=== PATIENT | female | born 1940 | race Caucasian/White ===

== ENCOUNTER 2020-10-11 11:04 | Outpatient (REF) | payer MEDICARE, SELFPAY ==
--- NOTE | 2020-10-11 | XR_ITS ---
EXAMINATION: XR CHEST CLINICAL INFORMATION: Preop COMPARISON: Previous chest x-ray most recent December 2019 TECHNIQUE: 2 views of the chest were obtained. FINDINGS: The cardiac silhouette is enlarged but stable. There is mitral annular calcification. Hilar and mediastinal contours are unremarkable. The lungs are clear. There is no pleural effusion. There are degenerative changes of the spine. There are degenerative changes at the shoulder joints. There is a surgical anchor projecting over the right humeral head. XR/XR chest 2V IMPRESSION: Enlarged cardiac silhouette similar to previous exams. No evidence for acute disease in the chest.
[2020-10-11 13:59] LABS: MANUAL DIFF FLAG NO
[2020-10-11 14:04] LABS: Basophils Percent Auto 0.2 % (0-2); Eosinophils Absolute Auto 0.3 X10*3/uL (0.0-0.4); Eosinophils Percent Auto 2.5 % (0-4); Hematocrit 35.6 % (37-47); Hemoglobin 10.8 g/dl (12.0-16.0); Imm Gran Abs Auto 0.03 X10*3/uL (0.00-0.03); Imm Gran Pct Auto 0.3 % (0.0-0.4); Lymphocytes Absolute Auto 1.9 X10*3/uL (1.2-4.9); Lymphocytes Percent Auto 18.4 % (20-40); Mean Corpuscular HGB Conc 30.3 g/dl (31.0-35.0); Mean Corpuscular Hemoglobin 31.1 pg (27.0-33.0); Mean Corpuscular Volume 102.6 fL (80-98); Mean Platelet Volume 11.6 fL (9.4-12.3); Monocytes Absolute Auto 0.5 X10*3/uL (0.1-1.2); Monocytes Percent Auto 4.5 % (2-11); Neutrophils Absolute Auto 7.5 X10*3/uL (2.0-8.3); Neutrophils Percent Auto 74.1 % (45-73); Platelet Count 201 X10*3/uL (160-400); Red Blood Count 3.47 X10*6/uL (4.20-5.50); Red Cell Distribution Width 15.6 % (11.0-16.0); White Blood Count 10.1 X10*3/uL (4.8-10.8)
[2020-10-11 14:10] LABS: Prothrombin Time 12.2 SEC (10.8-13.0)
[2020-10-11 14:20] LABS: Anion Gap 13 (12-20); Blood Urea Nitrogen 22 mg/dL (9-16); Calcium 9.4 mg/dL (8.4-10.2); Carbon Dioxide 29 mmol/L (22-29); Chloride 107 mmol/L (96-108); Estimated Glomerular Filt Rate 54; Glucose Random 81 mg/dL (60-115); Potassium 4.7 mmol/l (3.3-5.1); Sodium 144 mmol/L (135-145)
== END 2020-10-11 11:05 | disposition home or self-care (01) ==
LOC: HO.HMGCX 11:04
PROVIDERS: PCP Internal Medicine; Visit Provider Internal Medicine Clinical Cardiac Electrophysiology
DX: I48.19 Other persistent atrial fibrillation (principal); R55 Syncope and collapse
CPT/HCPCS: 36415; 71046; 80048; 85025; 85610

== ENCOUNTER 2020-12-06 12:54 | Outpatient (REF) | payer MEDICARE, SELFPAY ==
--- NOTE | 2020-12-06 13:05 | XR_ITS ---
EXAMINATION: XR THORACIC SPINE CLINICAL INFORMATION: Shooting pain left lateral T5-T6 disc level COMPARISON: None TECHNIQUE: 3 views of the thoracic spine were obtained. FINDINGS: There is normal thoracic kyphosis. The vertebral heights, alignment and disc heights are normal. There is moderate ventral spondylosis dorsal spine. No lytic process seen. A precordial recorder is seen along the left anterior chest wall. XR/XR thoracic spine 3V IMPRESSION: Moderate spondylosis dorsal spine. No acute cardiopulmonary process seen.
== END 2020-12-06 12:55 | disposition home or self-care (01) ==
LOC: HO.XRAY 12:54
PROVIDERS: PCP Internal Medicine; Visit Provider Internal Medicine
DX: M54.6 Pain in thoracic spine (principal)
CPT/HCPCS: 72072

== ENCOUNTER 2020-12-17 13:59 | Outpatient (REF) | payer MEDICARE, SELFPAY ==
[2020-12-17 17:08] LABS: Magnesium 2.1 mg/dL (1.6-2.6)
[2020-12-17 17:43] LABS: Carbamazepine Tegretol 3.2 mcg/mL (5.0-12.0)
== END 2020-12-17 14:00 | disposition home or self-care (01) ==
LOC: HO.HMGCLDS 13:59
PROVIDERS: PCP Internal Medicine; Visit Provider Internal Medicine
DX: M79.2 Neuralgia and neuritis, unspecified (principal); R53.83 Other fatigue
CPT/HCPCS: 36415; 80156; 83735

== ENCOUNTER 2021-02-02 08:22 | Outpatient (REF) | payer MEDICARE, SELFPAY ==
--- NOTE | ~2021-02-02 | CT_ITS ---
EXAMINATION: CT HEAD WITHOUT CONTRAST CLINICAL INFORMATION: Fell and bumped head. Rule out subdural. COMPARISON: None TECHNIQUE: Contiguous axial imaging was performed from the skull base to vertex without intravenous administration of contrast. This CT examination was performed using dose optimization techniques as appropriate, variously including the following: *Automated exposure control *Adjustment of mA and/or kV according to patient size (this includes techniques or standardized protocols for targeted exams where dose is matched to indication/reason for exam; i.e. extremities or head) *Use of iterative reconstruction technique DLP: 673 mGy-cm FINDINGS: There is no evidence of acute intracranial hemorrhage or territorial infarction. No abnormal mass effect or midline shift is seen. Morris to white matter differentiation is well preserved. No extra-axial fluid collections are identified. The lateral ventricles are symmetrical in size and configuration with mild enlargement. There is benign hyperostosis frontalis interna. The osseous structures and soft tissues are normal. The mastoid air cells and visualized portions of the paranasal sinuses are well aerated. CT/CT head/brain wo con IMPRESSION: No acute intracranial process seen.
== END 2021-02-02 08:23 | disposition home or self-care (01) ==
LOC: HO.CT 08:22
PROVIDERS: PCP Internal Medicine; Visit Provider Internal Medicine
DX: R41.0 Disorientation, unspecified (principal)
CPT/HCPCS: 70450

== ENCOUNTER 2021-02-05 14:54 | Emergency (ER) | payer MEDICARE, SELFPAY ==
[2021-02-05] VITALS (8 sets, daily range): BP systolic 143–157; BP diastolic 44–68; PULSE 54–69; RESP 13–16; TEMP 36.8; O2SAT 99; BMI 43.4
--- NOTE | 2021-02-05 | ECG_ITS ---
Test Reason : SYNCOPY Blood Pressure : / mmHG Vent. Rate : 049 BPM Atrial Rate : 258 BPM P-R Int : 000 ms QRS Dur : 154 ms QT Int : 476 ms P-R-T Axes : 000 -20 -12 degrees QTc Int : 429 ms Atrial fibrillation with slow ventricular response Right bundle branch block Abnormal ECG When compared with ECG of 11-APR-2018 08:53, Atrial fibrillation has replaced Sinus rhythm Vent. rate has decreased BY 32 BPM Referred By: Generic ED Physician Electronically Signed By:YULY ALMAGUER MD
--- NOTE | 2021-02-05 16:15 | ED_ITS ---
HPI - Dizziness General Chief Complaint: Dizziness Stated Complaint: dizzy Time Seen by Provider: 02/05/21 16:15 Source: patient Mode of arrival: ambulatory Limitations: no limitations History of Present Illness HPI Narrative: patient Feeling dizzy lightheaded for last 3 weeks which is getting worse especially when she stands up and moves her head to L side denies any spinning movement. Also she was nauseated in the morning today. No headache no balance problems no focal weakness no shortness of breath no chest pain no palpitation never had similar episode in the past patient has history of atrial fibrillation on loop recorder for last 3 months planning to get pacemaker on arrival patient heart rate was 49 beats per minute AFib MD elicited complaint: dizziness and lightheadedness Related Data Home Medications Medication Instructions Recorded Confirmed albuterol sulfate INHALATION 02/05/21 amlodipine 1 tab PO DAILY 02/05/21 02/05/21 atorvastatin 1 tab PO DAILY 02/05/21 02/05/21 carbamazepine 1 tab PO BID 02/05/21 02/05/21 citalopram 1 tab PO DAILY 02/05/21 02/05/21 cyanocobalamin (vitamin B-12) 1 ml IM QMONTH 02/05/21 02/05/21 furosemide 1 tab PO DAILY 02/05/21 02/05/21 isosorbide mononitrate 1 tab PO QAM 02/05/21 02/05/21 lorazepam 1 tab PO TID PRN 02/05/21 02/05/21 losartan 1 tab PO DAILY 02/05/21 02/05/21 meloxicam 1 tab PO DAILY 02/05/21 02/05/21 [id number] OTIC (EARS) 02/05/21 tramadol 1 tab PO TID 02/05/21 02/05/21 warfarin 1 tab PO DAILY 02/05/21 02/05/21 Previous Rx's Medication Instructions Recorded meclizine 12.5 mg PO TID PRN #14 tab 02/05/21 Allergies Allergy/AdvReac Type Severity Reaction Status Date / Time Sulfa (Sulfonamide Allergy Unknown RASH - Unverified 08/05/20 14:50 Antibiotics) ITCHY [SULFA(SULFONAMIDE ANTIBIOTICS)] sulfur Allergy Unknown Verified 12/02/14 00:00 trimethoprim [TRIMETHOPRIM] Allergy Unknown RASH ITCH Unverified 08/05/20 14:50 Review of Systems Review of Systems: Constitutional : No Weight loss, No Fever, No Chills ENT/Mouth : No sore throat, No Rhinorrhea Eyes: No Eye Pain, No Swelling Cardiovascular : No Chest Pain, no palpitations Respiratory : No Cough, No Sputum, no shortness of breath 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 : no Nausea, No Vomiting, No Diarrhea, No abdominal Pain, no black stools Genitourinary : No Dysuria, No Urinary Frequency Musculoskeletal : No joint pain, No Myalgias, No Joint Swelling Skin : No Skin Lesions, No rash Neuro : No Weakness, No Numbness, No Headache Psych : No Anxiety/Panic, No Depression Heme/Lymph: No Bruising, No Lymphadenopathy Endocrine : No Polyuria, No Polydipsia All other systems reviewed and are negative [facility] Past Medical History Medical History Anxiety CHF (congestive heart failure) COPD (chronic obstructive pulmonary disease) Depression GERD (gastroesophageal reflux disease) High cholesterol HTN (hypertension) Social History Social History Smoked in Last 30 Days: No Use of substances other than those prescribed or required for medical reasons: No Advance Directives: No Advance Directives Information Provided: No Physical Exam Vital Signs: Vital Signs: Last Vital Signs Temp 98.3 F 02/05/21 15:17 Pulse 67 02/05/21 18:35 Resp 16 02/05/21 17:38 BP 143/68 H 02/05/21 18:35 Pulse Ox 99 02/05/21 17:38 Body Mass Index 43.4 Appearance: Alert. Oriented X3. No acute distress. Eyes: Pupils equal, round and reactive to light. ENT: Pharynx normal. No nystagmus Neck: Normal inspection. Neck supple. CVS: Normal heart rate and rhythm. Pulses normal. Respiratory: No respiratory distress. Breath sounds normal. Abdomen: Soft and nontender. Bowel sounds are present, no mass palpable, no CVA tenderness Skin: Skin warm and dry. Normal skin color. Normal skin turgor. Extremities: No lower extremity edema. Neuro: Oriented X 3. No motor deficit. No sensory deficit. No cerebellar signs Course Course Course Narrative: Patient feeling much better now able to ambulate with cane without any significant dizziness patient had a CT scan done to days ago which was negative patient denies any headache MDM - Dizziness MDM Narrative Medical decision making narrative: Patient with Clinically benign positional vertigo patient had a CT scan done on 02/02 which was negative no signs of central lesions no cerebellar signs no orthostatic hypertension. Patient had asymptomatic bradycardia without drop in blood pressure. Will give her a trial of meclizine and evaluate again Differential Diagnosis Differential diagnosis: Likely benign paroxysmal positional vertigo Medical Records Attestation: I reviewed the patient's medical records. Lab Data Attestation: I reviewed the patient's lab results. Result diagrams: 02/05/21 17:04 02/05/21 17:04 Labs: Lab Results 02/05/21 02/05/21 02/05/21 Range/Units 17:04 17:04 17:04 WBC 7.1 (4.8-10.8) X10*3/uL RBC 3.54 L (4.20-5.50) X10*6/uL Hgb 11.2 L (12.0-16.0) g/dl Hct 35.6 L (37-47) % MCV 100.6 H (80-98) fL MCH 31.6 (27.0-33.0) pg MCHC 31.5 (31.0-35.0) g/dl RDW 15.7 (11.0-16.0) % Plt Count 165 (160-400) X10*3/uL MPV 10.4 (9.4-12.3) fL Immature Gran % (Auto) 0.3 (0.0-0.4) % Neut % (Auto) 74.6 H (45-73) % Lymph % (Auto) 18.8 L (20-40) % Mcdonald % (Auto) 4.8 (2-11) % Eos % (Auto) 1.4 (0-4) % Baso % (Auto) 0.1 (0-2) % Lymph # (Auto) 1.3 (1.2-4.9) X10*3/uL Mcdonald # (Auto) 0.3 (0.1-1.2) X10*3/uL Eos # (Auto) 0.1 (0.0-0.4) X10*3/uL Baso # (Auto) 0.0 (0.0-0.2) X10*3/uL Abs Immat Gran (auto) 0.02 (0.00-0.03) X10*3/uL Absolute Neuts (auto) 5.3 (2.0-8.3) X10*3/uL Absolute Nucleated RBC 0.000 (0.0-0.012) X10*3/uL Nucleated RBC % (auto) 0.0 (0.0-0.2) /100WBC PT (10.8-13.0) SEC INR (0.9-1.1) APTT (24.1-38.0) SEC Sodium 143 (135-145) mmol/L Potassium 4.4 (3.3-5.1) mmol/L Chloride 107 (96-108) mmol/L Carbon Dioxide 28 (22-29) mmol/L Anion Gap 12 (12-20) BUN 22 H (9-16) mg/dL Creatinine 0.79 (0.5-1.4) mg/dL Estim Creat Clear Calc 54.3 Estimated GFR > 60 Random Glucose 95 (60-115) mg/dL Calcium 9.4 (8.4-10.2) mg/dL Troponin I High Sens 11.6 (<3.5-17.0) ng/L Urine Color Urine Appearance Urine pH (5.0-8.0) Ur Specific [place] (1.005-1.025) Urine Protein (NEG-TRACE) MG/DL Urine Glucose (UA) (NEG) MG/DL Urine Ketones (NEG) MG/DL Urine Blood (NEG) Urine Nitrite (NEG) Ur Leukocyte Esterase (NEG) COVID-19 (EMMA) (Negative) COVID-19 Clin Com 02/05/21 02/05/21 02/05/21 Range/Units 17:04 17:04 17:04 WBC (4.8-10.8) X10*3/uL RBC (4.20-5.50) X10*6/uL Hgb (12.0-16.0) g/dl Hct (37-47) % MCV (80-98) fL MCH (27.0-33.0) pg MCHC (31.0-35.0) g/dl RDW (11.0-16.0) % Plt Count (160-400) X10*3/uL MPV (9.4-12.3) fL Immature Gran % (Auto) (0.0-0.4) % Neut % (Auto) (45-73) % Lymph % (Auto) (20-40) % Mcdonald % (Auto) (2-11) % Eos % (Auto) (0-4) % Baso % (Auto) (0-2) % Lymph # (Auto) (1.2-4.9) X10*3/uL Mcdonald # (Auto) (0.1-1.2) X10*3/uL Eos # (Auto) (0.0-0.4) X10*3/uL Baso # (Auto) (0.0-0.2) X10*3/uL Abs Immat Gran (auto) (0.00-0.03) X10*3/uL Absolute Neuts (auto) (2.0-8.3) X10*3/uL Absolute Nucleated RBC (0.0-0.012) X10*3/uL Nucleated RBC % (auto) (0.0-0.2) /100WBC PT 13.1 H (10.8-13.0) SEC INR 1.1 (0.9-1.1) APTT 34.3 (24.1-38.0) SEC Sodium (135-145) mmol/L Potassium (3.3-5.1) mmol/L Chloride (96-108) mmol/L Carbon Dioxide (22-29) mmol/L Anion Gap (12-20) BUN (9-16) mg/dL Creatinine (0.5-1.4) mg/dL Estim Creat Clear Calc Estimated GFR Random Glucose (60-115) mg/dL Calcium (8.4-10.2) mg/dL Troponin I High Sens (<3.5-17.0) ng/L Urine Color STRAW Urine Appearance CLEAR Urine pH 6.5 (5.0-8.0) Ur Specific [place] 1.015 (1.005-1.025) Urine Protein NEG (NEG-TRACE) MG/DL Urine Glucose (UA) NEG (NEG) MG/DL Urine Ketones NEG (NEG) MG/DL Urine Blood NEG (NEG) Urine Nitrite NEG (NEG) Ur Leukocyte Esterase NEG (NEG) COVID-19 (EMMA) Negative (Negative) COVID-19 Clin Com See Note ECG Data Attestation: I personally reviewed and interpreted this ECG as follows: Interpretation: Atrial fibrillation with ventricular rate of 49 beats per minute right bundle-branch block no acute ST T wave changes no acute ischemia Discharge Plan Discharge Clinical Impression: Benign paroxysmal positional vertigo Patient Disposition: Home, Self-Care Instructions: Benign Paroxysmal Positional Vertigo (ED) Additional Instructions: Care and caution is advised take medication for severe dizziness as advised Prescriptions: New meclizine 12.5 mg tablet 12.5 mg PO TID PRN (Reason: dizziness) Qty: 14 RF: 0 No Action losartan 50 mg tablet 1 tab PO DAILY RF: 0 [id number] 3.5-10,000-1 mg/mL-unit/mL-% solution otic (ears) RF: 0 atorvastatin 20 mg tablet 1 tab PO DAILY RF: 0 citalopram 40 mg tablet 1 tab PO DAILY RF: 0 meloxicam 15 mg tablet 1 tab PO DAILY RF: 0 isosorbide mononitrate 30 mg tablet extended release 24 hr 1 tab PO QAM RF: 0 amlodipine 5 mg tablet 1 tab PO DAILY RF: 0 tramadol 50 mg tablet 1 tab PO TID RF: 0 carbamazepine 200 mg tablet 1 tab PO BID RF: 0 cyanocobalamin (vitamin B-12) 1,000 mcg/mL solution 1 ml IM QMONTH RF: 0 warfarin 2 mg tablet 1 tab PO DAILY RF: 0 furosemide 20 mg tablet 1 tab PO DAILY RF: 0 lorazepam 1 mg tablet 1 tab PO TID PRN (Reason: anxiety) RF: 0 albuterol sulfate 90 mcg/actuation HFA aerosol inhaler inhalation RF: 0
[2021-02-05 17:10] LABS: MANUAL DIFF FLAG NO
[2021-02-05 17:16] LABS: Basophils Percent Auto 0.1 % (0-2); Eosinophils Absolute Auto 0.1 X10*3/uL (0.0-0.4); Eosinophils Percent Auto 1.4 % (0-4); Hematocrit 35.6 % (37-47); Hemoglobin 11.2 g/dl (12.0-16.0); Imm Gran Abs Auto 0.02 X10*3/uL (0.00-0.03); Imm Gran Pct Auto 0.3 % (0.0-0.4); Lymphocytes Absolute Auto 1.3 X10*3/uL (1.2-4.9); Lymphocytes Percent Auto 18.8 % (20-40); Mean Corpuscular HGB Conc 31.5 g/dl (31.0-35.0); Mean Corpuscular Hemoglobin 31.6 pg (27.0-33.0); Mean Corpuscular Volume 100.6 fL (80-98); Mean Platelet Volume 10.4 fL (9.4-12.3); Monocytes Absolute Auto 0.3 X10*3/uL (0.1-1.2); Monocytes Percent Auto 4.8 % (2-11); Neutrophils Absolute Auto 5.3 X10*3/uL (2.0-8.3); Neutrophils Percent Auto 74.6 % (45-73); Platelet Count 165 X10*3/uL (160-400); Red Blood Count 3.54 X10*6/uL (4.20-5.50); Red Cell Distribution Width 15.7 % (11.0-16.0); White Blood Count 7.1 X10*3/uL (4.8-10.8)
[2021-02-05 17:25] LABS: COVID-19 Test Negative (Negative)
[2021-02-05 17:29] LABS: Glucose Urine UA NEG (NEG); Leukocyte Esterase Urine NEG (NEG); Nitrite Urine NEG (NEG); PH 6.5 (5.0-8.0); Specific Gravity - Urine 1.015 (1.005-1.025); Urine Blood NEG (NEG); Urine Ketones NEG (NEG); Urine Protein NEG (NEG-TRACE)
[2021-02-05 17:31] LABS: Appearance Urine CLEAR; Color Urine STRAW
[2021-02-05 17:35] LABS: Anion Gap 12 (12-20); Blood Urea Nitrogen 22 mg/dL (9-16); Calcium 9.4 mg/dL (8.4-10.2); Carbon Dioxide 28 mmol/L (22-29); Chloride 107 mmol/L (96-108); Creatinine Clr Calc Pharmacy 54.3; Estimated Glomerular Filt Rate > 60; Glucose Random 95 mg/dL (60-115); Potassium 4.4 mmol/L (3.3-5.1); Sodium 143 mmol/L (135-145)
[2021-02-05 17:43] LABS: Troponin-I High Sensitivity 11.6 ng/L (<3.5-17.0)
[2021-02-05] MEDS: Meclizine HCl 25 MG TABLET PO (19:35)
[2021-02-05 19:40] LABS: INTERNATIONAL NORM RATIO 1.1 (0.9-1.1); Prothrombin Time 13.1 SEC (10.8-13.0)
[2021-02-05 19:43] LABS: Partial Thromboplastin Time 34.3 SEC (24.1-38.0)
== END 2021-02-05 20:23 | disposition home or self-care (01) ==
PROVIDERS: Emergency Provider Internal Medicine
DX: H81.10 Benign paroxysmal vertigo, unspecified ear (principal); Z20.822 Contact with and (suspected) exposure to COVID-19; I11.0 Hypertensive heart disease with heart failure; I50.9 Heart failure, unspecified; F41.9 Anxiety disorder, unspecified
CPT/HCPCS: 36415; 80048; 81003; 84484; 85025; 85610; 85730; 87635; 93005; 99284

== ENCOUNTER 2021-03-09 14:24 | Outpatient (REF) | payer MEDICARE, OTHER, SELFPAY ==
--- NOTE | ~2021-03-09 | XR_ITS ---
EXAMINATION: XR WRIST, LEFT CLINICAL INFORMATION: Pain lateral carpus near base first metacarpal. COMPARISON: None TECHNIQUE: PA, lateral, and oblique views of the left wrist. FINDINGS: There is no fracture or dislocation. The pronator quadratus fat pad appears normal. The ulnar variance is neutral. There is some fine chondrocalcinosis in the region of the triangular fibrocartilage and lunotriquetral ligament. No erosive change. Osteoarthritic changes are present at the first carpometacarpal joint with joint narrowing and subchondral sclerosis and spurring. There is mild generalized osteopenia. XR/XR wrist LT min 3V IMPRESSION: 1. Osteoarthritis first carpometacarpal joint. 2. Chondrocalcinosis involving triangular fibrocartilage and no triquetral ligament. No erosive change.
== END 2021-03-09 14:25 | disposition home or self-care (01) ==
LOC: HO.HMGCX 14:24
PROVIDERS: PCP Internal Medicine; Visit Provider Internal Medicine
DX: M25.542 Pain in joints of left hand (principal)
CPT/HCPCS: 73110

== ENCOUNTER 2021-03-24 10:48 | Outpatient (REF) | payer MEDICARE, SELFPAY ==
[2021-03-24 14:31] LABS: INTERNATIONAL NORM RATIO 1.3 (0.9-1.1); Prothrombin Time 15.6 SEC (10.8-13.0)
== END 2021-03-24 10:49 | disposition home or self-care (01) ==
LOC: HO.HMGCLDS 10:48
PROVIDERS: PCP Internal Medicine; Visit Provider Internal Medicine
DX: I48.11 Longstanding persistent atrial fibrillation (principal)
CPT/HCPCS: 36415; 85610

== ENCOUNTER 2021-05-30 11:09 | Outpatient (REF) | payer MEDICARE, OTHER, SELFPAY ==
[2021-05-30 13:52] LABS: MANUAL DIFF FLAG NO
[2021-05-30 14:00] LABS: Basophils Percent Auto 0.1 % (0-2); Eosinophils Absolute Auto 0.2 X10*3/uL (0.0-0.4); Hematocrit 35.5 % (37-47); Hemoglobin 11.1 g/dl (12.0-16.0); Imm Gran Abs Auto 0.02 X10*3/uL (0.00-0.03); Imm Gran Pct Auto 0.3 % (0.0-0.4); Lymphocytes Absolute Auto 1.8 X10*3/uL (1.2-4.9); Lymphocytes Percent Auto 26.9 % (20-40); Mean Corpuscular HGB Conc 31.3 g/dl (31.0-35.0); Mean Corpuscular Hemoglobin 30.4 pg (27.0-33.0); Mean Corpuscular Volume 97.3 fL (80-98); Mean Platelet Volume 11.3 fL (9.4-12.3); Monocytes Absolute Auto 0.4 X10*3/uL (0.1-1.2); Monocytes Percent Auto 5.9 % (2-11); Neutrophils Absolute Auto 4.3 X10*3/uL (2.0-8.3); Neutrophils Percent Auto 63.8 % (45-73); Platelet Count 177 X10*3/uL (160-400); Red Blood Count 3.65 X10*6/uL (4.20-5.50); Red Cell Distribution Width 15.9 % (11.0-16.0); White Blood Count 6.8 X10*3/uL (4.8-10.8)
[2021-05-30 14:03] LABS: INTERNATIONAL NORM RATIO 3.3 (0.9-1.1); Prothrombin Time 38.5 SEC (9.9-13.0)
[2021-05-30 14:20] LABS: Anion Gap 15 (12-20); Blood Urea Nitrogen 27 mg/dL (9-16); Calcium 9.5 mg/dL (8.4-10.2); Carbon Dioxide 23 mmol/L (22-29); Chloride 108 mmol/L (96-108); Estimated Glomerular Filt Rate > 60; Glucose Random 92 mg/dL (60-115); Potassium 4.5 mmol/L (3.3-5.1); Sodium 141 mmol/L (135-145)
== END 2021-05-30 11:10 | disposition home or self-care (01) ==
LOC: HO.HMGCLDS 11:09
PROVIDERS: PCP Internal Medicine; Visit Provider Internal Medicine Clinical Cardiac Electrophysiology
DX: I49.5 Sick sinus syndrome (principal)
CPT/HCPCS: 36415; 80048; 85025; 85610

== ENCOUNTER 2021-08-11 10:53 | Outpatient (REF) | payer MEDICARE, OTHER, SELFPAY ==
[2021-08-11 13:57] LABS: INTERNATIONAL NORM RATIO 1.4 (0.9-1.1); Prothrombin Time 15.7 SEC (9.9-13.0)
== END 2021-08-11 10:54 | disposition home or self-care (01) ==
LOC: HO.HMGCLR 10:53
PROVIDERS: PCP Internal Medicine; Visit Provider Internal Medicine
DX: I48.91 Unspecified atrial fibrillation (principal)
CPT/HCPCS: 36415; 85610

== ENCOUNTER 2021-08-24 10:28 | Outpatient (REF) | payer MEDICARE, OTHER, SELFPAY ==
[2021-08-24 11:28] LABS: Prothrombin Time 22.9 SEC (9.9-13.0)
== END 2021-08-24 10:29 | disposition home or self-care (01) ==
LOC: HO.HMGCLDS 10:28
PROVIDERS: PCP Internal Medicine; Visit Provider Internal Medicine
DX: I48.20 Chronic atrial fibrillation, unspecified (principal)
CPT/HCPCS: 36415; 85610

== ENCOUNTER 2021-08-31 10:11 | Outpatient (REF) | payer MEDICARE, OTHER, SELFPAY ==
[2021-08-31 11:50] LABS: INTERNATIONAL NORM RATIO 1.7 (0.9-1.1); Prothrombin Time 19.4 SEC (9.9-13.0)
== END 2021-08-31 10:12 | disposition home or self-care (01) ==
LOC: HO.HMGCLR 10:11
PROVIDERS: PCP Internal Medicine; Visit Provider Internal Medicine
DX: I48.20 Chronic atrial fibrillation, unspecified (principal)
CPT/HCPCS: 36415; 85610

== ENCOUNTER 2021-09-07 10:16 | Outpatient (REF) | payer MEDICARE, OTHER, SELFPAY ==
[2021-09-07 11:49] LABS: INTERNATIONAL NORM RATIO 1.5 (0.9-1.1); Prothrombin Time 17.1 SEC (9.9-13.0)
== END 2021-09-07 10:17 | disposition home or self-care (01) ==
LOC: HO.HMGCLR 10:16
PROVIDERS: PCP Internal Medicine; Visit Provider Internal Medicine
DX: I48.20 Chronic atrial fibrillation, unspecified (principal)
CPT/HCPCS: 36415; 85610

== ENCOUNTER 2021-09-14 09:27 | Outpatient (REF) | payer MEDICARE, OTHER, SELFPAY ==
[2021-09-14 11:44] LABS: INTERNATIONAL NORM RATIO 1.8 (0.9-1.1); Prothrombin Time 20.4 SEC (9.9-13.0)
== END 2021-09-14 09:28 | disposition home or self-care (01) ==
LOC: HO.HMGCLR 09:27
PROVIDERS: PCP Internal Medicine; Visit Provider Internal Medicine
DX: I48.20 Chronic atrial fibrillation, unspecified (principal)
CPT/HCPCS: 36415; 85610

== ENCOUNTER 2021-09-21 09:35 | Outpatient (REF) | payer MEDICARE, OTHER, SELFPAY ==
[2021-09-21 11:49] LABS: INTERNATIONAL NORM RATIO 2.5 (0.9-1.1); Prothrombin Time 28.9 SEC (9.9-13.0)
== END 2021-09-21 09:36 | disposition home or self-care (01) ==
LOC: HO.HMGCLDS 09:35
PROVIDERS: Visit Provider Internal Medicine
DX: I48.20 Chronic atrial fibrillation, unspecified (principal)
CPT/HCPCS: 36415; 85610

== ENCOUNTER 2021-09-28 09:31 | Outpatient (REF) | payer MEDICARE, OTHER, SELFPAY ==
[2021-09-28 11:37] LABS: Prothrombin Time 22.9 SEC (9.9-13.0)
== END 2021-09-28 09:32 | disposition home or self-care (01) ==
LOC: HO.HMGCLR 09:31
PROVIDERS: PCP Internal Medicine; Visit Provider Internal Medicine
DX: I48.91 Unspecified atrial fibrillation (principal)
CPT/HCPCS: 36415; 85610

== ENCOUNTER 2021-10-05 09:48 | Outpatient (REF) | payer MEDICARE, OTHER, SELFPAY ==
[2021-10-05 11:34] LABS: INTERNATIONAL NORM RATIO 2.1 (0.9-1.1); Prothrombin Time 24.8 SEC (9.9-13.0)
== END 2021-10-05 09:49 | disposition home or self-care (01) ==
LOC: HO.HMGCLDS 09:48
PROVIDERS: PCP Internal Medicine; Visit Provider Internal Medicine
DX: I48.20 Chronic atrial fibrillation, unspecified (principal)
CPT/HCPCS: 36415; 85610

== ENCOUNTER 2021-10-14 09:46 | Outpatient (REF) | payer MEDICARE, OTHER, SELFPAY ==
--- NOTE | ~2021-10-14 | XR_ITS ---
EXAMINATION: XR ANKLE, RIGHT CLINICAL INFORMATION: Right ankle pain and swelling. COMPARISON: Radiographs right lower leg 04/14/2007. TECHNIQUE: AP, lateral, and mortise views of the right ankle. FINDINGS: There is no acute or healing fracture, dislocation, destructive process. There is spurring at the distal anterior tibia. The ankle mortise is symmetric. Talar dome shows no visible osteochondral lesion. The retrocalcaneal recess is preserved. There is some fine spurring at the Achilles insertion and a moderate plantar calcaneal spur. There are scattered curvilinear calcifications involving chronic varicose veins lower leg. XR/XR ankle RT min 3V IMPRESSION: 1. No fracture or dislocation. 2. Posterior and plantar calcaneal spurs. 3. Varicose veins.
== END 2021-10-14 09:47 | disposition home or self-care (01) ==
LOC: HO.HMGCX 09:46
PROVIDERS: PCP Internal Medicine; Visit Provider Internal Medicine
DX: M25.571 Pain in right ankle and joints of right foot (principal); M77.31 Calcaneal spur, right foot; I70.201 Unspecified atherosclerosis of native arteries of extremities, right leg
CPT/HCPCS: 73610

== ENCOUNTER 2021-10-26 09:33 | Outpatient (REF) | payer MEDICARE, OTHER, SELFPAY ==
[2021-10-26 11:35] LABS: INTERNATIONAL NORM RATIO 2.3 (0.9-1.1)
== END 2021-10-26 09:34 | disposition home or self-care (01) ==
LOC: HO.HMGCLR 09:33
PROVIDERS: PCP Internal Medicine; Visit Provider Internal Medicine
DX: I48.91 Unspecified atrial fibrillation (principal)
CPT/HCPCS: 36415; 85610

== ENCOUNTER 2021-11-22 10:07 | Outpatient (REF) | payer MEDICARE, OTHER, SELFPAY ==
[2021-11-22 11:44] LABS: INTERNATIONAL NORM RATIO 1.6 (0.9-1.1); Prothrombin Time 18.5 SEC (9.9-13.0)
== END 2021-11-22 10:08 | disposition home or self-care (01) ==
LOC: HO.HMGCLDS 10:07
PROVIDERS: PCP Internal Medicine; Visit Provider Internal Medicine
DX: I48.91 Unspecified atrial fibrillation (principal)
CPT/HCPCS: 36415; 85610

== ENCOUNTER 2021-12-07 09:51 | Outpatient (REF) | payer MEDICARE, OTHER, SELFPAY ==
[2021-12-07 11:37] LABS: INTERNATIONAL NORM RATIO 1.6 (0.9-1.1); Prothrombin Time 18.9 SEC (9.9-13.0)
== END 2021-12-07 09:52 | disposition home or self-care (01) ==
LOC: HO.HMGCLR 09:51
PROVIDERS: PCP Internal Medicine; Visit Provider Internal Medicine
DX: I48.91 Unspecified atrial fibrillation (principal)
CPT/HCPCS: 36415; 85610

== ENCOUNTER 2021-12-14 11:51 | Outpatient (REF) | payer MEDICARE, OTHER, SELFPAY ==
[2021-12-14 13:49] LABS: INTERNATIONAL NORM RATIO 1.9 (0.9-1.1)
== END 2021-12-14 11:52 | disposition home or self-care (01) ==
LOC: HO.HMGCLR 11:51
PROVIDERS: PCP Internal Medicine; Visit Provider Internal Medicine
DX: I48.91 Unspecified atrial fibrillation (principal)
CPT/HCPCS: 36415; 85610

== ENCOUNTER 2021-12-22 09:11 | Outpatient (REF) | payer MEDICARE, OTHER, SELFPAY ==
[2021-12-22 11:18] LABS: MANUAL DIFF FLAG NO
[2021-12-22 11:27] LABS: Basophils Percent Auto 0.4 % (0-2); Eosinophils Absolute Auto 0.2 X10*3/uL (0.0-0.4); Eosinophils Percent Auto 4.4 % (0-4); Hematocrit 34.9 % (37.0-47.0); Hemoglobin 10.7 g/dl (12.0-16.0); Imm Gran Abs Auto 0.03 X10*3/uL (0.00-0.03); Imm Gran Pct Auto 0.6 % (0.0-0.4); Lymphocytes Absolute Auto 1.4 X10*3/uL (1.2-4.9); Lymphocytes Percent Auto 27.7 % (20-40); Mean Corpuscular HGB Conc 30.7 g/dl (31.0-35.0); Mean Corpuscular Hemoglobin 30.2 pg (27.0-33.0); Mean Corpuscular Volume 98.6 fL (80.0-98.0); Monocytes Absolute Auto 0.4 X10*3/uL (0.1-1.2); Neutrophils Absolute Auto 3.1 x10*3/uL (2.0-8.3); Neutrophils Percent Auto 59.9 % (45-73); Platelet Count 152 X10*3/uL (160-400); Red Blood Count 3.54 X10*6/uL (4.20-5.50); Red Cell Distribution Width 16.6 % (11.0-16.0); White Blood Count 5.2 X10*3/uL (4.8-10.8)
[2021-12-22 11:37] LABS: INTERNATIONAL NORM RATIO 2.2 (0.9-1.1); Prothrombin Time 25.2 SEC (9.9-13.0)
[2021-12-22 11:44] LABS: Alanine Aminotransferase 16 U/L (0-31); Albumin Level 4.1 g/dL (3.5-5.0); Alkaline Phosphatase 76 U/L (39-117); Anion Gap 14 (12-20); Aspartate Amino Transferase 18 U/L (5-31); Bilirubin Direct 0.2 mg/dL (0.0-0.5); Bilirubin Total 0.6 mg/dL (0.0-1.0); Blood Urea Nitrogen 31 mg/dL (9-16); Carbon Dioxide 28 mmol/L (22-29); Chloride 107 mmol/L (96-108); Cholesterol 188 mg/dL; Estimated Glomerular Filt Rate 58; Glucose Fasting 103 mg/dL (60-99); HDL Cholesterol 50 mg/dL; LDL Cholesterol Calculated 116 mg/dl; Magnesium 2.2 mg/dL (1.6-2.6); Potassium 4.7 mmol/L (3.3-5.1); Sodium 144 mmol/L (135-145); Total Protein 6.3 g/dL (6.5-8.0); Triglycerides 114 mg/dL
[2021-12-22 15:05] LABS: Carbamazepine Tegretol 2.5 mcg/mL (5.0-12.0)
== END 2021-12-22 09:12 | disposition home or self-care (01) ==
LOC: HO.HMGCLDS 09:11
PROVIDERS: Absent Provider Internal Medicine; Visit Provider Internal Medicine
DX: R53.83 Other fatigue (principal); E78.5 Hyperlipidemia, unspecified; G50.0 Trigeminal neuralgia; I48.91 Unspecified atrial fibrillation
CPT/HCPCS: 36415; 80051; 80061; 80076; 80156; 82565; 82947; 83735; 84520; 85025; 85610

== ENCOUNTER 2021-12-28 11:30 | Outpatient (REF) | payer MEDICARE, OTHER, SELFPAY ==
[2021-12-28 13:59] LABS: INTERNATIONAL NORM RATIO 1.9 (0.9-1.1); Prothrombin Time 22.4 SEC (9.9-13.0)
== END 2021-12-28 11:31 | disposition home or self-care (01) ==
LOC: HO.HMGCLR 11:30
PROVIDERS: PCP Internal Medicine; Visit Provider Internal Medicine
DX: I48.91 Unspecified atrial fibrillation (principal); Z79.01 Long term (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
CPT/HCPCS: 36415; 85610

== ENCOUNTER 2022-01-04 10:43 | Outpatient (REF) | payer MEDICARE, OTHER, SELFPAY | END 2022-01-04 10:44 | disposition home or self-care (01) | LOC: HO.HMGCLR 10:43 | PROVIDERS: PCP Internal Medicine; Visit Provider Internal Medicine | DX: I48.91 Unspecified atrial fibrillation (principal) | CPT/HCPCS: 36415; 85610 ==

== ENCOUNTER 2022-01-11 10:13 | Outpatient (REF) | payer MEDICARE, OTHER, SELFPAY ==
[2022-01-11 11:19] LABS: INTERNATIONAL NORM RATIO 4.1 (0.9-1.1); Prothrombin Time 48.1 SEC (9.9-13.0)
== END 2022-01-11 10:14 | disposition home or self-care (01) ==
LOC: HO.HMGCLR 10:13
PROVIDERS: Visit Provider Internal Medicine
DX: I48.91 Unspecified atrial fibrillation (principal)
CPT/HCPCS: 36415; 85610

== ENCOUNTER 2022-01-16 10:38 | Outpatient (REF) | payer MEDICARE, OTHER, SELFPAY ==
[2022-01-16 11:39] LABS: INTERNATIONAL NORM RATIO 1.2 (0.9-1.1); Prothrombin Time 13.2 SEC (9.9-13.0)
== END 2022-01-16 10:39 | disposition home or self-care (01) ==
LOC: HO.HMGCLDS 10:38
PROVIDERS: PCP Internal Medicine; Visit Provider Internal Medicine
DX: I48.91 Unspecified atrial fibrillation (principal)
CPT/HCPCS: 36415; 85610

== ENCOUNTER 2022-01-25 13:04 | Outpatient (REF) | payer MEDICARE, OTHER, SELFPAY ==
[2022-01-25 14:02] LABS: INTERNATIONAL NORM RATIO 3.3 (0.9-1.1); Prothrombin Time 38.1 SEC (9.9-13.0)
== END 2022-01-25 13:05 | disposition home or self-care (01) ==
LOC: HO.HMGCLR 13:04
PROVIDERS: PCP Internal Medicine; Visit Provider Internal Medicine
DX: I48.91 Unspecified atrial fibrillation (principal)
CPT/HCPCS: 36415; 85610

== ENCOUNTER 2022-02-01 10:50 | Outpatient (REF) | payer MEDICARE, OTHER, SELFPAY ==
[2022-02-01 13:58] LABS: INTERNATIONAL NORM RATIO 3.3 (0.9-1.1); Prothrombin Time 38.2 SEC (9.9-13.0)
== END 2022-02-01 10:51 | disposition home or self-care (01) ==
LOC: HO.HMGCLR 10:50
PROVIDERS: Visit Provider Internal Medicine
DX: I48.91 Unspecified atrial fibrillation (principal)
CPT/HCPCS: 36415; 85610

== ENCOUNTER 2022-02-07 09:20 | Outpatient (REF) | payer MEDICARE, OTHER, SELFPAY ==
[2022-02-07 11:45] LABS: INTERNATIONAL NORM RATIO 2.9 (0.9-1.1); Prothrombin Time 33.2 SEC (9.9-13.0)
== END 2022-02-07 09:21 | disposition home or self-care (01) ==
LOC: HO.HMGCLR 09:20
PROVIDERS: Visit Provider Internal Medicine
DX: I48.91 Unspecified atrial fibrillation (principal)
CPT/HCPCS: 36415; 85610

== ENCOUNTER 2022-02-15 09:50 | Outpatient (REF) | payer MEDICARE, OTHER, SELFPAY ==
[2022-02-15 12:25] LABS: INTERNATIONAL NORM RATIO 2.4 (0.9-1.1); Prothrombin Time 27.5 SEC (9.9-13.0)
== END 2022-02-15 09:51 | disposition home or self-care (01) ==
LOC: HO.HMGCLR 09:50
PROVIDERS: Visit Provider Internal Medicine
DX: I48.91 Unspecified atrial fibrillation (principal)
CPT/HCPCS: 36415; 85610

== ENCOUNTER 2022-03-01 08:46 | Outpatient (REF) | payer MEDICARE, OTHER, SELFPAY ==
[2022-03-01 11:30] LABS: INTERNATIONAL NORM RATIO 4.1 (0.9-1.1)
== END 2022-03-01 08:47 | disposition home or self-care (01) ==
LOC: HO.HMGCLR 08:46
PROVIDERS: Visit Provider Internal Medicine
DX: I48.91 Unspecified atrial fibrillation (principal); Z79.01 Long term (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
CPT/HCPCS: 36415; 85610

== ENCOUNTER 2022-03-03 07:59 | Outpatient (REF) | payer MEDICARE, OTHER, SELFPAY ==
[2022-03-03 11:28] LABS: INTERNATIONAL NORM RATIO 2.7 (0.9-1.1); Prothrombin Time 31.7 SEC (9.9-13.0)
== END 2022-03-03 08:00 | disposition home or self-care (01) ==
LOC: HO.HMGCLR 07:59
PROVIDERS: Visit Provider Internal Medicine
DX: I48.91 Unspecified atrial fibrillation (principal)
CPT/HCPCS: 36415; 85610

== ENCOUNTER 2022-03-13 08:33 | Outpatient (REF) | payer MEDICARE, OTHER, SELFPAY ==
[2022-03-13 11:54] LABS: INTERNATIONAL NORM RATIO 2.5 (0.9-1.1); Prothrombin Time 29.5 SEC (9.9-13.0)
== END 2022-03-13 08:34 | disposition home or self-care (01) ==
LOC: HO.HMGCLR 08:33
PROVIDERS: Visit Provider Internal Medicine
DX: I48.91 Unspecified atrial fibrillation (principal)
CPT/HCPCS: 36415; 85610

== ENCOUNTER 2022-03-21 09:51 | Outpatient (REF) | payer MEDICARE, OTHER, SELFPAY ==
[2022-03-21 11:59] LABS: INTERNATIONAL NORM RATIO 1.6 (0.9-1.1); Prothrombin Time 17.8 SEC (9.9-13.0)
== END 2022-03-21 09:52 | disposition home or self-care (01) ==
LOC: HO.HMGCLR 09:51
PROVIDERS: Visit Provider Internal Medicine
DX: I48.91 Unspecified atrial fibrillation (principal)
CPT/HCPCS: 36415; 85610

== ENCOUNTER 2022-04-03 09:01 | Outpatient (REF) | payer MEDICARE, OTHER, SELFPAY ==
[2022-04-03 11:39] LABS: Prothrombin Time 23.3 SEC (9.9-13.0)
== END 2022-04-03 09:02 | disposition home or self-care (01) ==
LOC: HO.LABR 09:01
PROVIDERS: PCP Internal Medicine; Visit Provider Internal Medicine
DX: I48.91 Unspecified atrial fibrillation (principal)
CPT/HCPCS: 36415; 85610

== ENCOUNTER 2022-04-11 08:36 | Outpatient (REF) | payer MEDICARE, OTHER, SELFPAY ==
[2022-04-11 11:43] LABS: INTERNATIONAL NORM RATIO 2.1 (0.9-1.1); Prothrombin Time 23.9 SEC (9.9-13.0)
== END 2022-04-11 08:37 | disposition home or self-care (01) ==
LOC: HO.HMGCLR 08:36
PROVIDERS: Visit Provider Internal Medicine
DX: I48.91 Unspecified atrial fibrillation (principal)
CPT/HCPCS: 36415; 85610

== ENCOUNTER 2022-04-18 08:46 | Outpatient (REF) | payer MEDICARE, OTHER, SELFPAY ==
[2022-04-18 11:38] LABS: INTERNATIONAL NORM RATIO 1.6 (0.9-1.1); Prothrombin Time 18.6 SEC (9.9-13.0)
== END 2022-04-18 08:47 | disposition home or self-care (01) ==
LOC: HO.HMGCLR 08:46
PROVIDERS: Visit Provider Internal Medicine
DX: I48.91 Unspecified atrial fibrillation (principal)
CPT/HCPCS: 36415; 85610

== ENCOUNTER 2022-04-25 08:47 | Outpatient (REF) | payer MEDICARE, OTHER, SELFPAY ==
[2022-04-25 11:41] LABS: INTERNATIONAL NORM RATIO 1.6 (0.9-1.1); Prothrombin Time 18.6 SEC (9.9-13.0)
== END 2022-04-25 08:48 | disposition home or self-care (01) ==
LOC: HO.HMGCLR 08:47
PROVIDERS: Visit Provider Internal Medicine
DX: I48.91 Unspecified atrial fibrillation (principal)
CPT/HCPCS: 36415; 85610

== ENCOUNTER 2022-05-10 09:06 | Outpatient (REF) | payer MEDICARE, OTHER, SELFPAY ==
[2022-05-10 11:46] LABS: INTERNATIONAL NORM RATIO 1.7 (0.9-1.1); Prothrombin Time 19.2 SEC (9.9-13.0)
== END 2022-05-10 09:07 | disposition home or self-care (01) ==
LOC: HO.HMGCLDS 09:06
PROVIDERS: PCP Internal Medicine; Visit Provider Internal Medicine
DX: Z13.89 Encounter for screening for other disorder (principal)
CPT/HCPCS: 36415; 85610

== ENCOUNTER 2022-05-19 08:44 | Outpatient (REF) | payer MEDICARE, OTHER, SELFPAY ==
[2022-05-19 11:44] LABS: INTERNATIONAL NORM RATIO 2.1 (0.9-1.1); Prothrombin Time 24.6 SEC (10.0-13.1)
== END 2022-05-19 08:45 | disposition home or self-care (01) ==
LOC: HO.HMGCLR 08:44
PROVIDERS: Visit Provider Internal Medicine
DX: I48.91 Unspecified atrial fibrillation (principal)
CPT/HCPCS: 36415; 85610

== ENCOUNTER 2022-05-30 08:41 | Outpatient (REF) | payer MEDICARE, OTHER, SELFPAY ==
[2022-05-30 11:47] LABS: INTERNATIONAL NORM RATIO 2.3 (0.9-1.1); Prothrombin Time 27.7 SEC (10.0-13.1)
== END 2022-05-30 08:42 | disposition home or self-care (01) ==
LOC: HO.HMGCLR 08:41
PROVIDERS: Visit Provider Internal Medicine
DX: I48.91 Unspecified atrial fibrillation (principal)
CPT/HCPCS: 36415; 85610

== ENCOUNTER 2022-06-14 15:07 | Outpatient (REF) | payer MEDICARE, OTHER, SELFPAY ==
[2022-06-14 16:43] LABS: INTERNATIONAL NORM RATIO 1.9 (0.9-1.1); Prothrombin Time 22.5 SEC (10.0-13.1)
== END 2022-06-14 15:08 | disposition home or self-care (01) ==
LOC: HO.LABR 15:07
PROVIDERS: PCP Internal Medicine; Visit Provider Internal Medicine
DX: I48.91 Unspecified atrial fibrillation (principal)
CPT/HCPCS: 36415; 85610

== ENCOUNTER 2022-06-21 14:59 | Outpatient (REF) | payer MEDICARE, OTHER, SELFPAY ==
[2022-06-21 16:51] LABS: INTERNATIONAL NORM RATIO 1.8 (0.9-1.1); Prothrombin Time 20.7 SEC (10.0-13.1)
== END 2022-06-21 15:00 | disposition home or self-care (01) ==
LOC: HO.HMGCLR 14:59
PROVIDERS: Visit Provider Internal Medicine
DX: I48.91 Unspecified atrial fibrillation (principal)
CPT/HCPCS: 36415; 85610

== ENCOUNTER 2022-06-29 08:29 | Outpatient (REF) | payer MEDICARE, OTHER, SELFPAY ==
[2022-06-29 11:51] LABS: INTERNATIONAL NORM RATIO 2.5 (0.9-1.1); Prothrombin Time 29.6 SEC (10.0-13.1)
== END 2022-06-29 08:30 | disposition home or self-care (01) ==
LOC: HO.LABR 08:29
PROVIDERS: PCP Internal Medicine; Visit Provider Internal Medicine
DX: I48.91 Unspecified atrial fibrillation (principal); Z79.01 Long term (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
CPT/HCPCS: 36415; 85610

== ENCOUNTER 2022-07-06 08:29 | Outpatient (REF) | payer MEDICARE, OTHER, SELFPAY ==
[2022-07-06 11:38] LABS: INTERNATIONAL NORM RATIO 2.4 (0.9-1.1); Prothrombin Time 28.4 SEC (10.0-13.1)
== END 2022-07-06 08:30 | disposition home or self-care (01) ==
LOC: HO.HMGCLDS 08:29
PROVIDERS: Visit Provider Internal Medicine
DX: I48.91 Unspecified atrial fibrillation (principal)
CPT/HCPCS: 36415; 85610

== ENCOUNTER 2022-07-20 08:56 | Outpatient (REF) | payer MEDICARE, OTHER, SELFPAY | END 2022-07-20 08:57 | disposition home or self-care (01) | LOC: HO.HMGCLR 08:56 | PROVIDERS: Visit Provider Internal Medicine | DX: I48.91 Unspecified atrial fibrillation (principal); Z79.01 Long term (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 | CPT/HCPCS: 36415; 85610 ==

== ENCOUNTER 2022-07-24 08:58 | Emergency (ER) | payer MEDICARE, OTHER, SELFPAY ==
--- NOTE | ~2022-07-24 | XR_ITS ---
EXAMINATION: XR WRIST, RIGHT CLINICAL INFORMATION: Right wrist pain. COMPARISON: None TECHNIQUE: PA, lateral, and oblique views of the right wrist. FINDINGS: Moderate first carpal metacarpal and mild triscaphe degenerative joint changes are seen. The carpal bones are normally aligned. The distal radius and ulna are intact. Mild radiocarpal and the triangle fibrocartilage calcifications are noted. 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
--- NOTE | 2022-07-24 09:02 | ED.GENADULT ---
HPI - General Adult General Chief complaint: Extremity Problem Stated complaint: R ARM/WRIST PAIN/SWELLING,NO INJ,THINNERS PER EMS Time Seen by Provider: 07/24/22 09:02 Source: patient and EMS Mode of arrival: EMS Limitations: no limitations History of Present Illness HPI narrative: Patient is an 81 year old female presenting to the emergency department today with right wrist pain. Patient states that she woke up this morning with right wrist pain. Patient states that she has a family history of gout. Patient denies any dizziness, lightheadedness, abdominal pain, nausea, vomiting, fever, chills, blurry vision, double vision, loss of vision, chest pain, difficulty breathing, shortness of breath, back pain, night sweats, pain with urination, increased urinary frequency, increased urinary urgency, blood in her urine or stool, syncope or a near syncopal episode, recent trauma or falls, bowel incontinence, bladder incontinence, bowel retention, bladder retention, or any other complaints at this time. Patient states that she is on Warfarin. Onset (ago): hour(s) Location: right and upper extremity Radiation: non-radiation Severity: mild Severity scale (1-10): 4 Quality: sharp Pain Consistency: constant Relieving factors: none Exacerbating factors: movement Associated symptoms: denies other symptoms Treatments prior to arrival: none Related Data Home Medications Medication Instructions Recorded Confirmed albuterol sulfate 90 mcg/actuation inhalation 02/05/21 aerosol inhaler amlodipine 5 mg tablet 1 tab PO DAILY 02/05/21 02/05/21 atorvastatin 20 mg tablet 1 tab PO DAILY 02/05/21 02/05/21 carbamazepine 200 mg tablet 1 tab PO BID 02/05/21 02/05/21 citalopram 40 mg tablet 1 tab PO DAILY 02/05/21 02/05/21 cyanocobalamin (vitamin B-12) 1 ml IM QMONTH 02/05/21 02/05/21 1,000 mcg/mL injection solution furosemide 20 mg tablet 1 tab PO DAILY 02/05/21 02/05/21 isosorbide mononitrate 30 mg 1 tab PO QAM 02/05/21 02/05/21 tablet,extended release 24 hr lorazepam 1 mg tablet 1 tab PO TID PRN anxiety 02/05/21 02/05/21 losartan 50 mg tablet 1 tab PO DAILY 02/05/21 02/05/21 meloxicam 15 mg tablet 1 tab PO DAILY 02/05/21 02/05/21 ieeynvsx-mpdolcvrk-mctentida 3.5 otic (ears) 02/05/21 mg/mL-10,000 unit/mL-1 % ear solution tramadol 50 mg tablet 1 tab PO TID 02/05/21 02/05/21 warfarin 2 mg tablet 1 tab PO DAILY 02/05/21 02/05/21 Previous Rx's Medication Instructions Recorded meclizine 12.5 mg tablet 12.5 mg PO TID PRN dizziness #14 02/05/21 tabs Allergies Allergy/AdvReac Type Severity Reaction Status Date / Time Sulfa (Sulfonamide Allergy Unknown RASH - Unverified 08/05/20 14:50 Antibiotics) ITCHY [SULFA(SULFONAMIDE ANTIBIOTICS)] sulfur Allergy Unknown Verified 12/02/14 00:00 trimethoprim [TRIMETHOPRIM] Allergy Unknown RASH ITCH Unverified 08/05/20 14:50 Review of Systems Constitutional: Constitutional: Reports no additional constitutional complaints, Denies chills, Denies fever(s) and Denies night sweats Eyes: Eyes: Reports no additional eye complaints, Denies blurry vision, Denies change in vision, Denies diplopia, Denies eye discharge, Denies loss of vision and Denies eye pain ENT: Denies dizziness Cardiovascular: Cardiovascular: Reports no additional cardiovascular complaints, Denies chest pain, Denies lightheadedness, Denies Loss of Consciousness and Denies dyspnea Respiratory: Respiratory: Reports no additional respiratory complaints and Denies dyspnea 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: 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: Reports no additional gastrointestinal complaints, Denies abdominal pain, Denies melena, Denies hematochezia, Denies change in bowel habits and Denies change in stool character Genitourinary: Genitourinary: Denies hematuria, Denies urinary frequency, Denies dysuria, Denies urinary incontinence, Denies urinary hesitancy and Denies urinary urgency Musculoskeletal: Musculoskeletal: Reports no additional musculoskeletal complaints, Denies numbness and Denies tingling Comments: right wrist pain Neurologic: Denies dizziness, Denies loss of vision, Denies numbness and Denies tingling Psychiatric: Psychiatric: Reports no additional psychiatric complaints Endocrine: Endocrine: Reports no additional endocrine complaints Hematologic/Lymphatic: Hematologic/Lymphatic: Reports no additional hematologic/lymphatic complaints Allergic/Immunologic: Allergic/Immunologic: Reports no additional allergic/immunologic complaints PMFSH Past Medical History Attestation statement: The following information was validated with the patient. Source: old records reviewed Medical History Anxiety CHF (congestive heart failure) COPD (chronic obstructive pulmonary disease) Depression GERD (gastroesophageal reflux disease) High cholesterol HTN (hypertension) Social History Social History Advance Directives: Yes Advance Directives Information Provided: Yes Advance Directives on File: No Physical Exam ED Vital Signs: Vital Signs - 24 hr 07/24/22 09:07 07/24/22 10:47 Temperature 98.2 F Pulse Rate 62 62 Respiratory Rate 18 18 Blood Pressure 136/50 L 122/44 L Pulse Oximetry 98 98 Oxygen Delivery Method Room Air Room Air BMI result Body Mass Index 44.9 Const General: cooperative, no acute distress, alert and awake Nutritional Appearance: well nourished Orientation/consciousness: patient oriented x3 Limitations: no limitations HENRI Head: Yes normal to inspection and Yes atraumatic Ears: hearing grossly normal bilaterally and external ears normal General nose exam: Normal external nose present, no nasal discharge noted and no epistaxis Face and sinus: Yes normal facial exam, No abrasion and No laceration Mouth: Normal oral and palatal mucosa present, no drooling and no muffled voice Eyes General: appearance normal, both eyes and all related structures Periorbital: periorbital findings normal Eyelids: Yes eyelids normal Conjunctivae: conjunctivae normal Pupils: Equal, round and reactive pupils present EOM: EOMs intact bilaterally Neck Neck: Yes normal visual inspection, Yes full ROM and Yes no lymphadenopathy Chest Chest palpation & inspection: normal inspection of the chest Resp Effort & Inspection: normal respiratory effort and able to speak in complete sentences Auscultation: clear to auscultation bilaterally Cardio Rate: regular rate Rhythm: regular rhythm GI Inspection: Yes normal to inspection Neuro General: patient oriented x3 and moves all extremities Cranial nerves: Yes Equal, round and reactive pupils present Cognition (Neuro): normal cognition Motor exam (neuro): 5/5 motor strength present throughout Sensory Exam: Normal double simultaneous stimulation for sensation Coordination: kfqnem-ye-tqru test normal Extrem Other: mild warmth to dorsal aspect of right wrist General: Yes normal to inspection, Yes full ROM and Yes capillary refill normal Psych Appearance: grossly normal Mental Status: mental status grossly normal Affect: normal affect Attitude: cooperative Thought process: Normal thought process present Thought content: Normal thought content present Insight: Good insight present (Psych) Medical Decision Making MDM Narrative Medical decision making narrative: Patient is an 81 year old female presenting to the emergency department today with right wrist pain. Patient's physical exam showed warmth to palpation of the right dorsal wrist but was otherwise unremarkable. Patient's blood work showed an elevated uric acid, CRP, and ESR but no elevated WBC count. Patient's EKG was unremarkable. Patient's right wrist x-ray showed no acute fracture. I explained my physical exam findings as well as all test results to the patient. I answered all questions asked by the patient. I stressed the importance of the patient taking her medication as prescribed. I stressed the importance of the patient following up with her primary care provider. I stressed the importance of the patient returning to the emergency department immediately if her symptoms were to worsen or if she were to develop any dizziness, shortness of breath, difficulty breathing, chest pain, blurry vision, loss of vision, nausea, vomiting, abdominal pain, fever, chills, back pain, or any other complaints. Patient verbalized agreement and understanding with this treatment plan and discharge. Differential Diagnosis Differential Diagnosis: gout Medical Records Medical records reviewed: Yes I reviewed the patient's medical records. Lab Data Lab results reviewed: Yes I reviewed the patient's lab results. Result diagrams: 07/24/22 09:42 07/24/22 09:42 Labs: Lab Results 07/24/22 07/24/22 07/24/22 Range/Units 09:42 09:42 09:42 WBC 10.8 (4.8-10.8) X10*3/uL RBC 3.69 L (4.20-5.50) X10*6/uL Hgb 10.9 L (12.0-16.0) g/dl Hct 35.1 L (37.0-47.0) % MCV 95.1 (80.0-98.0) fL MCH 29.5 (27.0-33.0) pg MCHC 31.1 (31.0-35.0) g/dl RDW 17.0 H (11.0-16.0) % Plt Count 174 (160-400) X10*3/uL MPV 10.0 (9.4-12.3) fL Immature Gran % (Auto) 0.5 H (0.0-0.4) % Neut % (Auto) 82.1 H (45-73) % Lymph % (Auto) 11.4 L (20-40) % [place] % (Auto) 5.1 (2-11) % Eos % (Auto) 0.7 (0-4) % Baso % (Auto) 0.2 (0-2) % Lymph # (Auto) 1.2 (1.2-4.9) X10*3/uL [place] # (Auto) 0.6 (0.1-1.2) X10*3/uL Eos # (Auto) 0.1 (0.0-0.4) X10*3/uL Baso # (Auto) 0.0 (0.0-0.2) X10*3/uL Abs Immat Gran (auto) 0.05 H (0.00-0.03) X10*3/uL Absolute Neuts (auto) 8.8 H (2.0-8.3) x10*3/uL Absolute Nucleated RBC 0.000 (0.0-0.012) X10*3/uL Nucleated RBC % (auto) 0.0 (0.0-0.2) /100WBC ESR 25 H (0-20) MM/HR Sodium 139 (135-145) mmol/L Potassium 4.4 (3.3-5.1) mmol/L Chloride 100 (96-108) mmol/L Carbon Dioxide 27 (22-29) mmol/L Anion Gap 16 (12-20) BUN 24 H (9-16) mg/dL Creatinine 1.01 (0.5-1.4) mg/dL Estim Creat Clear Calc 48.4 Estimated GFR 53 Random Glucose 124 H (60-115) mg/dL Uric Acid 6.2 H (2.4-5.7) mg/dL Calcium 9.3 (8.4-10.2) mg/dL Magnesium 1.9 (1.6-2.6) mg/dL Total Bilirubin 0.5 (0.0-1.0) mg/dL AST 25 (5-31) U/L ALT 21 (0-31) U/L Alkaline Phosphatase 94 D (39-117) U/L Troponin I High Sens (<3.5-17.0) ng/L C-Reactive Protein 0.73 H (< or = 0.50) mg/dL Total Protein 6.8 (6.5-8.0) g/dL Albumin 4.3 (3.5-5.0) g/dL 07/24/22 Range/Units 09:42 WBC (4.8-10.8) X10*3/uL RBC (4.20-5.50) X10*6/uL Hgb (12.0-16.0) g/dl Hct (37.0-47.0) % MCV (80.0-98.0) fL MCH (27.0-33.0) pg MCHC (31.0-35.0) g/dl RDW (11.0-16.0) % Plt Count (160-400) X10*3/uL MPV (9.4-12.3) fL Immature Gran % (Auto) (0.0-0.4) % Neut % (Auto) (45-73) % Lymph % (Auto) (20-40) % [place] % (Auto) (2-11) % Eos % (Auto) (0-4) % Baso % (Auto) (0-2) % Lymph # (Auto) (1.2-4.9) X10*3/uL [place] # (Auto) (0.1-1.2) X10*3/uL Eos # (Auto) (0.0-0.4) X10*3/uL Baso # (Auto) (0.0-0.2) X10*3/uL Abs Immat Gran (auto) (0.00-0.03) X10*3/uL Absolute Neuts (auto) (2.0-8.3) x10*3/uL Absolute Nucleated RBC (0.0-0.012) X10*3/uL Nucleated RBC % (auto) (0.0-0.2) /100WBC ESR (0-20) MM/HR Sodium (135-145) mmol/L Potassium (3.3-5.1) mmol/L Chloride (96-108) mmol/L Carbon Dioxide (22-29) mmol/L Anion Gap (12-20) BUN (9-16) mg/dL Creatinine (0.5-1.4) mg/dL Estim Creat Clear Calc Estimated GFR Random Glucose (60-115) mg/dL Uric Acid (2.4-5.7) mg/dL Calcium (8.4-10.2) mg/dL Magnesium (1.6-2.6) mg/dL Total Bilirubin (0.0-1.0) mg/dL AST (5-31) U/L ALT (0-31) U/L Alkaline Phosphatase (39-117) U/L Troponin I High Sens 12.1 (<3.5-17.0) ng/L C-Reactive Protein (< or = 0.50) mg/dL Total Protein (6.5-8.0) g/dL Albumin (3.5-5.0) g/dL Imaging Data Right wrist x-ray: Attestation: I personally reviewed and interpreted this imaging study as follows: My impression: No acute fracture. Radiologist's impression: EXAMINATION: XR WRIST, RIGHT CLINICAL INFORMATION: Right wrist pain.? COMPARISON: None? TECHNIQUE: PA, lateral, and oblique views of the right wrist. FINDINGS: Moderate first carpal metacarpal and mild triscaphe degenerative joint changes are seen. The carpal bones are normally aligned. The distal radius and ulna are intact. Mild radiocarpal and the triangle fibrocartilage calcifications are noted. 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 Dictated By: Michi Napoles MD Signed By: Electronically signed by Michi Napoles MD 07/24/22 9406 ECG Data Attestation: I personally reviewed and interpreted this ECG as follows: Prior ECG tracings: available for review Interpretation: Vent. Rate: 062 BPM ? ? Atrial Rate: 340 BPM P-R Int: 000 ms? QRS Dur: 166 ms QT Int: 470 ms ? ? ? P-R-T Axes: 000 -47 068 degrees QTc Int: 477 ms ? Ventricular-paced rhythm Abnormal ECG When compared with ECG of 05-FEB-2021 15:42, Electronic ventricular pacemaker has replaced Atrial fibrillation ? Electronically Signed By:WEI LOCKECP Dictated By: Wei Velazquez DO Signed By: Electronically signed by Wei Velazquez DO 07/24/22 1044 Discharge Plan Discharge Clinical Impression: Gout Patient Disposition: Home, Self-Care Instructions: Gout (ED) Additional Instructions: Follow up with your primary care provider. Return to the emergency department immediately if your symptoms worsen or if you develop any dizziness, shortness of breath, difficulty breathing, chest pain, blurry vision, loss of vision, nausea, vomiting, abdominal pain, fever, chills, back pain, or any other complaints. Prescriptions: No Action losartan 50 mg tablet 1 tab PO DAILY ibvpwgne-swcmcikql-DQ 3.5-10,000-1 mg/mL-unit/mL-% solution otic (ears) atorvastatin 20 mg tablet 1 tab PO DAILY citalopram 40 mg tablet 1 tab PO DAILY meloxicam 15 mg tablet 1 tab PO DAILY isosorbide mononitrate 30 mg tablet extended release 24 hr 1 tab PO QAM amlodipine 5 mg tablet 1 tab PO DAILY tramadol 50 mg tablet 1 tab PO TID carbamazepine 200 mg tablet 1 tab PO BID cyanocobalamin (vitamin B-12) 1,000 mcg/mL solution 1 ml IM QMONTH warfarin 2 mg tablet 1 tab PO DAILY furosemide 20 mg tablet 1 tab PO DAILY lorazepam 1 mg tablet 1 tab PO TID PRN (Reason: anxiety) albuterol sulfate 90 mcg/actuation HFA aerosol inhaler inhalation meclizine 12.5 mg tablet 12.5 mg PO TID PRN (Reason: dizziness) Qty: 14 0RF Referrals: [facility] [Provider Group] Bright Garber MD [Primary Care Provider] - Interventions: ED Discharge Assessment Last Done: 07/24/22 10:58 Discharge Date/Time: 07/24/22 10:59 Print Language: Croatian
[2022-07-24 09:07] VITALS: BP 121/76; BP 136/50; PULSE 62; PULSE 80; RESP 18; TEMP 36.8; O2SAT 97; O2SAT 98; BMI 44.9
--- NOTE | 2022-07-24 09:12 | ECG_ITS ---
Test Reason : ARM PAIN Blood Pressure : / mmHG Vent. Rate : 062 BPM Atrial Rate : 340 BPM P-R Int : 000 ms QRS Dur : 166 ms QT Int : 470 ms P-R-T Axes : 000 -47 068 degrees QTc Int : 477 ms Ventricular-paced rhythm Abnormal ECG When compared with ECG of 05-FEB-2021 15:42, Electronic ventricular pacemaker has replaced Atrial fibrillation Referred By: Angela Plasencia Electronically Signed By:WEI ARITA
[2022-07-24 09:47] LABS: MANUAL DIFF FLAG NO
[2022-07-24 09:49] LABS: Basophils Percent Auto 0.2 % (0-2); Eosinophils Absolute Auto 0.1 X10*3/uL (0.0-0.4); Eosinophils Percent Auto 0.7 % (0-4); Hematocrit 35.1 % (37.0-47.0); Hemoglobin 10.9 g/dl (12.0-16.0); Imm Gran Abs Auto 0.05 X10*3/uL (0.00-0.03); Imm Gran Pct Auto 0.5 % (0.0-0.4); Lymphocytes Absolute Auto 1.2 X10*3/uL (1.2-4.9); Lymphocytes Percent Auto 11.4 % (20-40); Mean Corpuscular HGB Conc 31.1 g/dl (31.0-35.0); Mean Corpuscular Hemoglobin 29.5 pg (27.0-33.0); Mean Corpuscular Volume 95.1 fL (80.0-98.0); Monocytes Absolute Auto 0.6 X10*3/uL (0.1-1.2); Monocytes Percent Auto 5.1 % (2-11); Neutrophils Absolute Auto 8.8 x10*3/uL (2.0-8.3); Neutrophils Percent Auto 82.1 % (45-73); Platelet Count 174 X10*3/uL (160-400); Red Blood Count 3.69 X10*6/uL (4.20-5.50); White Blood Count 10.8 X10*3/uL (4.8-10.8)
[2022-07-24 10:09] LABS: Troponin-I High Sensitivity 12.1 ng/L (<3.5-17.0)
[2022-07-24 10:14] LABS: Alanine Aminotransferase 21 U/L (0-31); Albumin Level 4.3 g/dL (3.5-5.0); Alkaline Phosphatase 94 U/L (39-117); Anion Gap 16 (12-20); Aspartate Amino Transferase 25 U/L (5-31); Bilirubin Total 0.5 mg/dL (0.0-1.0); Blood Urea Nitrogen 24 mg/dL (9-16); C Reactive Protein 0.73 mg/dL (< or = 0.50); Calcium 9.3 mg/dL (8.4-10.2); Carbon Dioxide 27 mmol/L (22-29); Chloride 100 mmol/L (96-108); Creatinine Clr Calc Pharmacy 48.4; Estimated Glomerular Filt Rate 53; Glucose Random 124 mg/dL (60-115); Magnesium 1.9 mg/dL (1.6-2.6); Potassium 4.4 mmol/L (3.3-5.1); Sodium 139 mmol/L (135-145); Total Protein 6.8 g/dL (6.5-8.0); Uric Acid 6.2 mg/dL (2.4-5.7)
[2022-07-24 10:31] LABS: Erythrocyte Sedimentation Rate 25 MM/HR (0-20)
[2022-07-24 10:47] VITALS: BP 122/44; PULSE 62; RESP 18; O2SAT 98
== END 2022-07-24 10:59 | disposition home or self-care (01) ==
PROVIDERS: Physician Assistant Medical; Emergency Provider Emergency Medicine; PCP Internal Medicine
DX: M10.9 Gout, unspecified (principal); M25.531 Pain in right wrist; I11.0 Hypertensive heart disease with heart failure; I50.9 Heart failure, unspecified; E78.5 Hyperlipidemia, unspecified; Z79.899 Other long term (current) drug therapy; Z79.02 Long term (current) use of antithrombotics/antiplatelets; Z79.01 Long term (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
CPT/HCPCS: 36415; 73100; 80053; 83735; 84484; 84550; 85025; 85652; 86140; 93005; 99283; 99284

== ENCOUNTER 2022-07-27 08:50 | Outpatient (REF) | payer MEDICARE, OTHER, SELFPAY ==
[2022-07-27 11:39] LABS: INTERNATIONAL NORM RATIO 1.8 (0.9-1.1); Prothrombin Time 21.7 SEC (10.0-13.1)
== END 2022-07-27 08:51 | disposition home or self-care (01) ==
LOC: HO.HMGCLR 08:50
PROVIDERS: Visit Provider Internal Medicine
DX: I48.91 Unspecified atrial fibrillation (principal)
CPT/HCPCS: 36415; 85610

== ENCOUNTER 2022-08-07 09:58 | Outpatient (REF) | payer MEDICARE, OTHER, SELFPAY ==
[2022-08-07 11:35] LABS: INTERNATIONAL NORM RATIO 2.7 (0.9-1.1)
== END 2022-08-07 09:59 | disposition home or self-care (01) ==
LOC: HO.HMGCLR 09:58
PROVIDERS: PCP Internal Medicine; Visit Provider Internal Medicine
DX: I48.91 Unspecified atrial fibrillation (principal)
CPT/HCPCS: 36415; 85610

== ENCOUNTER 2022-08-14 09:29 | Outpatient (REF) | payer MEDICARE, OTHER, SELFPAY ==
[2022-08-14 11:37] LABS: INTERNATIONAL NORM RATIO 3.2 (0.9-1.1); Prothrombin Time 38.5 SEC (10.0-13.1)
== END 2022-08-14 09:30 | disposition home or self-care (01) ==
LOC: HO.HMGCLDS 09:29
PROVIDERS: PCP Internal Medicine; Visit Provider Internal Medicine
DX: I48.91 Unspecified atrial fibrillation (principal)
CPT/HCPCS: 36415; 85610

== ENCOUNTER 2022-08-21 12:41 | Outpatient (REF) | payer MEDICARE, OTHER, SELFPAY ==
[2022-08-21 14:27] LABS: INTERNATIONAL NORM RATIO 3.1 (0.9-1.1); Prothrombin Time 37.3 SEC (10.0-13.1)
== END 2022-08-21 12:42 | disposition home or self-care (01) ==
LOC: HO.HMGCLR 12:41
PROVIDERS: Visit Provider Internal Medicine
DX: I48.91 Unspecified atrial fibrillation (principal); Z79.01 Long term (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
CPT/HCPCS: 36415; 85610

== ENCOUNTER 2022-08-29 10:09 | Outpatient (REF) | payer MEDICARE, OTHER, SELFPAY ==
[2022-08-29 11:40] LABS: INTERNATIONAL NORM RATIO 2.3 (0.9-1.1); Prothrombin Time 27.1 SEC (10.0-13.1)
== END 2022-08-29 10:10 | disposition home or self-care (01) ==
LOC: HO.LABR 10:09
PROVIDERS: PCP Internal Medicine; Visit Provider Internal Medicine
DX: I48.91 Unspecified atrial fibrillation (principal)
CPT/HCPCS: 36415; 85610

== ENCOUNTER 2022-09-07 11:06 | Outpatient (REF) | payer MEDICARE, OTHER, SELFPAY ==
[2022-09-07 14:01] LABS: INTERNATIONAL NORM RATIO 2.4 (0.9-1.1)
== END 2022-09-07 11:07 | disposition home or self-care (01) ==
LOC: HO.HMGCLR 11:06
PROVIDERS: PCP Internal Medicine; Visit Provider Internal Medicine
DX: I48.91 Unspecified atrial fibrillation (principal)
CPT/HCPCS: 36415; 85610

== ENCOUNTER 2022-09-08 08:13 | Emergency (ER) | payer MEDICARE, OTHER, SELFPAY ==
--- NOTE | ~2022-09-08 | CT_ITS ---
EXAMINATION: CT HEAD WITHOUT CONTRAST CLINICAL INFORMATION: Fall. COMPARISON: Head CTs dated February 02, 2021 and February 20, 2019. MRI of the brain dated April 17, 2019. TECHNIQUE: Contiguous axial imaging was performed from the skull base to vertex without intravenous administration of contrast. This CT examination was performed using dose optimization techniques as appropriate, variously including the following: *Automated exposure control *Adjustment of mA and/or kV according to patient size (this includes techniques or standardized protocols for targeted exams where dose is matched to indication/reason for exam; i.e. extremities or head) *Use of iterative reconstruction technique DLP: 622 mGy-cm FINDINGS: No intracranial hemorrhage, large infarction, or mass lesion is seen. Mild bilateral chronic periventricular white matter ischemic changes. No extra-axial collection is appreciated. The ventricles are normal in size and configuration without evidence of hydrocephalus. Mild prominence of the left ophthalmic vein relative to the right common worse compared with February 02, 2021, but may be similar compared with MRI from 2019. The visualized paranasal sinuses and mastoid air cells are clear. Hyperostosis frontalis interna. Bilateral lens extractions. CT/CT head/brain wo IV con IMPRESSION: No acute intracranial finding. Mild prominence of the left ophthalmic vein relative to the right common worse compared with February 02, 2021, but may be similar compared with MRI from 2019. Differential diagnosis includes, but is not limited to, normal variant, varix, cavernous sinus pathology, etc. The cavernous sinus appears unremarkable on MRI from 2019. Recommend clinical correlation. If an ocular bruit is present, MRI may be of use to evaluate for the presence of cavernous carotid fistula.
[2022-09-08 08:22] VITALS: BP 149/53; BP 156/70; PULSE 63; PULSE 80; RESP 16; TEMP 36.1; O2SAT 97; O2SAT 98; BMI 49.9
--- NOTE | 2022-09-08 08:38 | ED.FALL ---
HPI - Fall General Chief Complaint: Fall Stated Complaint: mechanical fall Source: patient and EMS Mode of arrival: EMS Limitations: no limitations History of Present Illness HPI Narrative: 81 yo female with history of anxiety, CHF, COPD, depression, HTN, HLD, GERD, depression, and possible dementia with recent short term memory issues who presents to the ER from home via EMS for evaluation of a mechanical fall. She lives home alone and usually ambulates with a cane around her home. She was getting ready for the day, wearing her new slippers when she tripped on a throw rug. She fell onto her bottom. She did not hit her head or lose consciousness. She did not sustain any injuries. She came to the ER for evaluation and to get a CT of her head that she had scheduled at 8am by Dr. Garber for part of her dementia workup. MD complaint: fall Onset (ago): minute(s) Fall from: standing Fall witnessed: no Place fall occurred: home Loss of consciousness: none Prolonged down time: no Symptoms prior to fall: none Context: tripped/slipped Associated symptoms (after fall): denies Related Data Home Medications Medication Instructions Recorded Confirmed albuterol sulfate 90 mcg/actuation inhalation 02/05/21 aerosol inhaler amlodipine 5 mg tablet 1 tab PO DAILY 02/05/21 02/05/21 atorvastatin 20 mg tablet 1 tab PO DAILY 02/05/21 02/05/21 carbamazepine 200 mg tablet 1 tab PO BID 02/05/21 02/05/21 citalopram 40 mg tablet 1 tab PO DAILY 02/05/21 02/05/21 cyanocobalamin (vitamin B-12) 1 ml IM QMONTH 02/05/21 02/05/21 1,000 mcg/mL injection solution furosemide 20 mg tablet 1 tab PO DAILY 02/05/21 02/05/21 isosorbide mononitrate 30 mg 1 tab PO QAM 02/05/21 02/05/21 tablet,extended release 24 hr lorazepam 1 mg tablet 1 tab PO TID PRN anxiety 02/05/21 02/05/21 losartan 50 mg tablet 1 tab PO DAILY 02/05/21 02/05/21 meloxicam 15 mg tablet 1 tab PO DAILY 02/05/21 02/05/21 rmyrgepd-mfftvvles-qgmldxayb 3.5 otic (ears) 03/20/21 mg/mL-10,000 unit/mL-1 % ear solution tramadol 50 mg tablet 1 tab PO TID 02/05/21 02/05/21 warfarin 2 mg tablet 1 tab PO DAILY 02/05/21 02/05/21 Previous Rx's Medication Instructions Recorded meclizine 12.5 mg tablet 12.5 mg PO TID PRN dizziness #14 02/05/21 tabs Allergies Allergy/AdvReac Type Severity Reaction Status Date / Time Sulfa (Sulfonamide Allergy Unknown RASH - Unverified 08/05/20 14:50 Antibiotics) ITCHY [SULFA(SULFONAMIDE ANTIBIOTICS)] sulfur Allergy Unknown Verified 12/02/14 00:00 trimethoprim [TRIMETHOPRIM] Allergy Unknown RASH ITCH Unverified 08/05/20 14:50 Review of Systems Review of Systems: Constitutional: No Fever, No Chills ENT/Mouth: No sore throat, No Rhinorrhea Eyes: No Eye Pain, No Swelling, No vision changes Cardiovascular: No Chest Pain, No SOB, No Orthopnea, No Edema Respiratory: No Cough, No Sputum, No Wheezing, No dyspnea 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: No Nausea, No Vomiting, No Diarrhea, No abdominal Pain Genitourinary: No Dysuria, No Urinary Frequency, No Hematuria Musculoskeletal: No joint pain, No Myalgias Skin: No Skin Lesions, No rash Neuro: No Weakness, No Numbness, No Dizziness, No Headache Psych: + Anxiety/Panic, No Depression Heme/Lymph: No Bruising, No Lymphadenopathy PMFSH Past Medical History Medical History Anxiety CHF (congestive heart failure) COPD (chronic obstructive pulmonary disease) Depression GERD (gastroesophageal reflux disease) High cholesterol HTN (hypertension) Social History Social History Advance Directives: Yes Advance Directives Information Provided: Yes Advance Directives on File: No Physical Exam Vital Signs: Vital Signs: Last Vital Signs Temp 97.7 F 09/08/22 10:06 Pulse 64 09/08/22 10:06 Resp 14 09/08/22 10:06 BP 136/52 L 09/08/22 10:06 Pulse Ox 96 09/08/22 10:06 O2 Del Method 09/08/22 10:06 BMI result Body Mass Index 49.9 Appearance: Alert. Oriented X3. No acute distress. Head: normocephalic, atraumatic Eyes: Pupils equal, round and reactive to light. ENT: Pharynx normal. Neck: Normal inspection. Neck supple. No cervical motion tenderness. CVS: Normal heart rate and rhythm. Pulses normal. Respiratory: No respiratory distress. Breath sounds normal. Abdomen: Obese, Soft and nontender. +BS x4 Skin: Skin warm and dry. Normal skin color. Normal skin turgor. No rashes. Extremities: No lower extremity edema. Neuro: Oriented X 3. No motor deficit. No sensory deficit. Ambulates with steady gait Course Course Course Narrative: 81 yo female presents to the ER for evaluation of a mechanical slip and fall on a throw rug at home, no sustained injuries. In the room ambulating around, asking for her head CT and transportation home so she can bring her granddaughter to school. Will get her outpatient CT scan of her head. She is not on anticoagulation and did not hit her head. No physical complaints. Reevaluation(s) Reevaluation #1: Dr. Garber's office called - patient is infact on Coumadin. She has a pacemaker. Will get labs and EKG. Reevaluation #2: Labs showing stable anemia, H/H 1034. INR 2.6. Chemistry without electrolyte abnormalities. CT head: No acute intracranial finding. ? Mild prominence of the left ophthalmic vein relative to the right common worse compared with February 02, 2021, but may be similar compared with MRI from 2019. Differential diagnosis includes, but is not limited to, normal variant, varix, cavernous sinus pathology, etc. The cavernous sinus appears unremarkable on MRI from 2019. Recommend clinical correlation. If an ocular bruit is present, MRI may be of use to evaluate for the presence of cavernous carotid fistula. This can be followed up as an outpatient. d/w Dr. Ordonez. Patient is stable for d/c home with outpatient follow up. ? MDM - Fall Medical Records Attestation: I reviewed the patient's medical records. Lab Data Attestation: I reviewed the patient's lab results. Result diagrams: 09/08/22 10:16 09/08/22 10:16 Labs: Lab Results 09/08/22 09/08/22 09/08/22 Range/Units 10:16 10:16 10:16 WBC 7.4 (4.8-10.8) X10*3/uL RBC 3.60 L (4.20-5.50) X10*6/uL Hgb 10.7 L (12.0-16.0) g/dl Hct 34.6 L (37.0-47.0) % MCV 96.1 (80.0-98.0) fL MCH 29.7 (27.0-33.0) pg MCHC 30.9 L (31.0-35.0) g/dl RDW 17.1 H (11.0-16.0) % Plt Count 151 L (160-400) X10*3/uL MPV 10.1 (9.4-12.3) fL Immature Gran % (Auto) 0.3 (0.0-0.4) % Neut % (Auto) 74.0 H (45-73) % Lymph % (Auto) 18.8 L (20-40) % [place] % (Auto) 4.9 (2-11) % Eos % (Auto) 1.9 (0-4) % Baso % (Auto) 0.1 (0-2) % Lymph # (Auto) 1.4 (1.2-4.9) X10*3/uL [place] # (Auto) 0.4 (0.1-1.2) X10*3/uL Eos # (Auto) 0.1 (0.0-0.4) X10*3/uL Baso # (Auto) 0.0 (0.0-0.2) X10*3/uL Abs Immat Gran (auto) 0.02 (0.00-0.03) X10*3/uL Absolute Neuts (auto) 5.5 (2.0-8.3) x10*3/uL Absolute Nucleated RBC 0.000 (0.0-0.012) X10*3/uL Nucleated RBC % (auto) 0.0 (0.0-0.2) /100WBC PT 30.8 H (10.0-13.1) SEC INR 2.6 H (0.9-1.1) APTT 41.2 H (26.0-36.4) SEC Sodium 143 (135-145) mmol/L Potassium 5.0 (3.3-5.1) mmol/L Chloride 107 (96-108) mmol/L Carbon Dioxide 27 (22-29) mmol/L Anion Gap 14 (12-20) BUN 23 H (9-16) mg/dL Creatinine 0.88 (0.5-1.4) mg/dL Estim Creat Clear Calc 57.0 Estimated GFR > 60 Random Glucose 114 (60-115) mg/dL Calcium 9.6 (8.4-10.2) mg/dL Magnesium 1.9 (1.6-2.6) mg/dL Total Bilirubin 0.5 (0.0-1.0) mg/dL Direct Bilirubin 0.2 (0.0-0.5) mg/dL AST 20 (5-31) U/L ALT 17 (0-31) U/L Alkaline Phosphatase 95 (39-117) U/L Total Protein 6.3 L (6.5-8.0) g/dL Albumin 4.2 (3.5-5.0) g/dL ECG Data Attestation: I personally reviewed and interpreted this ECG as follows: ECG interpretation date: 09/08/22 ECG interpretation time: 10:18 Prior ECG tracings: available for review Interpretation: ventricular paced rhythm, HR 64 bpm, no ST segment elevations or depressions Critical Care Time Critical Care Time Critical Care Time: No Discharge Plan Discharge Clinical Impression: Accident due to mechanical fall without injury Patient Disposition: Home, Self-Care Instructions: Fall Prevention for Older Adults (ED) Additional Instructions: Your CT scan did not show any acute abnormalities. It did show: No acute intracranial finding. Mild prominence of the left ophthalmic vein relative to the right common worse compared with February 02, 2021, but may be similar compared with MRI from 2019. Differential diagnosis includes, but is not limited to, normal variant, varix, cavernous sinus pathology, etc. The cavernous sinus appears unremarkable on MRI from 2019. Recommend clinical correlation. If an ocular bruit is present, MRI may be of use to evaluate for the presence of cavernous carotid fistula. ? Recommend following up with your eye doctor as well as Dr. Garber for further evaluation and outpatient workup for this. If you develop new or worsening symptoms call 911 or come back to the ER for further evaluation. Prescriptions: No Action losartan 50 mg tablet 1 tab PO DAILY hyuefpst-xgrqckqyb-AS 3.5-10,000-1 mg/mL-unit/mL-% solution otic (ears) atorvastatin 20 mg tablet 1 tab PO DAILY citalopram 40 mg tablet 1 tab PO DAILY meloxicam 15 mg tablet 1 tab PO DAILY isosorbide mononitrate 30 mg tablet extended release 24 hr 1 tab PO QAM amlodipine 5 mg tablet 1 tab PO DAILY tramadol 50 mg tablet 1 tab PO TID carbamazepine 200 mg tablet 1 tab PO BID cyanocobalamin (vitamin B-12) 1,000 mcg/mL solution 1 ml IM QMONTH warfarin 2 mg tablet 1 tab PO DAILY furosemide 20 mg tablet 1 tab PO DAILY lorazepam 1 mg tablet 1 tab PO TID PRN (Reason: anxiety) albuterol sulfate 90 mcg/actuation HFA aerosol inhaler inhalation meclizine 12.5 mg tablet 12.5 mg PO TID PRN (Reason: dizziness) Qty: 14 0RF Referrals: Bright Garber MD [Primary Care Provider] -
--- NOTE | 2022-09-08 09:39 | ECG_ITS ---
Test Reason : FALL Blood Pressure : / mmHG Vent. Rate : 064 BPM Atrial Rate : 054 BPM P-R Int : 000 ms QRS Dur : 190 ms QT Int : 482 ms P-R-T Axes : 000 -56 105 degrees QTc Int : 497 ms Ventricular-paced rhythm Abnormal ECG When compared with ECG of 24-JUL-2022 09:08, No significant changes seen Referred By: Thania Musa Electronically Signed By:LUKE DODD MD
--- NOTE | 2022-09-08 10:01 | PC.NURSE ---
pt up and ambulating to the bathroom. Steady gait. awaiting lab results
[2022-09-08 10:06] VITALS: BP 136/52; PULSE 64; RESP 14; TEMP 36.5; O2SAT 96
[2022-09-08 10:22] LABS: MANUAL DIFF FLAG NO
[2022-09-08 10:24] LABS: Basophils Percent Auto 0.1 % (0-2); Eosinophils Absolute Auto 0.1 X10*3/uL (0.0-0.4); Eosinophils Percent Auto 1.9 % (0-4); Hematocrit 34.6 % (37.0-47.0); Hemoglobin 10.7 g/dl (12.0-16.0); Imm Gran Abs Auto 0.02 X10*3/uL (0.00-0.03); Imm Gran Pct Auto 0.3 % (0.0-0.4); Lymphocytes Absolute Auto 1.4 X10*3/uL (1.2-4.9); Lymphocytes Percent Auto 18.8 % (20-40); Mean Corpuscular HGB Conc 30.9 g/dl (31.0-35.0); Mean Corpuscular Hemoglobin 29.7 pg (27.0-33.0); Mean Corpuscular Volume 96.1 fL (80.0-98.0); Mean Platelet Volume 10.1 fL (9.4-12.3); Monocytes Absolute Auto 0.4 X10*3/uL (0.1-1.2); Monocytes Percent Auto 4.9 % (2-11); Neutrophils Absolute Auto 5.5 x10*3/uL (2.0-8.3); Platelet Count 151 X10*3/uL (160-400); Red Cell Distribution Width 17.1 % (11.0-16.0); White Blood Count 7.4 X10*3/uL (4.8-10.8)
[2022-09-08 10:47] LABS: INTERNATIONAL NORM RATIO 2.6 (0.9-1.1); Prothrombin Time 30.8 SEC (10.0-13.1)
[2022-09-08 10:49] LABS: Partial Thromboplastin Time 41.2 SEC (26.0-36.4)
[2022-09-08 11:16] LABS: Alanine Aminotransferase 17 U/L (0-31); Albumin Level 4.2 g/dL (3.5-5.0); Alkaline Phosphatase 95 U/L (39-117); Anion Gap 14 (12-20); Aspartate Amino Transferase 20 U/L (5-31); Bilirubin Direct 0.2 mg/dL (0.0-0.5); Bilirubin Total 0.5 mg/dL (0.0-1.0); Blood Urea Nitrogen 23 mg/dL (9-16); Calcium 9.6 mg/dL (8.4-10.2); Carbon Dioxide 27 mmol/L (22-29); Chloride 107 mmol/L (96-108); Estimated Glomerular Filt Rate > 60; Glucose Random 114 mg/dL (60-115); Magnesium 1.9 mg/dL (1.6-2.6); Sodium 143 mmol/L (135-145); Total Protein 6.3 g/dL (6.5-8.0)
[2022-09-08 11:26] VITALS: BP 162/49; PULSE 66; RESP 16; O2SAT 97
--- NOTE | 2022-09-08 11:35 | PC.NURSE ---
SPOKE TO PTS SON REGARDING TESTING DONE HERE TODAY AND RESULTS/ SHE WAS BROUGHT TO THE WR. SECURITY AWARE GRANDSON IS COMING
== END 2022-09-08 11:38 | disposition home or self-care (01) ==
PROVIDERS: Physician Assistant; Emergency Provider Emergency Medicine; PCP Internal Medicine
DX: Z71.1 Person with feared health complaint in whom no diagnosis is made (principal); Z91.81 History of falling; I10 Essential (primary) hypertension; E78.5 Hyperlipidemia, unspecified; Z95.0 Presence of cardiac pacemaker; Z79.01 Long term (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; Z79.02 Long term (current) use of antithrombotics/antiplatelets; Z79.899 Other long term (current) drug therapy
CPT/HCPCS: 36415; 70450; 80048; 80076; 83735; 85025; 85610; 85730; 93005; 99284

== ENCOUNTER 2022-09-20 08:42 | Outpatient (REF) | payer MEDICARE, OTHER, SELFPAY ==
[2022-09-20 12:09] LABS: INTERNATIONAL NORM RATIO 2.5 (0.9-1.1); Prothrombin Time 30.1 SEC (10.0-13.1)
== END 2022-09-20 08:43 | disposition home or self-care (01) ==
LOC: HO.LABR 08:42
PROVIDERS: PCP Internal Medicine; Visit Provider Internal Medicine
DX: I48.91 Unspecified atrial fibrillation (principal)
CPT/HCPCS: 36415; 85610

== ENCOUNTER 2022-10-10 09:14 | Outpatient (REF) | payer MEDICARE, OTHER, SELFPAY | END 2022-10-10 09:15 | disposition home or self-care (01) | LOC: HO.LABR 09:14 | PROVIDERS: PCP Internal Medicine; Visit Provider Internal Medicine | DX: I48.91 Unspecified atrial fibrillation (principal) | CPT/HCPCS: 36415; 85610 ==

== ENCOUNTER 2022-10-25 12:16 | Outpatient (REF) | payer MEDICARE, OTHER, SELFPAY ==
[2022-10-25 13:59] LABS: INTERNATIONAL NORM RATIO 3.2 (0.9-1.1); Prothrombin Time 39.1 SEC (10.0-13.1)
== END 2022-10-25 12:17 | disposition home or self-care (01) ==
LOC: HO.LABR 12:16
PROVIDERS: PCP Internal Medicine; Visit Provider Internal Medicine
DX: I48.91 Unspecified atrial fibrillation (principal)
CPT/HCPCS: 36415; 85610

== ENCOUNTER 2022-11-06 12:13 | Outpatient (REF) | payer MEDICARE, OTHER, SELFPAY ==
[2022-11-06 17:09] LABS: Prothrombin Time 35.9 SEC (10.0-13.1)
== END 2022-11-06 12:14 | disposition home or self-care (01) ==
LOC: HO.HMGCLR 12:13
PROVIDERS: PCP Internal Medicine; Visit Provider Internal Medicine
DX: I48.91 Unspecified atrial fibrillation (principal)
CPT/HCPCS: 36415; 85610

== ENCOUNTER 2022-11-14 12:53 | Outpatient (REF) | payer MEDICARE, OTHER, SELFPAY ==
[2022-11-14 14:12] LABS: INTERNATIONAL NORM RATIO 2.3 (0.9-1.1)
== END 2022-11-14 12:54 | disposition home or self-care (01) ==
LOC: HO.HMGCLR 12:53
PROVIDERS: PCP Internal Medicine; Visit Provider Internal Medicine
DX: I48.91 Unspecified atrial fibrillation (principal)
CPT/HCPCS: 36415; 85610

== ENCOUNTER 2022-11-22 13:04 | Outpatient (REF) | payer MEDICARE, OTHER, SELFPAY ==
[2022-11-22 14:25] LABS: INTERNATIONAL NORM RATIO 1.9 (0.9-1.1); Prothrombin Time 21.9 SEC (10.0-13.1)
== END 2022-11-22 13:05 | disposition home or self-care (01) ==
LOC: HO.HMGCLDS 13:04
PROVIDERS: PCP Internal Medicine; Visit Provider Internal Medicine
DX: I48.91 Unspecified atrial fibrillation (principal)
CPT/HCPCS: 36415; 85610

== ENCOUNTER 2022-12-15 13:06 | Outpatient (REF) | payer MEDICARE, OTHER, SELFPAY ==
[2022-12-15 14:26] LABS: INTERNATIONAL NORM RATIO 4.4 (0.9-1.1)
== END 2022-12-15 13:07 | disposition home or self-care (01) ==
LOC: HO.HMGCLR 13:06
PROVIDERS: Visit Provider Internal Medicine
DX: I48.91 Unspecified atrial fibrillation (principal)
CPT/HCPCS: 36415; 85610

== ENCOUNTER 2022-12-22 12:34 | Outpatient (REF) | payer MEDICARE, OTHER, SELFPAY ==
[2022-12-22 13:58] LABS: INTERNATIONAL NORM RATIO 2.5 (0.9-1.1); Prothrombin Time 30.1 SEC (10.0-13.1)
== END 2022-12-22 12:35 | disposition home or self-care (01) ==
LOC: HO.HMGCLR 12:34
PROVIDERS: PCP Internal Medicine; Visit Provider Internal Medicine
DX: I48.91 Unspecified atrial fibrillation (principal)
CPT/HCPCS: 36415; 85610

== ENCOUNTER 2023-02-12 09:29 | Outpatient (REF) | payer MEDICARE, OTHER, SELFPAY ==
[2023-02-12 11:39] LABS: INTERNATIONAL NORM RATIO 2.4 (0.9-1.1); Prothrombin Time 28.3 SEC (10.0-13.1)
[2023-02-12 14:08] LABS: Anion Gap 12 (12-20); Blood Urea Nitrogen 27 mg/dL (9-16); Calcium 9.7 mg/dL (8.4-10.2); Carbon Dioxide 32 mmol/L (22-29); Chloride 102 mmol/L (96-108); Estimated Glomerular Filt Rate 48; Glucose Random 104 mg/dL (60-115); Potassium 3.8 mmol/L (3.3-5.1); Sodium 142 mmol/L (135-145)
== END 2023-02-12 09:30 | disposition home or self-care (01) ==
LOC: HO.HMGCLR 09:29
PROVIDERS: Absent Provider Internal Medicine; PCP Internal Medicine; Visit Provider Internal Medicine
DX: R53.83 Other fatigue (principal); I48.91 Unspecified atrial fibrillation
CPT/HCPCS: 36415; 80048; 85610

== ENCOUNTER 2023-03-13 11:20 | Outpatient (REF) | payer MEDICARE, OTHER, SELFPAY ==
[2023-03-13 14:13] LABS: INTERNATIONAL NORM RATIO 2.7 (0.9-1.1); Prothrombin Time 32.7 SEC (10.0-13.1)
== END 2023-03-13 11:21 | disposition home or self-care (01) ==
LOC: HO.HMGCLDS 11:20
PROVIDERS: Visit Provider Internal Medicine
DX: I48.91 Unspecified atrial fibrillation (principal)
CPT/HCPCS: 36415; 85610

== ENCOUNTER 2023-03-21 09:35 | Outpatient (REF) | payer MEDICARE, OTHER, SELFPAY ==
[2023-03-21 11:32] LABS: INTERNATIONAL NORM RATIO 1.4 (0.9-1.1); Prothrombin Time 16.6 SEC (10.0-13.1)
== END 2023-03-21 09:36 | disposition home or self-care (01) ==
LOC: HO.HMGCLDS 09:35
PROVIDERS: PCP Internal Medicine; Visit Provider Internal Medicine
DX: I48.91 Unspecified atrial fibrillation (principal)
CPT/HCPCS: 36415; 85610

== ENCOUNTER 2023-03-28 08:56 | Outpatient (REF) | payer MEDICARE, OTHER, SELFPAY ==
[2023-03-28 11:39] LABS: INTERNATIONAL NORM RATIO 3.1 (0.9-1.1); Prothrombin Time 37.5 SEC (10.0-13.1)
== END 2023-03-28 08:57 | disposition home or self-care (01) ==
LOC: HO.HMGCLR 08:56
PROVIDERS: PCP Internal Medicine; Visit Provider Internal Medicine
DX: I48.91 Unspecified atrial fibrillation (principal)
CPT/HCPCS: 36415; 85610

== ENCOUNTER 2023-04-23 12:02 | Outpatient (REF) | payer MEDICARE, OTHER, SELFPAY ==
--- NOTE | ~2023-04-23 | XR_ITS ---
EXAMINATION: XR LUMBOSACRAL SPINE CLINICAL INFORMATION: Pain, DJD. COMPARISON: None available. TECHNIQUE: Three views of the lumbosacral spine. FINDINGS: The lower vertebral bodies are not visualized in profile of the lateral projection, limiting evaluation. Body heights are grossly maintained. No acute compression fractures identified. Multilevel moderate to severe disc degeneration with disc height loss, endplate osteophytes, sclerosis. Mild levoconvex curvature. Multilevel facet degeneration. Bones are osteopenic. Mild bilateral SI joint arthritis. Symphysis pubis degeneration. XR/XR lumbar spine 2-3V IMPRESSION: No radiographically evident acute vertebral body compression fracture. Osteopenia. Moderate-severe lumbar spondylosis.
[2023-04-23 14:10] LABS: INTERNATIONAL NORM RATIO 1.9 (0.9-1.1); Prothrombin Time 22.5 SEC (10.0-13.1)
== END 2023-04-23 12:03 | disposition home or self-care (01) ==
LOC: HO.HMGCX 12:02
PROVIDERS: PCP Internal Medicine; Visit Provider Internal Medicine
DX: I48.91 Unspecified atrial fibrillation (principal); M54.50 Low back pain, unspecified
CPT/HCPCS: 36415; 72100; 85610

== ENCOUNTER 2023-06-14 10:29 | Emergency (ER) | payer MEDICARE, OTHER, SELFPAY ==
--- NOTE | ~2023-06-14 | CT_ITS ---
EXAMINATION: CT HEAD WITHOUT CONTRAST CLINICAL INFORMATION: Dizziness, status post fall with head injury. COMPARISON: Head CT scan dated 09/08/2022. TECHNIQUE: Contiguous axial imaging was performed from the skull base to vertex without intravenous administration of contrast. Coronal and sagittal reformatted images were obtained. This CT examination was performed using dose optimization techniques as appropriate, variously including the following: *Automated exposure control *Adjustment of mA and/or kV according to patient size (this includes techniques or standardized protocols for targeted exams where dose is matched to indication/reason for exam; i.e. extremities or head) *Use of iterative reconstruction technique DLP: 646.55 mGy-cm FINDINGS: There is mild widening of the cortical sulci and associated ventriculomegaly. The lateral ventricles are symmetrical. The third and fourth ventricles are in their normal midline position. The basilar and prepontine cisterns are unremarkable. Minimal periventricular microvascular changes are seen. There is no acute intra or extracerebral abnormality. There is no mass effect or midline shift. Sections through the bony calvarium are unremarkable. The orbits are intact. The paranasal sinuses are clear. The mastoid air cells are clear. CT/CT head/brain wo IV con IMPRESSION: No acute intracranial pathology.
--- NOTE | ~2023-06-14 | CT_ITS ---
EXAMINATION: CT CERVICAL SPINE WITHOUT CONTRAST CLINICAL INFORMATION: Dizziness status post fall and hitting head. COMPARISON: None available. TECHNIQUE: Multiple axial images of the cervical spine were obtained without the administration of intravenous contrast. Coronal and sagittal reformatted images were obtained. There is some limitation secondary to motion artifact. This CT examination was performed using dose optimization techniques as appropriate, variously including the following: *Automated exposure control *Adjustment of mA and/or kV according to patient size (this includes techniques or standardized protocols for targeted exams where dose is matched to indication/reason for exam; i.e. extremities or head) *Use of iterative reconstruction technique DLP: 608.23 mGy-cm FINDINGS: There is generalized osteopenia. Normal cervical lordosis and spinal alignment is seen. Mild to moderate multilevel degenerative changes are seen. There is no acute fracture. The neural foramina are patent. Mild bilateral facet arthropathy is seen. The spinous and transverse processes are intact. The cervical soft tissues are unremarkable. There is no lymphadenopathy. The thyroid gland is unremarkable. The visualized lung apices are clear. CT/CT cervical spine wo IV con IMPRESSION: Mild to moderate multilevel degenerative changes without acute abnormality.
[2023-06-14 10:37] VITALS: BP 118/56; BP 125/43; PULSE 65; PULSE 70; RESP 18; TEMP 36.4; O2SAT 96; O2SAT 97; BMI 43.1
[2023-06-14 11:01] LABS: Appearance Urine Clear; Color Urine Yellow; Glucose Urine UA Negative (Negative); Leukocyte Esterase Urine Negative (Negative); Nitrite Urine Negative (Negative); PH 6.5 (5.0-9.0); Specific Gravity - Urine <= 1.005 (1.005-1.025); Urine Blood Negative (Negative); Urine Ketones Negative (Negative); Urine Protein Negative (Neg-Trace)
[2023-06-14 12:59] LABS: MANUAL DIFF FLAG NO
--- NOTE | 2023-06-14 13:18 | ECG_ITS ---
Test Reason : DIZZY Blood Pressure : / mmHG Vent. Rate : 061 BPM Atrial Rate : 241 BPM P-R Int : 000 ms QRS Dur : 208 ms QT Int : 524 ms P-R-T Axes : 000 -60 090 degrees QTc Int : 527 ms Ventricular-paced rhythm Abnormal ECG When compared with ECG of 08-SEP-2022 10:02, Vent. rate has decreased BY 3 BPM Referred By: Pennie Boswell Electronically Signed By:YULY ALMAGUER MD
--- NOTE | 2023-06-14 13:20 | ED_ITS ---
HPI - Fall General Chief Complaint: Fall Stated Complaint: DIZZY W/FALL,NO INJURY PER EMS Time Seen by Provider: 06/14/23 13:12 Source: patient and EMS Mode of arrival: EMS Limitations: no limitations History of Present Illness HPI Narrative: 82-year-old female with a history of anxiety, CHF, COPD, depression, hyp ertension, hyperlipidemia, GERD, dementia presents to the ER with complaints of fall. Per patient she was incontinent of urine. She then slipped on her urine falling backwards hitting her head. She denies loss of consciousness. She is on Coumadin. She denies any headache, neck pain, vision changes, vomiting. No chest pain or abdominal pain. Patient reports she currently lives at home alone. Related Data Home Medications Medication Instructions Recorded Confirmed albuterol sulfate 90 mcg/actuation inhalation 02/05/21 aerosol inhaler amlodipine 5 mg tablet 1 tab PO DAILY 02/05/21 02/05/21 atorvastatin 20 mg tablet 1 tab PO DAILY 02/05/21 02/05/21 carbamazepine 200 mg tablet 1 tab PO BID 02/05/21 02/05/21 citalopram 40 mg tablet 1 tab PO DAILY 02/05/21 02/05/21 cyanocobalamin (vitamin B-12) 1 ml IM QMONTH 02/05/21 02/05/21 1,000 mcg/mL injection solution furosemide 20 mg tablet 1 tab PO DAILY 02/05/21 02/05/21 isosorbide mononitrate 30 mg 1 tab PO QAM 02/05/21 02/05/21 tablet,extended release 24 hr lorazepam 1 mg tablet 1 tab PO TID PRN anxiety 02/05/21 02/05/21 losartan 50 mg tablet 1 tab PO DAILY 02/05/21 02/05/21 meloxicam 15 mg tablet 1 tab PO DAILY 02/05/21 02/05/21 ufdlbbka-wzjbajnpr-mwttqottc 3.5 otic (ears) 02/05/21 mg/mL-10,000 unit/mL-1 % ear solution tramadol 50 mg tablet 1 tab PO TID 02/05/21 02/05/21 warfarin 2 mg tablet 1 tab PO DAILY 02/05/21 02/05/21 Previous Rx's Medication Instructions Recorded meclizine 12.5 mg tablet 12.5 mg PO TID PRN dizziness #14 02/05/21 tabs Allergies Allergy/AdvReac Type Severity Reaction Status Date / Time Sulfa (Sulfonamide Allergy Unknown RASH - Unverified 08/05/20 14:50 Antibiotics) ITCHY [SULFA(SULFONAMIDE ANTIBIOTICS)] sulfur Allergy Unknown Verified 12/02/14 00:00 trimethoprim [TRIMETHOPRIM] Allergy Unknown RASH ITCH Unverified 08/05/20 14:50 Review of Systems Review of Systems: Yes all other systems are reviewed and are negative Constitutional: Constitutional: Reports no additional constitutional complaints, Denies body ache(s), Denies chills, Denies fever(s), Denies he adache(s) and Denies weakness Eyes: Eyes: Reports no additional eye complaints and Denies change in vision ENT: Reports system reviewed and no additional complaints, except as documented, Denies dizziness, Denies headache(s), Denies nasal congestion, Denies nasal discharge and Denies neck pain Cardiovascular: Cardiovascular: Reports no additional cardiovascular complaints, Denies chest pain, Denies leg edema and Denies dyspnea Respiratory: Respiratory: Reports no additional respiratory complaints, Denies cough and Denies dyspnea 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: 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: Reports no additional gastrointestinal complaints, Denies abdominal pain, Denies diarrhea, Denies nausea and Denies vomiting Genitourinary: Genitourinary: Reports no additional female genitourinary complaints and Denies urinary incontinence Musculoskeletal: Musculoskeletal: Reports no additional musculoskeletal complaints, Denies back pain, Denies arthralgias, Denies joint swelling, Denies neck pain, Denies numbness and Denies tingling Integumentary/Breasts: Skin/Breast: Reports system reviewed and no additional complaints, except as docu and Denies rash Neurologic: Reports system reviewed and no additional complaints, except as documented, Denies Abnormal speech present, Denies dizziness, Denies headache(s), Denies numbness, Denies tingling and Denies weakness [facility] Past Medical History Attestation statement: The following information was validated with the patient. Source: old records reviewed and nursing notes reviewed Medical History Anxiety CHF (congestive heart failure) COPD (chronic obstructive pulmonary disease) Depression GERD (gastroesophageal reflux disease) High cholesterol HTN (hypertension) Social History Social History Alcohol intake: never Smoked in Last 30 Days: No Use of substances other than those prescribed or required for medical reasons: No Advance Directives: No Advance Directives Information Provided: Yes Physical Exam Vital Signs: Vital Signs: Last Vital Signs Temp 97.6 F 06/14/23 10:37 Pulse 65 06/14/23 14:53 Resp 18 06/14/23 10:37 BP 125/43 L 06/14/23 14:53 Pulse Ox 96 06/14/23 14:53 O2 Del Method Room Air 06/14/23 10:37 BMI result Body Mass Index 43.1 Const: General: cooperative, healthy appearing, comfortable and no acute distress Orientation/consciousness: oriented to person and oriented to place Limitations: altered mental status (Mild confused) HEENT: Head: Yes normal to inspection Ears: hearing grossly normal bilaterally General nose exam: Normal external nose present Face and sinus: Yes normal facial exam Mouth: Normal oral and palatal mucosa present Throat: Yes posterior oropharynx normal Eyes: General: appearance normal, both eyes and all related structures Pupils: Equal, round and reactive pupils present Neck: Neck: Yes normal visual inspection Chest: Chest palpation & inspection: normal inspection of the chest Resp: Effort & Inspection: normal respiratory effort Auscultation: clear to auscultation bilaterally Cardio: Rate: regular rate Rhythm: regular rhythm Peripheral pulses: Peripheral pulses 2+ throughout GI: Inspection: Yes normal to inspection Palpation (GI): Soft to palpation and nontender Auscultation: normal bowel sounds Back/Spine/Pelvis: Thoracic/Lumbar Spine: thoracic and lumbar spine normal to inspection Skin: General skin exam: no rashes or lesions noted Neuro: General: oriented to person, oriented to place, no focal motor deficits, normal sensation to monofilament and Unable to assess gait Cranial nerves: Yes Equal, round and reactive pupils present Speech: No Abnormal speech present Gait exam (Neuro): Unable to assess gait Extrem: General: Yes normal to inspection Course Course Course Narrative: Patient is quite confused. Patient lives at home alone. Family is concerned for patient's safety. Medical workup is unremarkable. Will order physical therapy evaluation and case management involvement to determine if patient needs higher level of care. Placed in physician observation pending disposition Medical Decision Making Medical Decision Making MDM Narrative: 82-year-old female here after a slip and fall with head strike. No LOC On Coumadin Normal neuro exam with no focal deficit Will need CT head, CT cervical spine, INR Nursing initially reported the patient had dizziness prior to fall but she denies any pre fall symptoms of dizziness, shortness of breath, headache, chest pain. She did have labs, EKG and urine ordered by nursing prior to my assessment. Differential Diagnosis Differential Diagnoses: The differential diagnosis associated with the presentation includes Mechanical fall, deconditioning Intracranial hemorrhage Lab Data MDM Lab Attestation statement: I reviewed the patient's lab results. 06/14/23 12:51 06/14/23 12:51 Labs: Lab Results 06/14/23 06/14/23 06/14/23 Range/Units 10:52 12:51 12:51 WBC 6.1 (4.8-10.8) X10*3/uL RBC 3.54 L (4.20-5.50) X10*6/uL Hgb 11.3 L (12.0-16.0) g/dl Hct 35.8 L (37.0-47.0) % MCV 101.1 H (80.0-98.0) fL MCH 31.9 (27.0-33.0) pg MCHC 31.6 (31.0-35.0) g/dl RDW 16.3 H (11.0-16.0) % Plt Count 153 L (160-400) X10*3/uL MPV 10.8 (9.4-12.3) fL Immature Gran % (Auto) 0.3 (0.0-0.4) % Neut % (Auto) 58.6 (45-73) % Lymph % (Auto) 32.0 (20-40) % [place] % (Auto) 5.2 (2-11) % Eos % (Auto) 3.6 (0-4) % Baso % (Auto) 0.3 (0-2) % Lymph # (Auto) 2.0 (1.2-4.9) X10*3/uL [place] # (Auto) 0.3 (0.1-1.2) X10*3/uL Eos # (Auto) 0.2 (0.0-0.4) X10*3/uL Baso # (Auto) 0.0 (0.0-0.2) X10*3/uL Abs Immat Gran (auto) 0.02 (0.00-0.03) X10*3/uL Absolute Neuts (auto) 3.6 (2.0-8.3) x10*3/uL Absolute Nucleated RBC 0.000 (0.0-0.012) X10*3/uL Nucleated RBC % (auto) 0.0 (0.0-0.2) /100WBC PT (11.1-13.3) SEC INR (0.9-1.1) Sodium 144 (135-145) mmol/L Potassium 4.1 (3.3-5.1) mmol/L Chloride 103 (96-108) mmol/L Carbon Dioxide 26 (22-29) mmol/L Anion Gap 19 (12-20) BUN 35 H (9-16) mg/dL Creatinine 0.98 (0.5-1.4) mg/dL Estim Creat Clear Calc 49.7 Estimated GFR 54 Random Glucose 102 (60-115) mg/dL Calcium 10.3 H D (8.4-10.2) mg/dL Total Bilirubin 0.4 (0.0-1.0) mg/dL AST 21 (5-31) U/L ALT 16 (0-31) U/L Alkaline Phosphatase 89 (39-117) U/L Troponin I High Sens (<3.5-17.0) ng/L Total Protein 6.8 (6.5-8.0) g/dL Albumin 4.3 (3.5-5.0) g/dL Urine Color Yellow Urine Appearance Clear Urine pH 6.5 (5.0-9.0) Ur Specific Wasta <= 1.005 (1.005-1.025) Urine Protein Negative (Neg-Trace) mg/dL Urine Glucose (UA) Negative (Negative) mg/dL Urine Ketones Negative (Negative) mg/dL Urine Blood Negative (Negative) Urine Nitrite Negative (Negative) Ur Leukocyte Esterase Negative (Negative) COVID-19 (EMMA) (Negative) COVID-19 Clin Com 06/14/23 06/14/23 06/14/23 Range/Units 12:51 14:11 15:17 WBC (4.8-10.8) X10*3/uL RBC (4.20-5.50) X10*6/uL Hgb (12.0-16.0) g/dl Hct (37.0-47.0) % MCV (80.0-98.0) fL MCH (27.0-33.0) pg MCHC (31.0-35.0) g/dl RDW (11.0-16.0) % Plt Count (160-400) X10*3/uL MPV (9.4-12.3) fL Immature Gran % (Auto) (0.0-0.4) % Neut % (Auto) (45-73) % Lymph % (Auto) (20-40) % [place] % (Auto) (2-11) % Eos % (Auto) (0-4) % Baso % (Auto) (0-2) % Lymph # (Auto) (1.2-4.9) X10*3/uL [place] # (Auto) (0.1-1.2) X10*3/uL Eos # (Auto) (0.0-0.4) X10*3/uL Baso # (Auto) (0.0-0.2) X10*3/uL Abs Immat Gran (auto) (0.00-0.03) X10*3/uL Absolute Neuts (auto) (2.0-8.3) x10*3/uL Absolute Nucleated RBC (0.0-0.012) X10*3/uL Nucleated RBC % (auto) (0.0-0.2) /100WBC PT 20.2 H (11.1-13.3) SEC INR 1.7 H (0.9-1.1) Sodium (135-145) mmol/L Potassium (3.3-5.1) mmol/L Chloride (96-108) mmol/L Carbon Dioxide (22-29) mmol/L Anion Gap (12-20) BUN (9-16) mg/dL Creatinine (0.5-1.4) mg/dL Estim Creat Clear Calc Estimated GFR Random Glucose (60-115) mg/dL Calcium (8.4-10.2) mg/dL Total Bilirubin (0.0-1.0) mg/dL AST (5-31) U/L ALT (0-31) U/L Alkaline Phosphatase (39-117) U/L Troponin I High Sens 14.1 (<3.5-17.0) ng/L Total Protein (6.5-8.0) g/dL Albumin (3.5-5.0) g/dL Urine Color Urine Appearance Urine pH (5.0-9.0) Ur Specific [place]asta (1.005-1.025) Urine Protein (Neg-Trace) mg/dL Urine Glucose (UA) (Negative) mg/dL Urine Ketones (Negative) mg/dL Urine Blood (Negative) Urine Nitrite (Negative) Ur Leukocyte Esterase (Negative) COVID-19 (EMMA) Negative (Negative) COVID-19 Clin Com See Note Independent Interpretation I performed an independent interpretation of an: EKG and CT Scan Interpretation: I initially reviewed the CT scan and agreed with radiology report And anjel reviewed the EKG which shows V paced rhythm with a rate of 61. Radiology Impression Discussion of test interpretation with radiology: I have reviewed the radiologist's reading. Radiologist Impression: Charlotte Castillo??82??F??1940 ? Allergy/Adv: Sulfa (Sulfonamide Antibiotics), sulfur, trimethoprim (More??) Close Head CT (Signed) Michi Napoles - 06/14/[address] (Signed) Michi Napoles - 06/14/23 Lumbar Spine X-Ray (Signed) Manuel Light - 04/23/[address] (Signed) Iggy Duarte - 09/08/22 Wrist X-Ray (Signed) Michi Napoles - 07/24/22 Ankle X-Ray (Signed) Eben Jones - 10/14/21 Wrist X-Ray (Signed) Eben Jones - 03/09/[address] (Signed) Jose Luis Albrecht - 02/02/21 Thoracic Spine X-Ray (Signed) Jose Luis Albrecht - 12/06/20 Chest X-Ray (Signed) Lorie Burns - 10/11/20 Launch?Image [address] [address] [address] Scan Report Signed Patient: Charlotte Castillo MR#: [id number] : 1940 Acct:[id number] Age/Sex: 82 / F ADM Date: 06/14/23 Loc: HO.ED Attending Dr: Ordering Physician: Pennie Casey NP Date of Service: 06/14/23 Procedure(s): CT head/brain wo IV con Accession Number(s): [id number] cc: Pennie Casey NP~ EXAMINATION: CT HEAD WITHOUT CONTRAST CLINICAL INFORMATION: Dizziness, status post fall with head injury.? COMPARISON: Head CT scan dated 09/08/2022. TECHNIQUE: Contiguous axial imaging was performed from the skull base to vertex without intravenous administration of contrast. Coronal and sagittal reformatted images were obtained. This CT examination was performed using dose optimization techniques as appropriate, variously including the following: *Automated exposure control *Adjustment of mA and/or kV according to patient size (this includes techniques or standardized protocols for targeted exams where dose is matched to indication/reason for exam; i.e. extremities or head) *Use of iterative reconstruction technique DLP: 646.55 mGy-cm FINDINGS: There is mild widening of the cortical sulci and associated ventriculomegaly. The lateral ventricles are symmetrical. The third and fourth ventricles are in their normal midline position. The basilar and prepontine cisterns are unremarkable. Minimal periventricular microvascular changes are seen. There is no acute intra or extracerebral abnormality. There is no mass effect or midline shift. Sections through the bony calvarium are unremarkable. The orbits are intact. The paranasal sinuses are clear. The mastoid air cells are clear. CT/CT head/brain wo IV con IMPRESSION: No acute intracranial pathology. ? ?[place] [address] CT Scan Report Signed Patient: Charlotte Castillo MR#: [id number] : 1940 Acct:[id number] Age/Sex: 82 / F ADM Date: 06/14/23 Loc: HO.ED Attending Dr: Ordering Physician: Pennie Casey NP Date of Service: 06/14/23 Procedure(s): CT cervical spine wo IV con Accession Number(s): [id number] cc: Pennie Casey NP~ EXAMINATION: CT CERVICAL SPINE WITHOUT CONTRAST CLINICAL INFORMATION: Dizziness status post fall and hitting head.? COMPARISON: None available. TECHNIQUE: Multiple axial images of the cervical spine were obtained without the administration of intravenous contrast. Coronal and sagittal reformatted images were obtained. There is some limitation secondary to motion artifact. This CT examination was performed using dose optimization techniques as appropriate, variously including the following: *Automated exposure control *Adjustment of mA and/or kV according to patient size (this includes techniques or standardized protocols for targeted exams where dose is matched to indication/reason for exam; i.e. extremities or head) *Use of iterative reconstruction technique DLP: 608.23 mGy-cm FINDINGS: There is generalized osteopenia. Normal cervical lordosis and spinal alignment is seen. Mild to moderate multilevel degenerative changes are seen. There is no acute fracture. The neural foramina are patent. Mild bilateral facet arthropathy is seen. The spinous and transverse processes are intact. The cervical soft tissues are unremarkable. There is no lymphadenopathy. The thyroid gland is unremarkable. The visualized lung apices are clear. CT/CT cervical spine wo IV con IMPRESSION: Mild to moderate multilevel degenerative changes without acute abnormality. Independent Historian Clinical information obtained from an independent historian. History obtained from or confirmed by: EMS Clinical information was obtained from EMS and confirm with the patient Discharge Plan Discharge Clinical Impression: Fall, Acute confusion Patient Disposition: Still a Patient Prescriptions: No Action losartan 50 mg tablet 1 tab PO DAILY gcpwjirg-wesioagmp-TB 3.5-10,000-1 mg/mL-unit/mL-% solution otic (ears) atorvastatin 20 mg tablet 1 tab PO DAILY citalopram 40 mg tablet 1 tab PO DAILY meloxicam 15 mg tablet 1 tab PO DAILY isosorbide mononitrate 30 mg tablet extended release 24 hr 1 tab PO QAM amlodipine 5 mg tablet 1 tab PO DAILY tramadol 50 mg tablet 1 tab PO TID carbamazepine 200 mg tablet 1 tab PO BID cyanocobalamin (vitamin B-12) 1,000 mcg/mL solution 1 ml IM QMONTH warfarin 2 mg tablet 1 tab PO DAILY furosemide 20 mg tablet 1 tab PO DAILY lorazepam 1 mg tablet 1 tab PO TID PRN (Reason: anxiety) albuterol sulfate 90 mcg/actuation HFA aerosol inhaler inhalation meclizine 12.5 mg tablet 12.5 mg PO TID PRN (Reason: dizziness) Qty: 14 0RF
[2023-06-14 13:21] LABS: Alanine Aminotransferase 16 U/L (0-31); Albumin Level 4.3 g/dL (3.5-5.0); Alkaline Phosphatase 89 U/L (39-117); Anion Gap 19 (12-20); Aspartate Amino Transferase 21 U/L (5-31); Bilirubin Total 0.4 mg/dL (0.0-1.0); Blood Urea Nitrogen 35 mg/dL (9-16); Calcium 10.3 mg/dL (8.4-10.2); Carbon Dioxide 26 mmol/L (22-29); Chloride 103 mmol/L (96-108); Creatinine Clr Calc Pharmacy 49.7; Estimated Glomerular Filt Rate 54; Glucose Random 102 mg/dL (60-115); Potassium 4.1 mmol/L (3.3-5.1); Sodium 144 mmol/L (135-145); Total Protein 6.8 g/dL (6.5-8.0)
[2023-06-14 13:28] LABS: Basophils Percent Auto 0.3 % (0-2); Eosinophils Absolute Auto 0.2 X10*3/uL (0.0-0.4); Eosinophils Percent Auto 3.6 % (0-4); Hematocrit 35.8 % (37.0-47.0); Hemoglobin 11.3 g/dl (12.0-16.0); Imm Gran Abs Auto 0.02 X10*3/uL (0.00-0.03); Imm Gran Pct Auto 0.3 % (0.0-0.4); Mean Corpuscular HGB Conc 31.6 g/dl (31.0-35.0); Mean Corpuscular Hemoglobin 31.9 pg (27.0-33.0); Mean Corpuscular Volume 101.1 fL (80.0-98.0); Mean Platelet Volume 10.8 fL (9.4-12.3); Monocytes Absolute Auto 0.3 X10*3/uL (0.1-1.2); Monocytes Percent Auto 5.2 % (2-11); Neutrophils Absolute Auto 3.6 x10*3/uL (2.0-8.3); Neutrophils Percent Auto 58.6 % (45-73); Platelet Count 153 X10*3/uL (160-400); Red Blood Count 3.54 X10*6/uL (4.20-5.50); Red Cell Distribution Width 16.3 % (11.0-16.0); Troponin-I High Sensitivity 14.1 ng/L (<3.5-17.0); White Blood Count 6.1 X10*3/uL (4.8-10.8)
[2023-06-14 14:28] LABS: INTERNATIONAL NORM RATIO 1.7 (0.9-1.1); Prothrombin Time 20.2 SEC (11.1-13.3)
--- NOTE | 2023-06-14 14:35 | PC.NURSE ---
PT at bedside
[2023-06-14 14:53] VITALS: BP 125/43; PULSE 65; O2SAT 96
[2023-06-14 15:42] LABS: COVID-19 Test Negative (Negative); IDNOW Serial# 08D9AD1C
--- NOTE | 2023-06-14 16:50 | PHA.MEDREC ---
Pharmacy Consult ? Medication Reconciliation Pharmacy has completed the medication reconciliation. Patient confirmed medications. Per RN, patient is confused. Patient reported no to carbamezapine however I contacted [facility]. Patient gets blister packs. Per Pharamcy, patient will be getting carbamezapine put into blister packs. Camryn Alford, PharmD
[2023-06-14 18:47] VITALS: BP 112/40; PULSE 65; RESP 14; TEMP 36.4; O2SAT 100
--- NOTE | 2023-06-14 18:47 | MHC.CM.ED ---
CM met with patient with regards to discharge planning. Falls. PT recommending Acute Rehab. Pt lives alone in elderly housing, with boyfriend living on another floor. Boyfriend and family provide assistance, shopping, meals prep and transportation. Has [facility] [employer], [employer] and medication management weekly by nurse. Not sure what agency. Pt uses a cane/walker. [employer] x2. HCP is diogo Waldrop ([phone]). PCP is Bam Echavarria. Acute referrals made. [facility]ing for bed offer from [facility]. CM following for discharge planning.
[2023-06-14 22:00] VITALS: BP 121/42; PULSE 60; RESP 18; TEMP 36.2; O2SAT 98
[2023-06-14] MEDS: Warfarin Sodium 4 MG TABLET PO (22:29)
[2023-06-15] MEDS: Omeprazole 40 MG CAPSULE.DR PO ×2 (00:43→08:13)
[2023-06-15] MEDS: LORazepam 1 MG TABLET PO (00:43)
[2023-06-15] MEDS: amLODIPine Besylate 5 MG TABLET PO (00:43)
[2023-06-15] MEDS: carBAMazepine 200 MG TABLET 400 MG PO ×2 (00:43→08:13)
[2023-06-15] MEDS: Furosemide 40 MG TABLET PO ×2 (00:43→08:13)
[2023-06-15] MEDS: traMADoL HCL 50 MG TABLET PO (01:03)
--- NOTE | 2023-06-15 01:10 | PC.NURSE ---
Patient very restless, complaining of back pain, md notified and home meds reconciled and one time dose of tramadol given with good effect.
[2023-06-15 06:00] VITALS: BP 118/46; PULSE 76; RESP 16; TEMP 36.4; O2SAT 96
[2023-06-15] MEDS: Magnesium Oxide 400 MG TABLET PO (08:13)
[2023-06-15] MEDS: Escitalopram Oxalate 20 MG TABLET PO (08:13)
[2023-06-15] MEDS: Atorvastatin Calcium 20 MG TABLET PO (08:13)
[2023-06-15] MEDS: Losartan Potassium 50 MG TABLET PO (08:13)
[2023-06-15] MEDS: Isosorbide Mononitrate 60 MG TAB.ER.24H PO (08:40)
[2023-06-15] MEDS: oxyBUTYnin chloride ER 5 MG TAB.ER.24 10 MG PO (08:40)
[2023-06-15 13:45] LABS: INTERNATIONAL NORM RATIO 2.4 (0.9-1.1); Prothrombin Time 28.9 SEC (11.1-13.3)
[2023-06-15 14:00] VITALS: BP 139/53; PULSE 80; RESP 18; TEMP 36.1; O2SAT 95
--- NOTE | 2023-06-15 14:24 | MHC.CM.ED ---
[facility] has declined pt for acute rehab in addition to [facility]. Pt does not have a MCR qualifying stay and has no secondary payor for SNF placement. Discussed this w/pt and her two daughters present. Pt would like to return to home w/active [employer] and family support. Dtrs state they are able to assist pt with care needs. Pt has a working [employer] alert and a significant other in the apt building. Abigail SPANGLER arranged for 5pm p/u. ED PA and RN aware of d/c plan.
== END 2023-06-15 17:42 | disposition home or self-care (01) ==
PROVIDERS: Emergency Medicine; Nurse Practitioner Family; Emergency Provider Emergency Medicine Emergency Medical Services
DX: R42 Dizziness and giddiness (principal); R51.9 Headache, unspecified; M54.2 Cervicalgia; R26.2 Difficulty in walking, not elsewhere classified; R94.31 Abnormal electrocardiogram [ECG] [EKG]; R41.0 Disorientation, unspecified; Z79.899 Other long term (current) drug therapy
CPT/HCPCS: 36415; 70450; 72125; 80053; 81003; 84484; 85025; 85610; 87635; 93005; 97161; 99285

== ENCOUNTER → 2023-06-14 13:18 | Outpatient (BNV) | payer MEDICARE, MEDICAID, SELFPAY | PROVIDERS: Emergency Provider Emergency Medicine Emergency Medical Services; Visit Provider Internal Medicine Cardiovascular Disease | DX: R42 Dizziness and giddiness (principal) | CPT/HCPCS: 93010 ==

== ENCOUNTER 2023-06-15 20:07 | Emergency (ER) | payer MEDICARE, OTHER, SELFPAY ==
--- NOTE | ~2023-06-15 | XR_ITS ---
EXAMINATION: XR ANKLE, RIGHT CLINICAL INFORMATION: Pain, fall COMPARISON: None available. TECHNIQUE: AP, lateral, and mortise views of the right ankle. FINDINGS: Dystrophic calcification associated with soft tissue in the partially visualized lower leg. There is no evidence for an acute fracture or dislocation in the ankle. XR/XR ankle RT min 3V IMPRESSION: No acute fracture or dislocation right ankle
--- NOTE | ~2023-06-15 | XR_ITS ---
EXAMINATION: XR SACRUM AND COCCYX CLINICAL INFORMATION: Fall COMPARISON: None available. TECHNIQUE: 3 views frontal lateral oblique. FINDINGS: Exam limited by soft tissue and bone overlap. There is grade 1 anterior spondylolisthesis of L5 on S1. No clear evidence of sacral fracture however evaluation and visualization is limited. XR/XR sacrum coccyx min 2V IMPRESSION: No clear evidence of sacral fracture however evaluation is limited. Grade 1 anterior spondylolisthesis of L5 on S1..
--- NOTE | ~2023-06-15 | XR_ITS ---
EXAMINATION: XR HIP, RIGHT CLINICAL INFORMATION: Pain. Concern for right hip fracture. COMPARISON: None available. TECHNIQUE: Two views of the right hip. Frontal view of the pelvis. FINDINGS: No fracture or dislocation. The hips are well aligned. Mild degenerative change of both hips with narrowing and sclerosis. The pelvic rim is intact. The sacroiliac joints and pubic symphysis are intact. Normal bowel gas pattern. XR/XR hip RT w PEL1V IMPRESSION: No fracture or malalignment. Mild degenerative changes of the hips.
[2023-06-15 20:20] VITALS: BP 140/64; BP 94/56; PULSE 63; PULSE 77; RESP 18; TEMP 36.7; O2SAT 96; O2SAT 97; BMI 42.9
--- NOTE | 2023-06-15 20:49 | ED_ITS ---
HPI - General Adult General Chief complaint: Fall Stated complaint: mechanical fall, -injury Time Seen by Provider: 06/15/23 20:49 Source: patient, family (patient's grandson) and EMS Mode of arrival: EMS Limitations: no limitations History of Present Illness HPI narrative: Patient is a 82 year old assigned female at with a history of HTN, GERD, and COPD presenting to the emergency department today with low back pain after a fall. Patient states that she slid off of her toilet at home and slowly fell on her bottom. Patient states that she is having low back pain but is otherwise OK. Patient denies hitting her head or suffering any loss of consciousness. Patient denies any dizziness, lightheadedness, abdominal pain, nausea, vomiting, fever, chills, blurry vision, double vision, loss of vision, chest pain, difficulty breathing, shortness of breath, back pain, night sweats, pain with urination, increased urinary frequency, increased urinary urgency, blood in her urine or stool, syncope or a near syncopal episode, bowel incontinence, bladder incontinence, bowel retention, bladder retention, or any other complaints at this time. Onset (ago): minute(s) Location: back Radiation: non-radiation Severity: mild Severity scale (1-10): 2 Quality: aching and dull Pain Consistency: constant Relieving factors: none Exacerbating factors: none Associated symptoms: denies other symptoms Treatments prior to arrival: none Related Data Home Medications Medication Instructions Recorded Confirmed albuterol sulfate 90 mcg/actuation 1 puff inhalation Q4H PRN Wheezing 02/05/21 06/15/23 aerosol inhaler atorvastatin 20 mg tablet 1 tab PO DAILY 02/05/21 06/15/23 carbamazepine 200 mg tablet 2 tab PO BID 02/05/21 06/15/23 citalopram 40 mg tablet 1 tab PO DAILY 02/05/21 06/15/23 lorazepam 1 mg tablet 1 tab PO TID PRN anxiety 02/05/21 06/15/23 losartan 50 mg tablet 1 tab PO DAILY 02/05/21 06/15/23 tramadol 50 mg tablet 1 tab PO TID PRN Pain 02/05/21 06/15/23 warfarin 2 mg tablet 2 mg PO TUWETHFR@1800 02/05/21 06/15/23 amlodipine 5 mg tablet 5 mg PO BEDTIME 06/14/23 06/15/23 furosemide 40 mg tablet 40 mg PO BID 06/14/23 06/15/23 isosorbide mononitrate 60 mg 60 mg PO DAILY 06/14/23 06/15/23 tablet,extended release 24 hr magnesium oxide 400 mg (241.3 mg 400 mg PO DAILY 06/14/23 06/15/23 magnesium) tablet omeprazole 20 mg capsule,delayed 40 mg PO BID 06/14/23 06/15/23 release oxybutynin chloride 10 mg 10 mg PO DAILY 06/14/23 06/15/23 tablet,extended release 24 hr warfarin 4 mg tablet 6 mg PO DAILY@1800 06/14/23 06/15/23 Previous Rx's Medication Instructions Recorded meclizine 12.5 mg tablet 12.5 mg PO TID PRN dizziness #14 02/05/21 tabs Allergies Allergy/AdvReac Type Severity Reaction Status Date / Time Sulfa (Sulfonamide Allergy Unknown RASH - Verified 06/15/23 20:20 Antibiotics) ITCHY [SULFA(SULFONAMIDE ANTIBIOTICS)] sulfur Allergy Unknown Rash Verified 06/15/23 20:20 trimethoprim [TRIMETHOPRIM] Allergy Unknown RASH ITCH Verified 06/15/23 20:20 Review of Systems Constitutional: Constitutional: Reports no additional constitutional complaints, Denies chills, Denies fever(s) and Denies night sweats Eyes: Eyes: Reports no additional eye complaints, Denies blurry vision, Denies change in vision, Denies diplopia, Denies eye discharge, Denies loss of vision and Denies eye pain ENT: Denies dizziness Cardiovascular: Cardiovascular: Reports no additional cardiovascular complaints, Denies chest pain, Denies lightheadedness, Denies Loss of Consciousness and Denies dyspnea Respiratory: Respiratory: Reports no additional respiratory complaints and Denies dyspnea 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: 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: Reports no additional gastrointestinal complaints, Denies abdominal pain, Denies melena, Denies hematochezia, Denies change in bowel habits and Denies change in stool character Genitourinary: Genitourinary: Denies hematuria, Denies urinary frequency, Denies dysuria, Denies urinary incontinence, Denies urinary hesitancy and Denies urinary urgency Musculoskeletal: Musculoskeletal: Reports no additional musculoskeletal complaints, Reports back pain, Denies numbness and Denies tingling Neurologic: Denies dizziness, Denies loss of vision, Denies numbness and Denies tingling Psychiatric: Psychiatric: Reports no additional psychiatric complaints Endocrine: Endocrine: Reports no additional endocrine complaints Hematologic/Lymphatic: Hematologic/Lymphatic: Reports no additional hematologic/lymphatic complaints Allergic/Immunologic: Allergic/Immunologic: Reports no additional allergic/immunologic complaints [facility] Past Medical History Attestation statement: The following information was validated with the patient. Source: old records reviewed and nursing notes reviewed Medical History Acute confusion Anxiety CHF (congestive heart failure) COPD (chronic obstructive pulmonary disease) Depression GERD (gastroesophageal reflux disease) High cholesterol HTN (hypertension) Social History Social History Alcohol intake: never Advance Directives: No Advance Directives Information Provided: Yes Physical Exam ED Vital Signs: Vital Signs - 24 hr 06/15/23 20:20 Temperature 98.1 F Pulse Rate 63 Respiratory Rate 18 Blood Pressure 94/56 L Pulse Oximetry 96 Oxygen Delivery Method Room Air BMI result Body Mass Index 42.9 Const General: cooperative, no acute distress, alert and awake Nutritional Appearance: well nourished Orientation/consciousness: patient oriented x3 Limitations: no limitations HENMT Head: Yes normal to inspection and Yes atraumatic Ears: hearing grossly normal bilaterally and external ears normal General nose exam: Normal external nose present, no nasal discharge noted and no epistaxis Face and sinus: Yes normal facial exam, No abrasion and No laceration Mouth: Normal oral and palatal mucosa present, no drooling and no muffled voice Eyes General: appearance normal, both eyes and all related structures Periorbital: periorbital findings normal Eyelids: Yes eyelids normal Conjunctivae: conjunctivae normal Pupils: Equal, round and reactive pupils present EOM: EOMs intact bilaterally Neck Neck: Yes normal visual inspection, Yes full ROM and Yes no lymphadenopathy Chest Chest palpation & inspection: normal inspection of the chest Resp Effort & Inspection: normal respiratory effort and able to speak in complete sentences GI Inspection: Yes normal to inspection General: Yes no CVA tenderness Back/Spine/Pelvis Back: no CVA tenderness Cervical Spine: normal cervical lordosis and cervical ROM normal Thoracic/Lumbar Spine: thoracic and lumbar spine normal to inspection and thoraco-lumbar ROM normal Pelvis: no pain with anterior-posterior compression Neuro General: patient oriented x3 and moves all extremities Cranial nerves: Yes Equal, round and reactive pupils present Cognition (Neuro): normal cognition Motor exam (neuro): 5/5 motor strength present throughout Sensory Exam: Normal double simultaneous stimulation for sensation Coordination: [id number] test normal Extrem General: Yes normal to inspection, Yes full ROM and Yes capillary refill normal Psych Appearance: grossly normal Mental Status: mental status grossly normal Affect: normal affect Attitude: cooperative Thought process: Normal thought process present Thought content: Normal thought content present Insight: Good insight present (Psych) Course Course Course Narrative: 06/15/2023 2345: After patient was cleared for discharge, she stated that her right ankle hurt and the patient's family voiced concern the patient would be unsafe at home tonight. Patient's family at the bed side stated that they have coverage set up to be with her over the weekend but that would be better started tomorrow rather than tonight. Patient will be PT/CM until safe discharge can be arranged. Medical Decision Making Medical Decision Making MDM Narrative: Patient is an 82 year old assigned female at with a history of GERD, HTN, and COPD presenting to the emergency department today with low back pain after a fall. Patient's physical exam was unremarkable. Patient's sacrum / coccyx and right hip pain x-rays showed no acute process. I explained my physical exam findings as well as all test results to the patient and the patient's grandson. I answered all questions asked by the patient and the patient's grandson. I stressed the importance of the patient taking her medication as prescribed. I stressed the importance of the patient following up with her primary care provider. I stressed the importance of the patient returning to the emergency department immediately if her symptoms were to worsen or if she were to develop any dizziness, shortness of breath, difficulty breathing, chest pain, blurry vision, loss of vision, nausea, vomiting, abdominal pain, fever, chills, back pain, or any other complaints. Patient and the patient's grandson verbalized agreement and understanding with this treatment plan and discharge Differential Diagnosis Differential Diagnoses: The differential diagnosis associated with the presentation includes Fall Low back pain Independent Interpretation I performed an independent interpretation of an: Plain X-Ray Interpretation: My interpretation is in agreement with the radiologist's impression of these imaging studies. EXAMINATION: XR HIP, RIGHT CLINICAL INFORMATION: Pain. Concern for right hip fracture. COMPARISON: None available. TECHNIQUE: Two views of the right hip. Frontal view of the pelvis. FINDINGS: No fracture or dislocation. The hips are well aligned. Mild degenerative change of both hips with narrowing and sclerosis. The pelvic rim is intact. The sacroiliac joints and pubic symphysis are intact. Normal bowel gas pattern.? XR/XR hip RT w PEL1V IMPRESSION: No fracture or malalignment. Mild degenerative changes of the hips. Dictated By: Jackson Dinh MD Signed By: Electronically signed by Jackson Dinh MD 06/15/23 3377 Radiology Impression Discussion of test interpretation with radiology: I have reviewed the radiologi st's reading. Independent Historian Clinical information obtained from an independent historian. History obtained from or confirmed by: EMS (EMS provided additional history and confirmed the history provided by the patient.) and Other (Patient's grandson provided additional history and confirmed the history provided by the patient.) Discharge Plan Discharge Clinical Impression: Fall Patient Disposition: Home, Self-Care Instructions: Fall Prevention for Older Adults (ED) Additional Instructions: Follow up with your primary care provider. Return to the emergency department immediately if your symptoms worsen or if you develop any dizziness, shortness of breath, difficulty breathing, chest pain, blurry vision, loss of vision, nausea, vomiting, abdominal pain, fever, chills, back pain, or any other complaints. Prescriptions: No Action losartan 50 mg tablet 1 tab PO DAILY atorvastatin 20 mg tablet 1 tab PO DAILY citalopram 40 mg tablet 1 tab PO DAILY tramadol 50 mg tablet 1 tab PO TID PRN (Reason: Pain) carbamazepine 200 mg tablet 2 tab PO BID warfarin 2 mg tablet 2 mg PO TUWETHFR@1800 lorazepam 1 mg tablet 1 tab PO TID PRN (Reason: anxiety) albuterol sulfate 90 mcg/actuation HFA aerosol inhaler 1 puff inhalation Q4H PRN (Reason: Wheezing) meclizine 12.5 mg tablet 12.5 mg PO TID PRN (Reason: dizziness) Qty: 14 0RF furosemide 40 mg tablet 40 mg PO BID oxybutynin chloride 10 mg tablet extended release 24hr 10 mg PO DAILY warfarin 4 mg tablet 6 mg PO DAILY@1800 isosorbide mononitrate 60 mg tablet extended release 24 hr 60 mg PO DAILY magnesium oxide 400 mg (241.3 mg magnesium) tablet 400 mg PO DAILY omeprazole 20 mg capsule,delayed release(DR/EC) 40 mg PO BID amlodipine 5 mg tablet 5 mg PO BEDTIME Referrals: [facility] Family Medicine [Provider Group] (Call to establish and follow up with a primary care provider. If you already have a primary care provider, please follow up with them.) [facility] Primary Care, Megan [Provider Group] (Call to establish and follow up with a primary care provider. If you already have a primary care provider, please follow up with them.) [facility] Primary Care,Miri [Provider Group] (Call to establish and follow up with a primary care provider. If you already have a primary care provider, please follow up with them.) Print Language: Kyrgyz
--- NOTE | 2023-06-15 21:27 | MHC.CM.ED ---
Addendum entered by Neeta Kumar 06/15/23 21:53: Grandson states he can drive patient home at discharge. Grandson can stay with patient tonight if needed. States patient boyfriend should also be at the apartment. Grandson states he feels comfortable taking her home. Angela WILLIS aware. Waiting for xray results. Addendum entered by Neeta Kumar 06/15/23 21:33: PT had recommended acute rehab. No bed offers today. Viky stated patient did not meet criteria for admission and MD declined patient at [facility]. Pt has no [facility] qualifying stay and no payor for STR. Pt lives alone in elderly housing. Boyfriend lives in building. Boyfriend also helps pt. Has help from daughters and grandson. Pt has MOW, [employer] and Medication management from [facility]. Pt has a life alert and a rollator walker. PCP Gilberto Echavarria. HCP on file. Xray pending. D/C plan: Home with existing services. Original Note: Pt d/c to home, active with [facility]. D/C home with daughters at 5pm 06/15. Pt states she needed to void badly and was incontinent of a large amount of urine in the bathroom. She states she slipped on the urine and fell under her rollator. Her boyfriend was present, but he could not assist her up and she kept sliding in the urine, so the ambulance was called and patient returned to the ED.
--- NOTE | 2023-06-15 22:02 | MHC.EDTECH ---
Helped patient stand and sit on a bedside commode, patient voided urine, patient cleaned herself and was able to get back into bed with minimal assistance.
[2023-06-15 23:52] VITALS: BP 139/44; PULSE 64; RESP 17; O2SAT 95
--- NOTE | 2023-06-15 23:55 | PC.NURSE ---
Pts grandchild kaiden uncomfortable with taking pt home at this time. States she is still out of it and would like to prevent future falls until they can provide better care for her at home. States family will be able to pick her up sometime tomorrow. Pt made comfortable in bed at this time. Denies any toileting needs. Vital signs stable. Call light within reach.
--- NOTE | 2023-06-16 03:07 | PC.NURSE ---
Assumed care of patient, transferred from ED. Patient resting comfortably, denies pain, VSS , able to make needs known. Call [facility]field within reach.
[2023-06-16 06:00] VITALS: BP 138/57; PULSE 64; O2SAT 97
[2023-06-16 06:23] VITALS: TEMP 36.4
--- NOTE | 2023-06-16 07:20 | PHA.MEDREC ---
Pharmacy Consult ? Medication Reconciliation Pharmacy has completed the medication reconciliation.
[2023-06-16 08:00] VITALS: BP 155/59; PULSE 61; RESP 18; TEMP 36.6; O2SAT 97
[2023-06-16 09:19] VITALS: BP 155/59; PULSE 61; O2SAT 97
[2023-06-16 10:00] VITALS: BP 147/75; PULSE 63; TEMP 36.6; O2SAT 94
--- NOTE | 2023-06-16 10:55 | PC.NURSE ---
Paged ED PA regarding pt's meds. Per pharmacy, med rec completed, must placed orders. No new orders at this time.
--- NOTE | 2023-06-16 13:45 | MHC.CM.ED ---
Patient remains in ER overflow. Physical therapy eval completed. Home therapy is recommended. Patient is already active with [facility]. Spoke with patient's daughter/HCP, Mandi. Mandi agreeable to patient returning home with resumption of VNA. Mandi will be here around 3pm to transport patient home. Patient, Chava REMY and Richa WILLIS aware. [facility] also made aware of d/c. Continue to monitor for d/c needs.
== END 2023-06-16 17:18 | disposition home or self-care (01) ==
PROVIDERS: Emergency Provider Emergency Medicine
DX: S79.911A Unspecified injury of right hip, initial encounter (principal); M25.571 Pain in right ankle and joints of right foot; M54.6 Pain in thoracic spine; R10.2 Pelvic and perineal pain; R26.2 Difficulty in walking, not elsewhere classified; W18.30XA Fall on same level, unspecified, initial encounter; Y93.9 Activity, unspecified; Y92.9 Unspecified place or not applicable; Y99.9 Unspecified external cause status; Z79.899 Other long term (current) drug therapy
CPT/HCPCS: 72220; 73502; 73610; 97161; 99283; 99284

== ENCOUNTER 2023-07-09 12:20 | Outpatient (REF) | payer MEDICARE, OTHER, SELFPAY ==
[2023-07-09 17:32] LABS: INTERNATIONAL NORM RATIO 3.5 (0.9-1.1); Prothrombin Time 42.7 SEC (11.1-13.3)
== END 2023-07-09 12:21 | disposition home or self-care (01) ==
LOC: HO.HMGCLR 12:20
PROVIDERS: PCP Internal Medicine; Visit Provider Internal Medicine
DX: I48.91 Unspecified atrial fibrillation (principal)
CPT/HCPCS: 36415; 85610

== ENCOUNTER 2023-07-16 12:17 | Outpatient (REF) | payer MEDICARE, OTHER, SELFPAY ==
[2023-07-16 16:20] LABS: INTERNATIONAL NORM RATIO 5.5 (0.9-1.1)
== END 2023-07-16 12:18 | disposition home or self-care (01) ==
LOC: HO.HMGCLR 12:17
PROVIDERS: PCP Internal Medicine; Visit Provider Internal Medicine
DX: I48.91 Unspecified atrial fibrillation (principal)
CPT/HCPCS: 36415; 85610

== ENCOUNTER 2023-07-18 12:16 | Outpatient (REF) | payer MEDICARE, OTHER, SELFPAY ==
[2023-07-18 13:43] LABS: INTERNATIONAL NORM RATIO 2.6 (0.9-1.1); Prothrombin Time 31.7 SEC (11.1-13.3)
== END 2023-07-18 12:17 | disposition home or self-care (01) ==
LOC: HO.HMGCLR 12:16
PROVIDERS: PCP Internal Medicine; Visit Provider Internal Medicine
DX: I48.91 Unspecified atrial fibrillation (principal)
CPT/HCPCS: 36415; 85610

== ENCOUNTER 2023-07-24 14:13 | Outpatient (REF) | payer MEDICARE, OTHER, SELFPAY ==
[2023-07-24 20:29] LABS: INTERNATIONAL NORM RATIO 2.4 (0.9-1.1); Prothrombin Time 29.4 SEC (11.1-13.3)
== END 2023-07-24 14:14 | disposition home or self-care (01) ==
LOC: HO.HMGCLR 14:13
PROVIDERS: PCP Internal Medicine; Visit Provider Internal Medicine
DX: I48.91 Unspecified atrial fibrillation (principal)
CPT/HCPCS: 36415; 85610

== ENCOUNTER 2023-08-01 12:48 | Outpatient (REF) | payer MEDICARE, OTHER, SELFPAY ==
[2023-08-01 16:34] LABS: INTERNATIONAL NORM RATIO 2.9 (0.9-1.1); Prothrombin Time 34.8 SEC (11.1-13.3)
== END 2023-08-01 12:49 | disposition home or self-care (01) ==
LOC: HO.HMGCLR 12:48
PROVIDERS: PCP Internal Medicine; Visit Provider Internal Medicine
DX: I48.91 Unspecified atrial fibrillation (principal)
CPT/HCPCS: 36415; 85610

== ENCOUNTER 2023-08-15 12:32 | Outpatient (REF) | payer MEDICARE, OTHER, SELFPAY ==
[2023-08-15 16:15] LABS: INTERNATIONAL NORM RATIO 3.5 (0.9-1.1); Prothrombin Time 42.8 SEC (11.1-13.3)
== END 2023-08-15 12:33 | disposition home or self-care (01) ==
LOC: HO.HMGCLR 12:32
PROVIDERS: Visit Provider Internal Medicine
DX: I48.91 Unspecified atrial fibrillation (principal)
CPT/HCPCS: 36415; 85610

== ENCOUNTER 2023-08-22 12:37 | Outpatient (REF) | payer MEDICARE, OTHER, SELFPAY ==
[2023-08-22 16:12] LABS: INTERNATIONAL NORM RATIO 4.3 (0.9-1.1); Prothrombin Time 52.4 SEC (11.1-13.3)
== END 2023-08-22 12:38 | disposition home or self-care (01) ==
LOC: HO.HMGCLDS 12:37
PROVIDERS: Visit Provider Internal Medicine
DX: I48.91 Unspecified atrial fibrillation (principal)
CPT/HCPCS: 36415; 85610

== ENCOUNTER 2023-08-24 13:02 | Outpatient (REF) | payer MEDICARE, OTHER, SELFPAY | END 2023-08-24 13:03 | disposition home or self-care (01) | LOC: HO.HMGCLR 13:02 | PROVIDERS: Visit Provider Internal Medicine | DX: I48.91 Unspecified atrial fibrillation (principal) | CPT/HCPCS: 36415; 85610 ==

== ENCOUNTER 2023-09-03 12:25 | Outpatient (REF) | payer MEDICARE, OTHER, SELFPAY ==
[2023-09-03 16:35] LABS: Prothrombin Time 63.4 SEC (11.1-13.3)
[2023-09-03 16:44] LABS: INTERNATIONAL NORM RATIO 5.2 (0.9-1.1)
== END 2023-09-03 12:26 | disposition home or self-care (01) ==
LOC: HO.HMGCLR 12:25
PROVIDERS: PCP Internal Medicine; Visit Provider Internal Medicine
DX: I48.91 Unspecified atrial fibrillation (principal)
CPT/HCPCS: 36415; 85610

== ENCOUNTER 2023-09-06 12:14 | Outpatient (REF) | payer MEDICARE, OTHER, SELFPAY ==
[2023-09-06 13:37] LABS: INTERNATIONAL NORM RATIO 2.5 (0.9-1.1); Prothrombin Time 30.2 SEC (11.1-13.3)
== END 2023-09-06 12:15 | disposition home or self-care (01) ==
LOC: HO.HMGCLR 12:14
PROVIDERS: PCP Internal Medicine; Visit Provider Internal Medicine
DX: I48.91 Unspecified atrial fibrillation (principal)
CPT/HCPCS: 36415; 85610

== ENCOUNTER 2023-09-10 12:15 | Outpatient (REF) | payer MEDICARE, OTHER, SELFPAY ==
[2023-09-10 13:52] LABS: INTERNATIONAL NORM RATIO 2.3 (0.9-1.1); Prothrombin Time 27.5 SEC (11.1-13.3)
== END 2023-09-10 12:16 | disposition home or self-care (01) ==
LOC: HO.HMGCLR 12:15
PROVIDERS: PCP Internal Medicine; Visit Provider Internal Medicine
DX: I48.91 Unspecified atrial fibrillation (principal)
CPT/HCPCS: 36415; 85610

== ENCOUNTER 2023-09-13 12:24 | Outpatient (REF) | payer MEDICARE, OTHER, SELFPAY ==
[2023-09-13 16:21] LABS: INTERNATIONAL NORM RATIO 2.4 (0.9-1.1); Prothrombin Time 29.8 SEC (11.1-13.3)
== END 2023-09-13 12:25 | disposition home or self-care (01) ==
LOC: HO.HMGCLR 12:24
PROVIDERS: PCP Internal Medicine; Visit Provider Internal Medicine
DX: I48.91 Unspecified atrial fibrillation (principal)
CPT/HCPCS: 36415; 85610

== ENCOUNTER 2023-09-20 12:24 | Outpatient (REF) | payer MEDICARE, OTHER, SELFPAY ==
[2023-09-20 16:16] LABS: INTERNATIONAL NORM RATIO 3.1 (0.9-1.1)
== END 2023-09-20 12:25 | disposition home or self-care (01) ==
LOC: HO.HMGCLR 12:24
PROVIDERS: PCP Internal Medicine; Visit Provider Internal Medicine
DX: I48.91 Unspecified atrial fibrillation (principal)
CPT/HCPCS: 36415; 85610

== ENCOUNTER 2023-09-27 13:06 | Outpatient (REF) | payer MEDICARE, OTHER, SELFPAY ==
[2023-09-27 16:33] LABS: INTERNATIONAL NORM RATIO 2.7 (0.9-1.1); Prothrombin Time 33.1 SEC (11.1-13.3)
== END 2023-09-27 13:07 | disposition home or self-care (01) ==
LOC: HO.HMGCLR 13:06
PROVIDERS: Internal Medicine; PCP Internal Medicine; Visit Provider Internal Medicine
DX: I48.91 Unspecified atrial fibrillation (principal)
CPT/HCPCS: 36415; 85610

== ENCOUNTER 2023-10-04 13:22 | Outpatient (REF) | payer MEDICARE, OTHER, SELFPAY | END 2023-10-04 13:23 | disposition home or self-care (01) | LOC: HO.HMGCLR 13:22 | PROVIDERS: Visit Provider Internal Medicine | DX: I48.91 Unspecified atrial fibrillation (principal) | CPT/HCPCS: 36415; 85610 ==

== ENCOUNTER 2023-10-05 10:36 | Outpatient (AMB) | payer MEDICARE, MEDICAID, SELFPAY ==
--- NOTE | 2023-10-05 10:52 | HO.NEPHOV ---
HPI HPI Comments History of Present Illness Details I had the privilege of seeing Charlotte in follow-up of her hypertension on a backdrop of NIKIA from [facility]. At the last visit I had cut back her amlodipine and increased the isosorbide. She continues to sleep on a recliner. She does not have any chest pain, shortness of breath, paroxysmal nocturnal dyspnea, orthopnea, worsening pedal edema. She is not very strict with her low-sodium diet or fluid restriction. She has not had any medication changes lately. She does not take any [id number]-hgh-hunlqoo medications. She has obstructive sleep apnea. She feels well. [facility] Medical History Acute confusion Anxiety CHF (congestive heart failure) COPD (chronic obstructive pulmonary disease) Depression GERD (gastroesophageal reflux disease) High cholesterol HTN (hypertension) Social History Alcohol intake: never Vital Signs 10/05/23 10:53 Height 5 ft Weight 233 lb BMI 45.5 BP 102/60 Blood Pressure Location Lt brachial Position Sitting Pulse 80 Pulse Source Pulse Oximeter Pulse Oximetry (%) 97 Oxygen Delivery Method Room Air Physical Exam Vital Signs: Last Vital Signs Pulse 80 10/05/23 10:53 BP 102/60 10/05/23 10:53 Pulse Ox 97 10/05/23 10:53 Oxygen Delivery Method Room Air 10/05/23 10:53 BMI result Body Mass Index 45.5 Const General: comfortable and no acute distress Orientation/consciousness: patient oriented x3 HEENT Head: Yes normocephalic Mouth: Normal oral and palatal mucosa present Eyes EOM: EOMs intact bilaterally Neck Neck: Yes supple Resp Auscultation: clear to auscultation bilaterally Cardio Jugular venous distension: no JVD Rate: regular rate GI Palpation (GI): Soft to palpation Auscultation: normal bowel sounds General: Yes no CVA tenderness Back/Spine/Pelvis Back: no CVA tenderness Skin General skin exam: no rashes or lesions noted Neuro General: patient oriented x3 and moves all extremities Extrem General: Yes no pedal edema Assessment & Plan Assessment & Plan (1) HTN (hypertension): Code(s): I10 - Essential (primary) hypertension Qualifiers: Hypertension type: primary hypertension Qualified Code(s): I10 - Essential (primary) hypertension Meaghan Porter has longstanding hypertension. Blood pressure is currently well controlled on isosorbide, losartan as well as amlodipine. I had cut back her amlodipine and increased the isosorbide at the last visit. She was advised to cut back salt in the diet and maintain fluid restriction. Her volume status is quite optimal. She is hemodynamically stable. Her renal functions had been stable at baseline. She has had NIKIA from [facility] which has been resolved. At the next visit I may try to wean her off amlodipine. She is tolerating loop diuretics. She is on anticoagulation. I did not make any medication changes today. All her questions were answered. Follow-up lab work was ordered. Time spent for retrieving data, documentation and patient encounter 20 minutes. Coding Level of Care Code Est Pt Level 3 (52735) Diagnoses Primary hypertension I10 Hypertension type: primary hypertension
[2023-10-05 10:53] VITALS: BP 102/60; PULSE 80; O2SAT 97; BMI 45.5
== END 2023-10-05 11:12 | disposition home or self-care (01) ==
PROVIDERS: PCP Internal Medicine; Visit Provider Internal Medicine Nephrology
DX: I10 Essential (primary) hypertension (principal); Z79.01 Long term (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; Z86.2 Personal history of diseases of the blood and blood-forming organs and certain disorders involving the immune mechanism
CPT/HCPCS: 99213

== ENCOUNTER → 2023-10-05 10:36 | Outpatient (BNVA) | payer MEDICARE, OTHER, SELFPAY | PROVIDERS: PCP Internal Medicine; Visit Provider Internal Medicine Nephrology | DX: I10 Essential (primary) hypertension (principal) | CPT/HCPCS: 99212 ==

== ENCOUNTER 2023-10-15 12:19 | Outpatient (REF) | payer MEDICARE, OTHER, SELFPAY ==
[2023-10-15 13:43] LABS: INTERNATIONAL NORM RATIO 3.9 (0.9-1.1)
[2023-10-15 14:14] LABS: Anion Gap 13 (12-20); Blood Urea Nitrogen 34 mg/dL (9-16); Calcium 9.9 mg/dL (8.4-10.2); Carbon Dioxide 29 mmol/L (22-29); Chloride 105 mmol/L (96-108); Estimated Glomerular Filt Rate 40; Sodium 143 mmol/L (135-145)
== END 2023-10-15 12:20 | disposition home or self-care (01) ==
LOC: HO.HMGCLR 12:19
PROVIDERS: Internal Medicine Nephrology; PCP Internal Medicine; Visit Provider Internal Medicine
DX: I48.91 Unspecified atrial fibrillation (principal); I10 Essential (primary) hypertension
CPT/HCPCS: 36415; 80051; 82310; 82565; 84520; 85610

== ENCOUNTER 2023-10-22 12:20 | Outpatient (REF) | payer MEDICARE, OTHER, SELFPAY ==
[2023-10-22 13:58] LABS: INTERNATIONAL NORM RATIO 2.3 (0.9-1.1); Prothrombin Time 28.1 SEC (11.1-13.3)
== END 2023-10-22 12:21 | disposition home or self-care (01) ==
LOC: HO.HMGCLR 12:20
PROVIDERS: PCP Internal Medicine; Visit Provider Internal Medicine
DX: I48.91 Unspecified atrial fibrillation (principal)
CPT/HCPCS: 36415; 85610

== ENCOUNTER 2023-10-29 12:39 | Outpatient (REF) | payer MEDICARE, OTHER, SELFPAY ==
[2023-10-29 16:12] LABS: INTERNATIONAL NORM RATIO 2.7 (0.9-1.1); Prothrombin Time 32.7 SEC (11.1-13.3)
== END 2023-10-29 12:40 | disposition home or self-care (01) ==
LOC: HO.HMGCLR 12:39
PROVIDERS: PCP Internal Medicine; Visit Provider Internal Medicine
DX: I48.91 Unspecified atrial fibrillation (principal)
CPT/HCPCS: 36415; 85610

== ENCOUNTER 2023-11-13 14:39 | Outpatient (REF) | payer MEDICARE, OTHER, SELFPAY ==
[2023-11-13 16:35] LABS: Prothrombin Time 24.6 SEC (11.1-13.3)
== END 2023-11-13 14:40 | disposition home or self-care (01) ==
LOC: HO.HMGCLDS 14:39
PROVIDERS: Visit Provider Internal Medicine
DX: Z13.89 Encounter for screening for other disorder (principal)
CPT/HCPCS: 36415; 85610

== ENCOUNTER 2023-11-20 12:13 | Outpatient (REF) | payer MEDICARE, OTHER, SELFPAY ==
[2023-11-20 13:30] LABS: INTERNATIONAL NORM RATIO 2.1 (0.9-1.1); Prothrombin Time 25.5 SEC (11.1-13.3)
== END 2023-11-20 12:14 | disposition home or self-care (01) ==
LOC: HO.HMGCLR 12:13
PROVIDERS: PCP Internal Medicine; Visit Provider Internal Medicine
DX: I48.91 Unspecified atrial fibrillation (principal)
CPT/HCPCS: 36415; 85610

== ENCOUNTER 2023-12-05 12:32 | Outpatient (REF) | payer MEDICARE, OTHER, SELFPAY ==
[2023-12-05 16:48] LABS: INTERNATIONAL NORM RATIO 2.3 (0.9-1.1); Prothrombin Time 28.5 SEC (11.1-13.3)
== END 2023-12-05 12:33 | disposition home or self-care (01) ==
LOC: HO.HMGCLR 12:32
PROVIDERS: PCP Internal Medicine; Visit Provider Internal Medicine
DX: I48.91 Unspecified atrial fibrillation (principal)
CPT/HCPCS: 36415; 85610

== ENCOUNTER 2023-12-26 10:52 | Emergency (ER) | payer MEDICARE, OTHER, SELFPAY ==
[2023-12-26] VITALS (8 sets, daily range): BP systolic 127–185; BP diastolic 43–92; PULSE 61–108; RESP 12–16; TEMP 36.4–36.7; O2SAT 93–97; BMI 44.3
--- NOTE | 2023-12-26 11:29 | ECG_ITS ---
Test Reason : DIZZINESS Blood Pressure : / mmHG Vent. Rate : 060 BPM Atrial Rate : 064 BPM P-R Int : 000 ms QRS Dur : 194 ms QT Int : 500 ms P-R-T Axes : 000 -46 093 degrees QTc Int : 500 ms Ventricular-paced rhythm Abnormal ECG When compared with ECG of 14-JUN-2023 14:01, No significant change was found Referred By: Elida Ordonez Electronically Signed By:YUSUF HENDRICKS
[2023-12-26 12:03] LABS: MANUAL DIFF FLAG NO
[2023-12-26 12:09] LABS: Basophils Percent Auto 0.3 % (0-2); Eosinophils Absolute Auto 0.3 X10*3/uL (0.0-0.4); Eosinophils Percent Auto 4.4 % (0-4); Hematocrit 29.8 % (37.0-47.0); Hemoglobin 9.3 g/dl (12.0-16.0); Imm Gran Abs Auto 0.02 X10*3/uL (0.00-0.03); Imm Gran Pct Auto 0.3 % (0.0-0.4); Lymphocytes Absolute Auto 1.5 X10*3/uL (1.2-4.9); Lymphocytes Percent Auto 23.1 % (20-40); Mean Corpuscular HGB Conc 31.2 g/dl (31.0-35.0); Mean Corpuscular Hemoglobin 29.4 pg (27.0-33.0); Mean Corpuscular Volume 94.3 fL (80.0-98.0); Mean Platelet Volume 9.9 fL (9.4-12.3); Monocytes Absolute Auto 0.4 X10*3/uL (0.1-1.2); Monocytes Percent Auto 5.9 % (2-11); Neutrophils Absolute Auto 4.2 x10*3/uL (2.0-8.3); Platelet Count 131 X10*3/uL (160-400); Red Blood Count 3.16 X10*6/uL (4.20-5.50); Red Cell Distribution Width 17.2 % (11.0-16.0); White Blood Count 6.4 X10*3/uL (4.8-10.8)
--- NOTE | 2023-12-26 12:09 | PC.NURSE ---
pt a&o x4, pleasant, calm, and cooperative. pt sts she has been dizzy x1 week, seen at [facility] x2 days and discharged yesterday. pt sts she was feeling better during her stay but then woke up this morning feeling worse again. pt reports dizziness increases with standing. 20G IV placed to LAC, labs drawn and sent. pt resting quietly in stretcher in no apparent distress. rr even/unlabored. call [facility]field within reach. plan of care ongoing.
[2023-12-26 12:11] LABS: INTERNATIONAL NORM RATIO 3.3 (0.9-1.1); Prothrombin Time 40.4 SEC (11.1-13.3)
--- NOTE | 2023-12-26 12:16 | ED_ITS ---
HPI - Dizziness General Chief Complaint: Dizziness Stated Complaint: Dizziness Weakness Time Seen by Provider: 12/26/23 11:25 Source: patient Mode of arrival: ambulatory Limitations: no limitations History of Present Illness HPI Narrative: 83 yo female with PMH of CHF, PPM for SSS, PAF on coumadin, anemia, HLD, NKECHI, memory impairment just admitted to [facility] 12/23 - 12/24 dx with vertigo and anemia hemoglobin 9.7, CT head and CTA normal treated for pneumonia started on oral antibiotics no sepsis noted. She notes she had another brief room spinning spell while sitting down no other symptoms and became nervous so she called 911. MD elicited complaint: dizziness Pertinent past history: BPPV Onset (ago): hour(s) (1) Timing: sudden onset and episodic Severity: mild Description: room spinning History of similar symptoms: Yes Exacerbating factors: nothing Relieving factors: remaining still Associated symptoms: denies other symptoms Related Data Home Medications Medication Instructions Recorded Confirmed albuterol sulfate 90 mcg/actuation 1 puff inhalation Q4H PRN Wheezing 02/05/21 06/15/23 aerosol inhaler atorvastatin 20 mg tablet 1 tab PO DAILY 02/05/21 06/15/23 citalopram 40 mg tablet 1 tab PO DAILY 02/05/21 06/15/23 losartan 50 mg tablet 1 tab PO DAILY 02/05/21 06/15/23 tramadol 50 mg tablet 1 tab PO TID PRN Pain 02/05/21 06/15/23 amlodipine 5 mg tablet 5 mg PO BEDTIME 06/14/23 06/15/23 furosemide 40 mg tablet 40 mg PO BID 06/14/23 06/15/23 isosorbide mononitrate 60 mg 60 mg PO DAILY 06/14/23 06/15/23 tablet,extended release 24 hr magnesium oxide 400 mg (241.3 mg 400 mg PO DAILY 06/14/23 06/15/23 magnesium) tablet omeprazole 20 mg capsule,delayed 40 mg PO BID 06/14/23 06/15/23 release oxybutynin chloride 10 mg 10 mg PO DAILY 06/14/23 06/15/23 tablet,extended release 24 hr warfarin 4 mg tablet 6 mg PO DAILY@1800 06/14/23 06/15/23 Previous Rx's Medication Instructions Recorded meclizine 12.5 mg tablet 12.5 mg PO TID PRN dizziness #14 02/05/21 tabs Allergies Allergy/AdvReac Type Severity Reaction Status Date / Time Sulfa (Sulfonamide Allergy Unknown RASH - Verified 10/05/23 10:55 Antibiotics) ITCHY [SULFA(SULFONAMIDE ANTIBIOTICS)] sulfur Allergy Unknown Rash Verified 10/05/23 10:55 trimethoprim [TRIMETHOPRIM] Allergy Unknown RASH ITCH Verified 10/05/23 10:55 Review of Systems 2 Review of Systems: Constitutional : No Fever, No Chills, No Fatigue ENT/Mouth : No sore throat, No Rhinorrhea Eyes: No Eye Pain, No Swelling, No Redness Cardiovascular : No Chest Pain, No SOB, No Dyspnea on Exertion Respiratory : No Cough, No Sputum 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 : No Nausea, No Vomiting, No Diarrhea, No abdominal Pain Genitourinary : No Dysuria, No Urinary Frequency, No Hematuria, Musculoskeletal : No joint pain, No Myalgias, No Joint Swelling Skin : No Skin Lesions, No rash Neuro : No Weakness, No Numbness, pos Dizziness, no Headache Psych : No Anxiety/Panic, No Depression Heme/Lymph: No Bruising, No Bleeding,No Lymphadenopathy Endocrine : No Polyuria, No Polydipsia All other systems reviewed and are negative [facility] Past Medical History Attestation statement: The following information was validated with the patient. Source: old records reviewed Medical History Acute confusion High cholesterol GERD (gastroesophageal reflux disease) Depression Anxiety HTN (hypertension) COPD (chronic obstructive pulmonary disease) CHF (congestive heart failure) Surgical History Hx of total knee arthroplasty S/P tonsillectomy History of repair of rotator cuff History of foot surgery Social History Social History Alcohol intake: never Smoked in Last 30 Days: No Use of substances other than those prescribed or required for medical reasons: No Advance Directives: No Advance Directives Information Provided: Yes Physical Exam 2 Vital Signs: Vital Signs: Last Vital Signs Temp 98.0 F 12/26/23 11:08 Pulse 70 12/26/23 14:46 Resp 16 12/26/23 11:08 BP 138/53 L 12/26/23 14:46 Pulse Ox 97 12/26/23 11:08 O2 Del Method Room Air 12/26/23 11:08 BMI result Body Mass Index 44.3 Appearance: Alert. Oriented X3. No acute distress. Eyes: Pupils equal, round and reactive to light. ENT: Pharynx normal. Neck: Normal inspection. Neck supple. CVS: Normal heart rate and rhythm. Pulses normal. Respiratory: No respiratory distress. Breath sounds normal. Abdomen: Soft and nontender. Skin: Skin warm and dry. Normal skin color. Normal skin turgor. Extremities: No lower extremity edema. No calf ttp Neuro: Oriented X 3. No motor deficit. No sensory deficit. Course Course Course Narrative: negative ortho VS Reevaluation(s) Reevaluation #1: patient has a live in partner and wants to go home and states she doesn't want rehab apparently after I left the room the patient called her PCP crying stating she wasn't safe to go home the PCP office called me and we discussed she refused rehab. Maira our catalytic case operator went to speak to the office and states Dr. Partida office is stating she has to go to rehab at this point the story is very convoluted and the patient is not being truthful or accurate there could be a memory issue. Will refer to PT/CM placed in physican observation at 212pm Reevaluation #2: acute rehab per PT Medical Decision Making Medical Decision Making [facility] Narrative: 83 yo female with PMH of CHF, PPM for SSS, PAF on coumadin, anemia, HLD, NKECHI, memory impairment just admitted to [facility] 12/23 - 12/24 dx with vertigo and anemia hemoglobin 9.7, CT head and CTA normal she returns for transient dizziness that has resolved at this time will obtain repeat labs - H/H stable, EKG, and ortho VS. She has no CP/SOB or GIB symptoms. No focal deficits no headache. Doubt ICH. Seems peripheral as it is transient and fast moving resolves quickly and has no other stroke symptoms Differential Diagnosis Differential Diagnoses: The differential diagnosis associated with the presentation includes dehydration, ortho hypotension, vertigo Admission/Observation Consideration of admission/observation: Escalation of care including admission/observation considered Lab Data [facility] Lab Attestation statement: I reviewed the patient's lab results. 12/26/23 11:57 12/26/23 11:57 Labs: Lab Results 02/07/24 02/07/24 Range/Units 11:57 13:09 WBC 6.4 (4.8-10.8) X10*3/uL RBC 3.16 L (4.20-5.50) X10*6/uL Hgb 9.3 L (12.0-16.0) g/dl Hct 29.8 L (37.0-47.0) % MCV 94.3 (80.0-98.0) fL MCH 29.4 (27.0-33.0) pg MCHC 31.2 (31.0-35.0) g/dl RDW 17.2 H (11.0-16.0) % Plt Count 131 L (160-400) X10*3/uL MPV 9.9 (9.4-12.3) fL Immature Gran % (Auto) 0.3 (0.0-0.4) % Neut % (Auto) 66.0 (45-73) % Lymph % (Auto) 23.1 (20-40) % [place] % (Auto) 5.9 (2-11) % Eos % (Auto) 4.4 H (0-4) % Baso % (Auto) 0.3 (0-2) % Lymph # (Auto) 1.5 (1.2-4.9) X10*3/uL [place] # (Auto) 0.4 (0.1-1.2) X10*3/uL Eos # (Auto) 0.3 (0.0-0.4) X10*3/uL Baso # (Auto) 0.0 (0.0-0.2) X10*3/uL Abs Immat Gran (auto) 0.02 (0.00-0.03) X10*3/uL Absolute Neuts (auto) 4.2 (2.0-8.3) x10*3/uL Absolute Nucleated RBC 0.000 (0.0-0.012) X10*3/uL Nucleated RBC % (auto) 0.0 (0.0-0.2) /100WBC PT 40.4 H D (11.1-13.3) SEC INR 3.3 H (0.9-1.1) Sodium 144 (135-145) mmol/L Potassium 4.5 (3.3-5.1) mmol/L Chloride 108 (96-108) mmol/L Carbon Dioxide 30 H (22-29) mmol/L Anion Gap 11 L (12-20) BUN 26 H (9-16) mg/dL Creatinine 0.98 (0.5-1.4) mg/dL Estim Creat Clear Calc 49.7 Estimated GFR 54 Random Glucose 96 (60-115) mg/dL Calcium 9.5 (8.4-10.2) mg/dL Magnesium 1.8 (1.6-2.6) mg/dL Total Bilirubin 0.8 (0.0-1.0) mg/dL Direct Bilirubin 0.2 (0.0-0.5) mg/dL AST 23 (5-31) U/L ALT 14 (0-31) U/L Alkaline Phosphatase 63 (39-117) U/L Troponin I High Sens 10.8 (<3.5-17.0) ng/L Total Protein 6.4 L (6.5-8.0) g/dL Albumin 3.8 (3.5-5.0) g/dL Urine Color Yellow Urine Appearance Clear Urine pH 6.0 (5.0-9.0) Ur Specific [place] 1.015 (1.005-1.025) Urine Protein Negative (Neg-Trace) mg/dL Urine Glucose (UA) Negative (Negative) mg/dL Urine Ketones Negative (Negative) mg/dL Urine Blood Negative (Negative) Urine Nitrite Negative (Negative) Ur Leukocyte Esterase Small (1+) H (Negative) Urine RBC 0-2 (0-2) /HPF Urine WBC 0-5 (0-5) /HPF Ur Squamous Epith Cells 0-2 (0-2) /HPF Urine Bacteria None Seen (None Seen) Hyaline Casts 0-2 (0-2) /LPF COVID-19 ([facility]) Negative (Negative) COVID-19 Clin Com See Note Independent Interpretation I performed an independent interpretation of an: EKG Interpretation: Rate: 60 Rhythm:v paced [place]: left wide QRS complex. ST T wave : no CELSA, inverted t wave I and aVL qTC: 500 prior studies: no acute ischemia The study has been interpreted contemporaneously by me. . External Record Review External record reviewed: Outpatient record Discharge Plan Discharge Clinical Impression: Dizziness Patient Disposition: Still a Patient Instructions: Dizziness (ED) Additional Instructions: labs at baseline, blood pressure not dropping. INR is 3.3. just had normal CT scan and CTA at [facility] take your time getting up wait one minute before you get up. return for worsening symptoms,weakness, numbness, headaches, black or bloody stools, chest pain or any other concerns. Prescriptions: No Action losartan 50 mg tablet 1 tab PO DAILY atorvastatin 20 mg tablet 1 tab PO DAILY citalopram 40 mg tablet 1 tab PO DAILY tramadol 50 mg tablet 1 tab PO TID PRN (Reason: Pain) albuterol sulfate 90 mcg/actuation HFA aerosol inhaler 1 puff inhalation Q4H PRN (Reason: Wheezing) meclizine 12.5 mg tablet 12.5 mg PO TID PRN (Reason: dizziness) Qty: 14 0RF furosemide 40 mg tablet 40 mg PO BID oxybutynin chloride 10 mg tablet extended release 24hr 10 mg PO DAILY warfarin 4 mg tablet 6 mg PO DAILY@1800 isosorbide mononitrate 60 mg tablet extended release 24 hr 60 mg PO DAILY magnesium oxide 400 mg (241.3 mg magnesium) tablet 400 mg PO DAILY omeprazole 20 mg capsule,delayed release(DR/EC) 40 mg PO BID amlodipine 5 mg tablet 5 mg PO BEDTIME
[2023-12-26 12:24] LABS: Alanine Aminotransferase 14 U/L (0-31); Albumin Level 3.8 g/dL (3.5-5.0); Alkaline Phosphatase 63 U/L (39-117); Anion Gap 11 (12-20); Aspartate Amino Transferase 23 U/L (5-31); Bilirubin Direct 0.2 mg/dL (0.0-0.5); Bilirubin Total 0.8 mg/dL (0.0-1.0); Blood Urea Nitrogen 26 mg/dL (9-16); COVID-19 Test Negative (Negative); Calcium 9.5 mg/dL (8.4-10.2); Carbon Dioxide 30 mmol/L (22-29); Chloride 108 mmol/L (96-108); Creatinine Clr Calc Pharmacy 49.7; Estimated Glomerular Filt Rate 54; Glucose Random 96 mg/dL (60-115); IDNOW Serial# 58CA691E; Magnesium 1.8 mg/dL (1.6-2.6); Potassium 4.5 mmol/L (3.3-5.1); Sodium 144 mmol/L (135-145); Total Protein 6.4 g/dL (6.5-8.0)
[2023-12-26 12:26] LABS: Troponin-I High Sensitivity 10.8 ng/L (<3.5-17.0)
[2023-12-26 13:17] LABS: Appearance Urine Clear; Color Urine Yellow; Glucose Urine UA Negative (Negative); Leukocyte Esterase Urine Small (1+) (Negative); Nitrite Urine Negative (Negative); Specific Gravity - Urine 1.015 (1.005-1.025); UMIC TRIGGER UACC YES; Urine Blood Negative (Negative); Urine Ketones Negative (Negative); Urine Protein Negative (Neg-Trace)
[2023-12-26 13:30] LABS: Bacteria Urine None Seen (None Seen); Hyaline Casts Urine 0-2 /LPF (0-2); RBC Urine 0-2 /HPF (0-2); Squamous Epithelial Cell Urine 0-2 /HPF (0-2); UACC Culture Trigger YES; WBC Urine 0-5 /HPF (0-5)
--- NOTE | 2023-12-26 14:02 | PC.NURSE ---
pt provided with discharge paperwork. waiting for grandson to pick pt up per pt.
--- NOTE | 2023-12-26 14:34 | PC.NURSE ---
per provider, pt doctor called to state that pt called him and stated that she did not feel safe enough to go home. pt did not bring this up during discharge instructions. pt sts she's discombobulated from dizziness. case management aware and will speak with pt and grandson who is now in the room with pt. possibility for PT eval and possible STR.
--- NOTE | 2023-12-26 16:51 | MHC.CM.ED ---
Received case management consult from Dr Ordonez. Patient came to the ER due to dizziness. Patient was under observation at [facility] from 12/23-12/24. [facility] was arranged and scheduled to start care on 12/27. Physical therapy eval completed. Acute rehab is recommended. Referral made to all 3 acute rehab facilities. [facility] able to offer a bed. [facility] is reviewing. Met with patient and Alec garcia in regards to discharge planning. Both are aware physical therapy is recommending acute rehab. Both aware we are waiting to hear from [facility]. Anticipate patient will be here overnight. Continue to monitor for d/c needs.
--- NOTE | 2023-12-26 18:22 | PC.NURSE ---
pt sitting up in bed, provided with meal tray. pt offers no complaints nathaniel. rr even/unlabored. awaiting to hear of placement for acute rehab. plan of care ongoing. call [facility] within reach.
--- NOTE | 2023-12-26 19:14 | PC.NURSE ---
Assumed care of pt. Pt lying on stretcher, no acute distress at this time. POC for xfer to rehab ([facility]).
[2023-12-27 05:13] VITALS: BP 138/45; PULSE 60; RESP 13; TEMP 36.6; O2SAT 93
[2023-12-27 06:00] VITALS: BP 138/68; PULSE 67; RESP 18; O2SAT 97
[2023-12-27 13:17] VITALS: BP 156/49; PULSE 62; RESP 18; O2SAT 100
== END 2023-12-27 13:25 | disposition home or self-care (01) ==
PROVIDERS: Emergency Provider Emergency Medicine; PCP Internal Medicine
DX: R42 Dizziness and giddiness (principal); R53.1 Weakness; E78.00 Pure hypercholesterolemia, unspecified; I11.0 Hypertensive heart disease with heart failure; I50.9 Heart failure, unspecified; I48.0 Paroxysmal atrial fibrillation; Z79.01 Long term (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; Z79.02 Long term (current) use of antithrombotics/antiplatelets; Z79.899 Other long term (current) drug therapy; Z11.52 Encounter for screening for COVID-19
CPT/HCPCS: 36415; 80048; 80076; 81001; 83735; 84484; 85025; 85610; 87086; 87635; 93005; 97162; 99285

== ENCOUNTER → 2023-12-26 11:29 | Outpatient (BNV) | payer MEDICARE, MEDICAID, SELFPAY | PROVIDERS: Emergency Provider Emergency Medicine; PCP Internal Medicine; Visit Provider Internal Medicine | DX: R42 Dizziness and giddiness (principal) | CPT/HCPCS: 93010 ==

== ENCOUNTER 2024-01-02 13:45 | Outpatient (REF) | payer MEDICARE, MEDICAID, SELFPAY ==
[2024-01-02 16:10] LABS: INTERNATIONAL NORM RATIO 1.3 (0.9-1.1)
== END 2024-01-02 13:46 | disposition home or self-care (01) ==
LOC: HO.HMGCLR 13:45
PROVIDERS: PCP Internal Medicine; Visit Provider Internal Medicine
DX: I48.91 Unspecified atrial fibrillation (principal); Z79.01 Long term (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
CPT/HCPCS: 36415; 85610

== ENCOUNTER 2024-01-09 11:46 | Outpatient (AMB) | payer MEDICARE, MEDICAID, SELFPAY ==
--- NOTE | 2024-01-09 12:06 | HO.NEPHOV_ITS ---
HPI HPI Comments History of Present Illness Details I had the privilege of seeing Charlotte in follow-up of her hypertension on a backdrop of NIKIA from CRS which has resolved. She had been having vertigo attacks. She is taking meclizine for it and is wondering she can go for some therapy for the same. At the last visit I had cut back her amlodipine and increased the isosorbide. She continues to sleep on a recliner. She does not have any chest pain, shortness of breath, paroxysmal nocturnal dyspnea, orthopnea, worsening pedal edema. She is not very strict with her low-sodium diet or fluid restriction. She has not had any other medication changes lately. She does not take any [id number]-jelttfr medications. She has obstructive sleep apnea. She feels well [facility], [facility] Medical History Acute confusion High cholesterol GERD (gastroesophageal reflux disease) Depression Anxiety HTN (hypertension) COPD (chronic obstructive pulmonary disease) CHF (congestive heart failure) Surgical History Hx of total knee arthroplasty S/P tonsillectomy History of repair of rotator cuff History of foot surgery Social History Alcohol intake: never Vital Signs 01/09/24 12:08 Height 5 ft Weight 223 lb 4 oz BMI 43.6 BP 122/60 Blood Pressure Location Rt brachial Position Sitting Pulse 84 Pulse Source Pulse Oximeter Pulse Oximetry (%) 97 Oxygen Delivery Method Room Air Physical Exam Vital Signs: Last Vital Signs Pulse 84 01/09/24 12:08 BP 122/60 01/09/24 12:08 Pulse Ox 97 01/09/24 12:08 Oxygen Delivery Method Room Air 01/09/24 12:08 BMI result Body Mass Index 43.6 Const General: comfortable and no acute distress Orientation/consciousness: patient oriented x3 HEENT Head: Yes normocephalic Mouth: Normal oral and palatal mucosa present Eyes EOM: EOMs intact bilaterally Neck Neck: Yes supple Resp Auscultation: clear to auscultation bilaterally Cardio Jugular venous distension: no JVD Rate: regular rate GI Palpation (GI): Soft to palpation Auscultation: normal bowel sounds General: Yes no CVA tenderness Back/Spine/Pelvis Back: no CVA tenderness Skin General skin exam: no rashes or lesions noted Neuro General: patient oriented x3 and moves all extremities Extrem General: Yes no pedal edema Assessment & Plan Assessment & Plan (1) HTN (hypertension): Code(s): I10 - Essential (primary) hypertension Qualifiers: Hypertension type: primary hypertension Qualified Code(s): I10 - Essential (primary) hypertension Plan Charlotte has longstanding hypertension. Her blood pressure is currently well controlled on isosorbide, losartan as well as amlodipine. I had cut back her amlodipine and increased the isosorbide at the last visit. She was advised to cut back salt in the diet and maintain fluid restriction. Her volume status is quite optimal. She is hemodynamically stable. Her renal functions had been stable at baseline. She has had NIKIA from CRS which has been resolved. At the next visit I may try to wean her off amlodipine. She is tolerating loop diuretics. She is on anticoagulation. I did not make any medication changes today. All her questions were answered. Follow-up lab work was ordered. Orders: Orders Blood Urea Nitrogen Today I10 - Essential (primary) hypertension Creatinine Today I10 - Essential (primary) hypertension Electrolytes Today I10 - Essential (primary) hypertension Coding Level of Care Code Est Pt Level 3 (27490) Diagnoses Primary hypertension I10 Hypertension type: primary hypertension Results Reviewed Nephrology Results: Hgb 9.3 g/dl (12.0-16.0) L 12/26/23 WBC 6.4 X10*3/uL (4.8-10.8) 12/26/23 Plt Count 131 X10*3/uL (160-400) L 12/26/23 Sodium 144 mmol/L (135-145) 12/26/23 Potassium 4.5 mmol/L (3.3-5.1) 12/26/23 Chloride 108 mmol/L (96-108) 12/26/23 Carbon Dioxide 30 mmol/L (22-29) H 12/26/23 BUN 26 mg/dL (9-16) H 12/26/23 Creatinine 0.98 mg/dL (0.5-1.4) 12/26/23 Calcium 9.5 mg/dL (8.4-10.2) 12/26/23 Urine Protein Negative mg/dL (Neg-Trace) 12/26/23
[2024-01-09 12:08] VITALS: BP 122/60; PULSE 84; O2SAT 97; BMI 43.6
== END 2024-01-09 12:40 | disposition home or self-care (01) ==
PROVIDERS: PCP Internal Medicine; Visit Provider Internal Medicine Nephrology
DX: I10 Essential (primary) hypertension (principal)
CPT/HCPCS: 99213

== ENCOUNTER → 2024-01-09 11:46 | Outpatient (BNVA) | payer MEDICARE, OTHER, SELFPAY | PROVIDERS: PCP Internal Medicine; Visit Provider Internal Medicine Nephrology | DX: I10 Essential (primary) hypertension (principal) | CPT/HCPCS: 99212 ==

== ENCOUNTER 2024-02-20 12:55 | Outpatient (REF) | payer MEDICARE, MEDICAID, SELFPAY ==
--- NOTE | ~2024-02-20 | XR_ITS ---
EXAMINATION: XR SHOULDER, LEFT CLINICAL INFORMATION: Pain; question degenerative joint disease. COMPARISON: None available. TECHNIQUE: AP external rotation, Grashey and scapular Y views of the left shoulder are submitted. FINDINGS: There is bony demineralization. The glenohumeral joint shows subluxation, without jay jay dislocation. The acromioclavicular and coracoclavicular intervals are normal. There is a distal acromial undersurface osteophyte, and there is cortical irregularity of the greater tuberosity of the proximal left humerus. There is mild calcific tendinitis of the left rotator cuff insertion. No fracture or dislocation is seen. There is no foreign body. No left pneumothorax is seen. A pacemaker impulse generator and proximal leads are noted. XR/XR shoulder LT min 2V IMPRESSION: 1. There is subluxation of the left glenohumeral joint, without jay jay dislocation. 2. Findings are consistent with left rotator cuff impingement and mild calcific tendinitis.
== END 2024-02-20 12:56 | disposition home or self-care (01) ==
LOC: HO.HMGCX 12:55
PROVIDERS: PCP Internal Medicine; Visit Provider Internal Medicine
DX: M25.512 Pain in left shoulder (principal)
CPT/HCPCS: 73030

== ENCOUNTER 2024-03-10 11:11 | Inpatient (IN) | payer MEDICARE, OTHER, SELFPAY ==
--- NOTE | ~2024-03-10 | CT_ITS ---
EXAMINATION: CT ABDOMEN AND PELVIS WITHOUT/WITH IV CONTRAST. CLINICAL INFORMATION: Lower GI bleed. COMPARISON: 04/11/2018. TECHNIQUE: Initially, noncontrast imaging of the abdomen and pelvis is performed. Then, imaging is performed in the late arterial phase and venous phase following intravenous administration of 80 mL Omnipaque 350. This CT examination was performed using dose optimization techniques as appropriate, variously including the following: *Automated exposure control *Adjustment of mA and/or kV according to patient size (this includes techniques or standardized protocols for targeted exams where dose is matched to indication/reason for exam; i.e. extremities or head) *Use of iterative reconstruction technique DLP: 2138 mGy-cm. FINDINGS: LOCALIZER IMAGES: Large body habitus. Normal bowel gas pattern. Dual-chamber cardiac pacemaker in place. LUNG BASES: Mitral valve annulus is calcified. No pericardial or pleural effusion. LIVER, GALLBLADDER, AND BILIARY TREE: The liver has normal size, shape, and attenuation. No focal hepatic lesion. Gallbladder contains several stones. No gallbladder wall thickening or pericholecystic fluid. No dilated bile ducts. PANCREAS: Mildly atrophied and otherwise unremarkable. SPLEEN: Mildly enlarged spleen measures up to 13.3 cm maximum dimension. ADRENAL GLANDS: Mild nodular thickening of the superior left adrenal gland at which point the adrenal is 1 cm transverse diameter and has low density of - 20 HU, consistent with a small lipid rich adenoma. The adrenal nodule is unchanged compared to 04/11/2018. No adrenal imaging follow-up required/recommended. KIDNEYS AND URETERS: Kidneys are normal in size. No nephrolithiasis or hydronephrosis. Simple cysts of both kidneys as well as a few nonenhancing hyperdense proteinaceous cysts. No renal imaging follow-up recommended. The ureters are unremarkable. BLADDER: Unremarkable. BOWEL AND PERITONEUM: Stomach is grossly normal. No dilated bowel loops. The small bowel has a normal appearance. No evidence of bowel wall hyperenhancement, mesenteric fat stranding or free fluid. The appendix appears to be surgically absent. There are diverticula of the distal descending and sigmoid colon without evidence of diverticulitis. No evidence of any active gastrointestinal bleeding. ABDOMINAL WALL: Small fat-containing umbilical hernia is present. LYMPH NODES: No pathologic sized lymph nodes in the abdomen or pelvis. No inguinal lymphadenopathy. VASCULATURE: Atherosclerotic calcification of the abdominal aorta and iliac arteries without aneurysm or dissection. Inferior vena cava is normal. PELVIC VISCERA: No uterine or adnexal mass. No pelvic free fluid. MUSCULOSKELETAL: Hemangioma of T12 vertebral body. No acute or suspicious osseous abnormality. Multilevel facet arthropathy, bulging discs and ligamentum flavum hypertrophy appear to cause multilevel lumbar spinal canal stenosis. Findings include moderate spinal canal stenosis and high-grade bilateral neural foraminal stenosis at L4-L5. Chondrocalcinosis of the degenerated spine, pubic symphysis and hips. CT/CT gi bleed abd pel wo/w IVcon IMPRESSION: * No evidence of an active gastrointestinal bleed. * Diverticula of the colon without evidence of diverticulitis. * Patient has a large body habitus and there is mild splenomegaly. * Cholelithiasis without evidence of cholecystitis. * Simple cysts as well as a few hyperdense proteinaceous cysts of the kidneys.
[2024-03-10 11:17] VITALS: BP 128/70; PULSE 78
[2024-03-10 11:19] VITALS: BP 126/45; PULSE 70; RESP 16; TEMP 36.7; O2SAT 99; BMI 33.2
[2024-03-10 11:53] LABS: MANUAL DIFF FLAG NO
[2024-03-10 11:56] LABS: Basophils Percent Auto 0.1 % (0-2); Eosinophils Absolute Auto 0.1 X10*3/uL (0.0-0.4); Eosinophils Percent Auto 1.5 % (0-4); Hematocrit 29.8 % (37.0-47.0); Hemoglobin 9.4 g/dl (12.0-16.0); Imm Gran Abs Auto 0.03 X10*3/uL (0.00-0.03); Imm Gran Pct Auto 0.4 % (0.0-0.4); Lymphocytes Absolute Auto 1.6 X10*3/uL (1.2-4.9); Lymphocytes Percent Auto 20.4 % (20-40); Mean Corpuscular HGB Conc 31.5 g/dl (31.0-35.0); Mean Corpuscular Hemoglobin 29.6 pg (27.0-33.0); Mean Corpuscular Volume 93.7 fL (80.0-98.0); Mean Platelet Volume 9.7 fL (9.4-12.3); Monocytes Absolute Auto 0.6 X10*3/uL (0.1-1.2); Neutrophils Absolute Auto 5.6 x10*3/uL (2.0-8.3); Neutrophils Percent Auto 70.6 % (45-73); Platelet Count 167 X10*3/uL (160-400); Red Blood Count 3.18 X10*6/uL (4.20-5.50); Red Cell Distribution Width 17.1 % (11.0-16.0); White Blood Count 7.9 X10*3/uL (4.8-10.8)
[2024-03-10 12:09] LABS: Alanine Aminotransferase 12 U/L (0-31); Albumin Level 3.8 g/dL (3.5-5.0); Alkaline Phosphatase 56 U/L (39-117); Anion Gap 11 (12-20); Aspartate Amino Transferase 15 U/L (5-31); Bilirubin Total 0.9 mg/dL (0.0-1.0); Blood Urea Nitrogen 22 mg/dL (9-16); Calcium 9.3 mg/dL (8.4-10.2); Carbon Dioxide 28 mmol/L (22-29); Chloride 104 mmol/L (96-108); Creatinine Clr Calc Pharmacy 33.7; Estimated Glomerular Filt Rate 44; Glucose Random 115 mg/dL (60-115); Potassium 3.2 mmol/L (3.3-5.1); Sodium 140 mmol/L (135-145); Total Protein 6.3 g/dL (6.5-8.0)
--- NOTE | 2024-03-10 12:12 | ED_ITS ---
HPI - Female Genitourinary General Chief complaint: Urogenital-Female Stated complaint: PAIN W/URINATION, ?'S UTI PER EMS Time Seen by Provider: 03/10/24 11:58 Source: family and EMS Mode of arrival: EMS Limitations: other (Dementia) History of Present Illness HPI Narrative: Patient comes to the emergency room from home accompanied by family. According to patient's son who is at bedside, the patient has been mentally declining over last in months but more notoriously over the last 3 months. According to the patient's son, the patient is for herself, uses a cane and a walker, has had falls over a week ago. According to the son, patient was seen at [facility], when she was there, patient pulled her IV and went out for a walk. At home, patient is the stove on, packs her suitcases and states that she is going away. Patient trying to get into the car and drive. About a month ago, patient accidentally overdosed with her medications. Patient has a VNA nurse who comes and sees her. However, her services will stop Next week due to insurance issues. Patient does have history of UTIs. At this time, patient states that she feels well, has no complaints, does not know why she is here Related Data Home Medications ?Medication ?Instructions ?Recorded ?Confirmed albuterol sulfate 90 mcg/actuation 1 puff inhalation Q4H PRN Wheezing 02/05/21 12/27/23 aerosol inhaler atorvastatin 20 mg tablet 1 tab PO DAILY 02/05/21 12/27/23 citalopram 40 mg tablet 1 tab PO DAILY 02/05/21 12/27/23 losartan 50 mg tablet 1 tab PO DAILY 02/05/21 12/27/23 tramadol 50 mg tablet 1 tab PO TID PRN Pain 02/05/21 06/15/23 amlodipine 5 mg tablet 5 mg PO BEDTIME 06/14/23 12/27/23 furosemide 40 mg tablet 40 mg PO BID 06/14/23 12/27/23 isosorbide mononitrate 60 mg 60 mg PO DAILY 06/14/23 06/15/23 tablet,extended release 24 hr magnesium oxide 400 mg (241.3 mg 400 mg PO DAILY 06/14/23 12/27/23 magnesium) tablet omeprazole 20 mg capsule,delayed 40 mg PO BID 06/14/23 12/27/23 release oxybutynin chloride 10 mg 10 mg PO DAILY 06/14/23 12/27/23 tablet,extended release 24 hr warfarin 4 mg tablet 6 mg PO DAILY@1800 06/14/23 06/15/23 Previous Rx's ?Medication ?Instructions ?Recorded meclizine 12.5 mg tablet 12.5 mg PO TID PRN dizziness #14 02/05/21 tabs Allergies Allergy/AdvReac Type Severity Reaction Status Date / Time Sulfa (Sulfonamide Allergy Unknown RASH - Verified 03/10/24 11:20 Antibiotics) ITCHY [SULFA(SULFONAMIDE ANTIBIOTICS)] sulfur Allergy Unknown Rash Verified 03/10/24 11:20 trimethoprim [TRIMETHOPRIM] Allergy Unknown RASH ITCH Verified 03/10/24 11:20 Review of Systems 2 Review of Systems: Constitutional : No Weight loss, No Fever, No Chills, No Night Sweats, No Fatigue, No Malaise ENT/Mouth : No Hearing loss, No Ear Pain, No Nasal Congestion, No Sinus Pain, No Hoarseness, No sore throat, No Rhinorrhea, No Swallowing Difficulty Eyes: No Eye Pain, No Swelling, No Redness, No Foreign Body, No Discharge, No Vision Changes Cardiovascular : No Chest Pain, No SOB, No Dyspnea on Exertion, No Orthopnea, No Edema, No Palpitations Respiratory : No Cough, No Sputum, No Wheezing, No Smoke Exposure, No Dyspnea 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 : No Nausea, No Vomiting, No Diarrhea, No Constipation, No abdominal Pain, No Hematochezia, No Melena Genitourinary : no irregular bleeding, No Dysuria, No Urinary Frequency, No Hematuria, No Urinary Incontinence, No Urgency, No Flank Pain, No Urinary Flow Changes, No Hesitancy Musculoskeletal : No joint pain, No Myalgias, No Joint Swelling Skin : No Skin Lesions, No rash Neuro : No Weakness, No Numbness, No Paresthesias, No Loss of Consciousness, No Dizziness, No Headache Psych : No Anxiety/Panic, No Depression, No SI/HI/AH/VH, No Social Issues, Heme/Lymph: No Bruising, No Bleeding,No Lymphadenopathy Endocrine : No Polyuria, No Polydipsia, No Temperature Intolerance Yes Unobtainable due to mental condition (Dementia) FOR[facility]LY [facility], [facility] Past Medical History Medical History (Updated 03/10/24 @ 13:07 by Shaye Christine MD) Pacemaker Acute confusion High cholesterol GERD (gastroesophageal reflux disease) Depression Anxiety HTN (hypertension) COPD (chronic obstructive pulmonary disease) CHF (congestive heart failure) Surgical History Hx of total knee arthroplasty S/P tonsillectomy History of repair of rotator cuff History of foot surgery Social History Social History Alcohol intake: never Smoked in Last 30 Days: No Use of substances other than those prescribed or required for medical reasons: No Advance Directives: Yes Advance Directives on File: Yes Advance Directives Date on File: 06/14/23 Physical Exam 2 Vital Signs: Vital Signs: Last Vital Signs Temp 98.1 F 03/10/24 11:19 Pulse 70 03/10/24 11:19 Resp 16 03/10/24 11:19 BP 126/45 L 03/10/24 11:19 Pulse Ox 99 03/10/24 11:19 O2 Del Method Room Air 03/10/24 11:19 BMI result Body Mass Index 33.2 Const: Other: Appearance: Alert. Oriented X2. No acute distress. Eyes: Pupils equal, round and reactive to light. ENT: Pharynx normal. Neck: Normal inspection. Neck supple. No lymph nodes noted. No crepitus CVS: Normal heart rate and rhythm. Pulses normal. Normal S1 and S2 Respiratory: No respiratory distress. Breath sounds normal. No Wheezing. No rales Abdomen: Soft and nontender. No rigidity. No distention. Skin: Skin warm and dry. Patient has candidiasis under the breasts and groin area and under the abdominal pannus Extremities: No lower extremity edema. No Lacerations. No Rash Neuro: Oriented X 2. No motor deficit. No sensory deficit. Moving all extremities. No slurred speech. CN 2 through 12 grossly intact Psych: calm, cooperative, normal affect Medical Decision Making Medical Decision Making MDM Narrative: -my interpretation of labs: Hematology at baseline, potassium slightly decreased 3.2, normal 3.3. No need for treatment at this time. Urinalysis shows moderate amount of leukocyte esterase and white blood cells. However, there is a large amount of squamous epithelial cells with no urine bacteria seen. This is likely contaminant, antibiotics not indicated at this time. -care team consult pending -physician observation started at 13:05 Differential Diagnosis Differential Diagnoses: The differential diagnosis associated with the presentation includes (UTI, dementia) Admission/Observation Consideration of admission/observation: Escalation of care including admission/observation considered (Patient waiting for case management, patient will need placement. Patient on physician observation) Lab Data MDM Lab Attestation statement: I reviewed the patient's lab results. 03/10/24 11:45 03/10/24 11:45 Labs: Lab Results 03/10/24 03/10/24 03/10/24 Range/Units 11:45 12:33 12:45 WBC 7.9 (4.8-10.8) X10*3/uL RBC 3.18 L (4.20-5.50) X10*6/uL Hgb 9.4 L (12.0-16.0) g/dl Hct 29.8 L (37.0-47.0) % MCV 93.7 (80.0-98.0) fL MCH 29.6 (27.0-33.0) pg MCHC 31.5 (31.0-35.0) g/dl RDW 17.1 H (11.0-16.0) % Plt Count 167 D (160-400) X10*3/uL MPV 9.7 (9.4-12.3) fL Immature Gran % (Auto) 0.4 (0.0-0.4) % Neut % (Auto) 70.6 (45-73) % Lymph % (Auto) 20.4 (20-40) % [place] % (Auto) 7.0 (2-11) % Eos % (Auto) 1.5 (0-4) % Baso % (Auto) 0.1 (0-2) % Lymph # (Auto) 1.6 (1.2-4.9) X10*3/uL [place] # (Auto) 0.6 (0.1-1.2) X10*3/uL Eos # (Auto) 0.1 (0.0-0.4) X10*3/uL Baso # (Auto) 0.0 (0.0-0.2) X10*3/uL Abs Immat Gran (auto) 0.03 (0.00-0.03) X10*3/uL Absolute Neuts (auto) 5.6 (2.0-8.3) x10*3/uL Absolute Nucleated RBC 0.000 (0.0-0.012) X10*3/uL Nucleated RBC % (auto) 0.0 (0.0-0.2) /100WBC PT 18.1 H (11.1-13.3) SEC INR 1.5 H (0.9-1.1) Sodium 140 (135-145) mmol/L Potassium 3.2 L D (3.3-5.1) mmol/L Chloride 104 (96-108) mmol/L Carbon Dioxide 28 (22-29) mmol/L Anion Gap 11 L (12-20) BUN 22 H (9-16) mg/dL Creatinine 1.18 (0.5-1.4) mg/dL Estim Creat Clear Calc 33.7 Estimated GFR 44 Random Glucose 115 (60-115) mg/dL Calcium 9.3 (8.4-10.2) mg/dL Total Bilirubin 0.9 (0.0-1.0) mg/dL AST 15 (5-31) U/L ALT 12 (0-31) U/L Alkaline Phosphatase 56 (39-117) U/L Total Protein 6.3 L (6.5-8.0) g/dL Albumin 3.8 (3.5-5.0) g/dL Urine Color Yellow Urine Appearance Clear Urine pH 5.5 (5.0-9.0) Ur Specific [place] 1.015 (1.005-1.025) Urine Protein Negative (Neg-Trace) mg/dL Urine Glucose (UA) Negative (Negative) mg/dL Urine Ketones Negative (Negative) mg/dL Urine Blood Negative (Negative) Urine Nitrite Negative (Negative) Ur Leukocyte Esterase Moderate (2+) H (Negative) Urine RBC 0-2 (0-2) /HPF Urine WBC 11-20 H (0-5) /HPF Ur Squamous Epith Cells 6-10 (0-2) /HPF Urine Bacteria None Seen (None Seen) Hyaline Casts 3-5 (0-2) /LPF Discharge Plan Discharge Clinical Impression: Dementia, Candidiasis Prescriptions: No Action losartan 50 mg tablet 1 tab PO DAILY atorvastatin 20 mg tablet 1 tab PO DAILY citalopram 40 mg tablet 1 tab PO DAILY tramadol 50 mg tablet 1 tab PO TID PRN (Reason: Pain) albuterol sulfate 90 mcg/actuation HFA aerosol inhaler 1 puff inhalation Q4H PRN (Reason: Wheezing) meclizine 12.5 mg tablet 12.5 mg PO TID PRN (Reason: dizziness) Qty: 14 0RF furosemide 40 mg tablet 40 mg PO BID oxybutynin chloride 10 mg tablet extended release 24hr 10 mg PO DAILY warfarin 4 mg tablet 6 mg PO DAILY@1800 isosorbide mononitrate 60 mg tablet extended release 24 hr 60 mg PO DAILY magnesium oxide 400 mg (241.3 mg magnesium) tablet 400 mg PO DAILY omeprazole 20 mg capsule,delayed release(DR/EC) 40 mg PO BID amlodipine 5 mg tablet 5 mg PO BEDTIME Print Language: Kuwaiti
[2024-03-10 12:57] LABS: INTERNATIONAL NORM RATIO 1.5 (0.9-1.1); Prothrombin Time 18.1 SEC (11.1-13.3)
[2024-03-10 12:58] LABS: Appearance Urine Clear; Color Urine Yellow; Glucose Urine UA Negative (Negative); Leukocyte Esterase Urine Moderate (2+) (Negative); Nitrite Urine Negative (Negative); PH 5.5 (5.0-9.0); Specific Gravity - Urine 1.015 (1.005-1.025); UMIC TRIGGER UACC YES; Urine Blood Negative (Negative); Urine Ketones Negative (Negative); Urine Protein Negative (Neg-Trace)
[2024-03-10 13:00] LABS: Bacteria Urine None Seen (None Seen); RBC Urine 0-2 /HPF (0-2); UACC Culture Trigger YES
[2024-03-10] MEDS: Nystatin Powder 15 GM BOTTLE 1 APPL TOPICAL (13:20)
[2024-03-10 13:23] VITALS: BP 129/48; PULSE 61; RESP 17; TEMP 36.7; O2SAT 95
[2024-03-10 13:25] LABS: COVID-19 Test Negative (Negative); IDNOW Serial# 08D9AD1C
--- NOTE | 2024-03-10 13:43 | MHC.CM.ED ---
Addendum entered by Natalie Jaquez 03/10/24 14:59: No bed offers at this time. Referral broadcasted within 50 miles. Received notification from [facility] that patient only has [facility]. Spoke with patient's son, Krishan. Informatin provided about [facility] financial counselors. Addendum entered by Natalie Jaquez 03/10/24 13:54: Patient has a history of dementia. Original Note: Received case management consult from Dr Christine. Patient came to the ER due to a fall. Work up essentially negative. Patient's son, Krishan, concerned about patient's safety at home. Met with Krishan in regards to discharge planning. Patient lives alone. Krishan has cameras arranged in patient's apartment and physically visits his mother daily. However, patient has been able to elope from your apartment. Krishan does not feel patient is safe at home. Patient lives in senior housing and isn't allowed to have anyone stay with her. Patient has DGSE. Krishan aware 4 facilities have closed locally. Also aware placement can be anywhere from [place] to [place]. Krishan verbalizes understanding and agreeable to referral being broadcasted in [facility]. Referral made within 25 miles at this time. Continue to monitor for d/c needs.
--- NOTE | 2024-03-10 14:00 | PC.NURSE ---
PT IS A/O X 1-2 WITH CONFUSION. SPEAKS IN FULL SENTENCES. AMB WITH (I) ASSIST TO BATHROOM. PT'S DAUGHTER AND SON-IN-LAW AT BEDSIDE. PT/FAMILY AWARE OF PLAN OF CARE. WILL CONTINUE TO MONITOR.
[2024-03-10 15:43] VITALS: BP 134/48; PULSE 64; RESP 18; O2SAT 99
--- NOTE | 2024-03-10 20:02 | MHC.CM.ED ---
Sons with patient. Krishan has many financial documents. Explained that he should bring them to Financial Services when he meets with them. Given financial services pamphlet and contact information. Referral made to financial services by previous CM/ Maynor (son) [phone] and David, son, . HCP/daughter Mandi ([phone]). David tells CM that his brother and sister will meet with financial service. [facility] at [place] and [facility] may offer bed pending financials. Given contact information. [facility] reviewing.
--- NOTE | 2024-03-10 20:11 | PC.NURSE ---
this rn assisted pt to bathroom, pt ambulated with steady gait, stand by assist with cane.
[2024-03-10] MEDS: Acetaminophen 325 MG TABLET 650 MG PO (20:17)
--- NOTE | 2024-03-10 20:32 | PC.NURSE ---
pt reporting headache at this time, provider aware, pt given tylenol at this time, tolerated well with water.
[2024-03-10 20:44] VITALS: PULSE 61; RESP 18; TEMP 37.1; O2SAT 98
[2024-03-10 20:50] VITALS: BP 124/46
--- NOTE | 2024-03-10 21:23 | PHA.MEDREC ---
Pharmacy Consult ? Medication Reconciliation Pharmacy has completed the medication reconciliation. Patient's family brought in RX bottles. The only dose not confirmed is warfarin. Patient's daugther who knows medication will be in at midnight. RN Montse aware to ask about warfarin dose. Camryn Alford, PharmD
--- NOTE | 2024-03-10 21:34 | MHC.EDTECH ---
pt ambulated to and from toilet. No apparent distress
--- NOTE | 2024-03-11 01:12 | PC.NURSE ---
pt daughter at bedside, confirmed pt Warfarin dose at this time is correct.
[2024-03-11 03:55] VITALS: BP 145/57; PULSE 90; RESP 17; TEMP 37; O2SAT 94
--- NOTE | 2024-03-11 04:29 | PC.NURSE ---
pt placed in hospital bed for comfort at this time, pt reports it helped pain in the back.
[2024-03-11 06:19] VITALS: BP 160/53; PULSE 69; RESP 18; TEMP 36.9; O2SAT 94
[2024-03-11] MEDS: Lidocaine HCl Viscous 2 % 15 ML SOLUTION PO (08:00)
[2024-03-11] MEDS: Losartan Potassium 50 MG TABLET PO (08:01)
[2024-03-11] MEDS: Atorvastatin Calcium 20 MG TABLET PO (08:01)
[2024-03-11] MEDS: Escitalopram Oxalate 20 MG TABLET PO (08:01)
[2024-03-11] MEDS: amLODIPine Besylate 5 MG TABLET PO ×2 (08:01→20:59)
[2024-03-11] MEDS: Omeprazole 20 MG CAPSULE.DR PO (08:02)
[2024-03-11] MEDS: Furosemide 40 MG TABLET PO ×2 (08:02→20:59)
[2024-03-11] MEDS: oxyBUTYnin chloride ER 5 MG TAB.ER.24 10 MG PO (08:02)
[2024-03-11 08:03] VITALS: BP 138/51; PULSE 71; RESP 14; TEMP 36.6; O2SAT 95
--- NOTE | 2024-03-11 08:06 | PC.NURSE ---
this RN resumed care of pt at this time. a&ox4. vss and up to date. pt has no complaints. denies pain. medication administered per provider order. pills swallowed whole w/ water w/o complications. pt repositioned in bed. resting comfortably watching tv in no apparent distress. no sob/wob noted. respirations even and unlabored. plan of care ongoing. call hatfield placed within reach.
--- NOTE | 2024-03-11 09:12 | PC.NURSE ---
pt ambulated to the restroom w/ her cane w/o assistance and was found in the biohazard room as she thought it was the restroom. pt had diarrhea on the floor as well as on her back side. pt was assisted to restroom where she was then changed into fresh hospital attire. when pt repositioned back into bed - redness noted to bottom as well as in between buttocks, under skin folds on abdomen and in between thighs. picture provided to LAZARO Plasencia. barrier cream/perineal lotion applied to affected sites. pt repositioned back into bed. pillow placed to left side. bed alarm turned on for safety precautions. pt re-educated on use of call hatfield. call hatfield placed within reach.
[2024-03-11 11:32] LABS: INTERNATIONAL NORM RATIO 1.4 (0.9-1.1); Prothrombin Time 17.4 SEC (11.1-13.3)
--- NOTE | 2024-03-11 11:36 | PC.NURSE ---
pt continues to rest comfortably in bed in no apparent distress. pt remains on RA in no apparent distress. no sob/wob noted. respirations even and unlabored. family bedside for support. call [facility]field placed within reach.
--- NOTE | 2024-03-11 13:01 | MHC.CM.ED ---
Patient remains in ER. [facility] and daughter. Patient's son, Krishan, spoke with Leny at [facility]. Krishan is waiting for a return telephone call from [facility] [place] financial counselors. Some of necessary financials provided to . These were sent to [facility] [place] Financial Counselors. Clinical updates sent to facilities still following: [facility], [facility], [facility], [facility], [facility], [facility], [facility] and [facility][note 2]. Continue to monitor for d/c needs.
[2024-03-11 14:19] VITALS: BP 138/58; PULSE 61; RESP 14; O2SAT 97
--- NOTE | 2024-03-11 17:40 | PC.NURSE ---
pt ambulates to the restroom as a 1:1 assist w/ the walker. pt c/o feeling slightly dizzy/sob w/ exertion. slight wob noted during ambulation. O2 wnl upon returning back to bed. pt repositioned to comfort. now resting comfortably in no apparent distress. bed alarm turned on for safety precautions. call [facility]field placed within reach.
[2024-03-11 18:35] VITALS: BP 136/57; PULSE 64; RESP 16; TEMP 37.4; O2SAT 97
[2024-03-11] MEDS: Warfarin Sodium 4 MG TABLET 8 MG PO (19:02)
--- NOTE | 2024-03-11 19:03 | PC.NURSE ---
delay in medication administration d/t not being in pyxis. medication now administered per provider order.
--- NOTE | 2024-03-11 19:56 | PC.NURSE ---
This RN assumed pt care @ 1900. Pt ca&ox3, no signs of distress. Pts family at bedside. Plan of care ongoing.
--- NOTE | 2024-03-11 21:03 | PC.NURSE ---
Pt medicated per mar. Pt confused, continuously saying she is going upstairs to her apt. Family at bedside. Plan of care ongoing.
[2024-03-11 23:44] VITALS: BP 131/53; PULSE 61; RESP 16; O2SAT 97
[2024-03-12] VITALS (7 sets, daily range): BP systolic 115–138; BP diastolic 45–64; PULSE 61–66; RESP 16–18; TEMP 36.3–36.9; O2SAT 94–97
--- NOTE | 2024-03-12 00:32 | PC.NURSE ---
Pt assisted to the bedside commode and back into bed. Plan of care ongoing.
--- NOTE | 2024-03-12 01:58 | PC.NURSE ---
Pt confused, continuously attempting to get out of bed. Bed alarm placed. Plan of care ongoing.
[2024-03-12] MEDS: Omeprazole 20 MG CAPSULE.DR PO (06:10)
--- NOTE | 2024-03-12 06:11 | PC.NURSE ---
Pt medicated per jan. Family at bedside. Plan of care ongoing.
[2024-03-12] MEDS: oxyBUTYnin chloride ER 5 MG TAB.ER.24 10 MG PO (08:30)
[2024-03-12] MEDS: Atorvastatin Calcium 20 MG TABLET PO (08:30)
[2024-03-12] MEDS: Escitalopram Oxalate 20 MG TABLET PO (08:30)
[2024-03-12] MEDS: Losartan Potassium 50 MG TABLET PO (08:30)
[2024-03-12] MEDS: Furosemide 40 MG TABLET PO (08:30)
[2024-03-12] MEDS: Lidocaine HCl Viscous 2 % 15 ML SOLUTION PO (08:31)
--- NOTE | 2024-03-12 09:56 | PC.NURSE ---
patient resting quietly in hospital bed, family at bedside. patient medicated per JAN. ambulated to and from bathroom with 1 assist and walker. patient is alert and oriented, skin dry and intact. VSS
[2024-03-12 12:33] LABS: INTERNATIONAL NORM RATIO 1.6 (0.9-1.1)
--- NOTE | 2024-03-12 18:28 | MHC.EDTECH ---
PATIENT WAS ASSISTED TO WALK TO BATHROOM AND BACK TO BED ,PATIENT ATE 100 % OF MEAL AND DRANK 360 ML FLUIDS ,PATIENT IN GOOD SPRITS ,DAUGHTER AT BEDSIDE .
--- NOTE | 2024-03-12 21:11 | MHC.EDTECH ---
PATIENT ROUNDING DONE ,VITALS TAKEN ,PATIENT RESTING QUIETLY IN BED
[2024-03-12] MEDS: Warfarin Sodium 4 MG TABLET 8 MG PO (22:16)
[2024-03-12] MEDS: amLODIPine Besylate 5 MG TABLET PO (22:18)
--- NOTE | 2024-03-12 22:48 | PC.NURSE ---
pt BP on lower side and potassium low. LAZARO Laurent agreed to hold pt's lasix.
--- NOTE | 2024-03-12 23:52 | MHC.EDTECH ---
0000 rounding done ,vitals taken ,Patient was clean up ,bed pads change ,patient was reposition with pillow and boosted up in bed ,RN Carol aware of patient has an open red area under belly fold .
--- NOTE | 2024-03-13 02:33 | MHC.EDTECH ---
0200 rounding done ,pt was assisted to bathroom ,void and back to bed .
--- NOTE | 2024-03-13 04:00 | PC.NURSE ---
This news writer assumed care of this Pt at 0300. Pt A&O to self, forgetful. Pt one assist with walker to BR.
[2024-03-13] MEDS: Omeprazole 20 MG CAPSULE.DR PO (05:33)
[2024-03-13 05:42] VITALS: BP 126/58; PULSE 61; RESP 16; TEMP 36.9; O2SAT 98
--- NOTE | 2024-03-13 07:02 | PC.NURSE ---
Daughter at bedside, reports Pt wears CPAP at night.
[2024-03-13 07:10] LABS: INTERNATIONAL NORM RATIO 1.8 (0.9-1.1); Prothrombin Time 22.5 SEC (11.1-13.3)
[2024-03-13 08:00] VITALS: BP 126/35; RESP 18; TEMP 36.6; O2SAT 97
[2024-03-13] MEDS: Lidocaine HCl Viscous 2 % 15 ML SOLUTION PO (08:38)
[2024-03-13] MEDS: Losartan Potassium 50 MG TABLET PO (08:39)
[2024-03-13] MEDS: Furosemide 40 MG TABLET PO (08:39)
[2024-03-13] MEDS: Atorvastatin Calcium 20 MG TABLET PO (08:39)
[2024-03-13] MEDS: Escitalopram Oxalate 20 MG TABLET PO (08:39)
[2024-03-13] MEDS: oxyBUTYnin chloride ER 5 MG TAB.ER.24 10 MG PO (08:39)
--- NOTE | 2024-03-13 08:40 | PC.NURSE ---
Alert and responsive, po meds per mar. oob ambulating to bathroom with wheeled walker . Calm and cooperative
[2024-03-13] MEDS: Nystatin Powder 15 GM BOTTLE 1 APPL TOPICAL (09:55)
[2024-03-13] MEDS: traMADoL HCL 50 MG TABLET PO (10:20)
--- NOTE | 2024-03-13 10:31 | PC.NURSE ---
medicated per mar for complants of 6/10 shoulder pain
--- NOTE | 2024-03-13 11:08 | MHC.CM.ED ---
Addendum entered by Natalie Jaquez 03/13/24 11:52: [facility] is able to offer a bed and has reached out to family. Just received notification from [facility] that patient will be admitted d/t GI bleed. [facility] aware and will follow. Copy of HCP on file does not have legible signature or date. Patient and family do not have an original copy. New HCP completed, signed and witnessed with patient. Original Note: Patient remains in ER. Copy of completed [facility] application obtained from [facility] financial counselors. Sent to facilities still following patient: [facility], [facility], [facility], [facility], [facility], [facility] and [facility]. Continue to monitor for d/c needs.
--- NOTE | 2024-03-13 11:41 | PC.NURSE ---
Patient ambulated to bathroom with walker to have a bowel movement blood dripping ? from bowel or vagina. [facility] notified and went in to assess patient. Michelle REMY notified via tiger text. Family member at bedside.
[2024-03-13 12:13] LABS: OBS Int Ctl Valid YES; OBS1 POSITIVE (NEGATIVE)
[2024-03-13 12:28] LABS: Alanine Aminotransferase 13 U/L (0-31); Albumin Level 3.8 g/dL (3.5-5.0); Alkaline Phosphatase 60 U/L (39-117); Anion Gap 11 (12-20); Aspartate Amino Transferase 17 U/L (5-31); Basophils Percent Auto 0.1 % (0-2); Bilirubin Total 1.1 mg/dL (0.0-1.0); Blood Urea Nitrogen 16 mg/dL (9-16); Calcium 9.1 mg/dL (8.4-10.2); Carbon Dioxide 29 mmol/L (22-29); Chloride 101 mmol/L (96-108); Creatinine Clr Calc Pharmacy 46.2; Eosinophils Absolute Auto 0.2 X10*3/uL (0.0-0.4); Eosinophils Percent Auto 1.5 % (0-4); Estimated Glomerular Filt Rate > 60; Glucose Random 123 mg/dL (60-115); Hematocrit 33.1 % (37.0-47.0); Hemoglobin 10.7 g/dl (12.0-16.0); Imm Gran Abs Auto 0.03 X10*3/uL (0.00-0.03); Imm Gran Pct Auto 0.3 % (0.0-0.4); Lymphocytes Absolute Auto 1.6 X10*3/uL (1.2-4.9); Lymphocytes Percent Auto 16.1 % (20-40); MANUAL DIFF FLAG SCAN; Mean Corpuscular HGB Conc 32.3 g/dl (31.0-35.0); Mean Corpuscular Hemoglobin 29.4 pg (27.0-33.0); Mean Corpuscular Volume 90.9 fL (80.0-98.0); Monocytes Absolute Auto 0.9 X10*3/uL (0.1-1.2); Monocytes Percent Auto 9.2 % (2-11); Neutrophils Absolute Auto 7.1 x10*3/uL (2.0-8.3); Neutrophils Percent Auto 72.8 % (45-73); PLT CLUMP 1; Potassium 3.3 mmol/L (3.3-5.1); Red Blood Count 3.64 X10*6/uL (4.20-5.50); Red Cell Distribution Width 17.2 % (11.0-16.0); SCAN SMEAR FLAG 1; Sodium 138 mmol/L (135-145); Total Protein 6.5 g/dL (6.5-8.0)
--- NOTE | 2024-03-13 12:29 | PM.IMHP ---
History of Present Illness Date of Service: 03/13/24 Attending physician on admission: Avinash Morris Chief Complaint: Hematochezia Pt is an 83-year-old female with a PMH significant for?HLD, HTN, paroxysmal AFib on warfarin, CHF unspecified, sick sinus syndrome with pacemaker in place, diverticulosis, CPAP at night, anxiety, and depression who presents initially presented to the ED on 03/10/2024 for evaluation of possible UTI. Patient's family had noted she had been declining mentally over the past 2 years, significantly worse in the last 3 months. Patient has been falling at home, leaving the stove on, packing suitcases and attempting to drive away in the car, accidentally overdosing on medications, etc.. Patient was initially placed in physician observation and awaiting rehab/long-term placement when she went to the bathroom and had a large amount of jay jay bright red blood per rectum. GI was consulted who suggested giving Kcentra vitamin K to reverse warfarin. Thought patient's bleeding likely secondary to diverticular bleed worsened by anticoagulation. Suggested CT of abdomen/pelvis to evaluate for possible abd bleed. Patient herself reports has had small amount of bright red blood per rectum for the past few days, though never thought to mention it to anyone. Denies any abdominal pain or pain with defecation. Denies lightheadedness or dizziness. No SOB or chest pain/pressure. No palpitations. Denies cough on increased lower leg edema. In the ED pt today has had soft BP as low as 126/35, vitals otherwise WNL. Repeat labs were significant for stable H&H of 10.7/33.1, PT 22.5 with INR 1.8, potassium 3.3, and stool positive for occult blood. UA on 03/10/2024 negative for UTI, cultures negative. Pt will be admitted to the hospital for treatment and further evaluation of lower GI bleed. Review of Systems Review of Systems: Large amount of BRBPR this morning, small amounts past few days Chronic left shoulder pain Denies abdominal pain No nausea, vomiting Denies fever, chills No chest pain/pressure, palpitations Denies shortness of breath [facility] Medical History (Updated 03/13/24 @ 11:47 by LAZARO Traore) Pacemaker Acute confusion High cholesterol GERD (gastroesophageal reflux disease) Depression Anxiety HTN (hypertension) COPD (chronic obstructive pulmonary disease) CHF (congestive heart failure) Surgical History Hx of total knee arthroplasty S/P tonsillectomy History of repair of rotator cuff History of foot surgery Social History Alcohol intake: never Patient Tobacco Use Status: Never used Tobacco Smoked in Last 30 Days: No Use of substances other than those prescribed or required for medical reasons: No Advance Directives: Yes Advance Directives on File: Yes Advance Directives Date on File: 03/13/24 Meds Allergies Allergy/AdvReac Type Severity Reaction Status Date / Time Sulfa (Sulfonamide Allergy Unknown RASH - Verified 03/10/24 11:20 Antibiotics) ITCHY [SULFA(SULFONAMIDE ANTIBIOTICS)] sulfur Allergy Unknown Rash Verified 03/10/24 11:20 trimethoprim [TRIMETHOPRIM] Allergy Unknown RASH ITCH Verified 03/10/24 11:20 Active Medications: Current Medications Albuterol Sulfate (Albuterol Sulfate 90 Mcg 8 Gm Inhaler) 1 puff INHALE Q4H PRN PRN Reason: Wheezing Amlodipine Besylate (Amlodipine Besylate 5 Mg Tablet) 5 mg PO BEDTIME [facility]; Protocol Last Admin: 03/12/24 22:18 Dose: 5 mg Atorvastatin Calcium (Atorvastatin Calcium 20 Mg Tablet) 20 mg PO DAILY [facility] Last Admin: 03/13/24 08:39 Dose: 20 mg Escitalopram Oxalate (Escitalopram Oxalate 20 Mg Tablet) 20 mg PO DAILY [facility] Last Admin: 03/13/24 08:39 Dose: 20 mg Furosemide (Furosemide 40 Mg Tablet) 40 mg PO BID [facility]; Protocol Last Admin: 03/13/24 08:39 Dose: 40 mg Phytonadione 10 mg/ Sodium (Chloride) 51 mls @ 51 mls/hr IV ONCE ONE Stop: 03/13/24 13:01 Prothrombin Complex Concent ( Human) 2,000 unit/ IV Miscellaneous Supplies 80 mls @ 480 mls/hr IV ONCE [facility] Sodium Chloride (Ns) 1,000 mls @ 999 mls/hr IV .Q1H1M [facility] Stop: 03/13/24 13:30 Lidocaine HCl (Lidocaine Hcl Viscous 2 % 15 Ml Solution) 1 ml PO DAILY [facility] Last Admin: 03/13/24 08:38 Dose: 1 ml Losartan Potassium (Losartan Potassium 50 Mg Tablet) 50 mg PO DAILY [facility]; Protocol Last Admin: 03/13/24 08:39 Dose: 50 mg Meclizine HCl (Meclizine Hcl 12.5 Mg Tablet) 12.5 mg PO TID PRN PRN Reason: dizziness Nystatin (Nystatin Powder 15 Gm Bottle) 1 appl TOPICAL DAILY [facility]; Protocol Stop: 03/18/24 09:44 Last Admin: 03/13/24 09:55 Dose: 1 appl Omeprazole (Omeprazole 20 Mg Capsule.Dr) 20 mg PO DAILY@0630 [facility] Last Admin: 03/13/24 05:33 Dose: 20 mg Ondansetron HCl (Ondansetron Odt 4 Mg Tab.Rapdis) 4 mg TRANSLINGU Q8H PRN PRN Reason: nausea Oxybutynin Chloride (Oxybutynin Chloride Er 5 Mg Tab.Er.24) 10 mg PO DAILY [facility] Last Admin: 03/13/24 08:39 Dose: 10 mg Tramadol HCl (Tramadol Hcl 50 Mg Tablet) 50 mg PO TID PRN PRN Reason: Pain, Moderate(Pain Scale 4-6) Last Admin: 03/13/24 10:20 Dose: 50 mg Warfarin Sodium (Warfarin Sodium 6 Mg Tablet) 6 mg PO MOTHFRSA@1800 [facility] Warfarin Sodium (Warfarin Sodium 4 Mg Tablet) 8 mg PO SuTu@1800 [facility] Last Admin: 03/11/24 19:02 Dose: 8 mg Home Medications ?Medication ?Instructions ?Recorded ?Confirmed ?Last Taken ?Type albuterol sulfate 90 mcg/actuation 1 puff inhalation Q4H PRN Wheezing 02/05/21 03/10/24 Unknown History aerosol inhaler atorvastatin 20 mg tablet 1 tab PO DAILY 02/05/21 03/10/24 Unknown History citalopram 40 mg tablet 1 tab PO DAILY 02/05/21 03/10/24 Unknown History losartan 50 mg tablet 1 tab PO DAILY 02/05/21 03/10/24 Unknown History tramadol 50 mg tablet 1 tab PO TID PRN Pain 02/05/21 03/10/24 Unknown History amlodipine 5 mg tablet 5 mg PO BEDTIME 06/14/23 03/10/24 Unknown History furosemide 40 mg tablet 40 mg PO BID 06/14/23 03/10/24 Unknown History omeprazole 20 mg capsule,delayed 20 mg PO DAILY 06/14/23 03/10/24 Unknown History release oxybutynin chloride 10 mg 10 mg PO DAILY 06/14/23 03/10/24 Unknown History tablet,extended release 24 hr warfarin 4 mg tablet 6 mg PO MOTHFRSA@1800 06/14/23 03/11/24 Unknown History lidocaine HCl 2 % mucosal solution 1 ml PO DAILY 03/10/24 03/10/24 Unknown History (Lidocaine Viscous) ondansetron 4 mg disintegrating 4 mg PO Q8H PRN nausea 03/10/24 03/10/24 Unknown History tablet warfarin 4 mg tablet 8 mg PO SuTu@1800 03/10/24 03/11/24 Unknown History Physical Exam Vital Signs and Narrative: Vital Signs: Last Vital Signs Temp 98 F 03/13/24 08:00 Pulse 61 03/13/24 05:42 Resp 18 03/13/24 08:00 BP 126/35 L 03/13/24 08:00 Pulse Ox 97 03/13/24 08:00 O2 Del Method Room Air 03/13/24 08:00 BMI result Body Mass Index 33.2 Constitutional: Alert, in no acute distress. Mental Status: Oriented to person, time, and situation, and partly to time. Eyes: Pupils are equal, round, and reactive to light. Ear, Nose, and Throat: Oropharynx clear, mucous membranes moist. Ears and nose without deformities. Trachea midline. Respiratory: Clear to auscultation bilaterally. No wheezing, rales, or rhonchi. Cardiovascular: S1, S2 regular. No murmurs, rubs, or gallops. 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: Abdomen soft, non-tender, non-distended. Normal bowel sounds. Neurologic: Cranial nerves II-XII are grossly intact bilaterally. No focal neurological deficits. Moves all extremities spontaneously. Skin: Warm, dry. Musculoskeletal: No cyanosis or clubbing. Extremities: No edema. Chronic venous stasis bilaterally with varicose veins. Psychiatric: Normal mood and affect. Results Labs 03/13/24 12:06 03/13/24 12:06 Labs: Laboratory Results - last 24 hr 03/12/24 03/13/24 03/13/24 12:09 06:13 12:06 PT 20.0 H 22.5 H INR 1.6 H 1.8 H Anion Gap 11 L Estim Creat Clear Calc 46.2 Estimated GFR > 60 Random Glucose 123 H Calcium 9.1 Total Bilirubin 1.1 H AST 17 ALT 13 Alkaline Phosphatase 60 Total Protein 6.5 Albumin 3.8 Stool Occult Blood POSITIVE Assessment and Plan (1) Acute lower GI hemorrhage: Status: Acute Plan Pt is an 83-year-old female with a PMH significant for?HLD, HTN, paroxysmal AFib on warfarin, CHF unspecified, sick sinus syndrome with pacemaker in place, diverticulosis, NKECHI on CPAP at night, anxiety, and depression who initially presented to the ED on 03/10/2024 for evaluation of possible UTI and was placed in physician observation pending rehab/placement. This morning had large amount of bright red blood rectum and will be admitted to the hospital for treatment and further evaluation acute lower GI. Acute lower GI bleed Likely likely diverticular bleed worsened by anticoagulation Patient received Kcentra and vitamin K in the ED H&H stable at 10.7 over 33.1, vitals stable Check GI bleed CT of abdomen/pelvis Clear liquid diet for now, NPO after midnight Hold warfarin GI consult Monitor CBC, transfuse as necessary Hypokalemia Potassium initially low 3.2 at time of administration Repeat potassium 3.3 Will supplement with potassium 20 mEq in LR Follow BMP Paroxysmal AFib Hold warfarin HTN Continue amlopidine, losartan HLD Continue statin CHF unspecified Not in acute exacerbation Hold Lasix GERD Continue omeprazole, ondansetron NKECHI Continue CPAP at night Full Code Attending:?Dr. Morris DVT Prophylaxis: Pneumatic boots due to lower GI bleed Pt will require a hospitalization of at least two nights for treatment of acute lower GI bleed, likely diverticular in the setting of anticoagulation.?Pt will require hospitalization for close monitoring of labs, vitals, transfusions as necessary, as well as specialist consultation with Gastroenterology. Quality Stroke Does the patient have a stroke diagnosis?: No VTE Prior VTE?: No VTE Risk Level:: Medical - moderate - high VTE Device Contraindication: N/A - Device Ordered VTE Drug Contraindication: Treatment Not Indicated
[2024-03-13] MEDS: Hum Prothrombin Cplx(PCC)4Fact 2,000 UNIT in Container,Empty 0 ML 480 UNIT IV (12:36)
--- NOTE | 2024-03-13 12:42 | PM.EVENT ---
Event Note Date of Service: 03/13/24 Event Note: GI consult dictated GI bleeding is likely diverticular, exacerbated by anticoagulation Rec: reverse anticoagulation monitor hct CT pending, consider RBC scan/angio if bleeding continues transfuse prn. Time Spent With Patient Time: Total time managing care of this patient today ____ minutes.
[2024-03-13] MEDS: 0.9 % Sodium Chloride 1,000 ML 999 ML IV (12:44)
[2024-03-13] MEDS: Phytonadione (Vit K1) 10 MG in 0.9 % Sodium Chloride 50 ML 51 MG IV (12:46)
[2024-03-13 13:21] LABS: Mean Platelet Volume 10.8 fL (9.4-12.3); Platelet Count 195 X10*3/uL (160-400); White Blood Count 9.7 X10*3/uL (4.8-10.8)
[2024-03-13 13:22] LABS: SLIDE REVIEW VERIFIED
[2024-03-13 13:42] LABS: INTERNATIONAL NORM RATIO 1.2 (0.9-1.1); Prothrombin Time 15.1 SEC (11.1-13.3)
[2024-03-13] MEDS: iohexoL 350 MG/ML 100 ML INFUS..BTL IV (14:12)
[2024-03-13 14:17] VITALS: BP 153/52; PULSE 63; RESP 18; TEMP 36.6; O2SAT 98
[2024-03-13] MEDS: KCl 20 mEq in 5 % Dex/Lact Rin 20 MEQ/1,000 ML IV.SOLN 80 MEQ IVCONT (14:56)
--- NOTE | 2024-03-13 17:22 | PC.NURSE ---
Patient oob to commode multiple times, voided large amount of clear yellow urine. No further episodes of bloody stools. Resting comfortably in bed, daughter at bedside
--- NOTE | 2024-03-13 17:45 | PC.NURSE ---
Patient/family aware that patient is on clear liquid diet
[2024-03-13 18:43] VITALS: PULSE 64; RESP 16; TEMP 36.8; O2SAT 97
[2024-03-13 20:41] VITALS: BP 144/76; PULSE 65; RESP 14; TEMP 36.6; O2SAT 98
[2024-03-13 21:22] VITALS: BMI 43.3
[2024-03-13 21:56] VITALS: BP 144/76
[2024-03-13] MEDS: amLODIPine Besylate 5 MG TABLET PO (21:56)
[2024-03-14] VITALS (8 sets, daily range): BP systolic 112–158; BP diastolic 57–99; PULSE 60–67; RESP 16–18; TEMP 36.4–36.8; O2SAT 93–97
[2024-03-14 06:14] LABS: Anion Gap 10 (12-20); Blood Urea Nitrogen 10 mg/dL (9-16); Calcium 9.1 mg/dL (8.4-10.2); Carbon Dioxide 29 mmol/L (22-29); Chloride 106 mmol/L (96-108); Estimated Glomerular Filt Rate > 60; Glucose Random 126 mg/dL (60-115); Potassium 2.9 mmol/L (3.3-5.1); Sodium 142 mmol/L (135-145)
[2024-03-14 06:18] LABS: INTERNATIONAL NORM RATIO 1.1 (0.9-1.1); Prothrombin Time 13.9 SEC (11.1-13.3)
[2024-03-14 06:28] LABS: Hematocrit 32.5 % (37.0-47.0); Hemoglobin 10.2 g/dl (12.0-16.0); Mean Corpuscular HGB Conc 31.4 g/dl (31.0-35.0); Mean Corpuscular Hemoglobin 29.5 pg (27.0-33.0); Mean Corpuscular Volume 93.9 fL (80.0-98.0); Mean Platelet Volume 10.7 fL (9.4-12.3); Platelet Count 181 X10*3/uL (160-400); Red Blood Count 3.46 X10*6/uL (4.20-5.50); Red Cell Distribution Width 17.1 % (11.0-16.0); White Blood Count 10.2 X10*3/uL (4.8-10.8)
--- NOTE | 2024-03-14 08:06 | HO.PM.IMPN ---
Subjective Subjective Date of Service: 03/14/24 Interval History: Seen in follow-up for acute GI bleed Interval history: No persistent rectal bleeding. No abdominal pain, nausea, vomiting. Tolerating diet. No complaints Review of Systems Review of Systems: Yes all other systems are reviewed and are negative Physical Exam Vital Signs: Vital Signs: Last Vital Signs Temp 97.6 F 03/14/24 07:45 Pulse 67 03/14/24 07:45 Resp 18 03/14/24 07:45 BP 112/87 03/14/24 07:45 Pulse Ox 97 03/14/24 07:45 O2 Del Method Room Air 03/14/24 07:45 BMI result Body Mass Index 43.3 Constitutional - Awake and Alert, No apparent distress Eyes - PERRLA, EOMI Cardiovascular - S1S2, RRR, No edema Respiratory - Normal lung expansion, Normal respiratory effort, No respiratory distress, CTA bilaterally 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 - NT / ND; +BS; No rebound or guarding Extremities - no calf tenderness bilaterally, no swelling Skin - Warm/Dry Neurological - Alert & oriented x3 Psychological - Appropriate affect Objective Data Active Medications Acetaminophen (Acetaminophen 325 Mg Tablet) 650 mg PO Q6H PRN PRN Reason: Pain, Mild (Pain Scale 1-3) Albuterol Sulfate (Albuterol Sulfate 90 Mcg 8 Gm Inhaler) 1 puff INHALE Q4H PRN PRN Reason: Wheezing Amlodipine Besylate (Amlodipine Besylate 5 Mg Tablet) 5 mg PO BEDTIME COUNTS INCLUDE 234 BEDS AT THE [facility]; Protocol Last Admin: 03/13/24 21:56 Dose: 5 mg Documented By: ARNULFO Atorvastatin Calcium (Atorvastatin Calcium 20 Mg Tablet) 20 mg PO DAILY COUNTS INCLUDE 234 BEDS AT THE [facility] Last Admin: 03/13/24 08:39 Dose: 20 mg Documented By: MEDINA Docusate Sodium (Docusate Sodium 100 Mg Capsule) 100 mg PO DAILY PRN PRN Reason: Constipation Escitalopram Oxalate (Escitalopram Oxalate 20 Mg Tablet) 20 mg PO DAILY COUNTS INCLUDE 234 BEDS AT THE [facility] Last Admin: 03/13/24 08:39 Dose: 20 mg Documented By: MEDINA Furosemide (Furosemide 40 Mg Tablet) 40 mg PO BID COUNTS INCLUDE 234 BEDS AT THE [facility]; Protocol Last Admin: 03/13/24 08:39 Dose: 40 mg Documented By: MEDINA Prothrombin Complex Concent ( Human) 2,000 unit/ IV Miscellaneous Supplies 80 mls @ 480 mls/hr IV ONCE COUNTS INCLUDE 234 BEDS AT THE [facility] Last Infusion: 03/13/24 12:52 Dose: Infused Documented By: BONI Potassium Chloride (Potassium Chloride/H20) 10 meq in 100 mls @ 100 mls/hr IV Q1H COUNTS INCLUDE 234 BEDS AT THE [facility] Stop: 03/14/24 09:59 Lidocaine HCl (Lidocaine Hcl Viscous 2 % 15 Ml Solution) 1 ml PO DAILY [facility] INCLUDE 234 BEDS AT THE [facility] Last Admin: 03/13/24 08:38 Dose: 1 ml Documented By: MEDINA Losartan Potassium (Losartan Potassium 50 Mg Tablet) 50 mg PO DAILY COUNTS INCLUDE 234 BEDS AT THE [facility]; Protocol Last Admin: 03/13/24 08:39 Dose: 50 mg Documented By: MEDINA Meclizine HCl (Meclizine Hcl 12.5 Mg Tablet) 12.5 mg PO TID PRN PRN Reason: dizziness Melatonin (Melatonin 3 Mg Tablet) 6 mg PO BEDTIME PRN PRN Reason: Insomnia Nystatin (Nystatin Powder 15 Gm Bottle) 1 appl TOPICAL DAILY COUNTS INCLUDE 234 BEDS AT THE [facility]; Protocol Stop: 03/18/24 09:44 Last Admin: 03/13/24 09:55 Dose: 1 appl Documented By: MEDINA Omeprazole (Omeprazole 20 Mg Capsule.Dr) 20 mg PO DAILY@0630 COUNTS [facility]CLUDE 234 BEDS AT THE [facility] Last Admin: 03/14/24 06:07 Dose: Not Given Documented By: ARNULFO Non-Admin Reason: NPO Ondansetron HCl (Ondansetron Odt 4 Mg Tab.Rapdis) 4 mg TRANSLINGU Q8H PRN PRN Reason: nausea Oxybutynin Chloride (Oxybutynin Chloride Er 5 Mg Tab.Er.24) 10 mg PO DAILY COUNTS INCLUDE 234 BEDS AT THE [facility] Last Admin: 03/13/24 08:39 Dose: 10 mg Documented By: MEDINA Sodium Chloride (0.9 % Sodium Chloride Flush 3 Ml Syringe) 3 ml IVFLUSH QSHIFT COUNTS INCLUDE 234 BEDS AT THE [facility] Last Admin: 03/14/24 00:05 Dose: Not Given Documented By: ARNULFO Non-Admin Reason: IV Running Tramadol HCl (Tramadol Hcl 50 Mg Tablet) 50 mg PO TID PRN PRN Reason: Pain, Moderate(Pain Scale 4-6) Last Admin: 03/13/24 10:20 Dose: 50 mg Documented By: MEDINA Labs 03/14/24 05:46 03/14/24 05:46 Labs: Laboratory Results - last 24 hr 04/03/13/24 03/13/24 12:04 12:06 13:23 MCV 90.9 MCH 29.4 MCHC 32.3 RDW 17.2 H Plt Count 195 MPV 10.8 Immature Gran % (Auto) 0.3 Neut % (Auto) 72.8 Lymph % (Auto) 16.1 L [place] % (Auto) 9.2 Eos % (Auto) 1.5 Baso % (Auto) 0.1 Lymph # (Auto) 1.6 [place] # (Auto) 0.9 Eos # (Auto) 0.2 Baso # (Auto) 0.0 Abs Immat Gran (auto) 0.03 Absolute Neuts (auto) 7.1 Absolute Nucleated RBC 0.000 Nucleated RBC % (auto) 0.0 Smear Tech's Comments VERIFIED PT 15.1 H D INR 1.2 H Anion Gap 11 L Estim Creat Clear Calc 46.2 Estimated GFR > 60 Random Glucose 123 H Calcium 9.1 Total Bilirubin 1.1 H AST 17 ALT 13 Alkaline Phosphatase 60 Total Protein 6.5 Albumin 3.8 Stool Occult Blood POSITIVE Blood Type O Positive Antibody Screen NEGATIVE 03/14/24 05:46 MCV 93.9 MCH 29.5 MCHC 31.4 RDW 17.1 H Plt Count 181 MPV 10.7 Immature Gran % (Auto) Neut % (Auto) Lymph % (Auto) [place] % (Auto) Eos % (Auto) Baso % (Auto) Lymph # (Auto) [place] # (Auto) Eos # (Auto) Baso # (Auto) Abs Immat Gran (auto) Absolute Neuts (auto) Absolute Nucleated RBC 0.000 Nucleated RBC % (auto) 0.0 Smear Tech's Comments PT 13.9 H INR 1.1 Anion Gap 10 L Estim Creat Clear Calc 70.0 Estimated GFR > 60 Random Glucose 126 H Calcium 9.1 Total Bilirubin AST ALT Alkaline Phosphatase Total Protein Albumin Stool Occult Blood Blood Type Antibody Screen Assessment and Plan (1) Acute lower GI hemorrhage: Status: Acute Plan Pt is an 83-year-old female with a PMH significant for?HLD, HTN, paroxysmal AFib on warfarin, CHF unspecified, sick sinus syndrome with pacemaker in place, diverticulosis, NKECHI on CPAP at night, anxiety, and depression who initially presented to the ED on 03/10/2024 for evaluation of possible UTI and was placed in physician observation pending rehab/placement. This morning had large amount of bright red blood rectum and will be admitted to the hospital for treatment and further evaluation acute lower GI. Acute lower GI bleed Likely likely diverticular bleed worsened by anticoagulation Patient received Kcentra and vitamin K in the ED. INR 4/25 1.1 H&H on arrival 10.7/33.1 -->10.2/32.5% CT abdomen/pelvis without evidence of active GI bleed. There are diverticula of the colon without evidence of diverticulitis. Clear liquid diet for now, advance to full liquid Hold warfarin GI consult Monitor CBC, transfuse as necessary Hypokalemia- etiology unclear K 2.9 this am. No diarrhea. Check mag. Repleted with 40 mEq potassium chloride p.o. Hold omeprazole Follow BMP Paroxysmal AFib Hold warfarin HTN Continue amlopidine, losartan HLD Continue statin CHF unspecified Not in acute exacerbation Hold Lasix GERD Continue omeprazole, ondansetron NKECHI Continue CPAP at night Full Code Attending:?Dr. Morris DVT Prophylaxis: Pneumatic boots due to lower GI bleed Pt will require ongoing hospital stay due to acute lower GI bleed requiring further monitoring for ongoing bleeding with close following of H/H as well as expert consultation as well as placement Dispo: Plan for LTC in [place], Saturday 03/17 Quality Stroke Does the patient have a stroke diagnosis?: No VTE Prior VTE?: No VTE Risk Level:: Medical - moderate - high VTE Device Contraindication: N/A - Device Ordered VTE Drug Contraindication: Treatment Not Indicated
[2024-03-14] MEDS: Losartan Potassium 50 MG TABLET PO (08:58)
[2024-03-14] MEDS: Atorvastatin Calcium 20 MG TABLET PO (08:58)
[2024-03-14] MEDS: oxyBUTYnin chloride ER 5 MG TAB.ER.24 10 MG PO (08:59)
[2024-03-14] MEDS: 0.9 % Sodium Chloride Flush 3 ML SYRINGE IVFLUSH ×2 (08:59→16:40)
[2024-03-14] MEDS: Nystatin Powder 15 GM BOTTLE 1 APPL TOPICAL (08:59)
[2024-03-14] MEDS: Escitalopram Oxalate 20 MG TABLET PO (08:59)
--- NOTE | 2024-03-14 09:50 | MHC.CM.PN ---
Addendum entered by Leny Adam 03/14/24 14:13: LIAISON FROM [facility], [facility], CALLED AND UPDATED ON CONDITION. PER LAUREN, THEY WILL NOT BE ABLE TO TAKE PT UNTIL SATURDAY 03/17. PROVIDER UPDATED. Original Note: IMM DELIVERED TO HCP CHAD VIA TELEPHONE. SHE REQUESTS WHITE COPY BE LEFT AT BEDSIDE. PT UNABLE TO SIGN DUE TO COGNITIVE IMPAIRMENT. PT USES [facility] FOR MOBILITY. + HCP ON FILE , PCP DR. BRADLEY DP: PT WILL TRANSFER TO LTC ON DC. [facility] IN [place] IS OFFERING A BED AT [place]. [facility] IS IN PROCESS. CM WILL CONTINUE TO FOLLOW FOR ANY CHANGE TO DC PLAN/NEEDS.
[2024-03-14] MEDS: Potassium Chloride Packet 20 MEQ PACKET 40 MEQ PO (10:42)
[2024-03-14] MEDS: Lidocaine HCl Viscous 2 % 15 ML SOLUTION PO (10:42)
--- NOTE | 2024-03-14 13:41 | P.PNGI_ITS ---
Subjective Subjective Date of Service: 03/14/24 Interval History: no bleeding reported no abd pain tolerating liquids Critical Care Time (minutes): 0 Physical Exam 2 Vital Signs: Vital Signs: Last Vital Signs Temp 97.6 F 03/14/24 07:45 Pulse 60 03/14/24 13:28 Resp 16 03/14/24 13:28 BP 155/99 H 03/14/24 13:28 Pulse Ox 96 03/14/24 13:28 O2 Del Method Room Air 03/14/24 13:28 BMI result Body Mass Index 43.3 GI: Other: abdomen is soft and nontender Objective Data Labs 03/14/24 05:46 03/14/24 05:46 Microbiology Microbiology Results: Microbiology 03/10/24 Unknown Urine clean catch - Urine [place] Urine Culture - Final Procedures Date of Service Date of Service: 03/14/24 Progress Note: A&P Assessment and plan (1) Acute lower GI hemorrhage: Status: Acute Plan CT reviewed no bleeding hct stable advance diet colonoscopy not likely to add much at this time ok to restart anticoagulation if needed. Time Spent With Patient Time: Total time managing care of this patient today ____ minutes. Quality Stroke Does the patient have a stroke diagnosis?: No VTE Prior VTE?: No VTE Risk Level:: Medical - moderate - high VTE Device Contraindication: N/A - Device Ordered VTE Drug Contraindication: Treatment Not Indicated
[2024-03-14 14:03] LABS: Magnesium 1.4 mg/dL (1.6-2.6)
[2024-03-14] MEDS: traMADoL HCL 50 MG TABLET PO (14:23)
--- NOTE | 2024-03-14 16:12 | CONS_ITS ---
DATE OF SERVICE: 03/13/2024 REFERRING PHYSICIAN: LAZARO GILL REASON FOR CONSULTATION: Rectal bleeding. HISTORY OF PRESENT ILLNESS: The patient is a pleasant, somewhat confused due to dementia 83-year-old woman who was admitted to the emergency department because of a question of UTI on March 10. She has a history of dementia with worsening symptoms and reportedly had some dysuria and was brought to the emergency room. She was kept while placement was arranged, and today, passed a large amount of bright red blood per rectum without any pain. The patient takes Coumadin, but does not know why, and there is no documentation in her medical record. She previously underwent colonoscopy in 2018, because of family history of colon polyps. This showed diverticulosis and internal hemorrhoids. She denies any prior history of GI bleeding or abdominal pain at this time. There has been no hypotension or tachycardia. PAST MEDICAL HISTORY: 1. Hyperplastic polyps. Last colonoscopy on 10/06 showing diverticulosis and internal hemorrhoids. 2. Pulmonary embolism. 3. Elevated cholesterol. 4. Degenerative joint disease. 5. Kidney tumor. 6. Congestive heart failure. 7. COPD. 8. Gastroesophageal reflux disease. 9. Hypertension. 10. Hyperlipidemia. 11. Dementia. CURRENT MEDICATIONS: Current medication list is reviewed in the chart. ALLERGIES: ALLERGY LIST IS REVIEWED. FAMILY HISTORY: This is reviewed with the patient and her medical record and does show a history of colon cancer as well as polyps in the family. SOCIAL HISTORY: There is no current tobacco, alcohol, or substance abuse. The patient had been living at home with difficulty due to her cognitive decline. REVIEW OF SYSTEMS: SKIN: No pruritus. HEENT: Negative. CARDIOPULMONARY: She denies shortness of breath or chest pain. GASTROINTESTINAL: As above. GENITOURINARY: Negative. NEUROPSYCHIATRIC: Negative. PHYSICAL EXAMINATION: GENERAL: Shows a pleasant female, lying comfortably in bed. Skin is pale. HEENT: Shows no scleral icterus. VITAL SIGNS: Stable. NECK: Without lymphadenopathy or thyromegaly. LUNGS: Clear. HEART: Shows a regular rate and rhythm. S1, S2. No murmur. ABDOMEN: Soft without focal masses or tenderness. Bowel sounds are present. No organomegaly is noted. EXTREMITIES: Without edema. LABORATORY DATA: From today is pending. CT scanning has been ordered. IMPRESSION: 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 bleeding. The most likely cause for her gastrointestinal bleeding appears to be diverticular disease. This is exacerbated by her anticoagulation. I would recommend reversing her anticoagulation and monitoring her hematocrit. She can be transfused as needed. CAT scan has been ordered and if she has persistent bleeding, I would consider further evaluation from a radiologic standpoint depending on the results of her CT. She may need nuclear red cell scanning or angiography. Colonoscopy in the setting of acute bleeding is unlikely to be helpful. We can consider followup colonoscopy pending her clinical course. This was discussed with the patient and her daughter. Thanks for asking me to see her. I will follow her in the hospital with you. MD BONY Yu/BRYAN / [id number]
[2024-03-14] MEDS: Magnesium Sulfate/H2O 2 GM/50 ML PIGGYBACK IV (16:40)
[2024-03-14] MEDS: Lidocaine 4 % Patch ADH..PATCH 1 PATCH TRANSDERMA (16:42)
[2024-03-14] MEDS: Magnesium Oxide 400 MG TABLET PO (16:48)
[2024-03-14] MEDS: amLODIPine Besylate 5 MG TABLET PO (20:49)
[2024-03-15] MEDS: 0.9 % Sodium Chloride Flush 3 ML SYRINGE IVFLUSH ×3 (00:48→15:15)
[2024-03-15 04:00] VITALS: BP 145/63; PULSE 61; RESP 16; TEMP 36.7; O2SAT 96
[2024-03-15 06:24] LABS: Hematocrit 31.4 % (37.0-47.0); Mean Corpuscular HGB Conc 31.8 g/dl (31.0-35.0); Mean Corpuscular Hemoglobin 29.8 pg (27.0-33.0); Mean Corpuscular Volume 93.5 fL (80.0-98.0); Mean Platelet Volume 10.6 fL (9.4-12.3); Platelet Count 175 X10*3/uL (160-400); Red Blood Count 3.36 X10*6/uL (4.20-5.50); Red Cell Distribution Width 17.3 % (11.0-16.0); White Blood Count 9.2 X10*3/uL (4.8-10.8)
[2024-03-15 06:29] LABS: INTERNATIONAL NORM RATIO 1.1 (0.9-1.1); Prothrombin Time 13.2 SEC (11.1-13.3)
[2024-03-15 06:37] LABS: Magnesium 1.9 mg/dL (1.6-2.6)
[2024-03-15 07:51] VITALS: BP 127/60; PULSE 66; RESP 18; TEMP 36.8; O2SAT 96
[2024-03-15 08:15] LABS: Anion Gap 12 (12-20)
[2024-03-15 08:18] LABS: Blood Urea Nitrogen 14 mg/dL (9-16); Calcium 9.6 mg/dL (8.4-10.2); Carbon Dioxide 28 mmol/L (22-29); Chloride 103 mmol/L (96-108); Estimated Glomerular Filt Rate > 60; Glucose Random 104 mg/dL (60-115); Potassium 3.6 mmol/L (3.3-5.1); Sodium 139 mmol/L (135-145)
[2024-03-15 08:22] VITALS: BP 127/60
[2024-03-15] MEDS: Magnesium Oxide 400 MG TABLET PO ×2 (08:22→17:04)
[2024-03-15] MEDS: oxyBUTYnin chloride ER 5 MG TAB.ER.24 10 MG PO (08:22)
[2024-03-15] MEDS: Losartan Potassium 50 MG TABLET PO (08:22)
[2024-03-15] MEDS: Lidocaine HCl Viscous 2 % 15 ML SOLUTION PO (08:23)
[2024-03-15] MEDS: Atorvastatin Calcium 20 MG TABLET PO (08:23)
[2024-03-15] MEDS: Escitalopram Oxalate 20 MG TABLET PO (08:23)
[2024-03-15] MEDS: Nystatin Powder 15 GM BOTTLE 1 APPL TOPICAL (08:23)
[2024-03-15] MEDS: Lidocaine 4 % Patch ADH..PATCH 1 PATCH TRANSDERMA (08:23)
--- NOTE | 2024-03-15 11:57 | P.F2F_ITS ---
Service Date Service Date: 03/15/24 Encounter Date of encounter: 03/15/24 Reasons for Services Signs and symptoms assessed: Monitor INR physical deconditioning Reason for senior living: monitoring of PT/INR and teach disease management Reason for physical therapy: home safety and mobility and therapeutic exercises Homebound: Leaving the home is medically contraindicated at this time without the asist of a device and/or another person due th the listed conditions above and below. Reason homebound: unsteady gait / fall risk Certification: Based on the above findings, I certify that this patient is confined to the home and needs intermittent senior living care, physical therapy and/or speech therapy, or continues to need occupational therapy. The patient is under my care, and I have initiated the establishment of the plan of care. The patient will be followed by a physician who will periodically review the plan of care. Time Spent With Patient Time: Total time managing care of this patient today ____ minutes.
--- NOTE | 2024-03-15 11:58 | P.DS_ITS ---
DS: Providers Provider Date of admission: 03/13/24 13:36 Primary care physician: Bright Garber MD Consults: 03/10/24 12:38 Consult to Case Management Routine Comment: 03/13/24 13:36 Consult to Gastroenterology Routine Consulting Provider: Jeffry Jacobson Reason for consultation: Lower GI Bleed DS: Diagnosis Discharge Diagnosis (1) Acute lower GI hemorrhage: Status: Acute (2) Acute hypokalemia: Status: Acute (3) Hypomagnesemia: Status: Acute DS: Summary Hospital Course Hospital Course: Admission note Pt is an 83-year-old female with a PMH significant for?HLD, HTN, paroxysmal AFib on warfarin, CHF unspecified, sick sinus syndrome with pacemaker in place, diverticulosis, CPAP at night, anxiety, and depression who presents initially presented to the ED on 03/10/2024 for evaluation of possible UTI. Patient's family had noted she had been declining mentally over the past 2 years, significantly worse in the last 3 months. Patient has been falling at home, leaving the stove on, packing suitcases and attempting to drive away in the car, accidentally overdosing on medications, etc.. Patient was initially placed in physician observation and awaiting rehab/long-term placement when she went to the bathroom and had a large amount of jay jay bright red blood per rectum. GI was consulted who suggested giving Kcentra vitamin K to reverse warfarin. Thought patient's bleeding likely secondary to diverticular bleed worsened by anticoagulation. Suggested CT of abdomen/pelvis to evaluate for possible abd bleed. Patient herself reports has had small amount of bright red blood per rectum for the past few days, though never thought to mention it to anyone. Denies any abdominal pain or pain with defecation. Denies lightheadedness or dizziness. No SOB or chest pain/pressure. No palpitations. Denies cough on increased lower leg edema. In the ED pt today has had soft BP as low as 126/35, vitals otherwise WNL. R epeat labs were significant for stable H&H of 10.7/33.1, PT 22.5 with INR 1.8, potassium 3.3, and stool positive for occult blood. UA on 03/10/2024 negative for UTI, cultures negative. Pt will be admitted to the hospital for treatment and further evaluation of lower GI bleed. Hospital course Admitted for Acute lower GI bleed Likely diverticular bleed worsened by anticoagulation with Warfarin. She received Kcentra and vitamin K in the ED. INR at the day of discharge is 1. CT abdomen/pelvis without evidence of active GI bleed. There are diverticula of the colon without evidence of diverticulitis. seen by GI who did not feel a colonoscopy would add much with bleeding and recommended outpatient follow up. diet advanced with good tolerance. To Hold warfarin and restart 3 days after discharge. To follow with GI as outpatient. [facility] to follow INR at home. She was also noticed to have acute Hypokalemia and Hypomagnesema which were replaced with good response. Start Magnesium replacement therapy on discharge. Discharge Plan Restart Warfarin on 03/19 Monitor INR and Hold Warfarin for any bleeding Increase Fiber in diet, avoid constipation Follow with dr Jacobson as outpatient Take Magnesium replacement Physical Exam Vital Signs: Vital Signs: Last Vital Signs Temp 98.3 F 03/15/24 07:51 Pulse 66 03/15/24 07:51 Resp 18 03/15/24 07:51 BP 127/60 03/15/24 08:22 Pulse Ox 96 03/15/24 07:51 O2 Del Method Room Air 03/15/24 04:00 BMI result Body Mass Index 43.3 Const: Other: Constitutional : interactive, not in distress Cardiovascular : no JVP, no lower extremity edema Respiratory : bilateral chest movement, not in resp distress 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: soft, lax, Non tender Skin : Warm, Dry Neurological : Alert & oriented , No focal deficit DS: Data Data Completed and Pending Labs on day of discharge: Laboratory Results - last 24 hr 03/14/24 03/15/24 05:46 06:05 WBC 9.2 RBC 3.36 L Hgb 10.0 L Hct 31.4 L MCV 93.5 MCH 29.8 MCHC 31.8 RDW 17.3 H Plt Count 175 MPV 10.6 Absolute Nucleated RBC 0.000 Nucleated RBC % (auto) 0.0 PT 13.2 INR 1.1 Sodium 139 Potassium 3.6 D Chloride 103 Carbon Dioxide 28 Anion Gap 12 BUN 14 Creatinine 0.77 Estim Creat Clear Calc 60.0 Estimated GFR > 60 Random Glucose 104 Calcium 9.6 Magnesium 1.4 L* 1.[address] scan - abdomen: Radiologist's impression: ITS Impressions Abdomen/Pelvis CT 03/13/24 14:13 IMPRESSION: * No evidence of an active gastrointestinal bleed. * Diverticula of the colon without evidence of diverticulitis. * Patient has a large body habitus and there is mild splenomegaly. * Cholelithiasis without evidence of cholecystitis. * Simple cysts as well as a few hyperdense proteinaceous cysts of the kidneys. Discharge Plan Discharge Anticipated Discharge Date/Time: 03/15/24 11:52 Patient Disposition: Home Health Service Discharge Diagnosis: Diverticular bleeding Blood loss Anemia Referrals: Bright Garber MD [Primary Care Provider] - 1 Week Discharge Medications: New magnesium oxide 400 mg (241.3 mg magnesium) Tablet 400 mg PO DAILY Qty: 90 0RF psyllium husk [Daily Fiber] 0.4 gram capsule 0.4 g PO BEDTIME Qty: 90 0RF Continued losartan 50 mg tablet 1 tab PO DAILY atorvastatin 20 mg tablet 1 tab PO DAILY citalopram 40 mg tablet 1 tab PO DAILY tramadol 50 mg tablet 1 tab PO TID PRN (Reason: Pain) albuterol sulfate 90 mcg/actuation HFA aerosol inhaler 1 puff inhalation Q4H PRN (Reason: Wheezing) meclizine 12.5 mg tablet 12.5 mg PO TID PRN (Reason: dizziness) Qty: 14 0RF lidocaine HCl [Lidocaine Viscous] 2 % solution 1 ml PO DAILY ondansetron 4 mg tablet,disintegrating 4 mg PO Q8H PRN (Reason: nausea) furosemide 40 mg tablet 40 mg PO BID oxybutynin chloride 10 mg tablet extended release 24hr 10 mg PO DAILY omeprazole 20 mg capsule,delayed release(DR/EC) 20 mg PO DAILY amlodipine 5 mg tablet 5 mg PO BEDTIME Held warfarin 4 mg tablet 8 mg PO SuTu@1800 Hold Instructions: Restart Monday 03/19 warfarin 4 mg tablet 6 mg PO MOTHFRSA@1800 Hold Instructions: Restart Monday 03/19 Diet: Advance to usual diet Activity on Discharge: As tolerated Stand Alone Forms: Patient Portal Discharge page Print Language: Kittitian Care Plan Goals: Read below Health Concerns: Read below Plan of Treatment: Read below Assessment: Restart Warfarin on 03/19 Monitor INR and Hold Warfarin for any bleeding Increase Fiber in diet, avoid constipation Follow with dr Jacobson as outpatient
--- NOTE | 2024-03-15 12:21 | HO.PM.IMPN ---
Subjective Subjective Date of Service: 03/15/24 Interval History: seen and evaluated no bleeding overnight stable H&H Review of Systems Review of Systems: Yes all other systems are reviewed and are negative Physical Exam Vital Signs: Vital Signs: Last Vital Signs Temp 98.3 F 03/15/24 07:51 Pulse 66 03/15/24 07:51 Resp 18 03/15/24 07:51 BP 127/60 03/15/24 08:22 Pulse Ox 96 03/15/24 07:51 O2 Del Method Room Air 03/15/24 04:00 BMI result Body Mass Index 43.3 Const: Other: Constitutional : interactive, not in distress Cardiovascular : no JVP, no lower extremity edema Respiratory : bilateral chest movement, not in resp distress 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: soft, lax, Non tender Skin : Warm, Dry Neurological : Alert & oriented , No focal deficit Objective Data Active Medications Acetaminophen (Acetaminophen 325 Mg Tablet) 650 mg PO Q6H PRN PRN Reason: Pain, Mild (Pain Scale 1-3) Albuterol Sulfate (Albuterol Sulfate 90 Mcg 8 Gm Inhaler) 1 puff INHALE Q4H PRN PRN Reason: Wheezing Amlodipine Besylate (Amlodipine Besylate 5 Mg Tablet) 5 mg PO BEDTIME [facility]; Protocol Last Admin: 03/14/24 20:49 Dose: 5 mg Documented By: KRISTINA Atorvastatin Calcium (Atorvastatin Calcium 20 Mg Tablet) 20 mg PO DAILY [facility] Last Admin: 03/15/24 08:23 Dose: 20 mg Documented By: MARILEE Docusate Sodium (Docusate Sodium 100 Mg Capsule) 100 mg PO DAILY PRN PRN Reason: Constipation Escitalopram Oxalate (Escitalopram Oxalate 20 Mg Tablet) 20 mg PO DAILY [facility] Last Admin: 03/15/24 08:23 Dose: 20 mg Documented By: MARILEE Furosemide (Furosemide 40 Mg Tablet) 40 mg PO BID [facility]; Protocol Last Admin: 03/13/24 08:39 Dose: 40 mg Documented By: MEDINA Prothrombin Complex Concent ( Human) 2,000 unit/ IV Miscellaneous Supplies 80 mls @ 480 mls/hr IV ONCE [facility] Last Infusion: 03/13/24 12:52 Dose: Infused Documented By: BONI Lidocaine (Lidocaine 4 % Patch Adh..Patch) 1 patch TRANSDERMA DAILY [facility]; Protocol Last Admin: 03/15/24 08:23 Dose: 1 patch Documented By: MARILEE Lidocaine HCl (Lidocaine Hcl Viscous 2 % 15 Ml Solution) 1 ml PO DAILY [facility] Last Admin: 03/15/24 08:23 Dose: 1 ml Documented By: MARILEE Losartan Potassium (Losartan Potassium 50 Mg Tablet) 50 mg PO DAILY [facility]; Protocol Last Admin: 03/15/24 08:22 Dose: 50 mg Documented By: MARILEE Magnesium Oxide (Magnesium Oxide 400 Mg Tablet) 400 mg PO BIDPC [facility] Last Admin: 03/15/24 08:22 Dose: 400 mg Documented By: MARILEE Meclizine HCl (Meclizine Hcl 12.5 Mg Tablet) 12.5 mg PO TID PRN PRN Reason: dizziness Melatonin (Melatonin 3 Mg Tablet) 6 mg PO BEDTIME PRN PRN Reason: Insomnia Nystatin (Nystatin Powder 15 Gm Bottle) 1 appl TOPICAL DAILY [facility]; Protocol Stop: 03/18/24 09:44 Last Admin: 03/15/24 08:23 Dose: 1 appl Documented By: MARILEE Omeprazole (Omeprazole 20 Mg Capsule.Dr) 20 mg PO DAILY@0630 [facility] Last Admin: 03/14/24 06:07 Dose: Not Given Documented By: ARNULFO Non-Admin Reason: NPO Ondansetron HCl (Ondansetron Odt 4 Mg Tab.Rapdis) 4 mg TRANSLINGU Q8H PRN PRN Reason: nausea Oxybutynin Chloride (Oxybutynin Chloride Er 5 Mg Tab.Er.24) 10 mg PO DAILY [facility] Last Admin: 03/15/24 08:22 Dose: 10 mg Documented By: MARILEE Sodium Chloride (0.9 % Sodium Chloride Flush 3 Ml Syringe) 3 ml IVFLUSH QSHIFT [facility] Last Admin: 03/15/24 08:22 Dose: 3 ml Documented By: MARILEE Tramadol HCl (Tramadol Hcl 50 Mg Tablet) 50 mg PO TID PRN PRN Reason: Pain, Moderate(Pain Scale 4-6) Last Admin: 03/14/24 14:23 Dose: 50 mg Documented By: MARIETTA Labs 03/15/24 06:05 03/15/24 06:05 Labs: Laboratory Results - last 24 hr 03/14/24 03/15/24 05:46 06:05 MCV 93.5 MCH 29.8 MCHC 31.8 RDW 17.3 H Plt Count 175 MPV 10.6 Absolute Nucleated RBC 0.000 Nucleated RBC % (auto) 0.0 PT 13.2 INR 1.1 Anion Gap 12 Estim Creat Clear Calc 60.0 Estimated GFR > 60 Random Glucose 104 Calcium 9.6 Magnesium 1.4 L* 1.9 Assessment and Plan (1) Hypomagnesemia: Status: Acute (2) Acute hypokalemia: Status: Acute (3) Acute lower GI hemorrhage: Status: Acute Plan Pt is an 83-year-old female with a PMH significant for?HLD, HTN, paroxysmal AFib on warfarin, CHF unspecified, sick sinus syndrome with pacemaker in place, diverticulosis, NKECHI on CPAP at night, anxiety, and depression who initially presented to the ED on 03/10/2024 for evaluation of possible UTI and was placed in physician observation pending rehab/placement. This morning had large amount of bright red blood rectum and will be admitted to the hospital for treatment and further evaluation acute lower GI. Acute lower GI bleed 2/2 diverticular bleed stable H&H no more bleeding post Kcentra and vitamin K in the ED. INR 03/13 1.1 Advance diet as tolerated Hold warfarin, start Sunday GI following Monitor CBC, transfuse as necessary Hypokalemia, acute resolved Hold omeprazole Follow BMP Hypomagnesemia resolved Paroxysmal AFib Hold warfarin HTN Continue amlopidine, losartan HLD Continue statin CHF unspecified Not in acute exacerbation Hold Lasix GERD Continue omeprazole, ondansetron NKECHI Continue CPAP at night Full Code Attending:?Dr. Morris DVT Prophylaxis: Pneumatic boots due to lower GI bleed Pt will require ongoing hospital stay due to acute lower GI bleed requiring further monitoring for ongoing bleeding with close following of H/H pending safe discharge plan. Dispo: Plan for LTC in [place], Saturday 03/17 Quality Stroke Does the patient have a stroke diagnosis?: No VTE Prior VTE?: No VTE Risk Level:: Medical - moderate - high VTE Device Contraindication: N/A - Device Ordered VTE Drug Contraindication: Treatment Not Indicated
[2024-03-15 13:26] VITALS: BP 119/60; PULSE 102; O2SAT 94
[2024-03-15 16:00] VITALS: BP 148/67; PULSE 60; RESP 20; TEMP 36.2; O2SAT 95
[2024-03-15 20:00] VITALS: BP 132/72; PULSE 64; RESP 18; TEMP 36.2; O2SAT 97
[2024-03-15] MEDS: amLODIPine Besylate 5 MG TABLET PO (21:07)
[2024-03-16 03:24] VITALS: BP 125/60; PULSE 78; RESP 20; TEMP 36.3; O2SAT 93
[2024-03-16 06:29] LABS: Hematocrit 30.4 % (37.0-47.0); Hemoglobin 9.9 g/dl (12.0-16.0); Mean Corpuscular HGB Conc 32.6 g/dl (31.0-35.0); Mean Corpuscular Hemoglobin 29.8 pg (27.0-33.0); Mean Corpuscular Volume 91.6 fL (80.0-98.0); Mean Platelet Volume 11.2 fL (9.4-12.3); Platelet Count 161 X10*3/uL (160-400); Red Blood Count 3.32 X10*6/uL (4.20-5.50); Red Cell Distribution Width 17.1 % (11.0-16.0)
[2024-03-16 06:33] LABS: INTERNATIONAL NORM RATIO 1.1 (0.9-1.1)
[2024-03-16 08:00] VITALS: BP 138/98; PULSE 61; RESP 18; TEMP 36.4; O2SAT 96
[2024-03-16] MEDS: Magnesium Oxide 400 MG TABLET PO ×2 (08:53→17:53)
[2024-03-16] MEDS: Atorvastatin Calcium 20 MG TABLET PO (08:53)
[2024-03-16] MEDS: 0.9 % Sodium Chloride Flush 3 ML SYRINGE IVFLUSH ×3 (08:53→20:24)
[2024-03-16] MEDS: Lidocaine HCl Viscous 2 % 15 ML SOLUTION PO (08:53)
[2024-03-16 08:54] VITALS: BP 138/98
[2024-03-16] MEDS: oxyBUTYnin chloride ER 5 MG TAB.ER.24 10 MG PO (08:54)
[2024-03-16] MEDS: Losartan Potassium 50 MG TABLET PO (08:54)
[2024-03-16] MEDS: Escitalopram Oxalate 20 MG TABLET PO (08:54)
[2024-03-16] MEDS: Nystatin Powder 15 GM BOTTLE 1 APPL TOPICAL (08:57)
--- NOTE | 2024-03-16 10:31 | HO.PM.IMPN ---
Subjective Subjective Date of Service: 03/16/24 Interval History: seen and evaluated no bleeding overnight stable H&H Review of Systems Review of Systems: Yes all other systems are reviewed and are negative Physical Exam Vital Signs: Vital Signs: Last Vital Signs Temp 97.5 F 03/16/24 08:00 Pulse 61 03/16/24 08:00 Resp 18 03/16/24 08:00 BP 138/98 H 03/16/24 08:54 Pulse Ox 96 03/16/24 08:00 O2 Del Method Room Air 03/16/24 08:00 BMI result Body Mass Index 43.3 Const: Other: Constitutional : interactive, not in distress Cardiovascular : no JVP, no lower extremity edema Respiratory : bilateral chest movement, not in resp distress 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: soft, lax, Non tender Skin : Warm, Dry Neurological : Alert & oriented , No focal deficit Objective Data Active Medications Acetaminophen (Acetaminophen 325 Mg Tablet) 650 mg PO Q6H PRN PRN Reason: Pain, Mild (Pain Scale 1-3) Albuterol Sulfate (Albuterol Sulfate 90 Mcg 8 Gm Inhaler) 1 puff INHALE Q4H PRN PRN Reason: Wheezing Amlodipine Besylate (Amlodipine Besylate 5 Mg Tablet) 5 mg PO BEDTIME [facility]; Protocol Last Admin: 03/15/24 21:07 Dose: 5 mg Documented By: FIDEL Atorvastatin Calcium (Atorvastatin Calcium 20 Mg Tablet) 20 mg PO DAILY [facility] Last Admin: 03/16/24 08:53 Dose: 20 mg Documented By: MARILEE Docusate Sodium (Docusate Sodium 100 Mg Capsule) 100 mg PO DAILY PRN PRN Reason: Constipation Escitalopram Oxalate (Escitalopram Oxalate 20 Mg Tablet) 20 mg PO DAILY [facility] Last Admin: 03/16/24 08:54 Dose: 20 mg Documented By: MARILEE Furosemide (Furosemide 40 Mg Tablet) 40 mg PO BID [facility]; Protocol Last Admin: 03/13/24 08:39 Dose: 40 mg Documented By: MEDINA Prothrombin Complex Concent ( Human) 2,000 unit/ IV Miscellaneous Supplies 80 mls @ 480 mls/hr IV ONCE [facility] Last Infusion: 03/13/24 12:52 Dose: Infused Documented By: BONI Lidocaine (Lidocaine 4 % Patch Adh..Patch) 1 patch TRANSDERMA DAILY [facility]; Protocol Last Admin: 03/16/24 08:53 Dose: Not Given Documented By: MARILEE Non-Admin Reason: Patient Refused Lidocaine HCl (Lidocaine Hcl Viscous 2 % 15 Ml Solution) 1 ml PO DAILY [facility] Last Admin: 03/16/24 08:53 Dose: 1 ml Documented By: MARILEE Losartan Potassium (Losartan Potassium 50 Mg Tablet) 50 mg PO DAILY [facility]; Protocol Last Admin: 03/16/24 08:54 Dose: 50 mg Documented By: MARILEE Magnesium Oxide (Magnesium Oxide 400 Mg Tablet) 400 mg PO BIDPC [facility] Last Admin: 03/16/24 08:53 Dose: 400 mg Documented By: MARILEE Meclizine HCl (Meclizine Hcl 12.5 Mg Tablet) 12.5 mg PO TID PRN PRN Reason: dizziness Melatonin (Melatonin 3 Mg Tablet) 6 mg PO BEDTIME PRN PRN Reason: Insomnia Nystatin (Nystatin Powder 15 Gm Bottle) 1 appl TOPICAL DAILY [facility]; Protocol Stop: 03/18/24 09:44 Last Admin: 03/16/24 08:57 Dose: 1 appl Documented By: MARILEE Omeprazole (Omeprazole 20 Mg Capsule.Dr) 20 mg PO DAILY@0630 [facility] Last Admin: 03/14/24 06:07 Dose: Not Given Documented By: ARNULFO Non-Admin Reason: NPO Ondansetron HCl (Ondansetron Odt 4 Mg Tab.Rapdis) 4 mg TRANSLINGU Q8H PRN PRN Reason: nausea Oxybutynin Chloride (Oxybutynin Chloride Er 5 Mg Tab.Er.24) 10 mg PO DAILY [facility] Last Admin: 03/16/24 08:54 Dose: 10 mg Documented By: MARILEE Sodium Chloride (0.9 % Sodium Chloride Flush 3 Ml Syringe) 3 ml IVFLUSH QSHIFT [facility] Last Admin: 03/16/24 08:53 Dose: 3 ml Documented By: MARILEE Warfarin Sodium (Warfarin Sodium 6 Mg Tablet) 6 mg PO DAILY@1800 [facility] Labs 03/16/24 05:39 03/15/24 06:05 Labs: Laboratory Results - last 24 hr 03/16/24 05:39 MCV 91.6 MCH 29.8 MCHC 32.6 RDW 17.1 H Plt Count 161 MPV 11.2 Absolute Nucleated RBC 0.000 Nucleated RBC % (auto) 0.0 PT 13.0 INR 1.1 Assessment and Plan (1) Hypomagnesemia: Status: Acute (2) Acute hypokalemia: Status: Acute (3) Acute lower GI hemorrhage: Status: Acute Plan Pt is an 83-year-old female with a PMH significant for?HLD, HTN, paroxysmal AFib on warfarin, CHF unspecified, sick sinus syndrome with pacemaker in place, diverticulosis, NKECHI on CPAP at night, anxiety, and depression who initially presented to the ED on 03/10/2024 for evaluation of possible UTI and was placed in physician observation pending rehab/placement. This morning had large amount of bright red blood rectum and will be admitted to the hospital for treatment and further evaluation acute lower GI. Acute lower GI bleed 2/2 diverticular bleed stable H&H no more bleeding post Kcentra and vitamin K in the ED. INR 03/13 1.1 Advance diet as tolerated Hold warfarin, start Sunday GI ok with restarting Warfarin Monitor CBC, transfuse as necessary Paroxysmal AFib Restart warfarin INR daily Hypokalemia, acute resolved Hold omeprazole Follow BMP Hypomagnesemia resolved HTN Continue amlopidine, losartan HLD Continue statin CHF unspecified Not in acute exacerbation Hold Lasix GERD Continue omeprazole, ondansetron NKECHI Continue CPAP at night Full Code DVT Prophylaxis: Pneumatic boots due to lower GI bleed Pt will require ongoing hospital stay due to acute lower GI bleed requiring further monitoring for ongoing bleeding with close following of H/H pending safe discharge plan after restarting Warfarin with risk of bleeding Dispo: Plan for LTC in [place], Saturday 03/17 Quality Stroke Does the patient have a stroke diagnosis?: No VTE Prior VTE?: No VTE Risk Level:: Medical - moderate - high VTE Device Contraindication: N/A - Device Ordered VTE Drug Contraindication: Treatment Not Indicated
--- NOTE | 2024-03-16 11:39 | P.PNGI_ITS ---
Subjective Subjective Date of Service: 03/16/24 Interval History: sleepy no rectal bleeding reported Critical Care Time (minutes): 0 Physical Exam 2 Vital Signs: Vital Signs: Last Vital Signs Temp 97.5 F 03/16/24 08:00 Pulse 61 03/16/24 08:00 Resp 18 03/16/24 08:00 BP 138/98 H 03/16/24 08:54 Pulse Ox 96 03/16/24 08:00 O2 Del Method Room Air 03/16/24 08:00 BMI result Body Mass Index 43.3 GI: Other: abdomen is soft and nontender Objective Data Labs 03/16/24 05:39 03/15/24 06:05 Microbiology Microbiology Results: Microbiology 03/10/24 Unknown Urine clean catch - Urine [place] Urine Culture - Final Procedures Date of Service Date of Service: 03/16/24 Progress Note: A&P Assessment and plan (1) Acute lower GI hemorrhage: Status: Acute Assessment and Plan: diverticular bleed, resolved restarting anticoagulation hematocrit stable Time Spent With Patient Time: Total time managing care of this patient today ____ minutes. Quality Stroke Does the patient have a stroke diagnosis?: No VTE Prior VTE?: No VTE Risk Level:: Medical - moderate - high VTE Device Contraindication: N/A - Device Ordered VTE Drug Contraindication: Treatment Not Indicated
[2024-03-16] MEDS: Acetaminophen 325 MG TABLET 650 MG PO (12:53)
[2024-03-16 15:27] VITALS: BP 135/60; PULSE 71; RESP 16; TEMP 36.6; O2SAT 97
[2024-03-16] MEDS: Warfarin Sodium 6 MG TABLET PO (17:54)
[2024-03-16 19:40] VITALS: BP 140/59; PULSE 61; RESP 18; TEMP 36.4; O2SAT 98
[2024-03-16 20:17] VITALS: BP 140/59
[2024-03-16] MEDS: amLODIPine Besylate 5 MG TABLET PO (20:17)
[2024-03-16] MEDS: Melatonin 3 MG TABLET 6 MG PO (22:23)
[2024-03-16] MEDS: OLANZapine 5 MG TABLET PO (23:25)
[2024-03-17 07:07] LABS: INTERNATIONAL NORM RATIO 1.1 (0.9-1.1); Prothrombin Time 13.1 SEC (11.1-13.3)
[2024-03-17 07:33] VITALS: BP 111/84; PULSE 71; RESP 12; TEMP 37; O2SAT 95
--- NOTE | 2024-03-17 10:58 | MHC.CM.PN ---
Addendum entered by Ambar Fischer RN 03/17/24 12:24: IMM delivered to HCP/daughter. Original Note: EMR reviewed. Per MD rounds patient not medically cleared for dc at this time. DP: LTC @ [facility] likely tomorrow 03/18. [facility] requesting: documentation of HCP invocation, med list be faxed to their pharmacy [facility] in [facility] (fax # [phone]), CPAP settings in DC summary. CM will continue to follow.
--- NOTE | 2024-03-17 13:04 | PC.NURSE ---
Addendum entered by Sofi Stiles RN 03/17/24 18:08: Pt awake and alert able to state full name and follow simple commands. Addendum entered by Sofi Stiles RN 03/17/24 17:48: Pt was able to wake up enough to take medications crushed in pudding, take a couple bites of dinner, and some sips of liquid, then falls back asleep. MD Aware. Addendum entered by Sofi Stiles RN 03/17/24 15:48: MD Morris aware pt continues to be drowsy. Pt wakens to voice and light touch and then falls back asleep. Pt being turned and repositioned in bed q2 and PRN. Incontinence care provided as needed. Original Note: MD Morris made aware pt is to drowsy to take PO medications this AM, Pt opens eyes to light touch and voice then falls back asleep. Pt was administered Zyprexa at 22:25 on the previous shift and Melatonin at 22:23 on the previous shift, family at bedside aware. Pt DC being held per MD due to drowsiness.
--- NOTE | 2024-03-17 14:30 | HO.PM.IMPN ---
Subjective Subjective Date of Service: 03/18/24 Interval History: Events from last night noted patient received Zyprexa 5 mg IM due to agitation. This morning patient is somnolent arousable to verbal stimuli but falls back to sleep, unable to take by mouth medications and food. As per family, at baseline patient is awake alert, communicate, does not recognize family due to underlying dementia. Review of Systems Unable to obtain due to mental status. Physical Exam Vital Signs: Vital Signs: Last Vital Signs Temp 98.6 F 03/17/24 07:33 Pulse 71 03/17/24 07:33 Resp 12 03/17/24 07:33 BP 111/84 03/17/24 07:33 Pulse Ox 95 03/17/24 07:33 O2 Del Method Room Air 03/17/24 07:33 BMI result Body Mass Index 43.3 Const: Other: General somnolent, arousable to verbal stimuli,in no acute distress. Neck no JVD. CVS regular rate rhythm, Respiratory lungs clear to auscultation, no respiratory distress, no wheeze, no rhonchi. 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 abdomen soft, non tender, bowel sounds audible Extremities no edema. Neuro non focal Skin no rash Objective Data Active Medications Acetaminophen (Acetaminophen 325 Mg Tablet) 650 mg PO Q6H PRN PRN Reason: Pain, Mild (Pain Scale 1-3) Last Admin: 03/16/24 12:53 Dose: 650 mg Documented By: MARILEE Albuterol Sulfate (Albuterol Sulfate 90 Mcg 8 Gm Inhaler) 1 puff INHALE Q4H PRN PRN Reason: Wheezing Amlodipine Besylate (Amlodipine Besylate 5 Mg Tablet) 5 mg PO BEDTIME [facility]; Protocol Last Admin: 03/16/24 20:17 Dose: 5 mg Documented By: ARNULFO Atorvastatin Calcium (Atorvastatin Calcium 20 Mg Tablet) 20 mg PO DAILY [facility] Last Admin: 03/17/24 10:40 Dose: Not Given Documented By: ALFREDO Non-Admin Reason: pt drowsy Docusate Sodium (Docusate Sodium 100 Mg Capsule) 100 mg PO DAILY PRN PRN Reason: Constipation Escitalopram Oxalate (Escitalopram Oxalate 20 Mg Tablet) 20 mg PO DAILY [facility] Last Admin: 03/17/24 10:40 Dose: Not Given Documented By: ALFREDO Non-Admin Reason: pt drowsy Furosemide (Furosemide 40 Mg Tablet) 40 mg PO BID [facility]; Protocol Last Admin: 03/13/24 08:39 Dose: 40 mg Documented By: MEDINA Prothrombin Complex Concent ( Human) 2,000 unit/ IV Miscellaneous Supplies 80 mls @ 480 mls/hr IV ONCE [facility] Last Infusion: 03/13/24 12:52 Dose: Infused Documented By: BONI Lidocaine (Lidocaine 4 % Patch Adh..Patch) 1 patch TRANSDERMA DAILY [facility]; Protocol Last Admin: 03/17/24 10:40 Dose: Not Given Documented By: ALFREDO Non-Admin Reason: pt drowsy Lidocaine HCl (Lidocaine Hcl Viscous 2 % 15 Ml Solution) 1 ml PO DAILY [facility] Last Admin: 03/17/24 10:40 Dose: Not Given Documented By: ALFREDO Non-Admin Reason: pt drowsy Losartan Potassium (Losartan Potassium 50 Mg Tablet) 50 mg PO DAILY [facility]; Protocol Last Admin: 03/17/24 10:40 Dose: Not Given Documented By: ALFREDO Non-Admin Reason: pt drowsy Magnesium Oxide (Magnesium Oxide 400 Mg Tablet) 400 mg PO BIDPC [facility] Last Admin: 03/17/24 10:40 Dose: Not Given Documented By: ALFREDO Non-Admin Reason: drowsy Meclizine HCl (Meclizine Hcl 12.5 Mg Tablet) 12.5 mg PO TID PRN PRN Reason: dizziness Melatonin (Melatonin 3 Mg Tablet) 6 mg PO BEDTIME PRN PRN Reason: Insomnia Last Admin: 03/16/24 22:23 Dose: 6 mg Documented By: ARNULFO Nystatin (Nystatin Powder 15 Gm Bottle) 1 appl TOPICAL DAILY [facility]; Protocol Stop: 03/18/24 09:44 Last Admin: 03/17/24 10:41 Dose: Not Given Documented By: ALFREDO Non-Admin Reason: pt drowsy Omeprazole (Omeprazole 20 Mg Capsule.Dr) 20 mg PO DAILY@0630 [facility] Last Admin: 03/14/24 06:07 Dose: Not Given Documented By: ARNULFO Non-Admin Reason: NPO Ondansetron HCl (Ondansetron Odt 4 Mg Tab.Rapdis) 4 mg TRANSLINGU Q8H PRN PRN Reason: nausea Oxybutynin Chloride (Oxybutynin Chloride Er 5 Mg Tab.Er.24) 10 mg PO DAILY [facility] Last Admin: 03/17/24 10:41 Dose: Not Given Documented By: ALFREDO Non-Admin Reason: pt drowsy Sodium Chloride (0.9 % Sodium Chloride Flush 3 Ml Syringe) 3 ml IVFLUSH QSHIFT [facility] Last Admin: 03/17/24 10:39 Dose: Not Given Documented By: ALFREDO Non-Admin Reason: pt drowsy Warfarin Sodium (Warfarin Sodium 6 Mg Tablet) 6 mg PO DAILY@1800 [facility] Last Admin: 03/16/24 17:54 Dose: 6 mg Documented By: MARILEE Labs 03/16/24 05:39 03/15/24 06:05 Labs: Laboratory Results - last 24 hr 03/17/24 05:58 Hold Purple Top SEE NOTE PT 13.1 INR 1.1 Assessment and Plan (1) Hypomagnesemia: Status: Acute (2) Acute hypokalemia: Status: Acute (3) Acute lower GI hemorrhage: Status: Acute Plan Pt is an 83-year-old female with a PMH significant for?HLD, HTN, paroxysmal AFib on warfarin, CHF unspecified, sick sinus syndrome with pacemaker in place, diverticulosis, NKECHI on CPAP at night, anxiety, and depression who initially presented to the ED on 03/10/2024 for evaluation of possible UTI and was placed in physician observation pending rehab/placement. This morning had large amount of bright red blood rectum and will be admitted to the hospital for treatment and further evaluation acute lower GI. Acute lower GI bleed Resolved, likely had diverticular bleed stable H&H did not require blood transfusion post Kcentra and vitamin K in the ED. INR 1.1 Restarted back on warfarin as per GI recommendation Monitor CBC, transfuse as necessary. Paroxysmal AFib Started back on warfarin, follow INR daily Acute Hypokalemia, repleted repeat potassium 3.6 Hypomagnesemia resolved HTN Continue amlopidine, losartan , Lasix on hold HLD Continue statin CHF unspecified, not in acute exacerbation started back on low-dose Lasix GERD Continue omeprazole, ondansetron NKECHI Continue CPAP at night Advanced unspecified dementia no behavioral issues: Had 1 episode of agitation and worsening confusion last night therefore treated with Zyprexa 5 mg by mouth, therefore patient is somnolent but easily arousable today, no acute encephalopathy healthcare proxy invoked daughter Mandi Waldrop is HCP . Full Code DVT Prophylaxis: Pneumatic boots /warfarin Pt will require continued inpatient hospitalization for close monitoring of hemoglobin hematocrit, as well as mental status , at present somnolent unable to take by mouth medications and diet and safe disposition Dispo: Plan for LTC in [facility] Stroke Does the patient have a stroke diagnosis?: No VTE Prior VTE?: No VTE Risk Level:: Medical - moderate - high VTE Device Contraindication: N/A - Device Ordered VTE Drug Contraindication: Treatment Not Indicated
[2024-03-17 15:09] VITALS: BP 146/68; PULSE 60; RESP 18; TEMP 36.1; O2SAT 97
[2024-03-17] MEDS: 0.9 % Sodium Chloride Flush 3 ML SYRINGE IVFLUSH ×2 (16:17→21:41)
[2024-03-17] MEDS: Magnesium Oxide 400 MG TABLET PO (17:44)
[2024-03-17] MEDS: Warfarin Sodium 6 MG TABLET PO (17:44)
[2024-03-17 19:27] VITALS: BP 149/65; PULSE 69; RESP 17; TEMP 36.4; O2SAT 97
[2024-03-18 03:15] VITALS: BP 146/63; PULSE 61; RESP 17; TEMP 36.1; O2SAT 96
--- NOTE | 2024-03-18 04:45 | PC.NURSE ---
Upon assuming care of pt at 19:00, pt was drowsy, unable to stay awake during assessment, AxOx1 (self), arousable to touch and name. This RN didn't administered the pt's SMITH bedtime medications due to being drowsy & sleepy. Later on in the shift pt was assisted x1 to the bathroom with a walker. Pt was redirected few times to keep her eyes open and head up while transferring to the bathroom. Pt continue to sleep throughout the night, bed in lowest position, call hatfield within reach, and camera in room. Will continue to monitor pt's behavior.
[2024-03-18 07:22] VITALS: BP 172/74; PULSE 61; RESP 18; TEMP 36.1; O2SAT 93
[2024-03-18] MEDS: oxyBUTYnin chloride ER 5 MG TAB.ER.24 10 MG PO (08:31)
[2024-03-18] MEDS: Atorvastatin Calcium 20 MG TABLET PO (08:31)
[2024-03-18 08:32] VITALS: BP 172/74
[2024-03-18] MEDS: Lidocaine 4 % Patch ADH..PATCH 1 PATCH TRANSDERMA (08:32)
[2024-03-18] MEDS: Losartan Potassium 50 MG TABLET PO (08:32)
[2024-03-18] MEDS: Magnesium Oxide 400 MG TABLET PO (08:32)
[2024-03-18] MEDS: Escitalopram Oxalate 20 MG TABLET PO (08:32)
[2024-03-18] MEDS: 0.9 % Sodium Chloride Flush 3 ML SYRINGE IVFLUSH (08:34)
[2024-03-18] MEDS: Nystatin Powder 15 GM BOTTLE 1 APPL TOPICAL (08:35)
[2024-03-18 09:06] LABS: INTERNATIONAL NORM RATIO 1.3 (0.9-1.1); Prothrombin Time 15.5 SEC (11.1-13.3)
--- NOTE | 2024-03-18 10:12 | MHC.CM.PN ---
EMR reviewed. Per MD rounds patient is medically cleared to dc to LTC at [facility] in [place]. BLS transportation scheduled for 2pm. RN, MD, and HCP are aware. IMM was delivered 03/17.
--- NOTE | 2024-03-18 10:49 | P.DS_ITS ---
DS: Providers Provider Date of Service: 03/18/24 Date of admission: 03/13/24 13:36 Primary care physician: Bright Garber MD Consults: 03/10/24 12:38 Consult to Case Management Routine Comment: 03/13/24 13:36 Consult to Gastroenterology Routine Consulting Provider: Jeffry Jacobson Reason for consultation: Lower GI Bleed DS: Diagnosis Discharge Diagnosis (1) Hypomagnesemia: Status: Acute (2) Acute hypokalemia: Status: Acute (3) Acute lower GI hemorrhage: Status: Acute DS: Summary Hospital Course Hospital Course: Admission note Pt is an 83-year-old female with a PMH significant for?HLD, HTN, paroxysmal AFib on warfarin, CHF unspecified, sick sinus syndrome with pacemaker in place, diverticulosis, CPAP at night, anxiety, and depression who presents initially presented to the ED on 03/10/2024 for evaluation of possible UTI. Patient's family had noted she had been declining mentally over the past 2 years, significantly worse in the last 3 months. Patient has been falling at home, leaving the stove on, packing suitcases and attempting to drive away in the car, accidentally overdosing on medications, etc.. Patient was initially placed in physician observation and awaiting rehab/long-term placement when she went to the bathroom and had a large amount of jay jay bright red blood per rectum. GI was consulted who suggested giving Kcentra vitamin K to reverse warfarin. Thought patient's bleeding likely secondary to diverticular bleed worsened by anticoagulation. Suggested CT of abdomen/pelvis to evaluate for possible abd bleed. Patient herself reports has had small amount of bright red blood per rectum for the past few days, though never thought to mention it to anyone. Denies any abdominal pain or pain with defecation. Denies lightheadedness or dizziness. No SOB or chest pain/pressure. No palpitations. Denies cough on increased lower leg edema. In the ED pt today has had soft BP as low as 126/35, vitals otherwise WNL. Repeat labs were significant for stable H&H of 10.7/33.1, PT 22.5 with INR 1.8, potassium 3.3, and stool positive for occult blood. UA on 03/10/2024 negative for UTI, cultures negative. Pt will be admitted to the hospital for treatment and further evaluation of lower GI bleed. Hospital course Admitted for Acute lower GI bleed Likely diverticular bleed worsened by anticoagulation with Warfarin. She received Kcentra and vitamin K in the ED. INR at the day of discharge is 1. CT abdomen/pelvis without evidence of active GI bleed. There are diverticula of the colon without evidence of diverticulitis. seen by GI who did not feel a colonoscopy would add much with bleeding and recommended outpatient follow up. diet advanced with good tolerance. warfarin restarted recommend to follow INR daily and to adjust dosage to keep INR between 2-3. To follow with GI as outpatient. She was also noticed to have acute Hypokalemia and Hypomagnesema which were replaced with good response. Start Magnesium replacement therapy on discharge. History of unspecified dementia, healthcare proxy invoked her daughter Mandi Waldrop is hcp uses auto CPAP at night only with settings 5-20 Discharge Plan INR today 1.3 Monitor INR and Hold Warfarin for any bleeding Increase Fiber in diet, avoid constipation Follow with Dr Jacobson as outpatient Take Magnesium replacement Time Attestation Discharge Coordination Time (in mins): 40 Quality: Safe Use of Opioids Does Pt have an Active Cancer Diagnosis on the Problem List?: No Quality: Stroke Does the patient have a stroke diagnosis?: No Physical Exam Vital Signs: Vital Signs: Last Vital Signs Temp 96.9 F 03/18/24 07:22 Pulse 61 03/18/24 07:22 Resp 18 03/18/24 07:22 BP 172/74 H 03/18/24 08:32 Pulse Ox 93 03/18/24 07:22 O2 Del Method Room Air 03/18/24 07:22 BMI result Body Mass Index 43.3 Const: Other: General awake alert this morning,in no acute distress. Neck no JVD. CVS regular rate rhythm, Respiratory lungs clear to auscultation, no respiratory distress, no wheeze, no rhonchi. 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 abdomen soft, non tender, bowel sounds audible Extremities no edema. Neuro non focal Skin no rash Psych poor insight DS: Data Data Completed and Pending Labs on day of discharge: Laboratory Results - last 24 hr 03/18/24 08:34 PT 15.5 H INR 1.3 H Discharge Plan Discharge Anticipated Discharge Date/Time: 03/15/24 11:52 Patient Disposition: Xfer SNF Discharge Diagnosis: Diverticular bleeding Blood loss Anemia Referrals: [facility] [Outside] - 1 Day (fdc care) Bright Garber MD [Primary Care Provider] - 1 Week Discharge Medications: New magnesium oxide 400 mg (241.3 mg magnesium) Tablet 400 mg PO DAILY Qty: 90 0RF psyllium husk [Daily Fiber] 0.4 gram capsule 0.4 g PO BEDTIME Qty: 90 0RF warfarin [Jantoven] 6 mg Tablet 6 mg PO DAILY@1800 Qty: 30 0RF Continued losartan 50 mg tablet 1 tab PO DAILY atorvastatin 20 mg tablet 1 tab PO DAILY citalopram 40 mg tablet 1 tab PO DAILY tramadol 50 mg tablet 1 tab PO TID PRN (Reason: Pain) albuterol sulfate 90 mcg/actuation HFA aerosol inhaler 1 puff inhalation Q4H PRN (Reason: Wheezing) meclizine 12.5 mg tablet 12.5 mg PO TID PRN (Reason: dizziness) Qty: 14 0RF lidocaine HCl [Lidocaine Viscous] 2 % solution 1 ml PO DAILY ondansetron 4 mg tablet,disintegrating 4 mg PO Q8H PRN (Reason: nausea) oxybutynin chloride 10 mg tablet extended release 24hr 10 mg PO DAILY omeprazole 20 mg capsule,delayed release(DR/EC) 20 mg PO DAILY amlodipine 5 mg tablet 5 mg PO BEDTIME Changed furosemide 40 mg tablet 40 mg PO DAILY Qty: 30 0RF Held warfarin 4 mg tablet 8 mg PO SuTu@1800 Hold Instructions: Restart Monday 03/19 warfarin 4 mg tablet 6 mg PO MOTHFRSA@1800 Hold Instructions: Restart Monday 03/19 Discharge Orders: Discharge Order (Routine); Ordered 03/18/24 Ordered By: Avinash Morris Diet: Advance to usual diet Activity on Discharge: As tolerated Stand Alone Forms: Patient Portal Discharge page Print Language: Hungarian Care Plan Goals: Acute lower GI bleed resolved Congestive heart failure unspecified no exacerbation noted continue home dose of Lasix, monitor for shortness of breath and fluid overload. Health Concerns: Read below Plan of Treatment: Read below Assessment: Warfarin restarted on 03/16 follow pt/inr and adjust dose for inr 2-3 Monitor INR and Hold Warfarin for any bleeding Increase Fiber in diet, avoid constipation Follow with Dr Jacobson as outpatient
[2024-03-18 10:56] VITALS: BP 143/63
== END 2024-03-18 14:55 | disposition skilled nursing facility (03) | DRG 813 ==
LOC: HO.ED 03-13 11:59 → HO.EDOVER 03-13 13:46 → HO.S3 03-13 19:29
PROVIDERS: Physician Assistant; Physician Assistant Medical; Student in an Organized Health Care Education/Training Program; Admitting Provider Student in an Organized Health Care Education/Training Program; Emergency Provider Emergency Medicine; PCP Internal Medicine; Visit Provider Hospitalist
DX: D68.32 Hemorrhagic disorder due to extrinsic circulating 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 (principal); K57.31 Diverticulosis of large intestine without perforation or abscess with bleeding; E87.6 Hypokalemia; I11.0 Hypertensive heart disease with heart failure; D50.0 Iron deficiency anemia secondary to blood loss (chronic); T45.515A Adverse effect of 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, initial encounter; I50.9 Heart failure, unspecified; E78.5 Hyperlipidemia, unspecified; F03.90 Unspecified dementia, unspecified severity, without behavioral disturbance, psychotic disturbance, mood disturbance, and anxiety; G47.33 Obstructive sleep apnea (adult) (pediatric); K21.9 Gastro-esophageal reflux disease without esophagitis; I48.0 Paroxysmal atrial fibrillation; E83.42 Hypomagnesemia; Z95.0 Presence of cardiac pacemaker; I49.5 Sick sinus syndrome; Z20.822 Contact with and (suspected) exposure to COVID-19; Z79.01 Long term (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; Z79.899 Other long term (current) drug therapy
CPT/HCPCS: 36415; 74178; 80048; 80053; 81001; 82272; 83735; 85025; 85027; 85610; 86850; 86900; 86901; 87086; 87635; 94660; 97162; 99285; J3430; J3475; J3480; J7168; Q9967

== ENCOUNTER → 2024-03-13 13:36 | Outpatient (BNV) | payer MEDICARE, MEDICAID, SELFPAY | PROVIDERS: Admitting Provider Student in an Organized Health Care Education/Training Program; Emergency Provider Emergency Medicine; PCP Internal Medicine; Visit Provider Physician Assistant | DX: E83.42 Hypomagnesemia (principal); E87.6 Hypokalemia; K92.2 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 hemorrhage, unspecified | CPT/HCPCS: 99223; 99232; 99239 ==

== ENCOUNTER 2025-11-03 13:40 | Outpatient (REF) | payer MEDICARE, SELFPAY ==
[2025-11-03 16:19] LABS: INTERNATIONAL NORM RATIO 1.9 (0.9-1.1); Prothrombin Time 22.8 SEC (11.2-13.5)
[2025-11-03 17:06] LABS: Anion Gap 12 (12-20); Blood Urea Nitrogen 24 mg/dL (9-16); Calcium 9.4 mg/dL (8.4-10.2); Carbon Dioxide 24 mmol/L (22-29); Chloride 108 mmol/L (96-108); Estimated Glomerular Filt Rate 44; Potassium 4.4 mmol/L (3.3-5.1); Sodium 140 mmol/L (135-145)
--- OUTSIDE RECORDS SUMMARY | 2025-11-03 17:46 | XMS_ITS | Encounter Summary ---
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; 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 hemorrhage, unspecified; Chronic combined systolic (congestive) and diastolic (congestive) heart failure (CMS/HCC V24, CMS/HCC V28); Paroxysmal atrial fibrillation (CMS/HCC V24, CMS/HCC V28) Social History Tobacco Use Types Packs/Day Years Used Date Smoking Tobacco: Former Smokeless Tobacco: Former Alcohol Use Standard Drinks/Week Comments No 0 (1 standard drink = 0.6 oz pur e alcohol) Comments Unknown Sex and Gender Information Value Date Recorded Sex Assigned at Not on file Legal Sex Female 2:42 PM EST Gender Identity Not on file Sexual Orientation Not on file documented as of this encounter Plan of Treatment Upcoming Encounters Date Type Department Care Team (Late st Contact Info) Description 11/30/2025 2:00 PM EST Office Visit [facility] [address] [facility] [address] [place] [address] Jose Schuler MD [address] [place] [address] [place] [address] documented as of this encounter Procedures Procedure Name Priority Date/Time Associated Diagnosis Comments PROTHROMBIN TIME WITH INR Routine 01/27/2025 6:22 AM EDT Chronic obstructive pulmonary disease, unspecified (CMS/HCC) Essential (primary) hypertension correction (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 hemorrhage, unspecified Chronic combined systolic (congestive) and diastolic (congestive) heart failure (CMS/HCC) Paroxysmal atrial fibrillation (CMS/HCC) COMPLETE BLOOD COUNT Routine 01/27/2025 6:22 AM EDT Chronic obstructive pulmonary disease, unspecified (CMS/HCC) Essential (primary) hypertension 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 hemorrhage, unspecified Chronic combined systolic (congestive) and diastolic (congestive) heart failure (CMS/HCC) Paroxysmal atrial fibrillation (CMS/HCC) BASIC METABOLIC PANEL Routine 01/27/2025 6:22 AM EDT Chronic obstructive pulmonary disease, unspecified (CMS/HCC) Essential (primary) hypertension 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 hemorrhage, unspecified Chronic combined systolic (congestive) and diastolic (congestive) heart failure (CMS/HCC) Paroxysmal atrial fibrillation (CMS/HCC) documented in this encounter Results * (ABNORMAL) Prothrombin time with INR (01/27/2025 6:22 AM EDT) Protime 20.7(H) 10.6 - 13.9 sec LAB COAGULATION METHOD 01/27/2025 8:23 AM EDT [facility] INR 1.7 LAB COAGULATION METHOD 01/27/2025 8:23 AM EDT [facility] Blood Venous blood specimen / Unknown Venipuncture / Unknown 01/27/2025 6:22 AM EDT 01/27/2025 7:34 AM EDT us Kasey Miller MD LAB BLOOD ORDERABLES Fin al Result [facility] [address] [place] [address], * (ABNORMAL) Basic metabolic panel (01/27/2025 6:22 AM EDT) Sodium 145 133 - 145 mmol/L LAB CHEMISTRY METHOD 01/27/2025 8:19 AM [facility] Potassium 4.3 3.5 - 5.5 mmol/L LAB CHEMISTRY METHOD 01/27/2025 8:19 AM [facility] Chloride 109 96 - 110 mmol/L LAB CHEMISTRY METHOD 01/27/2025 8:19 AM [facility] CO2 30 21 - 32 mmol/L LAB CHEMISTRY METHOD 01/27/2025 8:19 AM [facility] Anion Gap 6 3 - 11 LAB CHEMISTRY METHOD 01/27/2025 8:19 AM [facility] Glucose 101(H) 70 - 100 mg/dL LAB CHEMISTRY METHOD 01/27/2025 8:19 AM [facility] BUN 14 5 - 25 mg/dL LAB CHEMISTRY METHOD 01/27/2025 8:19 AM [facility] Creatinine 0.85 0.50 - 1.10 mg/dL LAB CHEMISTRY METHOD 01/27/2025 8:19 AM [facility] eGFR 68 >=60 mL/min/1. 73m2 LAB CHEMISTRY METHOD 01/27/2025 8:19 AM [facility] Comment:Calculation based on the Chronic Kidney Disease Epidemiology Collaboration (CKD-EPI) equation refit without adjustment for race. BUN/Creatinine Ratio 16.5 LAB CHEMISTRY METHOD 01/27/2025 8:19 AM [facility] Calcium 9.3 8.5 - 10.5 mg/dL LAB CHEMISTRY METHOD 01/27/2025 8:19 AM [facility] Blood Venous blood specimen / Unknown Venipuncture / Unknown 01/27/2025 6:22 AM EDT 01/27/2025 7:34 AM EDT us Kasey Miller MD LAB BLOOD ORDERABLES Fin al Result [facility] [address] [place] [address], * (ABNORMAL) Complete blood count (01/27/2025 6:22 AM EDT) [facility] WBC 6.4 4.8 - 10.8 K/mcL LAB HEMETOLOGY METHOD 01/27/2025 7:52 AM EDT [facility] RBC 3.10(L) 3.80 - 4.80 M/mcL LAB [facility] Hemoglobin 9.3(L) 11.5 - 16.0 g/dL LAB HEMETOLOGY METHOD 01/27/2025 7:52 AM EDT [facility] Hematocrit 31.0(L) 35.0 - 47.0 % LAB HEMETOLOGY METHOD 01/27/2025 7:52 AM [facility] MCV 99.0(H) 79.0 - 98.0 FL LAB HEMETOLOGY METHOD 01/27/2025 7:52 AM EDT [facility] MCH 29.7 27.0 - 32.0 pcg LAB HEMETOLOGY METHOD 01/27/2025 7:52 AM [facility] MCHC 30.0(L) 32.0 - 37.0 g/dL LAB HEMETOLOGY METHOD 01/27/2025 7:52 AM [facility] RDW 16.8(H) 11.0 - 15.0 % LAB HEMETOLOGY METHOD 01/27/2025 7:52 AM EDT [facility] Platelets 173 130 - 400 K/mcL LAB HEMETOLOGY METHOD 01/27/2025 7:52 AM EDT [facility] MPV 11.3(H) 7.0 - 11.0 FL LAB HEMETOLOGY METHOD 01/27/2025 7:52 AM EDT [facility] NRBC 0.3 <1.0 % LAB HEMETOLOGY METHOD 01/27/2025 7:52 AM EDT [facility] NRBC Absolute 0.02 <0.10 K/mcL LAB HEMETOLOGY METHOD 01/27/2025 7:52 AM EDT [facility] Blood Venous blood specimen / Unknown Venipuncture / Unknown 01/27/2025 6:22 AM EDT 01/27/2025 7:34 AM EDT us Kasey Miller MD LAB BLOOD ORDERABLES Fin al Result [facility] [address] [place] [address], documented in this encounter Visit Diagnoses Diagnosis Chronic obstructive pulmonary disease, unspecified (CMS/HCC V24, [facility] V28) Essential (primary) hypertension Unspecified essential hypertension correction (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 Long-term (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 hemorrhage, unspecified Chronic combined systolic (congestive) and diastolic (congestive) heart failure (CMS/HCC V24, CMS/HCC V28) Paroxysmal atrial fibrillation (CMS/[facility] V24, [facility] V28) Atrial fibrillation documented in this encounter Care Teams Residential Mental Health Worker Relationship Specialty Start Date End Date Bright Garber MD [address] [place] [address] PCP - General Internal Medicine 08/02/20 documented as of this encounter
--- OUTSIDE RECORDS SUMMARY | 2025-11-03 17:46 | XMS_ITS | Encounter Summary ---
Author Organization [facility] Address [address] [place] [address] Care Team Providers Care Front Desk Manager Name Role Phone Bright Garber MD Primary Care Provider Encounter Details Date Type Department Care Team (Late st Contact Info) Description 06/01/2025 Lab Requisition [facility] - Main Lab [address] [facility] [place] [address] Kasey Miller MD [address] [facility] [address] [place], [place] [id number] Unspecified atrial fibrillation (CMS/HCC V24, CMS/HCC V28) Social [...] Description 11/30/2025 2:00 PM EST Office Visit [facility] - [address] [facility] [address] [place] [address] Jose Schuler MD [address] [place] [address] [address] [place] [address] documented as of this encounter Procedures Procedure Name Priority Date/Time Associated Diagnosis Comments PROTHROMBIN TIME WITH INR Routine 06/02/2025 6:18 AM EDT Unspecified atrial fibrillation (CMS/HCC V24, CMS/HCC V28) documented in this encounter Results * (ABNORMAL) Prothrombin time with INR (06/02/2025 6:18 AM EDT) Protime 31.3(H) 10.6 - 13.9 sec LAB COAGULATION METHOD 06/02/2025 9:19 AM EDT [facility] INR 2.5 LAB COAGULATION METHOD 06/02/2025 9:19 AM EDT [facility] Blood Venous blood specimen / Unknown Venipuncture / Unknown 06/02/2025 6:18 AM EDT 06/02/2025 8:27 AM EDT us Kasey Miller MD LAB BLOOD ORDERABLES Fin al Result [facility] [address] [place] [address], documented in this encounter Visit Diagnoses Diagnosis Unspecified atrial fibrillation (CMS/HCC V24, CMS/HCC V28) documented in this encounter Care Teams Front Desk Manager Relationship Specialty Start Date End Date Bright Garber MD [address] [place] [address] PCP - General Internal Medicine 08/02/20 documented as of this encounter
--- OUTSIDE RECORDS SUMMARY | 2025-11-03 17:46 | XMS_ITS | Encounter Summary ---
Author Organization [facility] Address [address] [place] [address] Care Team Providers Care Print Shop Manager Name Role Phone Bright Garber MD Primary Care Provider [phone] Encounter Details Date Type Department Care Team (Late Contact Info) Description 02/23/[address] 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; Paroxysmal atrial fibrillation (CMS/HCC V24, CMS/HCC V28) [...] Description 11/30/2025 2:00 PM EST Office Visit [facility] - [address] [facility] [address] [place] [address] Jose Schuler MD [address] [place] [address] Dr Macdonald [address] [place] [address] documented as of this encounter Procedures Procedure Name Priority Date/Time Associated Diagnosis Comments PROTHROMBIN TIME WITH INR Routine 02/24/2025 6:14 AM EDT Chronic obstructive pulmonary disease, unspecified Essential (primary) hypertension senior living (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 Paroxysmal atrial fibrillation (CMS/HCC) COMPLETE BLOOD COUNT Routine 02/24/2025 6:14 AM EDT Chronic obstructive pulmonary disease, unspecified Essential (primary) hypertension senior living (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 Paroxysmal atrial fibrillation (CMS/HCC) BASIC METABOLIC PANEL Routine 02/24/2025 6:14 AM EDT Chronic obstructive pulmonary disease, unspecified Essential (primary) hypertension 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 Paroxysmal atrial fibrillation (CMS/HCC) documented in this encounter Results * (ABNORMAL) Prothrombin time with INR (02/24/2025 6:14 AM EDT) Protime 28.8(H) 10.6 - 13.9 sec LAB COAGULATION METHOD 02/24/2025 9:51 AM EDT [facility] INR 2.3 LAB COAGULATION METHOD 02/24/2025 9:51 AM EDT [facility] Blood Venous blood specimen / Unknown Venipuncture / Unknown 02/24/2025 6:14 AM EDT 02/24/2025 9:07 AM EDT us Kasey Miller MD LAB BLOOD ORDERABLES Fin al Result [facility] [address] [place] [address], * Basic metabolic panel (02/24/2025 6:14 AM EDT) Pathologist [facility] Sodium 143 133 - 145 mmol/L LAB CHEMISTRY METHOD 02/24/2025 10:30 AM EDT [facility] Potassium 4.2 3.5 - 5.5 mmol/L LAB CHEMISTRY METHOD 02/24/2025 10:30 AM [facility] Chloride 109 96 - 110 mmol/L LAB CHEMISTRY METHOD 02/24/2025 10:30 AM [facility] CO2 30 21 - 32 mmol/L LAB CHEMISTRY METHOD 02/24/2025 10:30 AM [facility] Anion Gap 4 3 - 11 LAB CHEMISTRY METHOD 02/24/2025 10:30 AM [facility] Glucose 80 70 - 100 mg/dL LAB CHEMISTRY METHOD 02/24/2025 10:30 AM [facility] BUN 16 5 - 25 mg/dL LAB CHEMISTRY METHOD 02/24/2025 10:30 AM [facility] Creatinine 0.80 0.50 - 1.10 mg/dL LAB CHEMISTRY METHOD 02/24/2025 10:30 AM [facility] eGFR 73 >=60 mL/min/1. 73m2 LAB CHEMISTRY METHOD 02/24/2025 10:30 AM [facility] Comment:Calculation based on the Chronic Kidney Disease Epidemiology Collaboration (CKD-EPI) equation refit without adjustment for race. BUN/Creatinine Ratio 20.0 LAB CHEMISTRY METHOD 02/24/2025 10:30 AM [facility] Calcium 9.2 8.5 - 10.5 mg/dL LAB CHEMISTRY METHOD 02/24/2025 10:30 AM [facility] Blood Venous blood specimen / Unknown Venipuncture / Unknown 02/24/2025 6:14 AM EDT 02/24/2025 9:07 AM EDT us Kasey Miller MD LAB BLOOD ORDERABLES Fin al Result [facility] [address] [place] [address], * (ABNORMAL) Complete blood count (02/24/2025 6:14 AM EDT) [facility] WBC 5.9 4.8 - 10.8 K/mcL LAB HEMETOLOGY METHOD 02/24/2025 9:51 AM [facility] RBC 3.10(L) 3.80 - 4.80 M/mcL LAB HEMETOLOGY METHOD 02/24/2025 9:51 AM [facility] Hemoglobin 9.3(L) 11.5 - 16.0 g/dL LAB HEMETOLOGY METHOD 02/24/2025 9:51 AM [facility] Hematocrit 30.8(L) 35.0 - 47.0 % LAB HEMETOLOGY METHOD 02/24/2025 9:51 AM [facility] MCV 99.4(H) 79.0 - 98.0 FL LAB HEMETOLOGY METHOD 02/24/2025 9:51 AM [facility] MCH 30.0 27.0 - 32.0 pcg LAB HEMETOLOGY METHOD 02/24/2025 9:51 AM [facility] MCHC 30.2(L) 32.0 - 37.0 g/dL LAB HEMETOLOGY METHOD 02/24/2025 9:51 AM [facility] RDW 17.4(H) 11.0 - 15.0 % LAB HEMETOLOGY METHOD 02/24/2025 9:51 AM [facility] Platelets 145 130 - 400 K/mcL LAB HEMETOLOGY METHOD 02/24/2025 9:51 AM [facility] MPV 11.4(H) 7.0 - 11.0 FL LAB HEMETOLOGY METHOD 02/24/2025 9:51 AM [facility] NRBC 0.0 <1.0 % LAB HEMETOLOGY METHOD 02/24/2025 9:51 AM [facility] NRBC Absolute 0.00 <0.10 K/mcL LAB HEMETOLOGY METHOD 02/24/2025 9:51 AM EDT [facility] Blood Venous blood specimen / Unknown Venipuncture / Unknown 02/24/2025 6:14 AM EDT 02/24/2025 9:07 AM EDT us Kasey Miller MD LAB BLOOD ORDERABLES Fin al Result [facility] [address] [place] [address], documented in this encounter Visit Diagnoses Diagnosis Chronic obstructive pulmonary disease, unspecified ([facility] V24, [facility] V28) Essential (primary) hypertension Unspecified essential hypertension 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
--- OUTSIDE RECORDS SUMMARY | 2025-11-03 17:46 | XMS_ITS | Encounter Summary ---
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; 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 hemorrhage, unspecified Social History Tobacco Use Types Packs/Day Years [...] Encounters Date Type Department Care Team (Late Contact Info) Description 11/30/2025 2:00 PM EST Office Visit [facility] - [facility] [address] [facility] [address] [place] [address] Jose Schuler MD [address] [place] [address] [address] [place] [address] documented as of this encounter Procedures Procedure Name Priority Date/Time Associated Diagnosis Comments PROTHROMBIN TIME WITH INR Routine 03/03/2025 6:07 AM EDT Essential (primary) hypertension Chronic obstructive pulmonary disease, unspecified ([facility] V24, [facility] V28) prison (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 hemorrhage, unspecified COMPLETE BLOOD COUNT Routine 03/03/2025 6:07 AM EDT Essential (primary) hypertension Chronic obstructive pulmonary disease, unspecified ([facility]/HCC V24, 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 V24, [facility] V28) prison (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 hemorrhage, unspecified documented in this encounter Results * (ABNORMAL) Prothrombin time with INR (03/03/2025 6:07 AM EDT) Pathologist [facility] Protime 27.1(H) 10.6 - 13.9 sec LAB COAGULATION METHOD 03/03/2025 8:47 AM EDT [facility] INR 2.2 LAB COAGULATION METHOD 03/03/2025 8:47 AM T [facility] Blood Venous blood specimen / Unknown Venipuncture / Unknown 03/03/2025 6:07 AM EDT 03/03/2025 8:16 AM EDT us Kasey Miller MD LAB BLOOD ORDERABLES Fin al Result [facility] [address] [place] [address], * Basic metabolic panel (03/03/2025 6:07 AM EDT) Pathologist [facility] Sodium 137 133 - 145 mmol/L LAB CHEMISTRY METHOD 03/03/2025 9:18 AM EDT [facility] Potassium 4.4 3.5 - 5.5 mmol/L LAB CHEMISTRY METHOD 03/03/2025 9:18 AM [facility] Chloride 103 96 - 110 mmol/L LAB CHEMISTRY METHOD 03/03/2025 9:18 AM [facility] CO2 30 21 - 32 mmol/L LAB CHEMISTRY METHOD 03/03/2025 9:18 AM [facility] Anion Gap 4 3 - 11 LAB CHEMISTRY METHOD 03/03/2025 9:18 AM [facility] Glucose 90 70 - 100 mg/dL LAB CHEMISTRY METHOD 03/03/2025 9:18 AM [facility] BUN 23 5 - 25 mg/dL LAB CHEMISTRY METHOD 03/03/2025 9:18 AM [facility] Creatinine 0.89 0.50 - 1.10 mg/dL LAB CHEMISTRY METHOD 03/03/2025 9:18 AM [facility] eGFR 64 >=60 mL/min/1. 73m2 LAB CHEMISTRY METHOD 03/03/2025 9:18 AM [facility] Comment:Calculation based on the Chronic Kidney Disease Epidemiology Collaboration (CKD-EPI) equation refit without adjustment for race. BUN/Creatinine Ratio 25.8 LAB CHEMISTRY METHOD 03/03/2025 9:18 AM [facility] Calcium 9.2 8.5 - 10.5 mg/dL LAB CHEMISTRY METHOD 03/03/2025 9:18 AM [facility] Blood Venous blood specimen / Unknown Venipuncture / Unknown 03/03/2025 6:07 AM EDT 03/03/2025 8:16 AM EDT us Kasey Miller MD LAB BLOOD ORDERABLES Fin al Result [facility] [address] [place] [address], * (ABNORMAL) Complete blood count (03/03/2025 6:07 AM EDT) [facility] WBC 7.0 4.8 - 10.8 K/mcL LAB HEMETOLOGY METHOD 03/03/2025 8:52 AM [facility] RBC 3.10(L) 3.80 - 4.80 M/mcL LAB HEMETOLOGY METHOD 03/03/2025 8:52 AM [facility] Hemoglobin 9.3(L) 11.5 - 16.0 g/dL LAB HEMETOLOGY METHOD 03/03/2025 8:52 AM [facility] Hematocrit 30.6(L) 35.0 - 47.0 % LAB HEMETOLOGY METHOD 03/03/2025 8:52 AM [facility] MCV 99.0(H) 79.0 - 98.0 FL LAB HEMETOLOGY METHOD 03/03/2025 8:52 AM [facility] MCH 30.1 27.0 - 32.0 pcg LAB HEMETOLOGY METHOD 03/03/2025 8:52 AM [facility] MCHC 30.4(L) 32.0 - 37.0 g/dL LAB HEMETOLOGY METHOD 03/03/2025 8:52 AM [facility] RDW 17.2(H) 11.0 - 15.0 % LAB HEMETOLOGY METHOD 03/03/2025 8:52 AM [facility] Platelets 167 130 - 400 K/mcL LAB HEMETOLOGY METHOD 03/03/2025 8:52 AM [facility] MPV 11.4(H) 7.0 - 11.0 FL LAB HEMETOLOGY METHOD 03/03/2025 8:52 AM [facility] NRBC 0.0 <1.0 % LAB HEMETOLOGY METHOD 03/03/2025 8:52 AM EDT [facility] NRBC Absolute 0.00 <0.10 K/mcL LAB HEMETOLOGY METHOD 03/03/2025 8:52 AM EDT [facility] Blood Venous blood specimen / Unknown Venipuncture / Unknown 03/03/2025 6:07 AM EDT 03/03/2025 8:16 AM EDT us Kasey Miller MD LAB BLOOD ORDERABLES Fin al Result [facility] [address] [place] [address], documented in this encounter Visit Diagnoses Diagnosis Essential (primary) hypertension Unspecified essential hypertension Chronic obstructive pulmonary disease, unspecified (CMS/HCC V24, CMS/HCC V28) 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
--- OUTSIDE RECORDS SUMMARY | 2025-11-03 17:46 | XMS_ITS | Encounter Summary ---
Author Organization [facility] Address [address] [place] [address] Care Team Providers Care Datacap Developer Name Role Phone Bright Garber MD Primary Care Provider [phone] Encounter Details Date Type Department Care Team (Late st Contact Info) Description 01/07/2025 Lab Requisition [facility] - Main Lab 299 [facility] [place] [address] Kasey Miller MD [address] [facility] 1 [place], [place] [id number] Unspecified atrial fibrillation (CMS/HCC V24, CMS/HCC V28) [...] Description 11/30/2025 2:00 PM EST Office Visit [facility] - [address] [facility] [address] [place] [address] Jose Schuler MD [address] [place] [address] [address] [place] [address] documented as of this encounter Procedures Procedure Name Priority Date/Time Associated Diagnosis Comments PROTHROMBIN TIME WITH INR Routine 01/08/2025 6:12 AM EST Unspecified atrial fibrillation (CMS/HCC) documented in this encounter Results * (ABNORMAL) Prothrombin time with INR (01/08/2025 6:12 AM EST) Protime 21.9(H) 10.6 - 13.9 sec LAB COAGULATION METHOD 01/08/2025 8:23 AM EST [facility] INR 1.8 LAB COAGULATION METHOD 01/08/2025 8:23 AM EST [facility] Blood Venous blood specimen / Unknown Venipuncture / Unknown 01/08/2025 6:12 AM EST 01/08/2025 7:54 AM EST us Kasey Miller MD LAB BLOOD ORDERABLES Fin al Result [facility] [address] [place] [address], documented in this encounter Visit Diagnoses Diagnosis Unspecified atrial fibrillation (CMS/HCC V24, CMS/HCC V28) documented in this encounter Care Teams Datacap Developer Relationship Specialty Start Date End Date Bright Garber MD [address] [place] [address] PCP - General Internal Medicine 08/02/20 documented as of this encounter
--- OUTSIDE RECORDS SUMMARY | 2025-11-03 17:46 | XMS_ITS | Encounter Summary ---
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; 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 hemorrhage, unspecified; Hyperlipidemia, unspecified; Unspecified atrial fibrillation (CMS/HCC V24, CMS/HCC V28) [...] Description 11/30/2025 2:00 PM EST Office Visit [facility] - [address] [facility] [address] [place] [address] Jose Schuler MD [address] [place] [address] [place] [address] documented as of this encounter Procedures Procedure Name Priority Date/Time Associated Diagnosis Comments LIPID PANEL WITH REFLEX TO DIRECT LDL Routine 01/13/2025 7:14 AM EST Chronic obstructive pulmonary disease, unspecified (CMS/HCC) Essential (primary) hypertension half-way (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 hemorrhage, unspecified Hyperlipidemia, unspecified Unspecified atrial fibrillation (CMS/HCC) PROTHROMBIN TIME WITH INR Routine 01/13/2025 7:14 AM EST Chronic obstructive pulmonary disease, unspecified (CMS/HCC) Essential (primary) hypertension half-way (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 hemorrhage, unspecified Hyperlipidemia, unspecified Unspecified atrial fibrillation (CMS/HCC) COMPLETE BLOOD COUNT Routine 01/13/2025 7:14 AM EST Chronic obstructive pulmonary disease, unspecified (CMS/HCC) Essential (primary) hypertension 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 hemorrhage, unspecified Hyperlipidemia, unspecified Unspecified atrial fibrillation (CMS/HCC) MAGNESIUM Routine 01/13/2025 7:14 AM EST Chronic obstructive pulmonary disease, unspecified (CMS/HCC) Essential (primary) hypertension 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 hemorrhage, unspecified Hyperlipidemia, unspecified Unspecified atrial fibrillation (CMS/HCC) BASIC METABOLIC PANEL Routine 01/13/2025 7:14 AM EST Chronic obstructive pulmonary disease, unspecified (CMS/HCC) Essential (primary) hypertension half-way (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 hemorrhage, unspecified Hyperlipidemia, unspecified Unspecified atrial fibrillation (CMS/HCC) documented in this encounter Results * (ABNORMAL) Prothrombin time with INR (01/13/2025 7:14 AM EST) Protime 14.7(H) 10.6 - 13.9 sec LAB COAGULATION METHOD 01/13/2025 10:20 AM EST [facility] INR 1.2 LAB COAGULATION METHOD 01/13/2025 10:20 AM [facility] Blood Venous blood specimen / Unknown Venipuncture / Unknown 01/13/2025 7:14 AM EST 01/13/2025 8:46 AM EST Kasey Miller MD LAB BLOOD ORDERABLES Fin al Result [facility] [address] [place] [address], [place] [phone] * Magnesium (01/13/2025 7:14 AM EST) [facility] Magnesium 2.0 1.9 - 2.6 mg/dL LAB CHEMISTRY METHOD 01/13/2025 10:08 AM EST [facility] Blood Venous blood specimen / Unknown Venipuncture / Unknown 01/13/2025 7:14 AM EST 01/13/2025 8:46 AM EST Kasey Miller MD LAB BLOOD ORDERABLES Fin al Result Performing Organization Address City/[facility]/ZIP Co de Phone Number [facility] [address] [place] [address], [place] [phone] * Lipid panel with reflex to direct LDL (01/13/2025 7:14 AM EST) [facility] Cholesterol 101 0 - 200 mg/dL LAB CHEMISTRY METHOD 01/13/2025 10:08 AM [facility] Triglycerides 75 0 - 150 mg/dL LAB CHEMISTRY METHOD 01/13/2025 10:08 AM [facility] HDL 42 >=40 mg/dL LAB CHEMISTRY METHOD 01/13/2025 10:08 AM [facility] LDL Calculated 44 0 - 100 mg/dL LAB CHEMISTRY METHOD 01/13/2025 10:08 AM [facility] VLDL Cholesterol Seamus 15 mg/dL LAB CHEMISTRY METHOD 01/13/2025 10:08 AM [facility] Non HDL Chol. (LDL+VLDL) 59 <145 mg/dL LAB CHEMISTRY METHOD 01/13/2025 10:08 AM [facility] Chol/HDL Ratio 2.4 0.0 - 4.4 LAB CHEMISTRY METHOD 01/13/2025 10:08 AM [facility] Blood Venous blood specimen / Unknown Venipuncture / Unknown 01/13/2025 7:14 AM EST 01/13/2025 8:46 AM EST us Kasey Miller MD LAB BLOOD ORDERABLES Fin al Result [facility] [address] [place] [address], * Basic metabolic panel (01/13/2025 7:14 AM EST) Sodium 140 133 - 145 mmol/L LAB CHEMISTRY METHOD 01/13/2025 10:08 AM [facility] Potassium 3.8 3.5 - 5.5 mmol/L LAB CHEMISTRY METHOD 01/13/2025 10:08 AM [facility] Chloride 107 96 - 110 mmol/L LAB CHEMISTRY METHOD 01/13/2025 10:08 AM [facility] CO2 30 21 - 32 mmol/L LAB CHEMISTRY METHOD 01/13/2025 10:08 AM [facility] Anion Gap 3 3 - 11 LAB CHEMISTRY METHOD 01/13/2025 10:08 AM [facility] Glucose 86 70 - 100 mg/dL LAB CHEMISTRY METHOD 01/13/2025 10:08 AM [facility] BUN 14 5 - 25 mg/dL LAB CHEMISTRY METHOD 01/13/2025 10:08 AM [facility] Creatinine 0.90 0.50 - 1.10 mg/dL LAB CHEMISTRY METHOD 01/13/2025 10:08 AM [facility] eGFR 64 >=60 mL/min/1. 73m2 LAB CHEMISTRY METHOD 01/13/2025 10:08 AM EST [facility] Comment:Calculation based on the Chronic Kidney Disease Epidemiology Collaboration (CKD-EPI) equation refit without adjustment for race. BUN/Creatinine Ratio 15.6 LAB CHEMISTRY METHOD 01/13/2025 10:08 AM [facility] Calcium 8.7 8.5 - 10.5 mg/dL LAB CHEMISTRY METHOD 01/13/2025 10:08 AM [facility] Blood Venous blood specimen / Unknown Venipuncture / Unknown 01/13/2025 7:14 AM EST 01/13/2025 8:46 AM EST us Kasey Miller MD LAB BLOOD ORDERABLES Fin al Result [facility] [address] [place] [address], * (ABNORMAL) Complete blood count (01/13/2025 7:14 AM EST) WBC 3.4(L) 4.8 - 10.8 K/mcL LAB HEMETOLOGY METHOD 01/13/2025 9:53 AM [facility] RBC 2.90(L) 3.80 - 4.80 M/mcL LAB HEMETOLOGY METHOD 01/13/2025 9:53 AM [facility] Hemoglobin 8.8(L) 11.5 - 16.0 g/dL LAB HEMETOLOGY METHOD 01/13/2025 9:53 AM [facility] Hematocrit 28.2(L) 35.0 - 47.0 % LAB HEMETOLOGY METHOD 01/13/2025 9:53 AM [facility] MCV 96.6 79.0 - 98.0 FL LAB HEMETOLOGY METHOD 01/13/2025 9:53 AM [facility] MCH 30.1 27.0 - 32.0 pcg LAB HEMETOLOGY METHOD 01/13/2025 9:53 AM EST [facility] MCHC 31.2(L) 32.0 - 37.0 g/dL LAB HEMETOLOGY METHOD 01/13/2025 9:53 AM [facility] RDW 16.7(H) 11.0 - 15.0 % LAB HEMETOLOGY METHOD 01/13/2025 9:53 AM [facility] Platelets 120(L) 130 - 400 K/mcL LAB HEMETOLOGY METHOD 01/13/2025 9:53 AM EST [facility] MPV 10.6 7.0 - 11.0 FL LAB HEMETOLOGY METHOD 01/13/2025 9:53 AM [facility] NRBC 0.0 <1.0 % LAB HEMETOLOGY METHOD 01/13/2025 9:53 AM [facility] NRBC Absolute 0.00 <0.10 K/mcL LAB HEMETOLOGY METHOD 01/13/2025 9:53 AM [facility] Blood Venous blood specimen / Unknown Venipuncture / Unknown 01/13/2025 7:14 AM EST 01/13/2025 8:46 AM EST us Kasey Miller MD LAB BLOOD ORDERABLES Fin al Result [facility] [address] [place] [address], documented in this encounter Visit Diagnoses Diagnosis Chronic obstructive pulmonary disease, unspecified (CMS/HCC V24, CMS/HCC V28) Essential (primary) hypertension Unspecified essential hypertension 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
--- OUTSIDE RECORDS SUMMARY | 2025-11-03 17:46 | XMS_ITS | Encounter Summary ---
Author Organization [facility] Address [address] [place] [address] Care Team Providers Care Neurology Teacher Name Role Phone Bright Garber MD Primary Care Provider Encounter Details Date Type Department Care Team (Late st Contact Info) Description 02/09/2025 Lab Requisition [facility] - Main Lab 299 [facility] [place] [address] Kasey Miller MD 819 [facility] 1 [place] [address] Chronic obstructive pulmonary disease, unspecified (CMS/HCC V24, CMS/HCC V28); Essential (primary) hypertension; intermediate accountant (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; 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 hemorrhage, unspecified; Paroxysmal atrial fibrillation (CMS/HCC V24, CMS/HCC V28) [...] Description 11/30/2025 2:00 PM EST Office Visit [facility] [address] 300 [facility] 154 [place] [address] Jose Schuler MD [address] [place] [address] [place] [address] documented as of this encounter Procedures Procedure Name Priority Date/Time Associated Diagnosis Comments BASIC METABOLIC PANEL Routine 02/10/2025 6:06 AM EDT Chronic obstructive pulmonary disease, unspecified Essential (primary) hypertension intermediate accountant (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 hemorrhage, unspecified Paroxysmal atrial fibrillation (CMS/HCC) PROTHROMBIN TIME WITH INR Routine 02/10/2025 6:04 AM EDT Chronic obstructive pulmonary disease, unspecified Essential (primary) hypertension [facility] (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 hemorrhage, unspecified Paroxysmal atrial fibrillation (CMS/HCC) COMPLETE BLOOD COUNT Routine 02/10/2025 6:04 AM EDT Chronic obstructive pulmonary disease, unspecified Essential (primary) hypertension [facility] (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 hemorrhage, unspecified Paroxysmal atrial fibrillation (CMS/HCC) documented in this encounter Results * Basic metabolic panel (02/10/2025 6:06 AM EDT) Sodium 142 133 - 145 mmol/L LAB CHEMISTRY METHOD 02/10/2025 9:11 AM [facility] Potassium 3.8 3.5 - 5.5 mmol/L LAB CHEMISTRY METHOD 02/10/2025 9:11 AM [facility] Chloride 107 96 - 110 mmol/L LAB CHEMISTRY METHOD 02/10/2025 9:11 AM [facility] CO2 29 21 - 32 mmol/L LAB CHEMISTRY METHOD 02/10/2025 9:11 AM [facility] Anion Gap 6 3 - 11 LAB CHEMISTRY METHOD 02/10/2025 9:11 AM [facility] Glucose 97 70 - 100 mg/dL LAB CHEMISTRY METHOD 02/10/2025 9:11 AM [facility] BUN 14 5 - 25 mg/dL LAB CHEMISTRY METHOD 02/10/2025 9:11 AM [facility] Creatinine 0.79 0.50 - 1.10 mg/dL LAB CHEMISTRY METHOD 02/10/2025 9:11 AM EDT [facility] eGFR 74 >=60 mL/min/1. 73m2 LAB CHEMISTRY METHOD 02/10/2025 9:11 AM EDT [facility] Comment:Calculation based on the Chronic Kidney Disease Epidemiology Collaboration (CKD-EPI) equation refit without adjustment for race. BUN/Creatinine Ratio 17.7 LAB CHEMISTRY METHOD 02/10/2025 9:11 AM EDT [facility] Calcium 9.5 8.5 - 10.5 mg/dL LAB CHEMISTRY METHOD 02/10/2025 9:11 AM EDT [facility] Blood Venous blood specimen / Unknown Venipuncture / Unknown 02/10/2025 6:06 AM EDT 02/10/2025 8:36 AM EDT Kasey Miller MD LAB BLOOD ORDERABLES Fin al Result Performing Organization Address City/[facility]/ZIP Co de Phone Number [facility] [address] [place] [address], [place] [phone] * (ABNORMAL) Prothrombin time with INR (02/10/2025 6:04 AM EDT) Protime 16.4(H) 10.6 - 13.9 sec LAB COAGULATION METHOD 02/10/2025 8:51 AM EDT [facility] INR 1.3 LAB COAGULATION METHOD 02/10/2025 8:51 AM EDT [facility] Blood Venous blood specimen / Unknown Venipuncture / Unknown 02/10/2025 6:04 AM EDT 02/10/2025 8:30 AM EDT Kasey Miller MD LAB BLOOD ORDERABLES Fin al Result Performing Organization Address [facility]/ZIP Co de Phone Number [facility] [address] [place] [address], [place] [phone] * (ABNORMAL) Complete blood count (02/10/2025 6:04 AM EDT) [facility] WBC 8.0 4.8 - 10.8 K/mcL LAB HEMETOLOGY METHOD 02/10/2025 8:53 AM [facility] RBC 3.20(L) 3.80 - 4.80 M/mcL LAB HEMETOLOGY METHOD 02/10/2025 8:[facility] Hemoglobin 9.5(L) 11.5 - 16.0 g/dL LAB HEMETOLOGY METHOD 02/10/2025 8:53 AM [facility] Hematocrit 31.4(L) 35.0 - 47.0 % LAB HEMETOLOGY METHOD 02/10/2025 8:53 AM [facility] MCV 99.7(H) 79.0 - 98.0 FL LAB HEMETOLOGY METHOD 02/10/2025 8:53 AM [facility] MCH 30.2 27.0 - 32.0 pcg LAB HEMETOLOGY METHOD 02/10/2025 8:53 AM [facility] MCHC 30.3(L) 32.0 - 37.0 g/dL LAB HEMETOLOGY METHOD 02/10/2025 8:53 AM [facility] RDW 17.5(H) 11.0 - 15.0 % LAB HEMETOLOGY METHOD 02/10/2025 8:53 AM [facility] Platelets 155 130 - 400 K/mcL LAB HEMETOLOGY METHOD 02/10/2025 8:53 AM [facility] MPV 11.1(H) 7.0 - 11.0 FL LAB HEMETOLOGY METHOD 02/10/2025 8:53 AM [facility] NRBC 0.0 <1.0 % LAB HEMETOLOGY METHOD 02/10/2025 8:53 AM EDT [facility] NRBC Absolute 0.00 <0.10 K/[facility] LAB HEMETOLOGY METHOD 02/10/2025 8:53 AM EDT [facility] Blood Venous blood specimen / Unknown Venipuncture / Unknown 02/10/2025 6:04 AM EDT 02/10/2025 8:38 AM EDT us Kasey Miller MD LAB BLOOD ORDERABLES Fin al Result [facility] [address] [place] [address], documented in this encounter Visit Diagnoses Diagnosis Chronic obstructive pulmonary disease, unspecified (CMS/HCC V24, CMS/HCC V28) Essential (primary) hypertension Unspecified essential hypertension [facility] (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 Long-term (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 hemorrhage, unspecified Paroxysmal atrial fibrillation (CMS/HCC V24, CMS/[facility] V28) Atrial fibrillation documented in this encounter Care Teams Neurology Teacher Relationship Specialty Start Date End Date Bright Garber MD [address] [place] [address] [place] PCP - General Internal Medicine 08/02/20 documented as of this encounter
--- OUTSIDE RECORDS SUMMARY | 2025-11-03 17:46 | XMS_ITS | Encounter Summary ---
Author Organization [facility] Address [address] [place] [address] Care Team Providers Care Seo Intern Name Role Phone Bright Garber MD Primary Care Provider [phone] Encounter Details Date Type Department Care Team (Late st Contact Info) Description 05/25/2025 Lab Requisition [facility] - Main Lab 299 [facility] [place] [address] Kasey Miller MD 819 [facility] 1 [place], [place] [id number] Unspecified atrial fibrillation (CMS/HCC V24, CMS/HCC V28) [...] Description 11/30/2025 2:00 PM EST Office Visit [facility] - [address] [facility] [address] [place] [address] Jose Schuler MD [address] [place] [address] [address] [place] [address] documented as of this encounter Procedures Procedure Name Priority Date/Time Associated Diagnosis Comments PROTHROMBIN TIME WITH INR Routine 05/26/2025 5:57 AM EDT Unspecified atrial fibrillation (CMS/HCC V24, CMS/HCC V28) documented in this encounter Results * (ABNORMAL) Prothrombin time with INR (05/26/2025 5:57 AM EDT) Protime 25.1(H) 10.6 - 13.9 sec LAB COAGULATION METHOD 05/26/2025 9:29 AM EDT [facility] INR 2.0 LAB COAGULATION METHOD 05/26/2025 9:29 AM EDT [facility] Blood Venous blood specimen / Unknown Venipuncture / Unknown 05/26/2025 5:57 AM EDT 05/26/2025 8:16 AM EDT us Kasey Miller MD LAB BLOOD ORDERABLES Fin al Result [facility] 299 [place] [address], documented in this encounter Visit Diagnoses Diagnosis Unspecified atrial fibrillation (CMS/HCC V24, CMS/HCC V28) documented in this encounter Care Teams Seo Intern Relationship Specialty Start Date End Date Bright Garber MD [address] [place] [address] PCP - General Internal Medicine 08/02/20 documented as of this encounter
--- OUTSIDE RECORDS SUMMARY | 2025-11-03 17:46 | XMS_ITS | Encounter Summary ---
Author Organization [facility] Address [address] [place] [address] Care Team Providers Care Care Team Assistant Name Role Phone Bright Garber MD Primary Care Provider [phone] Encounter Details Date Type Department Care Team (Late st Contact Info) Description 01/19/2025 Lab Requisition [facility] - Main Lab 299 [facility] [place] [address] Kasey Miller MD 819 [facility] 1 [place] [address] Chronic obstructive pulmonary disease, unspecified (CMS/HCC V24, CMS/HCC V28); Essential (primary) hypertension; intermediate accountant (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; 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 hemorrhage, unspecified; Unspecified atrial fibrillation (CMS/HCC V24, CMS/HCC [...] Description 11/30/2025 2:00 PM EST Office Visit [facility] - [address] [facility] [address] [place] [address] Jose Schuler MD [address] [place] [address] [place] [address] documented as of this encounter Procedures Procedure Name Priority Date/Time Associated Diagnosis Comments PROTHROMBIN TIME WITH INR Routine 01/20/2025 6:16 AM EST Chronic obstructive pulmonary disease, unspecified (CMS/HCC) Essential (primary) hypertension [facility] (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 hemorrhage, unspecified Unspecified atrial fibrillation (CMS/HCC) COMPLETE BLOOD COUNT Routine 01/20/2025 6:16 AM EST Chronic obstructive pulmonary disease, unspecified (CMS/HCC) Essential (primary) hypertension [facility] (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 hemorrhage, unspecified Unspecified atrial fibrillation (CMS/HCC) BASIC METABOLIC PANEL Routine 01/20/2025 6:16 AM EST Chronic obstructive pulmonary disease, unspecified (CMS/HCC) Essential (primary) hypertension [facility] (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 hemorrhage, unspecified Unspecified atrial fibrillation (CMS/HCC) documented in this encounter Results * (ABNORMAL) Prothrombin time with INR (01/20/2025 6:16 AM EST) Protime 32.1(H) 10.6 - 13.9 sec LAB COAGULATION METHOD 01/20/2025 8:28 AM EST [facility] INR 2.6 LAB COAGULATION METHOD 01/20/2025 8:28 AM EST [facility] Blood Venous blood specimen / Unknown Venipuncture / Unknown 01/20/2025 6:16 AM EST 01/20/2025 7:26 AM EST us Kasey Miller MD LAB BLOOD ORDERABLES Fin al Result [facility] [address] [place] [address], * Basic metabolic panel (01/20/2025 6:16 AM EST) Sodium 144 133 - 145 mmol/L LAB CHEMISTRY METHOD 01/20/2025 8:47 AM [facility] Potassium 3.8 3.5 - 5.5 mmol/L LAB CHEMISTRY METHOD 01/20/2025 8:47 AM [facility] Chloride 106 96 - 110 mmol/L LAB CHEMISTRY METHOD 01/20/2025 8:47 AM [facility] CO2 30 21 - 32 mmol/L LAB CHEMISTRY METHOD 01/20/2025 8:47 AM [facility] Anion Gap 8 3 - 11 LAB CHEMISTRY METHOD 01/20/2025 8:47 AM [facility] Glucose 84 70 - 100 mg/dL LAB CHEMISTRY METHOD 01/20/2025 8:47 AM [facility] BUN 12 5 - 25 mg/dL LAB CHEMISTRY METHOD 01/20/2025 8:47 AM [facility] Creatinine 0.89 0.50 - 1.10 mg/dL LAB CHEMISTRY METHOD 01/20/2025 8:47 AM [facility] eGFR 64 >=60 mL/min/1. 73m2 LAB CHEMISTRY METHOD 01/20/2025 8:47 AM [facility] Comment:Calculation based on the Chronic Kidney Disease Epidemiology Collaboration (CKD-EPI) equation refit without adjustment for race. BUN/Creatinine Ratio 13.5 LAB CHEMISTRY METHOD 01/20/2025 8:47 AM [facility] Calcium 9.1 8.5 - 10.5 mg/dL LAB CHEMISTRY METHOD 01/20/2025 8:47 AM [facility] Blood Venous blood specimen / Unknown Venipuncture / Unknown 01/20/2025 6:16 AM EST 01/20/2025 7:26 AM EST us Kasey Miller MD LAB BLOOD ORDERABLES Fin al Result [facility] [address] [place] [address], * (ABNORMAL) Complete blood count (01/20/2025 6:16 AM EST) [facility] WBC 5.3 4.8 - 10.8 K/mcL LAB HEMETOLOGY METHOD 01/20/2025 8:25 AM [facility] RBC 3.10(L) 3.80 - 4.80 M/mcL LAB HEMETOLOGY METHOD 01/20/2025 8:25 AM [facility] Hemoglobin 9.2(L) 11.5 - 16.0 g/dL LAB HEMETOLOGY METHOD 01/20/2025 8:25 AM [facility] Hematocrit 30.3(L) 35.0 - 47.0 % LAB HEMETOLOGY METHOD 01/20/2025 8:25 AM [facility] MCV 96.8 79.0 - 98.0 FL LAB HEMETOLOGY METHOD 01/20/2025 8:25 AM [facility] MCH 29.4 27.0 - 32.0 pcg LAB HEMETOLOGY METHOD 01/20/2025 8:25 AM [facility] MCHC 30.4(L) 32.0 - 37.0 g/dL LAB HEMETOLOGY METHOD 01/20/2025 8:25 AM [facility] RDW 16.5(H) 11.0 - 15.0 % LAB HEMETOLOGY METHOD 01/20/2025 8:25 AM [facility] Platelets 159 130 - 400 K/mcL LAB HEMETOLOGY METHOD 01/20/2025 8:25 AM [facility] MPV 10.9 7.0 - 11.0 FL LAB HEMETOLOGY METHOD 01/20/2025 8:25 AM [facility] NRBC 0.0 <1.0 % LAB HEMETOLOGY METHOD 01/20/2025 8:25 AM [facility] NRBC Absolute 0.00 <0.10 K/mcL LAB HEMETOLOGY METHOD 01/20/2025 8:25 AM EST [facility] Blood Venous blood specimen / Unknown Venipuncture / Unknown 01/20/2025 6:16 AM EST 01/20/2025 7:26 AM EST us Kasey Miller MD LAB BLOOD ORDERABLES Fin al Result [facility] [address] [place] [address], documented in this encounter Visit Diagnoses Diagnosis Chronic obstructive pulmonary disease, unspecified (CMS/HCC V24, CMS/[facility] V28) Essential (primary) hypertension Unspecified essential hypertension [facility] (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 Long-term (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 hemorrhage, unspecified Unspecified atrial fibrillation (CMS/HCC V24, CMS/[facility] V28) documented in this encounter Care Teams Care Team Assistant Relationship Specialty Start Date End Date Bright Garber MD [address] [place] [address] PCP - General Internal Medicine 08/02/20 documented as of this encounter
--- OUTSIDE RECORDS SUMMARY | 2025-11-03 17:46 | XMS_ITS | Encounter Summary ---
Author Organization [facility] Address [address] [place] [address] Care Team Providers Care Title Department Manager Name Role Phone Bright Garber MD Primary Care Provider [phone] Encounter Details Date Type Department Care Team (Late Contact Info) Description 03/09/2025 Lab Requisition [facility] - Main Lab 299 [facility] [place] [address] Kasey Miller MD 819 [facility] 1 [place] [address] Chronic obstructive pulmonary disease, unspecified (CMS/HCC V24, CMS/HCC V28); Essential (primary) hypertension; 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 [address] 300 [facility] 154 [place] [address] Jose Schuler MD [address] [place] [address] 410 [place] [address] documented as of this encounter Procedures Procedure Name Priority Date/Time Associated Diagnosis Comments PROTHROMBIN TIME WITH INR Routine 03/10/2025 6:39 AM EDT Chronic obstructive pulmonary disease, unspecified (CMS/[facility] V24, [facility] V28) Essential (primary) hypertension senior care (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 hemorrhage, unspecified COMPLETE BLOOD COUNT Routine 03/10/2025 6:39 AM EDT Chronic obstructive pulmonary disease, unspecified ([facility]/HCC V24, [facility] V28) Essential (primary) hypertension 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 hemorrhage, unspecified BASIC METABOLIC PANEL Routine 03/10/2025 6:39 AM EDT Chronic obstructive pulmonary disease, unspecified (CMS/[facility] V24, [facility] V28) Essential (primary) hypertension senior care (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 hemorrhage, unspecified documented in this encounter Results * (ABNORMAL) Prothrombin time with INR (03/10/2025 6:39 AM EDT) Pathologist [facility] Protime 17.5(H) 10.6 - 13.9 sec LAB COAGULATION METHOD 03/10/2025 10:01 AM EDT [facility] INR 1.4 LAB COAGULATION METHOD 03/10/2025 10:01 AM T [facility] Blood Venous blood specimen / Unknown Venipuncture / Unknown 03/10/2025 6:39 AM EDT 03/10/2025 8:48 AM EDT us Kasey Miller MD LAB BLOOD ORDERABLES Fin al Result [facility] [address] [place] [address], * (ABNORMAL) Basic metabolic panel (03/10/2025 6:39 AM EDT) Pathologist [facility] Sodium 139 133 - 145 mmol/L LAB CHEMISTRY METHOD 03/10/2025 10:35 AM EDT [facility] Potassium 4.4 3.5 - 5.5 mmol/L LAB CHEMISTRY METHOD 03/10/2025 10:35 AM [facility] Chloride 104 96 - 110 mmol/L LAB CHEMISTRY METHOD 03/10/2025 10:35 AM [facility] CO2 30 21 - 32 mmol/L LAB CHEMISTRY METHOD 03/10/2025 10:35 AM [facility] Anion Gap 5 3 - 11 LAB CHEMISTRY METHOD 03/10/2025 10:35 AM [facility] Glucose 84 70 - 100 mg/dL LAB CHEMISTRY METHOD 03/10/2025 10:35 AM [facility] BUN 29(H) 5 - 25 mg/dL LAB CHEMISTRY METHOD 03/10/2025 10:35 AM [facility] Creatinine 1.01 0.50 - 1.10 mg/dL LAB CHEMISTRY METHOD 03/10/2025 10:35 AM [facility] eGFR 55(L) >=60 mL/min/1. 73m2 LAB CHEMISTRY METHOD 03/10/2025 10:35 AM [facility] Comment:Calculation based on the Chronic Kidney Disease Epidemiology Collaboration (CKD-EPI) equation refit without adjustment for race. BUN/Creatinine Ratio 28.7 LAB CHEMISTRY METHOD 03/10/2025 10:35 AM [facility] Calcium 9.3 8.5 - 10.5 mg/dL LAB CHEMISTRY METHOD 03/10/2025 10:35 AM [facility] Blood Venous blood specimen / Unknown Venipuncture / Unknown 03/10/2025 6:39 AM EDT 03/10/2025 8:48 AM EDT us Kasey Miller MD LAB BLOOD ORDERABLES Fin al Result [facility] [address] [place] [address], * (ABNORMAL) Complete blood count (03/10/2025 6:39 AM EDT) [facility] WBC 7.1 4.8 - 10.8 K/mcL LAB HEMETOLOGY METHOD 03/10/2025 10:06 AM [facility] RBC 3.10(L) 3.80 - 4.80 M/mcL LAB HEMETOLOGY METHOD 03/10/2025 10:06 AM [facility] Hemoglobin 9.4(L) 11.5 - 16.0 g/dL LAB HEMETOLOGY METHOD 03/10/2025 10:06 AM [facility] Hematocrit 30.5(L) 35.0 - 47.0 % LAB HEMETOLOGY METHOD 03/10/2025 10:06 AM [facility] MCV 97.1 79.0 - 98.0 FL LAB HEMETOLOGY METHOD 03/10/2025 10:06 AM [facility] MCH 29.9 27.0 - 32.0 pcg LAB HEMETOLOGY METHOD 03/10/2025 10:06 AM [facility] MCHC 30.8(L) 32.0 - 37.0 g/dL LAB HEMETOLOGY METHOD 03/10/2025 10:06 AM [facility] RDW 17.2(H) 11.0 - 15.0 % LAB HEMETOLOGY METHOD 03/10/2025 10:06 AM [facility] Platelets 163 130 - 400 K/mcL LAB HEMETOLOGY METHOD 03/10/2025 10:06 AM [facility] MPV 11.1(H) 7.0 - 11.0 FL LAB HEMETOLOGY METHOD 03/10/2025 10:06 AM [facility] NRBC 0.0 <1.0 % LAB HEMETOLOGY METHOD 03/10/2025 10:06 AM EDT [facility] NRBC Absolute 0.00 <0.10 K/mcL LAB HEMETOLOGY METHOD 03/10/2025 10:06 AM EDT [facility] Blood Venous blood specimen / Unknown Venipuncture / Unknown 03/10/2025 6:39 AM EDT 03/10/2025 8:48 AM EDT us Kasey Miller MD LAB BLOOD ORDERABLES Fin al Result [facility] [address] [place] [address], documented in this encounter Visit Diagnoses Diagnosis Chronic obstructive pulmonary disease, unspecified (CMS/HCC V24, CMS/HCC V28) Essential (primary) hypertension Unspecified essential hypertension senior care (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 Long-term (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 hemorrhage, unspecified documented in this encounter Care Teams Title Department Manager Relationship Specialty Start Date End Date Bright Garber MD [address] [place] [address] PCP - General Internal Medicine 08/02/20 documented as of this encounter
--- OUTSIDE RECORDS SUMMARY | 2025-11-03 17:46 | XMS_ITS | Encounter Summary ---
Author Organization [facility] Address [address] [place] [address] Care Team Providers Care Over The Road Driver Name Role Phone Bright Garber MD Primary Care Provider [phone] Encounter Details Date Type Department Care Team (Late Contact Info) Description 02/12/2025 Lab Requisition [facility] - Main Lab 299 [facility] [place] [address] Kasey Miller MD [address] [id number] emt intermediate (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 Social History Tobacco Use Types Packs/Day Years [...] Description 11/30/2025 2:00 PM EST Office Visit [facility] - [facility] [address] [facility] 154 [place] [address] Jose Schuler MD [address] [place] [address] [address] [place] [address] documented as of this encounter Visit Diagnoses Diagnosis emt intermediate (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 Long-term (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 documented in this encounter Care Teams Over The Road Driver Relationship Specialty Start Date End Date Bright Garber MD [address] [place] PCP - General Internal Medicine 08/02/20 documented as of this encounter
--- OUTSIDE RECORDS SUMMARY | 2025-11-03 17:46 | XMS_ITS | Encounter Summary ---
Author Organization [facility] Address [address] [place] [address] Care Team Providers Care Ship Erector Name Role Phone Bright Garber MD Primary Care Provider [phone] Encounter Details Date Type Department Care Team (Late st Contact Info) Description 05/18/2025 Lab Requisition [facility] - Main Lab 299 [facility] [place] [address] Kasey Miller MD 819 [facility] 1 [place], [place] [id number] Unspecified atrial fibrillation (CMS/HCC V24, CMS/HCC V28) [...] 11/30/2025 2:00 PM EST Office Visit [facility] - [address] [facility] [address] [place] [address] Jose Schuler MD [address] [place] [address] [address] [place] [address] documented as of this encounter Procedures Procedure Name Priority Date/Time Associated Diagnosis Comments PROTHROMBIN TIME WITH INR Routine 05/19/2025 5:57 AM EDT Unspecified atrial fibrillation (CMS/HCC V24, CMS/HCC V28) documented in this encounter Results * (ABNORMAL) Prothrombin time with INR (05/19/2025 5:57 AM EDT) Protime 16.2(H) 10.6 - 13.9 sec LAB COAGULATION METHOD 05/19/2025 8:06 AM EDT [facility] INR 1.3 LAB COAGULATION METHOD 05/19/2025 8:06 AM EDT [facility] Blood Venous blood specimen / Unknown Venipuncture / Unknown 05/19/2025 5:57 AM EDT 05/19/2025 7:33 AM EDT us Kasey Miller MD LAB BLOOD ORDERABLES Fin al Result [facility] [address] [place] [address], documented in this encounter Visit Diagnoses Diagnosis Unspecified atrial fibrillation (CMS/HCC V24, CMS/HCC V28) documented in this encounter Care Teams Ship Erector Relationship Specialty Start Date End Date Bright Garber MD [address] [place] [address] PCP - General Internal Medicine 08/02/20 documented as of this encounter
--- OUTSIDE RECORDS SUMMARY | 2025-11-03 17:46 | XMS_ITS | Encounter Summary ---
Author Organization [facility] Address [address] [place] [address] Care Team Providers Care Oceanographer Geological Name Role Phone Bright Garber MD Primary Care Provider [phone] Encounter Details Date Type Department Care Team (Late st Contact Info) Description 02/03/2025 Lab Requisition [facility] - Main Lab 299 [facility] [place] [address] Kasey Miller MD [address] [address] Chronic combined systolic (congestive) and diastolic (congestive) heart failure (CMS/HCC V24, CMS/HCC V28); Paroxysmal atrial fibrillation (CMS/HCC V24, CMS/HCC V28); Chronic obstructive pulmonary disease, unspecified (CMS/HCC V24, CMS/HCC V28); Essential (primary) hypertension; oysterman (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; 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 hemorrhage, unspecified [...] Description 11/30/2025 2:00 PM EST Office Visit [facility] - [address] [facility] [address] [place] [address] Jose Schuler MD [address] [place] [address] [place] [address] documented as of this encounter Procedures Procedure Name Priority Date/Time Associated Diagnosis Comments PROTHROMBIN TIME WITH INR Routine 02/03/2025 9:03 AM EDT Chronic combined systolic (congestive) and diastolic (congestive) heart failure (CMS/HCC) Paroxysmal atrial fibrillation (CMS/HCC) Chronic obstructive pulmonary disease, unspecified (CMS/HCC) Essential (primary) hypertension assisted (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 hemorrhage, unspecified COMPLETE BLOOD COUNT Routine 02/03/2025 9:03 AM EDT Chronic combined systolic (congestive) and diastolic (congestive) heart failure (CMS/HCC) Paroxysmal atrial fibrillation (CMS/HCC) Chronic obstructive pulmonary disease, unspecified (CMS/HCC) Essential (primary) hypertension oysterman (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 hemorrhage, unspecified BASIC METABOLIC PANEL Routine 02/03/2025 9:03 AM EDT Chronic combined systolic (congestive) and diastolic (congestive) heart failure (CMS/HCC) Paroxysmal atrial fibrillation (CMS/HCC) Chronic obstructive pulmonary disease, unspecified (CMS/HCC) Essential (primary) hypertension assisted (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 hemorrhage, unspecified documented in this encounter Results * (ABNORMAL) Prothrombin time with INR (02/03/2025 9:03 AM EDT) Protime 14.7(H) 10.6 - 13.9 sec LAB COAGULATION METHOD 02/03/2025 11:33 AM EDT [facility] INR 1.2 LAB COAGULATION METHOD 02/03/2025 11:33 AM EDT [facility] Blood Venous blood specimen / Unknown Venipuncture / Unknown 02/03/2025 9:03 AM EDT 02/03/2025 11:06 AM EDT us Kasey Miller MD LAB BLOOD ORDERABLES Fin al Result [facility] [address] [place] [address], * (ABNORMAL) Basic metabolic panel (02/03/2025 9:03 AM EDT) Sodium 141 133 - 145 mmol/L LAB CHEMISTRY METHOD 02/03/2025 12:27 PM [facility] Potassium 4.1 3.5 - 5.5 mmol/L LAB CHEMISTRY METHOD 02/03/2025 12:27 PM [facility] Chloride 107 96 - 110 mmol/L LAB CHEMISTRY METHOD 02/03/2025 12:27 PM [facility] CO2 29 21 - 32 mmol/L LAB CHEMISTRY METHOD 02/03/2025 12:27 PM [facility] Anion Gap 5 3 - 11 LAB CHEMISTRY METHOD 02/03/2025 12:27 PM [facility] Glucose 130(H) 70 - 100 mg/dL LAB CHEMISTRY METHOD 02/03/2025 12:27 PM [facility] BUN 17 5 - 25 mg/dL LAB CHEMISTRY METHOD 02/03/2025 12:27 PM [facility] Creatinine 0.95 0.50 - 1.10 mg/dL LAB CHEMISTRY METHOD 02/03/2025 12:27 PM [facility] eGFR 60 >=60 mL/min/1. 73m2 LAB CHEMISTRY METHOD 02/03/2025 12:27 PM [facility] Comment:Calculation based on the Chronic Kidney Disease Epidemiology Collaboration (CKD-EPI) equation refit without adjustment for race. BUN/Creatinine Ratio 17.9 LAB CHEMISTRY METHOD 02/03/2025 12:27 PM [facility] Calcium 9.4 8.5 - 10.5 mg/dL LAB CHEMISTRY METHOD 02/03/2025 12:27 PM [facility] Blood Venous blood specimen / Unknown Venipuncture / Unknown 02/03/2025 9:03 AM EDT 02/03/2025 11:06 AM EDT us Kasey Miller MD LAB BLOOD ORDERABLES Fin al Result [facility] [address] [place] [address], * (ABNORMAL) Complete blood count (02/03/2025 9:03 AM EDT) [facility] WBC 6.4 4.8 - 10.8 K/mcL LAB HEMETOLOGY METHOD 02/03/2025 11:31 AM EDT [facility] RBC 3.30(L) 3.80 - 4.80 M/mcL LAB HEMETOLOGY METHOD 02/03/2025 11:31 AM [facility] Hemoglobin 9.7(L) 11.5 - 16.0 g/dL LAB HEMETOLOGY METHOD 02/03/2025 11:31 AM [facility] Hematocrit 31.9(L) 35.0 - 47.0 % LAB HEMETOLOGY METHOD 02/03/2025 11:31 AM [facility] MCV 98.2(H) 79.0 - 98.0 FL LAB HEMETOLOGY METHOD 02/03[facility]2025 11[facility] MCH 29.8 27.0 - 32.0 pcg LAB HEMETOLOGY METHOD 02/03/2025 11:31 AM [facility] MCHC 30.4(L) 32.0 - 37.0 g/dL LAB HEMETOLOGY METHOD 02/03/2025 11:31 AM [facility] RDW 17.2(H) 11.0 - 15.0 % LAB HEMETOLOGY METHOD 02/03/2025 11:31 AM [facility] Platelets 170 130 - 400 K/mcL LAB HEMETOLOGY METHOD 02/03/2025 11:31 AM EDT [facility] MPV 11.2(H) 7.0 - 11.0 FL LAB HEMETOLOGY METHOD 02/03/2025 11:31 AM EDT [facility] NRBC 0.0 <1.0 % LAB HEMETOLOGY METHOD 02/03/2025 11:31 AM EDT [facility] NRBC Absolute 0.00 <0.10 K/mcL LAB HEMETOLOGY METHOD 02/03/2025 11:31 AM EDT [facility] Blood Venous blood specimen / Unknown Venipuncture / Unknown 02/03/2025 9:03 AM EDT 02/03/2025 11:06 AM EDT us Kasey Miller MD LAB BLOOD ORDERABLES Fin al Result [facility] [address] [place] [address], documented in this encounter Visit Diagnoses Diagnosis Chronic combined systolic (congestive) and diastolic (congestive) heart failure (CMS/HCC V24, CMS/HCC V28) Paroxysmal atrial fibrillation (CMS/HCC V24, CMS/HCC V28) Atrial fibrillation Chronic obstructive pulmonary disease, unspecified (CMS/HCC V24, CMS/HCC V28) Essential (primary) hypertension Unspecified essential hypertension oysterman (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 Long-term (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 hemorrhage, unspecified documented in this encounter Care Teams Oceanographer Geological Relationship Specialty Start Date End Date Bright Garber MD [address] [place] [address] PCP - General Internal Medicine 08/02/20 documented as of this encounter
--- OUTSIDE RECORDS SUMMARY | 2025-11-03 17:46 | XMS_ITS | Encounter Summary ---
Author Organization [facility] Address [address] [place] [address] Care Team Providers Care Environmental Protection Economist Name Role Phone Bright Garber MD Primary Care Provider [phone] Encounter Details Date Type Department Care Team (Late Contact Info) Description 02/16/2025 Lab Requisition [facility] - Main Lab 299 [facility] [place] [address] Kasey Miller MD 819 [facility] 1 [place] [address] Chronic obstructive pulmonary disease, unspecified (CMS/HCC V24, CMS/HCC V28); Essential (primary) hypertension; 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; 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 hemorrhage, [...] Description 11/30/2025 2:00 PM EST Office Visit [facility] - [facility] [address] [facility] 154 [place] [address] Jose Schuler MD [address] [place] [address] [address] [place] [address] documented as of this encounter Procedures Procedure Name Priority Date/Time Associated Diagnosis Comments PROTHROMBIN TIME WITH INR Routine 02/17/2025 7:44 AM EDT Chronic obstructive pulmonary disease, unspecified Essential (primary) hypertension 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 hemorrhage, unspecified COMPLETE BLOOD COUNT Routine 02/17/2025 7:44 AM EDT Chronic obstructive pulmonary disease, unspecified Essential (primary) hypertension half-way (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 hemorrhage, unspecified BASIC METABOLIC PANEL Routine 02/17/2025 7:44 AM EDT Chronic obstructive pulmonary disease, unspecified Essential (primary) hypertension half-way (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 hemorrhage, unspecified documented in this encounter Results * (ABNORMAL) Prothrombin time with INR (02/17/2025 7:44 AM EDT) Protime 17.0(H) 10.6 - 13.9 sec LAB COAGULATION METHOD 02/17/2025 10:45 AM EDT [facility] INR 1.4 LAB COAGULATION METHOD 02/17/2025 10:45 AM EDT [facility] Blood Venous blood specimen / Unknown Venipuncture / Unknown 02/17/2025 7:44 AM EDT 02/17/2025 9:24 AM EDT us Kasey Miller MD LAB BLOOD ORDERABLES Fin al Result [facility] [address] [place] [address], * Basic metabolic panel (02/17/2025 7:44 AM EDT) Sodium 141 133 - 145 mmol/L LAB CHEMISTRY METHOD 02/17/2025 10:29 AM EDT [facility] Potassium 4.3 3.5 - 5.5 mmol/L LAB CHEMISTRY METHOD 02/17/2025 10:29 AM EDT [facility] Chloride 106 96 - 110 mmol/L LAB CHEMISTRY METHOD 02/17/2025 10:29 AM [facility] CO2 30 21 - 32 mmol/L LAB CHEMISTRY METHOD 02/17/2025 10:29 AM [facility] Anion Gap 5 3 - 11 LAB CHEMISTRY METHOD 02/17/2025 10:29 AM [facility] Glucose 83 70 - 100 mg/dL LAB CHEMISTRY METHOD 02/17/2025 10:29 AM [facility] BUN 19 5 - 25 mg/dL LAB CHEMISTRY METHOD 02/17/2025 10:29 AM [facility] Creatinine 0.93 0.50 - 1.10 mg/dL LAB CHEMISTRY METHOD 02/17/2025 10:29 AM [facility] eGFR 61 >=60 mL/min/1. 73m2 LAB CHEMISTRY METHOD 02/17/2025 10:29 AM [facility] Comment:Calculation based on the Chronic Kidney Disease Epidemiology Collaboration (CKD-EPI) equation refit without adjustment for race. BUN/Creatinine Ratio 20.4 LAB CHEMISTRY METHOD 02/17/2025 10:29 AM [facility] Calcium 9.4 8.5 - 10.5 mg/dL LAB CHEMISTRY METHOD 02/17/2025 10:29 AM [facility] Blood Venous blood specimen / Unknown Venipuncture / Unknown 02/17/2025 7:44 AM EDT 02/17/2025 9:24 AM EDT us Kasey Miller MD LAB BLOOD ORDERABLES Fin al Result [facility] [address] [place] [address], * (ABNORMAL) Complete blood count (02/17/2025 7:44 AM EDT) Pathologist [facility] WBC 7.0 4.8 - 10.8 K/mcL LAB HEMETOLOGY METHOD 02/17/2025 9:52 AM [facility] RBC 3.20(L) 3.80 - 4.80 M/mcL LAB HEMETOLOGY METHOD 02/17/2025 9:52 AM [facility] Hemoglobin 9.7(L) 11.5 - 16.0 g/dL LAB HEMETOLOGY METHOD 02/17/2025 9:52 AM [facility] Hematocrit 31.7(L) 35.0 - 47.0 % LAB HEMETOLOGY METHOD 02/17/2025 9:52 AM [facility] MCV 97.8 79.0 - 98.0 FL LAB HEMETOLOGY METHOD 02/17/2025 9:52 AM [facility] MCH 29.9 27.0 - 32.0 pcg LAB HEMETOLOGY METHOD 02/17/2025 9:52 AM [facility] MCHC 30.6(L) 32.0 - 37.0 g/dL LAB HEMETOLOGY METHOD 02/17/2025 9:52 AM [facility] RDW 17.5(H) 11.0 - 15.0 % LAB HEMETOLOGY METHOD 02/17/2025 9:52 AM [facility] Platelets 158 130 - 400 K/mcL LAB HEMETOLOGY METHOD 02/17/2025 9:52 AM [facility] MPV 11.1(H) 7.0 - 11.0 FL LAB HEMETOLOGY METHOD 02/17/2025 9:52 AM [facility] NRBC 0.0 <1.0 % LAB HEMETOLOGY METHOD 02/17/2025 9:52 AM [facility] NRBC Absolute 0.00 <0.10 K/mcL LAB HEMETOLOGY METHOD 02/17/2025 9:52 AM EDT [facility] Blood Venous blood specimen / Unknown Venipuncture / Unknown 02/17/2025 7:44 AM EDT 02/17/2025 9:24 AM EDT us Kasey Miller MD LAB BLOOD ORDERABLES Fin al Result [facility] [address] [place] [address], documented in this encounter Visit Diagnoses Diagnosis Chronic obstructive pulmonary disease, unspecified (CMS/HCC V24, CMS/HCC V28) Essential (primary) hypertension Unspecified essential hypertension half-way (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 Long-term (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 hemorrhage, unspecified documented in this encounter Care Teams Environmental Protection Economist Relationship Specialty Start Date End Date Bright Garber MD [address] [place] [address] PCP - General Internal Medicine 08/02/20 documented as of this encounter
--- OUTSIDE RECORDS SUMMARY | 2025-11-03 17:47 | XMS_ITS ---
Author Organization [facility] Care Team Providers Care Jd Edwards Developer Name Role Phone Ted Sheridan Unavailable Unavailable Seun Nogueira Unavailable Unavailable Petrella, Seamus Unavailable Unavailable Allergies and adverse reactions Code CodeSystem Substance Reaction Severity StartDate Concern Status 762796896 SNOMED CT Sulfa Antibiotics Eruption (code- 341453284, SNOMED CT); Pruritic disorder of skin (code- 2981890893, SNOMED CT) Unknown 03/18/[id number] Sulfonylureas Eruption (code- 789095084, SNOMED CT) Unknown 03/18/2024 active Trimethoprim Eruption (code- 172573804, SNOMED CT); Pruritic disorder of skin (code- 6863860512, SNOMED CT) Unknown 03/18/2024 active Care Team Name Role Address Phone Organization Dates Ted Sheridan [address] [address], [place], [address], [place] (Office): : [facility] 03/18/2024 - 03/26/2024 Seun Fredy Nogueira [address] [facility], [place], [address], [facility] (Cell): : [facility] 03/18/2024 - 03/26/2024 Seamus Barber [facility] 03/18/2024 - 03/26/2024 Immunizations Immunization Status Vaccine Details Vaccine Code CodeSystem Howard e Notes J&J COVID-19 Vaccine (Booster) completed SARS-COV-2 (COVID-19) vaccine, vector non-replicating, recombinant spike protein-Ad26, preservative free, 0.5 mL 212 CVX created date: 03/18/2024 administered date: 10/06/2021 J&J COVID-19 Vaccine (Booster) completed SARS-COV-2 (COVID-19) vaccine, vector non-replicating, recombinant spike protein-Ad26, preservative free, 0.5 mL 212 CVX created date: 03/18/2024 administered date: 02/14/2021 Afluria Quadravalent .5 mL completed Influenza, split virus, trivalent, injectable, contains preservative 141 CVX created date: 03/18/2024 administered date: 09/12/2023 Comirnaty COVID VACCINE completed SARS-COV-2 (COVID-19) vaccine, mRNA, spike protein, LNP, preservative free, 30 mcg/0.3mL dose 208 CVX created date: 03/18/2024 administered date: 09/12/2023 Medications Section Medication Name Status Code CodeSystem Dose Route Frequency Admin Type Sig Text Start Date End Date Indication Ondansetron Oral Tablet Disintegrat ing 4 MG active 85771 4 RXNORM 4 mg Oral as needed PRN Give 4 mg by mouth every 8 hours as neede d for Nause a 2023 - Nausea Albuterol Sulfate HFA Inhalation Aerosol Solution 108 (90 Base) MCG/ACT active 91842 2 RXNORM 1 inhal ation Inhala tion as needed PRN 1 inhal ation inhal e orall y every 4 hours as neede d for Wheez ing 2023 - Wheezing Atorvastati n Calcium Oral Tablet 20 MG active 61899 0 RXNORM 20 mg Oral one time a day Routin e Give 20 mg by mouth one time a day for hyper lipid emia 2023 - hyperlipide bette Psyllium Oral Capsule active 1 capsu le Oral at bedtime Routin e Give 1 capsu le by mouth at bedti me for const ipati on 2023 - constipatio n Losartan Potassium Oral Tablet 50 MG active 44297 2 RXNORM 50 mg Oral one time a day Routin e Give 50 mg by mouth one time a day for hyper tensi on 2023 - hypertensio n oxyBUTYnin Chloride ER Oral Tablet Extended Release 24 Hour 10 MG active 22224 9 RXNORM 10 mg Oral one time a day Routin e Give 10 mg by mouth one time a day for urina ry reten marie 2023 - urinary retension amLODIPine Besylate Oral Tablet 5 MG active 99537 1 RXNORM 5 mg Oral at bedtime Routin e Give 5 mg by mouth at bedti me for hyper tensi on 2023 - hypertensio n Meclizine HCl Oral Tablet 12.5 MG active 88841 4 RXNORM 1 table t Oral as needed PRN Give 1 table t by mouth every 8 hours as neede d for dizzi ness 2023 - dizziness Magnesium Oxide Oral Tablet 400 MG active 400 mg Oral in the morning Routin e Give 400 mg by mouth in the morni ng for Hypom agniu m 2023 - Hypomagnium Furosemide Oral Tablet 40 MG active 23542 8 RXNORM 40 mg Oral in the morning Routin e Give 40 mg by mouth in the morni ng for CHF 2023 - CHF traMADol HCl Oral Tablet 25 MG active 75899 90 RXNORM 25 mg Oral as needed PRN Give 25 mg by mouth every 8 hours as neede d for Pain 2023 - Pain Omeprazole Oral Tablet Delayed Release 20 MG active 14921 4 RXNORM 20 mg Oral one time a day Routin e Give 20 mg by mouth one time a day for GI Bleed 2023 - GI Bleed Citalopram Hydrobromid e Oral Tablet 40 MG active 14824 4 RXNORM 40 mg Oral one time a day Routin e Give 40 mg by mouth one time a day for depre ssion 2023 - depression Nystatin External Powder 368523 UNIT/GM active 63872 6 RXNORM n/a n/a Topica l as needed PRN Apply to groin , under bilat breas t topic ally as neede d for césar diasi s AND Apply to groin , under bilat breas t topic ally every day and eveni ng shift for césar diasi s for 15 Days 2023 - candidiasis 77762 6 RXNORM n/a n/a Topica l every day and evening shift Routin e Apply to groin , under bilat breas t topic ally as neede d for césar diasi s AND Apply to groin , under bilat breas t topic ally every day and eveni ng shift for césar diasi s for 15 Days 04/03 candidiasis Narcan Liquid 4 MG/0.1ML active 61518 64 RXNORM 1 spray Nasal as needed PRN 1 spray in each nostr il as neede d for Opiat e Overd ose Admin ister singl e spray in one nostr il. Repea t in 3 minut es if no or minim al respo nse. 2023 - Opiate Overdose Bisacodyl Suppository active 10 mg Rectal as needed PRN Inser t 10 mg recta lly every 24 hours as neede d for consi tpati on Once daily if no resul ts after Milk of Mag 2023 - consitpatio n Acetaminoph en Suppository 650 MG active 3 RXNORM 1 suppo sitor y Rectal as needed PRN Inser t 1 suppo sitor y recta lly every 6 hours as neede d for prn fever /pain Not to excee d 3 gms in 24 hours 2023 - prn fever/pain Naloxone HCl Solution Cartridge 0.4 MG/ML active 62746 34 RXNORM 1 ml Intram uscula r as needed PRN Injec t 1 ml intra muscu larly every 3 minut es as neede d for Opioi d overd ose Ensur e 911 is dinh d. R epeat X 1 if no respo nse after 3 minut es. 2023 - Opioid overdose Milk of Magnesia Suspension 400 MG/5ML active 03444 7 RXNORM 30 ml Oral as needed PRN Give 30 ml by mouth every 24 hours as neede d for const ipati on or admin ister if no BM times 3 days 2023 - constipatio n Fleet Enema Enema 7-19 GM/118ML active 53458 5 RXNORM 1 appli cator Rectal as needed PRN Inser t 1 appli cator recta lly every 24 hours as neede d for if no resul ts from recta l suppo sitor y Docum ent effec t in nurse s note. May admin ister if no resul ts from Bisac odyl suppo sitor y 2023 - if no results from rectal suppository Tylenol Tablet 325 MG active 86697 7 RXNORM 2 table t Oral as needed PRN Give 2 table t by mouth every 4 hours as neede d for for gener maximino d pain or fever . Do not excee d 3 gms daily Total dose = 650mg 2023 - for generalized pain Mental Status Section Date Assessment Total Score Description 03/26/2024 CAM 0 No delirium ind icated 03/25/2024 BIMS 02 severe cognitiv e impairment CAM 2 Delirium indica padilla PHQ-9 04 minimal depress ion Insurance Providers Coverage Status Coverage Type Relationship to Subscriber Member Identifier Subscriber Identifier Group Identifier Payer Identifier and Other information 2024 Code: 1 Code System OID:[id number] .[id number]. 221.5 Code System Name: Source of Payment Typology (PHDSC) Display: Medicare Translation: Code: [place] Code System: OID:216.840 .1.091897.6. 255.1336 Code System Name: Insurance Type Code ([id number]) Display Name: Medicare Part A Code: SELF Code System Name: HL7 RoleCode Code System OID:[id number] .[id number] Display Name: Self [id number] Root: [id number] Payer Name: [employer] A Address: [address], [address] City: [place] State: [place] Country: [facility] Telecom: [phone] 2024 Code: 349 Code System OID:[id number] .1.610053.3. 221.5 Code System Name: Source of Payment Typology (PHDSC) Display: Other Translation: Code: C1 Code System: OID:[id number] .1.738884.6. 255.1336 Code System Name: Insurance Type Code ([id number]) Display Name: Commercial Insurance Code: SELF Code System Name: HL7 RoleCode Code System OID:[id number] [id number] Display Name: Self [id number] Root: [id number] Payer Name: [facility] Address: [address], [address] City: [place] State: [place] Country: [facility] Telecom: [phone] Problems Problem # Description Date of onset Resolved Date Code CodeSystem Concern Status 1 DIFFICULTY IN WALKING, NOT ELSEWHERE CLASSIFIED 03/19/[address] active 2 MUSCLE WEAKNESS (GENERALIZED) 03/19/[address] active 3 NEED FOR ASSISTANCE WITH PERSONAL CARE 03/19/[id number] active 4 CHRONIC OBSTRUCTIVE PULMONARY DISEASE, UNSPECIFIED 03/18/[address] active 5 ESSENTIAL (PRIMARY) HYPERTENSION 03/18/[address] active 6 GASTROINTESTINAL HEMORRHAGE, UNSPECIFIED 03/18/[address] active 7 OBSTRUCTIVE SLEEP APNEA (ADULT) (PEDIATRIC) 03/18/[address] active 8 PAROXYSMAL ATRIAL FIBRILLATION 03/18/[address] active 9 UNSPECIFIED COMBINED SYSTOLIC (CONGESTIVE) AND DIASTOLIC (CONGESTIVE) HEART FAILURE 03/18/[address] active 10 UNSPECIFIED DEMENTIA, UNSPECIFIED SEVERITY, WITH ANXIETY 03/18/[address] active Reason for Referral No Reasons for Referral Entered Social History Social History Observation Description Start Date End Date Code Code System Current Smoking Status Tobacco smoking consumption unknown 779215445 SNOMED CT Sex Assigned At Female 1940 12999-4 [facility] Gender Identity Sexual Orientation Vital Signs Code Code System Vitals Name Values and Units Timing Information 44251-1 INC Pain Level Value=0.0 03/26/2024 19736-9 LOINC Weight Chjqi=308.0 Units=Lbs 03/2024 9279-1 [facility] Respiratory Rate Value=18.0 Units=/m in 03/23/2024 8462-4 [facility] Blood Pressure-Diastolic Value=62 Un its=mmHg 03/23/2024 8480-6 LOINC Blood Pressure-Systolic Mpvlb=167 Un its=mmHg 03/23/2024 8310-5 LOINC Body Temperature Value=98.5 Units= F 03/23/2024 8867-4 LOINC Heart rate Value=72.0 Units=/min 03/2024 79292-2 [facility] O2 % BldC Oximetry Value=92.0 Units= % 03/23/2024 8302-2 [facility] Height Value=60.0 Units=Inches 03/19/2024
--- OUTSIDE RECORDS SUMMARY | 2025-11-03 17:47 | XMS_ITS | Encounter Summary ---
Author Organization [facility] Address [address] [place] [address] Care Team Providers Care Alarm Field Technician Name Role Phone Bright Garber MD Primary Care Provider [phone] Encounter Details Date Type Department Care Team (Late Contact Info) Description 12/18/[address] [facility] - Main Lab [address] [facility] [place] [address] Kasye Miller MD [address] [address] Urinary tract infection, site not specified; Chronic obstructive pulmonary disease, unspecified (CMS/HCC V24, CMS/HCC V28); Unspecified dementia, unspecified severity, with anxiety (CMS/HCC V24, CMS/HCC V28) Social History Tobacco [...] Visit [facility] - [facility] [address] [facility] [address] [place] [address] Jose Schuler MD [address] [place] [address] [address] [place] [address] documented as of this encounter Procedures Procedure Name Priority Date/Time Associated Diagnosis Comments URINALYSIS WITH REFLEX MICROSCOPIC Routine 12/17/2024 9:40 AM EST Urinary tract infection, site not specified Chronic obstructive pulmonary disease, unspecified (CMS/HCC) Unspecified dementia, unspecified severity, with anxiety ([facility]) URINALYSIS WITH REFLEX MICROSCOPIC Routine 12/17/2024 9:40 AM EST Urinary tract infection, site not specified Chronic obstructive pulmonary disease, unspecified (CMS/HCC) Unspecified dementia, unspecified severity, with anxiety ([facility]) CULTURE URINE Routine 12/17/2024 9:40 AM EST Urinary tract infection, site not specified Chronic obstructive pulmonary disease, unspecified (CMS/HCC) Unspecified dementia, unspecified severity, with anxiety ([facility]) documented in this encounter Results * (ABNORMAL) Urinalysis with reflex microscopic (12/17/2024 9:40 AM EST) Specific [place] Urine 1.012 1.003 - 1.030 LAB URINALYSIS - AUTOMATED METHOD 12/18/2024 8:15 AM [facility] pH, Urine 6.5 5.0 - 8.0 pH LAB URINALYSIS - AUTOMATED METHOD 12/18/2024 8:15 AM [facility] Leukocytes, Urine Moderate(A) Negative LAB URINALYSIS - AUTOMATED METHOD 12/18/2024 8:15 AM [facility] Nitrite, Urine Negative Negative LAB URINALYSIS - AUTOMATED METHOD 12/18/2024 8:15 AM [facility] Protein, Urine Negative <=Trace mg/dL LAB URINALYSIS - AUTOMATED METHOD 12/18/2024 8:15 AM [facility] Glucose, Urine Negative Negative mg/dL LAB URINALYSIS - AUTOMATED METHOD 12/18/2024 8:15 AM [facility] Ketones, Urine Negative Negative mg/dL LAB URINALYSIS - AUTOMATED METHOD 12/18/2024 8:15 AM [facility] Urobilinogen , Urine 0.2 0.2 - 1.0 mg/dL LAB URINALYSIS - AUTOMATED METHOD 12/18/2024 8:15 AM [facility] Bilirubin, Urine Negative Negative LAB URINALYSIS - AUTOMATED METHOD 12/18/2024 8:15 AM [facility] Blood, Urine Negative Negative LAB URINALYSIS - AUTOMATED METHOD 12/18/2024 8:15 AM [facility] RBC, Urine 0.0 0 - 4 /HPF 12/18/2024 8:15 AM [facility] WBC, Urine 10.0(H) 0 - 4 /HPF 12/18/2024 8:15 AM [facility] Squamous Epithelial, Urine 70(H) 0 - 60 /LPF 12/18/2024 8:15 AM [facility] Bacteria, Urine Few(A) Negative /HPF 12/18/2024 8:15 AM [facility] Hyaline Casts, Urine 0.0 0 - 3 /LPF 12/18/2024 8:15 AM [facility] Mucus, Urine Negative None /HPF 12/18/2024 8:15 AM [facility] Urine Urine specimen obtained by clean catch procedure / Unknown 12/17/2024 9:40 AM EST 12/18/2024 6:45 AM EST us Kasey Miller MD LAB URINE ORDERABLES Fin al Result [facility] [address] [place] [address], * Culture urine (12/17/2024 9:40 AM EST) Culture, Urine No growth 12/19/2024 10:34 AM [facility] Urine Urine specimen obtained by clean catch procedure / Unknown 12/17/2024 9:40 AM EST 12/18/2024 6:45 AM EST us Kasey Miller MD LAB MICROBIOLOGY - GENER AL ORDERABLES Final Result [facility] [address] [place] [address], documented in this encounter Visit Diagnoses Diagnosis Urinary tract infection, site not specified Chronic obstructive pulmonary disease, unspecified (CMS/HCC V24, CMS/HCC V28) Unspecified dementia, unspecified severity, with anxiety (CMS/HCC V24, CMS/[facility] V28) documented in this encounter Care Teams Alarm Field Technician Relationship Specialty Start Date End Date Bright Garber MD [address] [place] [address] PCP - General Internal Medicine 08/02/20 documented as of this encounter
--- OUTSIDE RECORDS SUMMARY | 2025-11-03 17:47 | XMS_ITS | Encounter Summary ---
Author Organization [facility] Address [address] [place] [address] Care Team Providers Care Truck Driver Flatbed Name Role Phone Bright Garber MD Primary Care Provider [phone] Encounter Details Date Type Department Care Team (Late st Contact Info) Description 12/10/2024 Lab Requisition [facility] - Main Lab [address] [facility] [place] [address] Kasey Miller MD 8[address] [facility] 1 [place], [place] [id number] Unspecified atrial fibrillation (CMS/HCC V24, CMS/HCC V28) [...] Description 11/30/2025 2:00 PM EST Office Visit [facility] - [address] [facility] [address] [place] [address] Jose Schuler MD [address] [place] [address] [address] [place] [address] documented as of this encounter Procedures Procedure Name Priority Date/Time Associated Diagnosis Comments PROTHROMBIN TIME WITH INR Routine 12/10/2024 5:49 AM EST Unspecified atrial fibrillation (CMS/HCC) documented in this encounter Results * (ABNORMAL) Prothrombin time with INR (12/10/2024 5:49 AM EST) Protime 24.2(H) 10.6 - 13.9 sec LAB COAGULATION METHOD 12/10/2024 11:[address] [facility] INR 1.9 LAB COAGULATION METHOD 12/10/2024 11:[address] [facility] Blood Venous blood specimen / Unknown Venipuncture / Unknown 12/10/2024 5:49 AM EST 12/10/2024 10:22 AM EST us Kasey Miller MD LAB BLOOD ORDERABLES Fin al Result [facility] [address] [place] [address], documented in this encounter Visit Diagnoses Diagnosis Unspecified atrial fibrillation (CMS/HCC V24, CMS/HCC V28) documented in this encounter Care Teams Truck Driver Flatbed Relationship Specialty Start Date End Date Bright Garber MD [address] [place] [address] PCP - General Internal Medicine 08/02/20 documented as of this encounter
--- OUTSIDE RECORDS SUMMARY | 2025-11-03 17:47 | XMS_ITS | Encounter Summary ---
Author Organization [facility] Address [address] [place] [address] Care Team Providers Care Order Caller Name Role Phone Bright Garber MD Primary Care Provider [phone] Encounter Details Date Type Department Care Team (Late st Contact Info) Description 09/26/2024 Lab Requisition [facility] - Main Lab [address] [facility] [place] [address] Bentley Mittal MD [address] [place] [address] long-term (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; Other snf (current) drug therapy Social History Tobacco Use Types Packs/Day Years [...] Description 11/30/2025 2:00 PM EST Office Visit [facility] - [facility] [address] [facility] [address] [place] [address] Jose Schuler MD [facility] [place] [address] documented as of this encounter Procedures Procedure Name Priority Date/Time Associated Diagnosis Comments PROTHROMBIN TIME WITH INR Routine 09/26/2024 6:35 AM EST Other snf (current) drug therapy long-term (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 documented in this encounter Results * (ABNORMAL) Prothrombin time with INR (09/26/2024 6:35 AM EST) Protime 24.0(H) 10.6 - 13.9 sec LAB COAGULATION METHOD 09/26/2024 10:13 AM EST [facility] INR 1.9 LAB COAGULATION METHOD 09/26/2024 10:13 AM EST [facility] Blood Venous blood specimen / Unknown Venipuncture / Unknown 09/26/2024 6:35 AM EST 09/26/2024 8:55 AM EST Bentley Mittal MD LAB BLOOD ORDERABLES Final R esult [facility] [address] [place] [address], documented in this encounter Visit Diagnoses Diagnosis long-term (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 Long-term (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 Other snf (current) drug therapy documented in this encounter Care Teams Order Caller Relationship Specialty Start Date End Date Bright Garber MD [address] [place] [address] PCP - General Internal Medicine 08/02/20 documented as of this encounter
--- OUTSIDE RECORDS SUMMARY | 2025-11-03 17:47 | XMS_ITS | Encounter Summary ---
Author Organization [facility] Address [address] [place] [address] Care Team Providers Care Mechanical Engineering Advisor Name Role Phone Bright Garber MD Primary Care Provider [phone] Encounter Details Date Type Department Care Team (Late st Contact Info) Description 10/19/2025 Lab Requisition [facility] - Main Lab [address] [facility] [place] [address] Kasey Miller MD 819 [facility] 1 [place], [place] [phone] Unspecified atrial fibrillation (CMS/HCC V24, CMS/HCC V28) [...] Description 11/30/2025 2:00 PM EST Office Visit [facility] - [address] [facility] [address] [place] [address] Jose Schuler MD [address] [place] [address] [address] [place] [address] documented as of this encounter Procedures Procedure Name Priority Date/Time Associated Diagnosis Comments PROTHROMBIN TIME WITH INR Routine 10/20/2025 5:50 AM EST Unspecified atrial fibrillation (CMS/HCC V24, CMS/HCC V28) documented in this encounter Results * (ABNORMAL) Prothrombin time with INR (10/20/2025 5:50 AM EST) Protime 33.8(H) 10.6 - 13.9 sec LAB COAGULATION METHOD 10/20/2025 9:03 AM EST [facility] INR 2.8 LAB COAGULATION METHOD 10/20/2025 9:03 AM EST [facility] Blood Venous blood specimen / Unknown Venipuncture / Unknown 10/20/2025 5:50 AM EST 10/20/2025 9:03 AM EST us Kasey Miller MD LAB BLOOD ORDERABLES Fin al Result [facility] [address] [place] [address], documented in this encounter Visit Diagnoses Diagnosis Unspecified atrial fibrillation (CMS/HCC V24, CMS/HCC V28) documented in this encounter Care Teams Mechanical Engineering Advisor Relationship Specialty Start Date End Date Bright Garber MD [address] [place] [address] PCP - General Internal Medicine 08/02/20 documented as of this encounter
--- OUTSIDE RECORDS SUMMARY | 2025-11-03 17:47 | XMS_ITS | Encounter Summary ---
Author Organization [facility] Address [address] [place] [address] Care Team Providers Care Senior Tableau Developer Name Role Phone Bright Garber MD Primary Care Provider [phone] Encounter Details Date Type Department Care Team (Late Contact Info) Description 11/10/2024 Lab Requisition [facility] - Main Lab 299 [facility] [place] [address] Kasey Miller MD 819 [facility] 1 [place], [place] [phone] inside sales (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 Social History Tobacco [...] Description 11/30/2025 2:00 PM EST Office Visit [facility] - [facility] [address] [facility] [address] [place] [address] Jose Schuler MD [address] [place] [address] [place] [address] documented as of this encounter Procedures Procedure Name Priority Date/Time Associated Diagnosis Comments PROTHROMBIN TIME WITH INR Routine 11/10/2024 1:53 PM EST inside sales (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 documented in this encounter Results * (ABNORMAL) Prothrombin time with INR (11/10/2024 1:53 PM EST) Protime 17.1(H) 10.6 - 13.9 sec LAB COAGULATION METHOD 11/10/2024 3:10 PM EST [facility] INR 1.4 LAB COAGULATION METHOD 11/10/2024 3:10 PM EST [facility] Blood Venous blood specimen / Unknown Venipuncture / Unknown 11/10/2024 1:53 PM EST 11/10/2024 2:47 PM EST us Kasey Miller MD LAB BLOOD ORDERABLES Fin al Result [facility] [address] [place] [address], documented in this encounter Visit Diagnoses Diagnosis inside sales (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 Long-term (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 documented in this encounter Care Teams Senior Tableau Developer Relationship Specialty Start Date End Date Bright Garber MD [address] [place] [address] PCP - General Internal Medicine 08/02/20 documented as of this encounter
--- OUTSIDE RECORDS SUMMARY | 2025-11-03 17:47 | XMS_ITS | Encounter Summary ---
Author Organization [facility] Address [address] [place] [address] Care Team Providers Care Cube Machine Tender Name Role Phone Bright Garber MD Primary Care Provider [phone] Encounter Details Date Type Department Care Team (Late st Contact Info) Description 11/17/2024 Lab Requisition [facility] - Main Lab [address] [facility] [place] [address] Kasey Miller MD [address] [facility] [address] [place] [address] Unspecified atrial fibrillation (CMS/HCC V24, CMS/HCC V28); 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 hemorrhage, unspecified; alf (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; Essential (primary) hypertension; Chronic obstructive pulmonary disease, unspecified (CMS/HCC V24, CMS/HCC V28) Social History Tobacco [...] Description 11/30/2025 2:00 PM EST Office Visit [facility] [address] [facility] [address] [place] [address] Jose Schuler MD [address] [place] [address] [place] [address] documented as of this encounter Procedures Procedure Name Priority Date/Time Associated Diagnosis Comments PROTHROMBIN TIME WITH INR Routine 11/18/2024 6:08 AM EST Unspecified atrial fibrillation (CMS/HCC) 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 hemorrhage, unspecified ferry terminal agent (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 Essential (primary) hypertension Chronic obstructive pulmonary disease, unspecified (CMS/HCC) COMPLETE BLOOD COUNT Routine 11/18/2024 6:08 AM EST Unspecified atrial fibrillation (CMS/HCC) 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 hemorrhage, unspecified ferry terminal agent (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 Essential (primary) hypertension Chronic obstructive pulmonary disease, unspecified (CMS/HCC) BASIC METABOLIC PANEL Routine 11/18/2024 6:08 AM EST Unspecified atrial fibrillation (CMS/HCC) 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 hemorrhage, unspecified alf (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 Essential (primary) hypertension Chronic obstructive pulmonary disease, unspecified (CMS/HCC) documented in this encounter Results * (ABNORMAL) Prothrombin time with INR (11/18/2024 6:08 AM EST) Protime 18.7(H) 10.6 - 13.9 sec LAB COAGULATION METHOD 11/18/2024 10:33 AM EST [facility] INR 1.5 LAB COAGULATION METHOD 11/18/2024 10:33 AM EST [facility] Blood Venous blood specimen / Unknown Venipuncture / Unknown 11/18/2024 6:08 AM EST 11/18/2024 9:43 AM EST us Kasey Miller MD LAB BLOOD ORDERABLES Fin al Result [facility] [address] [place] [address], * (ABNORMAL) Basic metabolic panel (11/18/2024 6:08 AM EST) Sodium 139 133 - 145 mmol/L LAB CHEMISTRY METHOD 11/18/2024 11:04 AM [facility] Potassium 4.2 3.5 - 5.5 mmol/L LAB CHEMISTRY METHOD 11/18/2024 11:04 AM [facility] Chloride 107 96 - 110 mmol/L LAB CHEMISTRY METHOD 11/18/2024 11:04 AM [facility] CO2 30 21 - 32 mmol/L LAB CHEMISTRY METHOD 11/18/2024 11:04 AM [facility] Anion Gap 2(L) 3 - 11 LAB CHEMISTRY METHOD 11/18/2024 11:04 AM [facility] Glucose 82 70 - 100 mg/dL LAB CHEMISTRY METHOD 11/18/2024 11:04 AM [facility] BUN 19 5 - 25 mg/dL LAB CHEMISTRY METHOD 11/18/2024 11:04 AM [facility] Creatinine 0.93 0.50 - 1.10 mg/dL LAB CHEMISTRY METHOD 11/18/2024 11:04 AM [facility] eGFR 61 >=60 mL/min/1. 73m2 LAB CHEMISTRY METHOD 11/18/2024 11:04 AM [facility] Comment:Calculation based on the Chronic Kidney Disease Epidemiology Collaboration (CKD-EPI) equation refit without adjustment for race. BUN/Creatinine Ratio 20.4 LAB CHEMISTRY METHOD 11/18/2024 11:04 AM [facility] Calcium 9.2 8.5 - 10.5 mg/dL LAB CHEMISTRY METHOD 11/18/2024 11:04 AM [facility] Blood Venous blood specimen / Unknown Venipuncture / Unknown 11/18/2024 6:08 AM EST 11/18/2024 9:43 AM EST us Kasey Miller MD LAB BLOOD ORDERABLES Fin al Result [facility] [address] [place] [address], [place] [phone] * (ABNORMAL) Complete blood count (11/18/2024 6:08 AM EST) [facility] WBC 7.9 4.8 - 10.8 K/mcL LAB HEMETOLOGY METHOD 11/18/2024 10:22 AM [facility] RBC 3.00(L) 3.80 - 4.80 M/mcL LAB HEMETOLOGY METHOD 11/18/2024 10:22 AM [facility] Hemoglobin 9.1(L) 11.5 - 16.0 g/dL LAB HEMETOLOGY METHOD 11/18/2024 10:22 AM [facility] Hematocrit 29.9(L) 35.0 - 47.0 % LAB HEMETOLOGY METHOD 11/18/2024 10:22 AM [facility] MCV 99.0(H) 79.0 - 98.0 FL LAB HEMETOLOGY METHOD 11/18/2024 10:22 AM [facility] MCH 30.1 27.0 - 32.0 pcg LAB HEMETOLOGY METHOD 11/18/2024 10:22 AM [facility] MCHC 30.4(L) 32.0 - 37.0 g/dL LAB HEMETOLOGY METHOD 11/18/2024 10:22 AM [facility] RDW 17.5(H) 11.0 - 15.0 % LAB HEMETOLOGY METHOD 11/18/2024 10:22 AM [facility] Platelets 167 130 - 400 K/mcL LAB HEMETOLOGY METHOD 11/18/2024 10:22 AM [facility] MPV 11.2(H) 7.0 - 11.0 FL LAB HEMETOLOGY METHOD 11/18/2024 10:22 AM [facility] NRBC 0.0 <1.0 % LAB HEMETOLOGY METHOD 11/18/2024 10:22 AM [facility] NRBC Absolute 0.00 <0.10 K/mcL LAB HEMETOLOGY METHOD 11/18/2024 10:22 AM EST [facility] Blood Venous blood specimen / Unknown Venipuncture / Unknown 11/18/2024 6:08 AM EST 11/18/2024 9:43 AM EST us Kasey Miller MD LAB BLOOD ORDERABLES Fin al Result [facility] [address] [place] [address], documented in this encounter Visit Diagnoses Diagnosis Unspecified atrial fibrillation (CMS/HCC V24, CMS/HCC V28) 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 hemorrhage, unspecified ferry terminal agent (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 Long-term (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 Essential (primary) hypertension Unspecified essential hypertension Chronic obstructive pulmonary disease, unspecified (CMS/HCC V24, CMS/HCC V28) documented in this encounter Care Teams Cube Machine Tender Relationship Specialty Start Date End Date Bright Garber MD [address] [place] [address] PCP - General Internal Medicine 08/02/20 documented as of this encounter
--- OUTSIDE RECORDS SUMMARY | 2025-11-03 17:47 | XMS_ITS | Clinical Summary ---
Author Organization [address] [place] [address] Address [address] [place] [address] Phone Care Team Providers Care Sales Director Name Role Phone Bright Garber MD Primary Care Provider Allergies Active Allergy Reactions Criticality Noted Date Comments Ibuprofen 02/07/2021 Lisinopril 02/07/2021 Sulfa (Sulfonamide Antibiotics) 01/18 Sulfamethoxazole 08/25/2024 Trimethoprim 08/25/2024 Medications amLODIPine (NORVASC) 2.5 mg tablet Take 1 Tablet by mouth daily. 06/25/2023 Active atorvastatin (LIPITOR) 20 mg tablet Take 20 mg by mouth daily. Active citalopram (CeleXA) 40 mg tablet Take 1 Tablet by mouth daily. Active furosemide (LASIX) 40 mg tablet Take 1 Tablet by mouth 2 times daily. Active losartan (COZAAR) 50 mg tablet TAKE 1 TABLET BY MOUTH EVERY DAY 04/19/2023 Active meclizine (ANTIVERT) 25 mg tablet Take 1 Tablet by mouth as needed. 06/25/2023 Active omeprazole (PRILOSEC) 20 mg tablet,delayed release (DR/EC) Take 1 Tablet by mouth 2 times daily. Active oxyBUTYnin XL (DITROPAN-XL) 10 mg 24 hr tablet Take 1 Tablet by mouth daily. Active warfarin (COUMADIN) 2 mg tablet Take 1 Tab by mouth daily. May cause heavy bleeding. Take at same time every day. Do not change dietary habits. Take as directed by [facility]. 01/25/2021 Active warfarin (COUMADIN) 4 mg tablet Take 1-2 tablets daily as directed by pvca 01/01/2024 Active Active Problems Problem Noted Date Diagnosed Date Varicose veins of leg with swelling 08/16/2021 Overview (08/25/2024): Last Assessment & Plan: We did discuss her varicose veins and leg edema. She took it upon herself to decrease the dose of the furosemide due to increase in urination. We did discuss that this is likely worsened her incontinence. 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 I did recommend that she follows up with urology for evaluation of this. It does not seem that she has been seen by them in the past. She is going to speak to you at her next appointment later this week to see if we have any recommendations on a urologist that she should see. We did discuss that if she continues to have issues with incontinence and leg edema we may consider doing an ablation of her veins in her legs to reduce her leg edema if she is not able to tolerate her medication. CHF (congestive heart failure) 02/07/2021 Overview (08/25/2024): Last Assessment & Plan: Patient euvolemic on exam today. She has not had to increase her dose of Lasix related to increasing fluid retention. Last echo November 2022 continued to reveal preserved EF of 60-65%. Patient educated on the importance of performing daily weights. She will call the office should she experience a weight gain of 2 pounds in 2 days or 5 pounds in 4 days, accompanied by SOB, FROST or BLEE. She was again educated on the importance of following a low salt diet. Dizziness 02/07/2021 Overview (08/25/2024): Last Assessment & Plan: Resolved with the addition of Meclizine 25mg as needed. Atrial fibrillation 01/10/2021 Overview (08/25/2024): Last Assessment & Plan: Most recent device interrogation reveals persistent atrial fibrillation, rate controlled with 99% RV pacing. Patient will continue on Warfarin for stroke reduction with a [id number] score of 5 for age, HTN, CAD and heart failure. She was educated on the risks and benefits of continuing anticoagulation such as increase risk for bleeding and reduction of stroke. She will call the office of go to the ER should she begin to notice blood in her stool or urine, frequent epistaxis or abnormal bleeding or bruising. I stressed the importance of seeking evaluation in the ER should she sustain another fall and experience head trama. She understands these risks and agrees to continue. Coronary artery disease 01/10/2021 Overview (08/25/2024): Abnormal nuclear stress test 08/2020-medical therapy Last Assessment & Plan: Patient denies symptoms of chest pain, pressure, SOB, FROST, left arm pain or jaw pain. She will continue on her current dose of Lipitor 20mg and Amlodipine 2.5mg. Patient endorses Imdur was discontinued recently by her PCP with unclear reason. We will follow-up on PCP notes to help further guide care and to evaluate the appropriateness of reintroducing Imdur. Hyperlipidemia 01/10/2021 Overview (08/25/2024): Last Assessment & Plan: Goal LDL <70. We will update fasting lipid profile and LFT's. She will continue on her current dose of Lipitor 20mg. Hypertension 01/10/2021 Overview (08/25/2024): Last Assessment & Plan: Blood pressure well controlled today with a reading of 120/70. Educated on following a low-sodium, low-fat diet, making purposeful strides toward weight loss and trying to engage in purposeful exercise. She will continue on her current dose of Amlodipine 2.5mg and Cozaar 50mg. Most recent renal function in January 2023 was normal. Encounters Date Type Department Care Team Description 11/02/2025 Lab Requisition [facility] - Main Lab [address] [facility] [place] [address] Kasey Miller MD Unspecified atrial fibrillation (CMS/HCC V24, CMS/HCC V28) 11/02/2025 Telephone [facility] - [address] [place] [address] Dian Hermosillo NP 10/27/2025 Lab Requisition [facility] [address] [place] [address] Kasey Miller MD Unspecified atrial fibrillation (CMS/HCC V24, CMS/HCC V28) 10/19/2025 Lab Requisition [facility] [address] [place] [address] Kasey Miller MD Unspecified atrial fibrillation ([facility]/HCC V24, CMS/HCC V28) 10/12/2025 Lab Requisition [facility] [address] [place] [address] Kasey Miller MD Unspecified atrial fibrillation ([facility]/HCC V24, CMS/[facility] V28) 10/09/2025 Lab Requisition [facility] [address] [place] [address] Kasey Miller MD Unspecified atrial fibrillation ([facility]/HCC V24, CMS/HCC V28); 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 10/05/2025 Lab Requisition [facility] [address] [place] [address] Kasey Miller MD Unspecified atrial fibrillation ([facility]/HCC V24, CMS/HCC V28) 09/28/2025 Lab Requisition [facility] [address] [place] [address] Kasey Miller MD Unspecified atrial fibrillation ([facility]/HCC V24, [facility]/HCC V28) 09/21/2025 Lab Requisition [facility] [address] [place] [address] Kasey Miller MD Unspecified atrial fibrillation (CMS/HCC V24, CMS/HCC V28) 09/16/2025 Telephone [facility] - [address] [place] [address] Jose Schuler MD 09/14/2025 Lab Requisition [facility] [address] [place] [phone] Kasey Miller MD Unspecified atrial fibrillation ([facility]/HCC V24, [facility] V28) 09/09/2025 10:25 PM EDT Ancillary Procedure [facility] - [address] [place] [phone] 09/07/2025 Lab Requisition [facility] [address] [place] [phone] Kasey Miller MD Unspecified atrial fibrillation ([facility]/HCC V24, [facility] V28) 09/02/2025 Lab Requisition [facility] [address] [place] [phone] Kasey Miller MD Unspecified atrial fibrillation ([facility]/HCC V24, [facility] V28) 08/31/2025 Lab Requisition [facility] [address] [place] [phone] Kasey Miller MD Unspecified atrial fibrillation ([facility]/HCC V24, [facility] V28) 08/25/2025 Lab Requisition [facility] [address] [place] [phone] Kasey Miller MD Unspecified atrial fibrillation (CMS/HCC V24, [facility]/HCC V28) 08/17/2025 Lab Requisition [facility] [address] [place] [phone] Kasey Miller MD Unspecified atrial fibrillation ([facility]/HCC V24, [facility]/HCC V28) 08/11/2025 Lab Requisition [facility] Main Lab [address] [place] [phone] Kasey Miller MD Unspecified atrial fibrillation (CMS/HCC V24, CMS/HCC V28) 08/04/2025 Lab Requisition [facility] - Main Lab [address] [facility] [place] [address] Kasey Miller MD Unspecified atrial fibrillation ([facility] [place]24, [facility] V28) from Last 3 Months Surgical History Surgery Date Site/Laterality Comments TOTAL KNEE ARTHROPLASTY Left PROCEDURE: HISTORICAL TOTAL KNEE REPLACE Medical History Medical History Date Comments NKECHI (obstructive sleep apnea) DX :NKECHI (obstructive sleep apnea) 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 COPD (chronic obstructive pu lmonary disease) ([facility] [place]24, [facility] V28) DX:COPD (chronic o bstructive pulmonary disease) ([facility]) Dyspnea DX:Dyspnea Leg edema DX:Leg edema Social History Tobacco Use Types Packs/Day Years Used Date Smoking Tobacco: Former Smokeless Tobacco: Former Alcohol Use Standard Drinks/Week Comments No 0 (1 standard drink = 0.6 oz pur e alcohol) Comments Unknown Sex and Gender Information Value Date Recorded Sex Assigned at Not on file Legal Sex Female 2:42 PM EST Gender Identity Not on file Sexual Orientation Not on file Last Filed Vital Signs Vital Sign Reading Time Taken Comments Blood Pressure 120/70 07/06/2023 11:00 AM EDT Si tting L Arm Pulse 75 07/06/2023 11:00 AM EDT Temperature - - Respiratory Rate - - Oxygen Saturation - - Inhaled Oxygen Concentration - - Weight 101 kg (223 lb) 07/06/2023 11:00 AM EDT Height 152.4 cm (5') 07/06/2023 11:00 AM EDT Body Mass Index 43.55 07/06/2023 11:00 AM EDT Plan of Treatment Upcoming Encounters Date Type Department Care Team (Late st Contact Info) Description 11/30/2025 2:00 PM EST Office Visit [facility] - [address] [facility] [address] [place] [address] Jose Schuler MD [address] [place] [address] [place] [address] Health Maintenance Due Date Last Done Comments Zoster Vaccines (1 of 2) 1991 Pneumococcal Vaccine: 50+ Years (2 of 2 - PCV) 09/22/2011 09/22/2010 RSV Immunization Adult Patients (1 - 1-dose 75+ series) 2016 DTaP,Tdap,and Td Vaccines (2 - Td or Tdap) 12/14/2019 12/14/2009 Falls Risk Assessment 10/28/2022 Medicare Annual Wellness Visit 10/28/2022 Osteoporosis Screening (Bone Density Screening) 10/28/2022 Social Influencers of Health Screening 10/28/2022 Depression Screening 11/19/2024 COVID-19 Vaccine ( season) 2025 09/12/2023, 10/17/2021, 10/06/2021, Additional history exists Influenza Vaccine (#1) 2025 , 08/03/2022, 09/07/2021, Additional history exists Hypertension/CHF/CAD Annual BMP Blood Test 03/17/2026 03/17/2025, 03/10/2025, 03/03/2025, Additional history exists Cholesterol Screening (Lipid Panel) 01/13/2030 01/13/2025 HIB Vaccines Aged Out No longer eligi ble based on patient's age to complete this topic HPV Vaccines Aged Out No longer eligi ble based on patient's age to complete this topic Hepatitis A Vaccines Aged Out No long er eligible based on patient's age to complete this topic Hepatitis B Vaccines Aged Out No long er eligible based on patient's age to complete this topic IPV Vaccines Aged Out No longer eligi ble based on patient's age to complete this topic MMR Vaccines Aged Out No longer eligi ble based on patient's age to complete this topic Meningococcal ACWY Vaccine Aged Out N o longer eligible based on patient's age to complete this topic Meningococcal B Vaccine Aged Out No l onger eligible based on patient's age to complete this topic RSV Immunization Patients Under 20 months Aged Out No longer eligible based on patient's age to complete this topic Varicella Vaccines Aged Out No longer eligible based on patient's age to complete this topic Medical Devices Implanted Type Area Bulk System Operator Device Identifier Shelf Expiration Date Model / Serial / Lot Medt-Card Mauro Mendez [id number] Implanted: (Quantity not on file) Cardiac Pacemaker [employer] - CARDIAC RHYTH-[facility] XT DR MENDEZ [id number] / [id number] / Procedures Procedure Name Priority Date/Time Associated Diagnosis Comments PROTHROMBIN TIME WITH INR Routine 10/27/2025 5:27 AM EST Unspecified atrial fibrillation (CMS/HCC V24, CMS/HCC V28) PROTHROMBIN TIME WITH INR Routine 10/20/2025 5:50 AM EST Unspecified atrial fibrillation (CMS/HCC V24, CMS/HCC V28) PROTHROMBIN TIME WITH INR Routine 10/13/2025 4:46 AM EST Unspecified atrial fibrillation (CMS/HCC V24, CMS/HCC V28) PROTHROMBIN TIME WITH INR Routine 10/09/2025 6:55 AM EST Unspecified atrial fibrillation (CMS/HCC V24, CMS/HCC V28) 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 PROTHROMBIN TIME WITH INR Routine 10/06/2025 5:22 AM EST Unspecified atrial fibrillation (CMS/HCC V24, CMS/HCC V28) PROTHROMBIN TIME WITH INR Routine 09/29/2025 6:18 AM EST Unspecified atrial fibrillation (CMS/HCC V24, CMS/HCC V28) PROTHROMBIN TIME WITH INR Routine 09/22/2025 6:07 AM EST Unspecified atrial fibrillation (CMS/HCC V24, CMS/HCC V28) PROTHROMBIN TIME WITH INR Routine 09/15/2025 6:37 AM EDT Unspecified atrial fibrillation (CMS/HCC V24, CMS/HCC V28) CARDIAC DEVICE CHECK- REMOTE- MURJ Routine 09/09/2025 10:22 PM EDT PROTHROMBIN TIME WITH INR Routine 09/08/2025 6:24 AM EDT Unspecified atrial fibrillation (CMS/HCC V24, CMS/HCC V28) PROTHROMBIN TIME WITH INR Routine 09/03/2025 5:38 AM EDT Unspecified atrial fibrillation (CMS/HCC V24, CMS/HCC V28) PROTHROMBIN TIME WITH INR Routine 09/01/2025 6:31 AM EDT Unspecified atrial fibrillation (CMS/HCC V24, CMS/HCC V28) PROTHROMBIN TIME WITH INR Routine 08/25/2025 6:00 AM EDT Unspecified atrial fibrillation (CMS/HCC V24, CMS/HCC V28) PROTHROMBIN TIME WITH INR Routine 08/18/2025 6:18 AM EDT Unspecified atrial fibrillation (CMS/HCC V24, CMS/HCC V28) PROTHROMBIN TIME WITH INR Routine 08/11/2025 6:25 AM EDT Unspecified atrial fibrillation (CMS/HCC V24, CMS/HCC V28) PROTHROMBIN TIME WITH INR Routine 08/04/2025 6:25 AM EDT Unspecified atrial fibrillation (CMS/HCC V24, CMS/HCC V28) BASIC METABOLIC PANEL Routine 03/17/2025 6:28 AM EDT Chronic obstructive pulmonary disease, unspecified (CMS/HCC V24, CMS/HCC V28) Essential (primary) hypertension 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 Protime 14.3(H) 10.6 - 13.9 sec LAB COAGULATION METHOD 10/27/2025 8:10 AM EST [facility] INR 1.2 LAB COAGULATION METHOD 10/27/2025 8:10 AM EST [facility] Blood Venous blood specimen / Unknown Venipuncture / Unknown 10/27/2025 5:27 AM EST 10/27/2025 7:44 AM EST us Kasey Miller MD LAB BLOOD ORDERABLES Fin al Result [facility] [address] [place] [address], * Cardiac device check - Remote- MURJ (09/09/2025 10:22 PM EDT) Date Time Interrogation Session [id number] CV DEVICE CHECK Type Interrogation Session Remote CV DEVICE CHECK Implantable Pulse Generator Bulk System Operator MDT CV DEVICE CHECK Implantable Pulse Generator Type IPG CV DEVICE CHECK Implantable Pulse Generator Model [place] XT DR MRI [id number] CV DEVICE CHECK Implantable Pulse Generator Serial Number [id number] CV DEVICE CHECK Implantable Pulse Generator Implant Date 20210609 CV DEVICE CHECK Battery Remaining Longevity 102.0 CV DEVICE CHECK Battery Voltage 2.980 CV D EVICE CHECK Battery ACCREDITATION MANAGER Trigger 2.625 CV DEVICE CHECK Battery Status Middle of Service CV DEVICE CHECK Hossein Statistic RA Percent Paced 0.00 CV DEVICE CHECK Hossein Statistic RV Percent Paced 98.73 CV DEVICE CHECK Atrial Tachy Statistic AT/AF [facility] Percent 100.00 CV DEVICE CHECK Lead Channel Sensing Intrinsic Amplitude 0.625 CV DEVICE CHECK Lead Channel Setting Sensing Sensitivity 0.30 CV DEVICE CHECK Lead Channel Impedance Value 361 CV DEVICE CHECK Lead Channel Sensing Intrinsic Amplitude 7.000 CV DEVICE CHECK Lead Channel Setting Sensing Sensitivity 0.90 CV DEVICE CHECK Lead Channel Impedance Value 418 CV DEVICE CHECK Lead Channel Pacing Threshold Amplitude 0.500 CV DEVICE CHECK Lead Channel Pacing Threshold Pulse Width 0.4 CV DEVICE CHECK Lead Channel RV Pacing Threshold Date 2025-09-09 CV DEVICE CHECK Lead Channel Setting Pacing Amplitude 2.000 CV DEVICE CHECK Lead Channel Setting Pacing Pulse Width 0.4 CV DEVICE CHECK Hossein Setting Mode (NBG Code) VVIR CV DEVICE CHECK Hossein Setting Lower Rate Limit 60 CV DEVICE CHECK Hossein Setting Maximum Sensor Rate 120 CV DEVICE CHECK Zone Setting Type Category AT/AF CV DEVICE CHECK Rate 171 CV DEVICE CHECK Therapies Some Rx Off CV DEVIC E CHECK Zone Setting Status Monitor CV DEVICE CHECK Zone ID 2 CV DEVICE CHECK Zone Setting Type Category VT CV DEVICE CHECK Rate 150 CV DEVICE CHECK Zone Setting Status ENABLED CV DEVICE CHECK Zone ID 6 CV DEVICE CHECK Date of Service 2025-10-21 CV DEVICE CHECK Anatomical Region Laterality Modality Device Interroga tion 09/09/2025 1:00 AM EDT Impressions 09/09/2025 3:18 PM EDT Normal Remote: No Events * Normal Device Function * Alerts or events: None * Battery: OK, 8.50 yrs * Sensing, impedance and thresholds reviewed * Programmed parameters reviewed * Presenting rhythm reviewed * Heart Rate Histograms reviewed * No significant changes noted Narrative Procedure Note Donn Veliz MD - 09/09/2025 IMPRESSION: Normal Remote: No Events * Normal Device Function * Alerts or events: None * Battery: OK, 8.50 yrs * Sensing, impedance and thresholds reviewed * Programmed parameters reviewed * Presenting rhythm reviewed * Heart Rate Histograms reviewed * No significant changes noted Donn Veliz MD CV IMPLANTABLE CARDIAC DEV ICE PROCEDURES Final Result * (ABNORMAL) Basic metabolic panel (03/17/2025 6:28 AM EDT) Sodium 137 133 - 145 mmol/L LAB CHEMISTRY METHOD 03/17/2025 9:42 AM [facility] Potassium 4.1 3.5 - 5.5 mmol/L LAB CHEMISTRY METHOD 03/17/2025 9:42 AM [facility] Chloride 102 96 - 110 mmol/L LAB CHEMISTRY METHOD 03/17/2025 9:42 AM [facility] CO2 27 21 - 32 mmol/L LAB CHEMISTRY METHOD 03/17/2025 9:42 AM [facility] Anion Gap 8 3 - 11 LAB CHEMISTRY METHOD 03/17/2025 9:42 AM [facility] Glucose 94 70 - 100 mg/dL LAB CHEMISTRY METHOD 03/17/2025 9:42 AM [facility] BUN 22 5 - 25 mg/dL LAB CHEMISTRY METHOD 03/17/2025 9:42 AM EDT [facility] Creatinine 1.14(H) 0.50 - 1.10 mg/dL LAB CHEMISTRY METHOD 03/17/2025 9:42 AM EDT [facility] eGFR 48(L) >=60 mL/min/1. 73m2 LAB CHEMISTRY METHOD 03/17/2025 9:42 AM EDT [facility] Comment:Calculation based on the Chronic Kidney Disease Epidemiology Collaboration (CKD-EPI) equation refit without adjustment for race. BUN/Creatinine Ratio 19.3 LAB CHEMISTRY METHOD 03/17/2025 9:42 AM EDT [facility] Calcium 9.7 8.5 - 10.5 mg/dL LAB CHEMISTRY METHOD 03/17/2025 9:42 AM T [facility] Blood Venous blood specimen / Unknown Venipuncture / Unknown 03/17/2025 6:28 AM EDT 03/17/2025 8:17 AM EDT us Kasey Miller MD LAB BLOOD ORDERABLES Fin al Result [facility] [address] [place] [address], * Lipid panel with reflex to direct LDL (01/13/2025 7:14 AM EST) Cholesterol 101 0 - 200 mg/dL LAB CHEMISTRY METHOD 01/13/2025 10:08 AM EST [facility] Triglycerides 75 0 - 150 mg/dL LAB CHEMISTRY METHOD 01/13/2025 10:08 AM EST [facility] HDL 42 >=40 mg/dL LAB CHEMISTRY METHOD 01/13/2025 10:08 AM EST [facility] LDL Calculated 44 0 - 100 mg/dL LAB CHEMISTRY METHOD 01/13/2025 10:08 AM EST [facility] VLDL Cholesterol Seamus 15 mg/dL LAB CHEMISTRY METHOD 01/13/2025 10:08 AM EST [facility] Non HDL Chol. (LDL+VLDL) 59 <145 mg/dL LAB CHEMISTRY METHOD 01/13/2025 10:08 AM EST [facility] Chol/HDL Ratio 2.4 0.0 - 4.4 LAB CHEMISTRY METHOD 01/13/2025 10:08 AM EST [facility] Blood Venous blood specimen / Unknown Venipuncture / Unknown 01/13/2025 7:14 AM EST 01/13/2025 8:46 AM EST us Kasey Miller MD LAB BLOOD ORDERABLES Fin al Result [facility] [address] [place] [address], from Last 3 Months or Most Recently Relevant to Health Maintenance Insurance MEDICARE MEDICAID - [place] Care Teams Sales Director Relationship Specialty Start Date End Date Bright Garber MD [address] [facility] KESHAV Soler PCP - General Internal Medicine 08/02/20
--- OUTSIDE RECORDS SUMMARY | 2025-11-03 17:47 | XMS_ITS | Encounter Summary ---
Author Organization [facility] Address [address] [place] [address] Care Team Providers Care Butadiene Convertor Operator Name Role Phone Bright Garber MD Primary Care Provider [phone] Encounter Details Date Type Department Care Team (Late st Contact Info) Description 08/25/2025 Lab Requisition [facility] - Main Lab [address] [facility] [place] [address] Kasey Miller MD [address] [facility] [address] [place], [place] [id number] Unspecified atrial fibrillation (CMS/HCC V24, CMS/HCC V28) [...] Description 11/30/2025 2:00 PM EST Office Visit [facility] - [address] [facility] [address] [place] [address] Jose Schuler MD [address] [place] [address] [address] [place] [address] documented as of this encounter Procedures Procedure Name Priority Date/Time Associated Diagnosis Comments PROTHROMBIN TIME WITH INR Routine 08/25/2025 6:00 AM EDT Unspecified atrial fibrillation (CMS/HCC V24, CMS/HCC V28) documented in this encounter Results * (ABNORMAL) Prothrombin time with INR (08/25/2025 6:00 AM EDT) Protime 31.9(H) 10.6 - 13.9 sec LAB COAGULATION METHOD 08/25/2025 8:20 AM EDT [facility] INR 2.6 LAB COAGULATION METHOD 08/25/2025 8:20 AM EDT [facility] Blood Venous blood specimen / Unknown Venipuncture / Unknown 08/25/2025 6:00 AM EDT 08/25/2025 8:01 AM EDT us Kasey Miller MD LAB BLOOD ORDERABLES Fin al Result [facility] [address] [place] [address], documented in this encounter Visit Diagnoses Diagnosis Unspecified atrial fibrillation (CMS/HCC V24, CMS/HCC V28) documented in this encounter Care Teams Butadiene Convertor Operator Relationship Specialty Start Date End Date Bright Garber MD [address] [place] [address] PCP - General Internal Medicine 08/02/20 documented as of this encounter
--- OUTSIDE RECORDS SUMMARY | 2025-11-03 17:47 | XMS_ITS | Encounter Summary ---
Author Organization [facility] Address [address] [place] [address] Care Team Providers Care Academic Director Name Role Phone Brgiht Garber MD Primary Care Provider [phone] Encounter Details Date Type Department Care Team (Late st Contact Info) Description 09/20/2024 Lab Requisition [facility] - Main Lab 299 [facility] [place] [address] Kasey Miller MD 819 [facility] 1 [place] [address] Unspecified atrial fibrillation (CMS/HCC V24, CMS/HCC V28); 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 hemorrhage, unspecified; half-way (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; Essential (primary) hypertension; [...] Description 11/30/2025 2:00 PM EST Office Visit [facility] - [address] 300 [facility] [address] [place] [address] Jose Schuler MD [address] [place] [address] [place] [address] documented as of this encounter Procedures Procedure Name Priority Date/Time Associated Diagnosis Comments TRAVEL PHLEBOTOMY FEE Routine 09/23/2024 6:21 AM EST 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 hemorrhage, unspecified half-way (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 Essential (primary) hypertension Chronic obstructive pulmonary disease, unspecified (CMS/HCC) Unspecified atrial fibrillation (CMS/HCC) PROTHROMBIN TIME WITH INR Routine 09/23/2024 6:21 AM EST 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 hemorrhage, unspecified half-way (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 Essential (primary) hypertension Chronic obstructive pulmonary disease, unspecified (CMS/HCC) Unspecified atrial fibrillation (CMS/HCC) COMPLETE BLOOD COUNT Routine 09/23/2024 6:21 AM EST 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 hemorrhage, unspecified half-way (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 Essential (primary) hypertension Chronic obstructive pulmonary disease, unspecified (CMS/HCC) Unspecified atrial fibrillation (CMS/HCC) BASIC METABOLIC PANEL Routine 09/23/2024 6:21 AM EST 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 hemorrhage, unspecified 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 Essential (primary) hypertension Chronic obstructive pulmonary disease, unspecified (CMS/HCC) Unspecified atrial fibrillation (CMS/HCC) documented in this encounter Results * (ABNORMAL) Prothrombin time with INR (09/23/2024 6:21 AM EST) Protime 21.0(H) 10.6 - 13.9 sec LAB COAGULATION METHOD 09/23/2024 11:41 AM EST [facility] INR 1.7 LAB COAGULATION METHOD 09/23/2024 11:41 AM EST [facility] Blood Venous blood specimen / Unknown Venipuncture / Unknown 09/23/2024 6:21 AM EST 09/23/2024 10:19 AM EST us Kasey Miller MD LAB BLOOD ORDERABLES Fin al Result [facility] [address] [place] [address], * Travel phlebotomy fee (09/23/2024 6:21 AM EST) [facility] HOME TRAVEL PHLEBOTOMY FEE Completed 09/23/2024 10:02 AM [facility] Blood Venous blood specimen / Unknown Venipuncture / Unknown 09/23/2024 6:21 AM EST 09/23/2024 9:51 AM EST us Kasey Miller MD LAB BLOOD ORDERABLES Fin al Result [facility] [address] [place] [address], [place] [phone] * (ABNORMAL) Basic metabolic panel (09/23/2024 6:21 AM EST) [facility] Sodium 142 133 - 145 mmol/L LAB CHEMISTRY METHOD 09/23/2024 1:33 PM [facility] Potassium 4.2 3.5 - 5.5 mmol/L LAB CHEMISTRY METHOD 09/23/2024 1:33 PM [facility] Chloride 109 96 - 110 mmol/L LAB CHEMISTRY METHOD 09/23/2024 1:33 PM [facility] CO2 32 21 - 32 mmol/L LAB CHEMISTRY METHOD 09/23/2024 1:33 PM [facility] Anion Gap 1(L) 3 - 11 LAB CHEMISTRY METHOD 09/23/2024 1:33 PM [facility] Glucose 76 70 - 100 mg/dL LAB CHEMISTRY METHOD 09/23/2024 1:33 PM [facility] BUN 18 5 - 25 mg/dL LAB CHEMISTRY METHOD 09/23/2024 1:33 PM [facility] Creatinine 0.96 0.50 - 1.10 mg/dL LAB CHEMISTRY METHOD 09/23/2024 1:33 PM [facility] eGFR 59(L) >=60 mL/min/1. 73m2 LAB CHEMISTRY METHOD 09/23/2024 1:33 PM EST [facility] Comment:Calculation based on the Chronic Kidney Disease Epidemiology Collaboration (CKD-EPI) equation refit without adjustment for race. BUN/Creatinine Ratio 18.8 LAB CHEMISTRY METHOD 09/23/2024 1:33 PM [facility] Calcium 9.4 8.5 - 10.5 mg/dL LAB CHEMISTRY METHOD 09/23/2024 1:33 PM [facility] Blood Venous blood specimen / Unknown Venipuncture / Unknown 09/23/2024 6:21 AM EST 09/23/2024 9:51 AM EST us Kasey Miller MD LAB BLOOD ORDERABLES Fin al Result [facility] [address] [place] [address], * (ABNORMAL) Complete blood count (09/23/2024 6:21 AM EST) WBC 6.3 4.8 - 10.8 K/mcL LAB HEMETOLOGY METHOD 09/23/2024 12:16 PM [facility] RBC 3.10(L) 3.80 - 4.80 M/mcL LAB HEMETOLOGY METHOD 09/23/2024 12:16 PM [facility] Hemoglobin 9.3(L) 11.5 - 16.0 g/dL LAB HEMETOLOGY METHOD 09/23/2024 12:16 PM [facility] Hematocrit 31.2(L) 35.0 - 47.0 % LAB HEMETOLOGY METHOD 09/23/2024 12:16 PM [facility] MCV 100.0(H) 79.0 - 98.0 FL LAB HEMETOLOGY METHOD 09/23/2024 12:16 PM [facility] MCH 29.8 27.0 - 32.0 pcg LAB HEMETOLOGY METHOD 09/23/2024 12:16 PM [facility] MCHC 29.8(L) 32.0 - 37.0 g/dL LAB HEMETOLOGY METHOD 09/23/2024 12:16 PM [facility] RDW 17.2(H) 11.0 - 15.0 % LAB HEMETOLOGY METHOD 09/23/2024 12:16 PM [facility] Platelets 165 130 - 400 K/mcL LAB HEMETOLOGY METHOD 09/23/2024 12:16 PM [facility] MPV 11.0 7.0 - 11.0 FL LAB HEMETOLOGY METHOD 09/23/2024 12:16 PM [facility] NRBC 0.0 <1.0 % LAB HEMETOLOGY METHOD 09/23/2024 12:16 PM [facility] NRBC Absolute 0.00 <0.10 K/mcL LAB HEMETOLOGY METHOD 09/23/2024 12:16 PM [facility] Blood Venous blood specimen / Unknown Venipuncture / Unknown 09/23/2024 6:21 AM EST 09/23/2024 9:51 AM EST us Kasey Miller MD LAB BLOOD ORDERABLES Fin al Result [facility] [address] [place] [address], documented in this encounter Visit Diagnoses Diagnosis Unspecified atrial fibrillation (CMS/HCC V24, CMS/HCC V28) 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 hemorrhage, unspecified half-way (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 Long-term (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 Essential (primary) hypertension Unspecified essential hypertension Chronic obstructive pulmonary disease, unspecified (CMS/HCC V24, CMS/HCC V28) documented in this encounter Care Teams Academic Director Relationship Specialty Start Date End Date Bright Garber MD [address] [place] PCP - General Internal Medicine 08/02/20 documented as of this encounter
--- OUTSIDE RECORDS SUMMARY | 2025-11-03 17:47 | XMS_ITS | Encounter Summary ---
Author Organization [facility] Address [address] [place] [address] Care Team Providers Care Front End Web Developer Name Role Phone Bright Garber MD Primary Care Provider [phone] Encounter Details Date Type Department Care Team (Late st Contact Info) Description 09/28/[address] [facility] - Main Lab 299 [facility] [place] [address] Kasey Miller MD 819 [facility] 1 [place], [place] [id number] Unspecified atrial fibrillation (CMS/HCC V24, CMS/HCC V28) [...] Description 11/30/2025 2:00 PM EST Office Visit [facility] Associates - [address] 300 [facility] [address] [place] [address] Jose Schuler MD [address] [place] [address] [address] [place] [address] documented as of this encounter Procedures Procedure Name Priority Date/Time Associated Diagnosis Comments PROTHROMBIN TIME WITH INR Routine 09/29/2025 6:18 AM EST Unspecified atrial fibrillation (CMS/HCC V24, CMS/HCC V28) documented in this encounter Results * (ABNORMAL) Prothrombin time with INR (09/29/2025 6:18 AM EST) Protime 16.9(H) 10.6 - 13.9 sec LAB COAGULATION METHOD 09/29/2025 8:59 AM EST [facility] INR 1.4 LAB COAGULATION METHOD 09/29/2025 8:59 AM EST [facility] Blood Venous blood specimen / Unknown Venipuncture / Unknown 09/29/2025 6:18 AM EST 09/29/2025 8:24 AM EST us Kasey Miller MD LAB BLOOD ORDERABLES Fin al Result [facility] [address] [place] [address], documented in this encounter Visit Diagnoses Diagnosis Unspecified atrial fibrillation (CMS/HCC V24, CMS/HCC V28) documented in this encounter Care Teams Front End Web Developer Relationship Specialty Start Date End Date Bright Garber MD [address] [place] [address] PCP - General Internal Medicine 08/02/20 documented as of this encounter
--- OUTSIDE RECORDS SUMMARY | 2025-11-03 17:47 | XMS_ITS | Encounter Summary ---
Author Organization [facility] Address [address] [place] [address] Care Team Providers Care Guyline Operator Name Role Phone Bright Garber MD Primary Care Provider [phone] Encounter Details Date Type Department Care Team (Late st Contact Info) Description 11/02/2025 Lab Requisition [facility] - Main Lab 299 [facility] [place] [address] Kasey Miller MD 819 [facility] 1 [place], [place] [id number] Unspecified atrial fibrillation (CMS/HCC V24, CMS/HCC V28) [...] Description 11/30/2025 2:00 PM EST Office Visit [facility] - [address] [facility] [address] [place] [address] Jose Schuler MD [address] [place] [address] [address] [place] [address] documented as of this encounter Visit Diagnoses Diagnosis Unspecified atrial fibrillation (CMS/HCC V24, CMS/HCC V28) documented in this encounter Care Teams Guyline Operator Relationship Specialty Start Date End Date Bright Garber MD [address] [place] PCP - General Internal Medicine 08/02/20 documented as of this encounter
--- OUTSIDE RECORDS SUMMARY | 2025-11-03 17:47 | XMS_ITS | Encounter Summary ---
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 Social History Tobacco [...] Description 11/30/2025 2:00 PM EST Office Visit [facility] - [address] [facility] [address] [place] [address] Jose Schuler MD [address] [place] [address] [address] [place] [address] documented as of this encounter Procedures Procedure Name Priority Date/Time Associated Diagnosis Comments PROTHROMBIN TIME WITH INR Routine 10/09/2025 6:55 AM EST Unspecified atrial fibrillation (CMS/HCC V24, CMS/HCC V28) 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 documented in this encounter Results * (ABNORMAL) Prothrombin time with INR (10/09/2025 6:55 AM EST) Protime 26.0(H) 10.6 - 13.9 sec LAB COAGULATION METHOD 10/09/2025 9:31 AM EST [facility] INR 2.1 LAB COAGULATION METHOD 10/09/2025 9:31 AM EST [facility] Blood Venous blood specimen / Unknown Venipuncture / Unknown 10/09/2025 6:55 AM EST 10/09/2025 9:00 AM EST us Kasey Miller MD LAB BLOOD ORDERABLES Fin al Result [facility] [address] [place] [address], documented in this encounter Visit Diagnoses Diagnosis Unspecified atrial fibrillation (CMS/HCC V24, CMS/HCC V28) alf (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 Long-term (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 documented in this encounter Care Teams Sand Cleaning Machine Operator Relationship Specialty Start Date End Date Bright Garber MD [address] [place] [address] PCP - General Internal Medicine 08/02/20 documented as of this encounter
--- OUTSIDE RECORDS SUMMARY | 2025-11-03 17:47 | XMS_ITS | Encounter Summary ---
Author Organization [facility] Address [address] [place] [address] Care Team Providers Care Process Safety Manager Name Role Phone Bright Garber MD Primary Care Provider [phone] Encounter Details Date Type Department Care Team (Late st Contact Info) Description 12/01/2024 Lab Requisition [facility] - Main Lab 299 [facility] [place] [address] Kasey Miller MD 819 [facility] 1 [place] [address] Unspecified atrial fibrillation (CMS/HCC V24, CMS/HCC V28); 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 hemorrhage, unspecified; nursing home (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; Essential (primary) hypertension; [...] Description 11/30/2025 2:00 PM EST Office Visit [facility] - [address] 300 [facility] [address] [place] [address] Jose Schuler MD [address] [place] [address] [place] [address] documented as of this encounter Procedures Procedure Name Priority Date/Time Associated Diagnosis Comments PROTHROMBIN TIME WITH INR Routine 12/02/2024 5:45 AM EST Unspecified atrial fibrillation (CMS/HCC) 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 hemorrhage, unspecified terminal 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 Essential (primary) hypertension Chronic obstructive pulmonary disease, unspecified (CMS/HCC) COMPLETE BLOOD COUNT Routine 12/02/2024 5:45 AM EST Unspecified atrial fibrillation (CMS/HCC) 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 hemorrhage, unspecified terminal 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 Essential (primary) hypertension Chronic obstructive pulmonary disease, unspecified (CMS/HCC) BASIC METABOLIC PANEL Routine 12/02/2024 5:45 AM EST Unspecified atrial fibrillation (CMS/HCC) 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 hemorrhage, unspecified nursing home (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 Essential (primary) hypertension Chronic obstructive pulmonary disease, unspecified (CMS/HCC) documented in this encounter Results * (ABNORMAL) Prothrombin time with INR (12/02/2024 5:45 AM EST) Protime 31.8(H) 10.6 - 13.9 sec LAB COAGULATION METHOD 12/02/2024 8:[address] [facility] INR 2.5 LAB COAGULATION METHOD 12/02/2024 8:[address] [facility] Blood Venous blood specimen / Unknown Venipuncture / Unknown 12/02/2024 5:45 AM EST 12/02/2024 7:57 AM EST us Kasey Miller MD LAB BLOOD ORDERABLES Fin al Result [facility] [address] [place] [address], * Basic metabolic panel (12/02/2024 5:45 AM EST) Sodium 142 133 - 145 mmol/L LAB CHEMISTRY METHOD 12/02/2024 8:40 AM [facility] Potassium 3.9 3.5 - 5.5 mmol/L LAB CHEMISTRY METHOD 12/02/2024 8:40 AM [facility] Chloride 109 96 - 110 mmol/L LAB CHEMISTRY METHOD 12/02/2024 8:40 AM [facility] CO2 30 21 - 32 mmol/L LAB CHEMISTRY METHOD 12/02/2024 8:40 AM [facility] Anion Gap 3 3 - 11 LAB CHEMISTRY METHOD 12/02/2024 8:40 AM [facility] Glucose 87 70 - 100 mg/dL LAB CHEMISTRY METHOD 12/02/2024 8:40 AM [facility] BUN 17 5 - 25 mg/dL LAB CHEMISTRY METHOD 12/02/2024 8:40 AM [facility] Creatinine 0.78 0.50 - 1.10 mg/dL LAB CHEMISTRY METHOD 12/02/2024 8:40 AM [facility] eGFR 75 >=60 mL/min/1. 73m2 LAB CHEMISTRY METHOD 12/02/2024 8:40 AM [facility] Comment:Calculation based on the Chronic Kidney Disease Epidemiology Collaboration (CKD-EPI) equation refit without adjustment for race. BUN/Creatinine Ratio 21.8 LAB CHEMISTRY METHOD 12/02/2024 8:40 AM [facility] Calcium 9.3 8.5 - 10.5 mg/dL LAB CHEMISTRY METHOD 12/02/2024 8:40 AM [facility] Blood Venous blood specimen / Unknown Venipuncture / Unknown 12/02/2024 5:45 AM EST 12/02/2024 7:57 AM EST us Kasey Miller MD LAB BLOOD ORDERABLES Fin al Result [facility] [address] [place] [address], * (ABNORMAL) Complete blood count (12/02/2024 5:45 AM EST) [facility] Signature WBC 8.7 4.8 - 10.8 K/mcL LAB HEMETOLOGY METHOD 12/02/2024 8:16 AM [facility] RBC 2.90(L) 3.80 - 4.80 M/mcL LAB HEMETOLOGY METHOD 12/02/2024 8:16 AM [facility] Hemoglobin 8.7(L) 11.5 - 16.0 g/dL LAB HEMETOLOGY METHOD 12/02/2024 8:16 AM [facility] Hematocrit 28.4(L) 35.0 - 47.0 % LAB HEMETOLOGY METHOD 12/02/2024 8:16 AM [facility] MCV 97.6 79.0 - 98.0 FL LAB HEMETOLOGY METHOD 12/02/2024 8:16 AM [facility] MCH 29.9 27.0 - 32.0 pcg LAB HEMETOLOGY METHOD 12/02/2024 8:16 AM [facility] MCHC 30.6(L) 32.0 - 37.0 g/dL LAB HEMETOLOGY METHOD 12/02/2024 8:16 AM [facility] RDW 17.2(H) 11.0 - 15.0 % LAB HEMETOLOGY METHOD 12/02/2024 8:16 AM [facility] Platelets 179 130 - 400 K/mcL LAB HEMETOLOGY METHOD 12/02/2024 8:16 AM [facility] MPV 10.1 7.0 - 11.0 FL LAB HEMETOLOGY METHOD 12/02/2024 8:16 AM [facility] NRBC 0.0 <1.0 % LAB HEMETOLOGY METHOD 12/02/2024 8:16 AM [facility] NRBC Absolute 0.00 <0.10 K/mcL LAB HEMETOLOGY METHOD 12/02/2024 8:[address] [facility] Blood Venous blood specimen / Unknown Venipuncture / Unknown 12/02/2024 5:45 AM EST 12/02/2024 7:57 AM EST us Kasey Miller MD LAB BLOOD ORDERABLES Fin al Result [facility] [address] [place] [address], documented in this encounter Visit Diagnoses Diagnosis Unspecified atrial fibrillation (CMS/HCC V24, CMS/HCC V28) 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 hemorrhage, unspecified terminal 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
--- OUTSIDE RECORDS SUMMARY | 2025-11-03 17:47 | XMS_ITS | Encounter Summary ---
Author Organization [facility] Address [address] [place] [address] Care Team Providers Care Ux Designer Name Role Phone Bright Garber MD Primary Care Provider [phone] Encounter Details Date Type Department Care Team (Late st Contact Info) Description 10/27/2025 Lab Requisition [facility] - Main Lab 299 [facility] [place] [address] Kasey Miller MD 819 [facility] 1 [place], [place] [id number] Unspecified atrial fibrillation (CMS/HCC V24, CMS/HCC V28) [...] Description 11/30/2025 2:00 PM EST Office Visit [facility] - [address] [facility] [address] [place] [address] Jose Schuler MD [address] [place] [address] [address] [place] [address] documented as of this encounter Procedures Procedure Name Priority Date/Time Associated Diagnosis Comments PROTHROMBIN TIME WITH INR Routine 10/27/2025 5:27 AM EST Unspecified atrial fibrillation (CMS/HCC V24, CMS/HCC V28) documented in this encounter Results * (ABNORMAL) Prothrombin time with INR (10/27/2025 5:27 AM EST) Protime 14.3(H) 10.6 - 13.9 sec LAB COAGULATION METHOD 10/27/2025 8:10 AM EST [facility] INR 1.2 LAB COAGULATION METHOD 10/27/2025 8:10 AM EST [facility] Blood Venous blood specimen / Unknown Venipuncture / Unknown 10/27/2025 5:27 AM EST 10/27/2025 7:44 AM EST us Kasey Miller MD LAB BLOOD ORDERABLES Fin al Result [facility] [address] [place] [address], documented in this encounter Visit Diagnoses Diagnosis Unspecified atrial fibrillation (CMS/HCC V24, CMS/HCC V28) documented in this encounter Care Teams Ux Designer Relationship Specialty Start Date End Date Bright Garber MD [address] [place] [address] PCP - General Internal Medicine 08/02/20 documented as of this encounter
--- OUTSIDE RECORDS SUMMARY | 2025-11-03 17:47 | XMS_ITS | Encounter Summary ---
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 Social History Tobacco [...] Description 11/30/2025 2:00 PM EST Office Visit [facility] - [facility] [address] 300 [facility] [address] [place] [address] Jose Schuler MD [address] [place] [address] documented as of this encounter Procedures Procedure Name Priority Date/Time Associated Diagnosis Comments PROTHROMBIN TIME WITH INR Routine 11/21/2024 7:00 AM EST 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 documented in this encounter Results * (ABNORMAL) Prothrombin time with INR (11/21/2024 7:00 AM EST) Protime 21.5(H) 10.6 - 13.9 sec LAB COAGULATION METHOD 11/21/2024 8:32 AM EST [facility] INR 1.7 LAB COAGULATION METHOD 11/21/2024 8:32 AM EST [facility] Blood Venous blood specimen / Unknown Venipuncture / Unknown 11/21/2024 7:00 AM EST 11/21/2024 8:20 AM EST us Kasey Miller MD LAB BLOOD ORDERABLES Fin al Result [facility] [address] [place] [address], documented in this encounter Visit Diagnoses Diagnosis 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
--- OUTSIDE RECORDS SUMMARY | 2025-11-03 17:47 | XMS_ITS | Encounter Summary ---
Author Organization [facility] Address [address] [place] [address] Care Team Providers Care Paediatric Surgeon Name Role Phone Bright Garber MD Primary Care Provider [phone] Encounter Details Date Type Department Care Team (Late st Contact Info) Description 12/08/2024 Lab Requisition [facility] - Main Lab [address] [facility] [place] [address] Kasey Miller MD 8[address] [facility] 1 [place] [address] Unspecified atrial fibrillation (CMS/HCC V24, CMS/HCC V28); 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 hemorrhage, unspecified; snf (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; Essential (primary) hypertension; [...] Description 11/30/2025 2:00 PM EST Office Visit [facility] - [address] [facility] [address] [place] [address] Jose Schuler MD [address] [place] [address] [place] [address] documented as of this encounter Procedures Procedure Name Priority Date/Time Associated Diagnosis Comments PROTHROMBIN TIME WITH INR Routine 12/09/2024 6:13 AM EST Unspecified atrial fibrillation (CMS/HCC) 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 hemorrhage, unspecified 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 Essential (primary) hypertension Chronic obstructive pulmonary disease, unspecified (CMS/HCC) COMPLETE BLOOD COUNT Routine 12/09/2024 6:13 AM EST Unspecified atrial fibrillation (CMS/HCC) 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 hemorrhage, unspecified 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 Essential (primary) hypertension Chronic obstructive pulmonary disease, unspecified (CMS/HCC) BASIC METABOLIC PANEL Routine 12/09/2024 6:13 AM EST Unspecified atrial fibrillation (CMS/HCC) 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 hemorrhage, unspecified snf (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 Essential (primary) hypertension Chronic obstructive pulmonary disease, unspecified (CMS/HCC) documented in this encounter Results * (ABNORMAL) Prothrombin time with INR (12/09/2024 6:13 AM EST) Protime 39.5(H) 10.6 - 13.9 sec LAB COAGULATION METHOD 12/09/2024 10:10 AM EST [facility] INR 3.1 LAB COAGULATION METHOD 12/09/2024 10:10 AM EST [facility] Blood Venous blood specimen / Unknown Venipuncture / Unknown 12/09/2024 6:13 AM EST 12/09/2024 8:58 AM EST us Kasey Miller MD LAB BLOOD ORDERABLES Fin al Result [facility] [address] [place] [address], * (ABNORMAL) Basic metabolic panel (12/09/2024 6:13 AM EST) Sodium 141 133 - 145 mmol/L LAB CHEMISTRY METHOD 12/09/2024 10:42 AM [facility] Potassium 4.3 3.5 - 5.5 mmol/L LAB CHEMISTRY METHOD 12/09/2024 10:42 AM [facility] Chloride 108 96 - 110 mmol/L LAB CHEMISTRY METHOD 12/09/2024 10:42 AM [facility] CO2 31 21 - 32 mmol/L LAB CHEMISTRY METHOD 12/09/2024 10:42 AM [facility] Anion Gap 2(L) 3 - 11 LAB CHEMISTRY METHOD 12/09/2024 10:42 AM [facility] Glucose 82 70 - 100 mg/dL LAB CHEMISTRY METHOD 12/09/2024 10:42 AM [facility] BUN 19 5 - 25 mg/dL LAB CHEMISTRY METHOD 12/09/2024 10:42 AM [facility] Creatinine 0.89 0.50 - 1.10 mg/dL LAB CHEMISTRY METHOD 12/09/2024 10:42 AM [facility] eGFR 64 >=60 mL/min/1. 73m2 LAB CHEMISTRY METHOD 12/09/2024 10:42 AM [facility] Comment:Calculation based on the Chronic Kidney Disease Epidemiology Collaboration (CKD-EPI) equation refit without adjustment for race. BUN/Creatinine Ratio 21.3 LAB CHEMISTRY METHOD 12/09/2024 10:42 AM [facility] Calcium 9.0 8.5 - 10.5 mg/dL LAB CHEMISTRY METHOD 12/09/2024 10:42 AM [facility] Blood Venous blood specimen / Unknown Venipuncture / Unknown 12/09/2024 6:13 AM EST 12/09/2024 8:58 AM EST us Kasey Miller MD LAB BLOOD ORDERABLES Fin al Result [facility] [address] [place] [address], [place] [phone] * (ABNORMAL) Complete blood count (12/09/2024 6:13 AM EST) [facility] WBC 6.3 4.8 - 10.8 K/mcL LAB HEMETOLOGY METHOD 12/09/2024 10:09 AM [facility] RBC 2.90(L) 3.80 - 4.80 M/mcL LAB HEMETOLOGY METHOD 12/09/2024 10:09 AM [facility] Hemoglobin 8.7(L) 11.5 - 16.0 g/dL LAB HEMETOLOGY METHOD 12/09/2024 10:09 AM [facility] Hematocrit 29.1(L) 35.0 - 47.0 % LAB HEMETOLOGY METHOD 12/09/2024 10:09 AM [facility] MCV 99.7(H) 79.0 - 98.0 FL LAB HEMETOLOGY METHOD 12/09/2024 10:09 AM [facility] MCH 29.8 27.0 - 32.0 pcg LAB HEMETOLOGY METHOD 12/09/2024 10:09 AM [facility] MCHC 29.9(L) 32.0 - 37.0 g/dL LAB HEMETOLOGY METHOD 12/09/2024 10:09 AM [facility] RDW 17.3(H) 11.0 - 15.0 % LAB HEMETOLOGY METHOD 12/09/2024 10:09 AM [facility] Platelets 163 130 - 400 K/mcL LAB HEMETOLOGY METHOD 12/09/2024 10:09 AM [facility] MPV 11.2(H) 7.0 - 11.0 FL LAB HEMETOLOGY METHOD 12/09/2024 10:09 AM [facility] NRBC 0.0 <1.0 % LAB HEMETOLOGY METHOD 12/09/2024 10:09 AM [facility] NRBC Absolute 0.00 <0.10 K/mcL LAB HEMETOLOGY METHOD 12/09/2024 10:09 AM EST [facility] Blood Venous blood specimen / Unknown Venipuncture / Unknown 12/09/2024 6:13 AM EST 12/09/2024 8:58 AM EST us Kasey Miller MD LAB BLOOD ORDERABLES Fin al Result [facility] [address] [place] [address], documented in this encounter Visit Diagnoses Diagnosis Unspecified atrial fibrillation (CMS/HCC V24, CMS/HCC V28) 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 hemorrhage, unspecified 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
--- OUTSIDE RECORDS SUMMARY | 2025-11-03 17:47 | XMS_ITS | Encounter Summary ---
Author Organization [facility] Address [address] [place] [address] Care Team Providers Care Ink Printer Name Role Phone Bright Garber MD Primary Care Provider [phone] Encounter Details Date Type Department Care Team (Late st Contact Info) Description 08/31/2025 Lab Requisition [facility] - Main Lab [address] [facility] [place] [address] Kasey Miller MD 819 [facility] 1 [place], [place] [id number] Unspecified atrial fibrillation (CMS/HCC V24, CMS/HCC V28) [...] 11/30/2025 2:00 PM EST Office Visit [facility] - [address] [facility] [address] [place] [address] Jose Schuler MD [address] [place] [address] [address] [place] [address] documented as of this encounter Procedures Procedure Name Priority Date/Time Associated Diagnosis Comments PROTHROMBIN TIME WITH INR Routine 09/01/2025 6:31 AM EDT Unspecified atrial fibrillation (CMS/HCC V24, CMS/HCC V28) documented in this encounter Results * (ABNORMAL) Prothrombin time with INR (09/01/2025 6:31 AM EDT) Protime 40.7(H) 10.6 - 13.9 sec LAB COAGULATION METHOD 09/01/2025 8:21 AM EDT [facility] INR 3.3 LAB COAGULATION METHOD 09/01/2025 8:21 AM EDT [facility] Blood Venous blood specimen / Unknown Venipuncture / Unknown 09/01/2025 6:31 AM EDT 09/01/2025 7:55 AM EDT us Kasey Miller MD LAB BLOOD ORDERABLES Fin al Result [facility] [address] [place] [address], documented in this encounter Visit Diagnoses Diagnosis Unspecified atrial fibrillation (CMS/HCC V24, CMS/HCC V28) documented in this encounter Care Teams Ink Printer Relationship Specialty Start Date End Date Bright Garber MD [address] [place] [address] PCP - General Internal Medicine 08/02/20 documented as of this encounter
--- OUTSIDE RECORDS SUMMARY | 2025-11-03 17:47 | XMS_ITS | Encounter Summary ---
Author Organization [facility] Address [address] [place] [address] Care Team Providers Care Trimmer Sorter Name Role Phone Bright Garber MD Primary Care Provider [phone] Encounter Details Date Type Department Care Team (Late st Contact Info) Description 11/06/2024 Lab Requisition [facility] - Main Lab 299 [facility] [place] [address] Kasey Miller MD [address] [place] [id number] Heart failure, unspecified (CMS/HCC V24, CMS/HCC V28); Essential (primary) hypertension; Chronic obstructive pulmonary disease, [...] Description 11/30/2025 2:00 PM EST Office Visit [facility] - [address] [facility] 154 [place] [address] Jose Schuler MD [address] [place] [address] [address] [place] [address] documented as of this encounter Procedures Procedure Name Priority Date/Time Associated Diagnosis Comments COMPLETE BLOOD COUNT Routine 11/06/2024 6:21 AM EST Heart failure, unspecified (CMS/HCC) Essential (primary) hypertension Chronic obstructive pulmonary disease, unspecified (CMS/HCC) BASIC METABOLIC PANEL Routine 11/06/2024 6:21 AM EST Heart failure, unspecified (CMS/HCC) Essential (primary) hypertension Chronic obstructive pulmonary disease, unspecified (CMS/HCC) documented in this encounter Results * (ABNORMAL) Basic metabolic panel (11/06/2024 6:21 AM EST) Sodium 143 133 - 145 mmol/L LAB CHEMISTRY METHOD 11/06/2024 9:10 AM [facility] Potassium 4.1 3.5 - 5.5 mmol/L LAB CHEMISTRY METHOD 11/06/2024 9:10 AM [facility] Chloride 108 96 - 110 mmol/L LAB CHEMISTRY METHOD 11/06/2024 9:10 AM [facility] CO2 30 21 - 32 mmol/L LAB CHEMISTRY METHOD 11/06/2024 9:10 AM [facility] Anion Gap 5 3 - 11 LAB CHEMISTRY METHOD 11/06/2024 9:10 AM [facility] Glucose 89 70 - 100 mg/dL LAB CHEMISTRY METHOD 11/06/2024 9:10 AM [facility] BUN 14 5 - 25 mg/dL LAB CHEMISTRY METHOD 11/06/2024 9:10 AM [facility] Creatinine 0.98 0.50 - 1.10 mg/dL LAB CHEMISTRY METHOD 11/06/2024 9:10 AM [facility] eGFR 57(L) >=60 mL/min/1. 73m2 LAB CHEMISTRY METHOD 11/06/2024 9:10 AM [facility] LAB Comment:Calculation based on the Chronic Kidney Disease Epidemiology Collaboration (CKD-EPI) equation refit without adjustment for race. BUN/Creatinine Ratio 14.3 LAB CHEMISTRY METHOD 11/06/2024 9:10 AM [facility] Calcium 9.4 8.5 - 10.5 mg/dL LAB CHEMISTRY METHOD 11/06/2024 9:10 AM [facility] Blood Venous blood specimen / Unknown Venipuncture / Unknown 11/06/2024 6:21 AM EST 11/06/2024 8:25 AM EST us Kasey Miller MD LAB BLOOD ORDERABLES Fin al Result [facility] [address] [place] [address], * (ABNORMAL) Complete blood count (11/06/2024 6:21 AM EST) WBC 7.2 4.8 - 10.8 K/mcL LAB HEMETOLOGY METHOD 11/06/2024 8:41 AM [facility] RBC 3.00(L) 3.80 - 4.80 M/mcL LAB HEMETOLOGY METHOD 11/06/2024 8:41 AM [facility] Hemoglobin 8.8(L) 11.5 - 16.0 g/dL LAB HEMETOLOGY METHOD 11/06/2024 8:41 AM [facility] Hematocrit 29.4(L) 35.0 - 47.0 % LAB HEMETOLOGY METHOD 11/06/2024 8:41 AM [facility] LAB MCV 98.7(H) 79.0 - 98.0 FL LAB HEMETOLOGY METHOD 11/06/2024 8:41 AM [facility] MCH 29.5 27.0 - 32.0 pcg LAB HEMETOLOGY METHOD 11/06/2024 8:41 AM [facility] MCHC 29.9(L) 32.0 - 37.0 g/dL LAB HEMETOLOGY METHOD 11/06/2024 8:41 AM EST [facility] RDW 16.7(H) 11.0 - 15.0 % LAB HEMETOLOGY METHOD 11/06/2024 8:41 AM EST [facility] Platelets 176 130 - 400 K/mcL LAB HEMETOLOGY METHOD 11/06/2024 8:41 AM [facility] MPV 10.8 7.0 - 11.0 FL LAB HEMETOLOGY METHOD 11/06/2024 8:41 AM EST [facility] NRBC 0.0 <1.0 % LAB HEMETOLOGY METHOD 11/06/2024 8:41 AM [facility] NRBC Absolute 0.00 <0.10 K/mcL LAB HEMETOLOGY METHOD 11/06/2024 8:41 AM [facility] Blood Venous blood specimen / Unknown Venipuncture / Unknown 11/06/2024 6:21 AM EST 11/06/2024 8:25 AM EST us Kasey Miller MD LAB BLOOD ORDERABLES Fin al Result [facility] [address] [place] [address], documented in this encounter Visit Diagnoses Diagnosis Heart failure, unspecified (CMS/HCC V24, CMS/HCC V28) Heart failure, unspecified Essential (primary) hypertension Unspecified essential hypertension Chronic obstructive pulmonary disease, unspecified (CMS/HCC V24, CMS/HCC V28) documented in this encounter Care Teams Trimmer Sorter Relationship Specialty Start Date End Date Bright Garber MD [address] [place] [address] PCP - General Internal Medicine 08/02/20 documented as of this encounter
--- OUTSIDE RECORDS SUMMARY | 2025-11-03 17:47 | XMS_ITS | Encounter Summary ---
Author Organization [facility] Address [address] [place] [address] Care Team Providers Care Ball Assembler Name Role Phone Bright Garber MD Primary Care Provider [phone] Encounter Details Date Type Department Care Team (Late Contact Info) Description 11/03/2024 Lab Requisition [facility] - Main Lab 299 [facility] [place] [address] Kasey Miller MD 819 [facility] 1 [place] [address] 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 hemorrhage, unspecified; MCFP (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; Essential (primary) hypertension; [...] 2:00 PM EST Office Visit [facility] - [facility] [address] [facility] 154 [place] [address] Jose Schuler MD [address] [place] [address] [address] [place] [address] documented as of this encounter Procedures Procedure Name Priority Date/Time Associated Diagnosis Comments PROTHROMBIN TIME WITH INR Routine 11/04/2024 5:49 AM EST 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 hemorrhage, unspecified 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 Essential (primary) hypertension Chronic obstructive pulmonary disease, unspecified (CMS/HCC) COMPLETE BLOOD COUNT Routine 11/04/2024 5:49 AM EST 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 hemorrhage, unspecified 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 Essential (primary) hypertension Chronic obstructive pulmonary disease, unspecified (CMS/HCC) BASIC METABOLIC PANEL Routine 11/04/2024 5:49 AM EST 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 hemorrhage, unspecified MCFP (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 Essential (primary) hypertension Chronic obstructive pulmonary disease, unspecified (CMS/HCC) documented in this encounter Results * (ABNORMAL) Prothrombin time with INR (11/04/2024 5:49 AM EST) Protime 44.0(H) 10.6 - 13.9 sec LAB COAGULATION METHOD 11/04/2024 8:47 AM EST [facility] INR 3.5 LAB COAGULATION METHOD 11/04/2024 8:47 AM EST [facility] Blood Venous blood specimen / Unknown Venipuncture / Unknown 11/04/2024 5:49 AM EST 11/04/2024 8:03 AM EST Kasey Miller MD LAB BLOOD ORDERABLES Fin al Result [facility] [address] [place] [address], * Basic metabolic panel (11/04/2024 5:49 AM EST) Pathologist [facility] Sodium 144 133 - 145 mmol/L LAB CHEMISTRY METHOD 11/04/2024 8:56 AM EST [facility] Potassium 4.1 3.5 - 5.5 mmol/L LAB CHEMISTRY METHOD 11/04/2024 8:56 AM EST [facility] Chloride 110 96 - 110 mmol/L LAB CHEMISTRY METHOD 11/04/2024 8:56 AM [facility] CO2 28 21 - 32 mmol/L LAB CHEMISTRY METHOD 11/04/2024 8:56 AM [facility] Anion Gap 6 3 - 11 LAB CHEMISTRY METHOD 11/04/2024 8:56 AM [facility] Glucose 83 70 - 100 mg/dL LAB CHEMISTRY METHOD 11/04/2024 8:56 AM [facility] BUN 14 5 - 25 mg/dL LAB CHEMISTRY METHOD 11/04/2024 8:56 AM [facility] Creatinine 0.91 0.50 - 1.10 mg/dL LAB CHEMISTRY METHOD 11/04/2024 8:56 AM [facility] eGFR 63 >=60 mL/min/1. 73m2 LAB CHEMISTRY METHOD 11/04/2024 8:56 AM [facility] Comment:Calculation based on the Chronic Kidney Disease Epidemiology Collaboration (CKD-EPI) equation refit without adjustment for race. BUN/Creatinine Ratio 15.4 LAB CHEMISTRY METHOD 11/04/2024 8:56 AM [facility] Calcium 9.3 8.5 - 10.5 mg/dL LAB CHEMISTRY METHOD 11/04/2024 8:56 AM [facility] Blood Venous blood specimen / Unknown Venipuncture / Unknown 11/04/2024 5:49 AM EST 11/04/2024 8:03 AM EST us Kasey Miller MD LAB BLOOD ORDERABLES Fin al Result [facility] [address] [place] [address], * (ABNORMAL) Complete blood count (11/04/2024 5:49 AM EST) WBC 6.6 4.8 - 10.8 K/[facility] LAB HEMETOLOGY METHOD 11/04/2024 8:39 AM [facility] RBC 3.00(L) 3.80 - 4.80 M/mcL LAB HEMETOLOGY METHOD 11/04/2024 8:39 AM [facility] Hemoglobin 8.8(L) 11.5 - 16.0 g/dL LAB HEMETOLOGY METHOD 11/04/2024 8:39 AM [facility] Hematocrit 29.1(L) 35.0 - 47.0 % LAB HEMETOLOGY METHOD 11/04/2024 8:39 AM [facility] MCV 98.0 79.0 - 98.0 FL LAB HEMETOLOGY METHOD 11/04/2024 8:39 AM [facility] MCH 29.6 27.0 - 32.0 pcg LAB HEMETOLOGY METHOD 11/04/2024 8:39 AM [facility] MCHC 30.2(L) 32.0 - 37.0 g/dL LAB HEMETOLOGY METHOD 11/04/2024 8:39 AM [facility] RDW 16.7(H) 11.0 - 15.0 % LAB HEMETOLOGY METHOD 11/04/2024 8:39 AM [facility] Platelets 175 130 - 400 K/mcL LAB HEMETOLOGY METHOD 11/04/2024 8:39 AM [facility] MPV 10.8 7.0 - 11.0 FL LAB HEMETOLOGY METHOD 11/04/2024 8:39 AM [facility] NRBC 0.0 <1.0 % LAB HEMETOLOGY METHOD 11/04/2024 8:39 AM [facility] NRBC Absolute 0.00 <0.10 K/mcL LAB HEMETOLOGY METHOD 11/04/2024 8:39 AM [facility] Blood Venous blood specimen / Unknown Venipuncture / Unknown 11/04/2024 5:49 AM EST 11/04/2024 8:03 AM EST us Kasey Miller MD LAB BLOOD ORDERABLES Fin al Result [facility] [address] [place] [address], documented in this encounter Visit Diagnoses Diagnosis 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 hemorrhage, unspecified MCFP (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 Long-term (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 Essential (primary) hypertension Unspecified essential hypertension Chronic obstructive pulmonary disease, unspecified (CMS/HCC V24, CMS/HCC V28) documented in this encounter Care Teams Ball Assembler Relationship Specialty Start Date End Date Bright Garber MD [address] [place] [address] PCP - General Internal Medicine 08/02/20 documented as of this encounter
--- OUTSIDE RECORDS SUMMARY | 2025-11-03 17:47 | XMS_ITS | Encounter Summary ---
Author Organization [facility] Address [address] [place] [address] Care Team Providers Care Printing Plate Maker Name Role Phone Bright Garber MD Primary Care Provider [phone] Encounter Details Date Type Department Care Team (Late st Contact Info) Description 01/05/2025 Lab Requisition [facility] - Main Lab 299 [facility] [place] [address] Kasey Miller MD [address] [facility] 1 [place] [address] Chronic obstructive pulmonary disease, unspecified (CMS/HCC V24, CMS/HCC V28); Essential (primary) hypertension; Unspecified atrial fibrillation (CMS/HCC V24, CMS/HCC V28); MCFP (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 Social History Tobacco [...] Description 11/30/2025 2:00 PM EST Office Visit [facility] - [address] [facility] [address] [place] [address] Jose Schuler MD [address] [place] [address] Dr Macd[address] [place] [address] documented as of this encounter Procedures Procedure Name Priority Date/Time Associated Diagnosis Comments PROTHROMBIN TIME WITH INR Routine 01/06/2025 5:43 AM EST Chronic obstructive pulmonary disease, unspecified (CMS/HCC) Essential (primary) hypertension Unspecified atrial fibrillation (CMS/HCC) MCFP (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 COMPLETE BLOOD COUNT Routine 01/06/2025 5:43 AM EST Chronic obstructive pulmonary disease, unspecified (CMS/HCC) Essential (primary) hypertension Unspecified atrial fibrillation (CMS/HCC) MCFP (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 BASIC METABOLIC PANEL Routine 01/06/2025 5:43 AM EST Chronic obstructive pulmonary disease, unspecified (CMS/HCC) Essential (primary) hypertension Unspecified atrial fibrillation (CMS/HCC) MCFP (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 documented in this encounter Results * (ABNORMAL) Prothrombin time with INR (01/06/2025 5:43 AM EST) Pathologist [facility] Protime 56.0(H) 10.6 - 13.9 sec LAB COAGULATION METHOD 01/06/2025 9:21 AM EST [facility] INR 4.6 LAB COAGULATION METHOD 01/06/2025 9:21 AM EST [facility] Blood Venous blood specimen / Unknown Venipuncture / Unknown 01/06/2025 5:43 AM EST 01/06/2025 8:38 AM EST us Kasey Miller MD LAB BLOOD ORDERABLES Fin al Result [facility] [address] [place] [address], * Basic metabolic panel (01/06/2025 5:43 AM EST) Pathologist [facility] Sodium 143 133 - 145 mmol/L LAB CHEMISTRY METHOD 01/06/2025 9:21 AM EST [facility] Potassium 4.3 3.5 - 5.5 mmol/L LAB CHEMISTRY METHOD 01/06/2025 9:21 AM [facility] Chloride 109 96 - 110 mmol/L LAB CHEMISTRY METHOD 01/06/2025 9:21 AM [facility] CO2 29 21 - 32 mmol/L LAB CHEMISTRY METHOD 01/06/2025 9:21 AM [facility] Anion Gap 5 3 - 11 LAB CHEMISTRY METHOD 01/06/2025 9:21 AM [facility] Glucose 80 70 - 100 mg/dL LAB CHEMISTRY METHOD 01/06/2025 9:21 AM [facility] BUN 18 5 - 25 mg/dL LAB CHEMISTRY METHOD 01/06/2025 9:21 AM [facility] Creatinine 0.90 0.50 - 1.10 mg/dL LAB CHEMISTRY METHOD 01/06/2025 9:21 AM [facility] eGFR 64 >=60 mL/min/1. 73m2 LAB CHEMISTRY METHOD 01/06/2025 9:21 AM [facility] Comment:Calculation based on the Chronic Kidney Disease Epidemiology Collaboration (CKD-EPI) equation refit without adjustment for race. BUN/Creatinine Ratio 20.0 LAB CHEMISTRY METHOD 01/06/2025 9:21 AM [facility] Calcium 9.1 8.5 - 10.5 mg/dL LAB CHEMISTRY METHOD 01/06/2025 9:21 AM [facility] Blood Venous blood specimen / Unknown Venipuncture / Unknown 01/06/2025 5:43 AM EST 01/06/2025 8:38 AM EST us Kasey Miller MD LAB BLOOD ORDERABLES Fin al Result [facility] [address] [place] [address], * (ABNORMAL) Complete blood count (01/06/2025 5:43 AM EST) [facility] WBC 5.8 4.8 - 10.8 K/mcL LAB HEMETOLOGY METHOD 01/06/2025 8:59 AM [facility] RBC 3.00(L) 3.80 - 4.80 M/mcL LAB HEMETOLOGY METHOD 01/06/2025 8:59 AM [facility] Hemoglobin 8.9(L) 11.5 - 16.0 g/dL LAB HEMETOLOGY METHOD 01/06/2025 8:59 AM [facility] Hematocrit 29.4(L) 35.0 - 47.0 % LAB HEMETOLOGY METHOD 01/06/2025 8:59 AM [facility] MCV 99.7(H) 79.0 - 98.0 FL LAB HEMETOLOGY METHOD 01/06/2025 8:59 AM [facility] MCH 30.2 27.0 - 32.0 pcg LAB HEMETOLOGY METHOD 01/06/2025 8:59 AM [facility] MCHC 30.3(L) 32.0 - 37.0 g/dL LAB HEMETOLOGY METHOD 01/06/2025 8:59 AM [facility] RDW 17.1(H) 11.0 - 15.0 % LAB HEMETOLOGY METHOD 01/06/2025 8:59 AM [facility] Platelets 141 130 - 400 K/mcL LAB HEMETOLOGY METHOD 01/06/2025 8:59 AM [facility] MPV 11.4(H) 7.0 - 11.0 FL LAB HEMETOLOGY METHOD 01/06/2025 8:59 AM [facility] NRBC 0.0 <1.0 % LAB HEMETOLOGY METHOD 01/06/2025 8:59 AM [facility] NRBC Absolute 0.00 <0.10 K/mcL LAB HEMETOLOGY METHOD 01/06/2025 8:59 AM EST [facility] Blood Venous blood specimen / Unknown Venipuncture / Unknown 01/06/2025 5:43 AM EST 01/06/2025 8:38 AM EST us Kasey Miller MD LAB BLOOD ORDERABLES Fin al Result [facility] [address] [place] [address], documented in this encounter Visit Diagnoses Diagnosis Chronic obstructive pulmonary disease, unspecified (CMS/HCC V24, CMS/HCC V28) Essential (primary) hypertension Unspecified essential hypertension Unspecified atrial fibrillation (CMS/HCC V24, [facility] V28) 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
--- OUTSIDE RECORDS SUMMARY | 2025-11-03 17:47 | XMS_ITS | Encounter Summary ---
Author Organization [facility] Address [address] [place] [address] Care Team Providers Care Ict Systems Test Engineer Name Role Phone Bright Garber MD Primary Care Provider [phone] Encounter Details Date Type Department Care Team (Late st Contact Info) Description 11/24/[address] [facility] - Main Lab 299 [facility] [place] [address] Kasey Miller MD 819 [facility] 1 [place] [address] Unspecified atrial fibrillation (CMS/HCC V24, CMS/HCC V28); 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 hemorrhage, unspecified; MCC (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; Essential (primary) hypertension; [...] 2:00 PM EST Office Visit [facility] - [address] [facility] [address] [place] [address] Jose Schuler MD [address] [place] [address] [place] [address] documented as of this encounter Procedures Procedure Name Priority Date/Time Associated Diagnosis Comments PROTHROMBIN TIME WITH INR Routine 11/25/2024 7:10 AM EST 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 hemorrhage, unspecified MCC (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 Essential (primary) hypertension Chronic obstructive pulmonary disease, unspecified (CMS/HCC) Unspecified atrial fibrillation (CMS/HCC) COMPLETE BLOOD COUNT Routine 11/25/2024 7:10 AM EST 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 hemorrhage, unspecified MCC (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 Essential (primary) hypertension Chronic obstructive pulmonary disease, unspecified (CMS/HCC) Unspecified atrial fibrillation (CMS/HCC) BASIC METABOLIC PANEL Routine 11/25/2024 7:10 AM EST 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 hemorrhage, unspecified MCC (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 Essential (primary) hypertension Chronic obstructive pulmonary disease, unspecified (CMS/HCC) Unspecified atrial fibrillation (CMS/HCC) documented in this encounter Results * (ABNORMAL) Prothrombin time with INR (11/25/2024 7:10 AM EST) Protime 28.6(H) 10.6 - 13.9 sec LAB COAGULATION METHOD 11/25/2024 10:43 AM EST [facility] INR 2.3 LAB COAGULATION METHOD 11/25/2024 10:43 AM EST [facility] Blood Venous blood specimen / Unknown Venipuncture / Unknown 11/25/2024 7:10 AM EST 11/25/2024 9:22 AM EST us Kasey Miller MD LAB BLOOD ORDERABLES Fin al Result [facility] [address] [place] [address], * Basic metabolic panel (11/25/2024 7:10 AM EST) Sodium 141 133 - 145 mmol/L LAB CHEMISTRY METHOD 11/25/2024 11:00 AM [facility] Potassium 4.4 3.5 - 5.5 mmol/L LAB CHEMISTRY METHOD 11/25/2024 11:00 AM [facility] Chloride 107 96 - 110 mmol/L LAB CHEMISTRY METHOD 11/25/2024 11:00 AM [facility] CO2 29 21 - 32 mmol/L LAB CHEMISTRY METHOD 11/25/2024 11:00 AM [facility] Anion Gap 5 3 - 11 LAB CHEMISTRY METHOD 11/25/2024 11:00 AM [facility] Glucose 84 70 - 100 mg/dL LAB CHEMISTRY METHOD 11/25/2024 11:00 AM [facility] BUN 15 5 - 25 mg/dL LAB CHEMISTRY METHOD 11/25/2024 11:00 AM [facility] Creatinine 0.89 0.50 - 1.10 mg/dL LAB CHEMISTRY METHOD 11/25/2024 11:00 AM [facility] eGFR 64 >=60 mL/min/1. 73m2 LAB CHEMISTRY METHOD 11/25/2024 11:00 AM [facility] Comment:Calculation based on the Chronic Kidney Disease Epidemiology Collaboration (CKD-EPI) equation refit without adjustment for race. BUN/Creatinine Ratio 16.9 LAB CHEMISTRY METHOD 11/25/2024 11:00 AM [facility] Calcium 9.2 8.5 - 10.5 mg/dL LAB CHEMISTRY METHOD 11/25/2024 11:00 AM [facility] Blood Venous blood specimen / Unknown Venipuncture / Unknown 11/25/2024 7:10 AM EST 11/25/2024 9:22 AM EST us Kasey Miller MD LAB BLOOD ORDERABLES Fin al Result [facility] [address] [place] [address], * (ABNORMAL) Complete blood count (11/25/2024 7:10 AM EST) [facility] WBC 8.5 4.8 - 10.8 K/mcL LAB HEMETOLOGY METHOD 11/25/2024 10:38 AM [facility] RBC 3.30(L) 3.80 - 4.80 M/mcL LAB HEMETOLOGY METHOD 11/25/2024 10:38 AM [facility] Hemoglobin 9.7(L) 11.5 - 16.0 g/dL LAB HEMETOLOGY METHOD 11/25/2024 10:38 AM [facility] Hematocrit 32.0(L) 35.0 - 47.0 % LAB HEMETOLOGY METHOD 11/25/2024 10:38 AM [facility] MCV 98.2(H) 79.0 - 98.0 FL LAB HEMETOLOGY METHOD 11/25/2024 10:38 AM [facility] MCH 29.8 27.0 - 32.0 pcg LAB HEMETOLOGY METHOD 11/25/2024 10:38 AM [facility] MCHC 30.3(L) 32.0 - 37.0 g/dL LAB HEMETOLOGY METHOD 11/25/2024 10:38 AM [facility] RDW 17.2(H) 11.0 - 15.0 % LAB HEMETOLOGY METHOD 11/25/2024 10:38 AM [facility] Platelets 215 130 - 400 K/mcL LAB HEMETOLOGY METHOD 11/25/2024 10:38 AM [facility] MPV 10.9 7.0 - 11.0 FL LAB HEMETOLOGY METHOD 11/25/2024 10:38 AM [facility] NRBC 0.0 <1.0 % LAB HEMETOLOGY METHOD 11/25/2024 10:38 AM [facility] NRBC Absolute 0.00 <0.10 K/mcL LAB HEMETOLOGY METHOD 11/25/2024 10:38 AM EST [facility] Blood Venous blood specimen / Unknown Venipuncture / Unknown 11/25/2024 7:10 AM EST 11/25/2024 9:22 AM EST us Kasey Miller MD LAB BLOOD ORDERABLES Fin al Result [facility] [address] [place] [address], documented in this encounter Visit Diagnoses Diagnosis Unspecified atrial fibrillation (CMS/HCC V24, CMS/HCC V28) 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 hemorrhage, unspecified 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
--- OUTSIDE RECORDS SUMMARY | 2025-11-03 17:47 | XMS_ITS | Encounter Summary ---
Author Organization [facility] Address [address] [place] [address] Care Team Providers Care Cryptographic Machine Operator Name Role Phone Bright Garber MD Primary Care Provider [phone] Encounter Details Date Type Department Care Team (Late Contact Info) Description 11/10/[address] 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; Essential (primary) hypertension; [...] Description 11/30/2025 2:00 PM EST Office Visit [facility] - [facility] [address] [facility] 154 [place] [address] Jose Schuler MD [address] [place] [address] [address] [place] [address] documented as of this encounter Procedures Procedure Name Priority Date/Time Associated Diagnosis Comments COMPLETE BLOOD COUNT Routine 11/11/2024 5:50 AM EST 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 hemorrhage, unspecified 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 Essential (primary) hypertension Chronic obstructive pulmonary disease, unspecified (CMS/HCC) BASIC METABOLIC PANEL Routine 11/11/2024 5:50 AM EST 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 hemorrhage, unspecified 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 Essential (primary) hypertension Chronic obstructive pulmonary disease, unspecified (CMS/HCC) documented in this encounter Results * Basic metabolic panel (11/11/2024 5:50 AM EST) Sodium 141 133 - 145 mmol/L LAB CHEMISTRY METHOD 11/11/2024 9:37 AM [facility] Potassium 3.9 3.5 - 5.5 mmol/L LAB CHEMISTRY METHOD 11/11/2024 9:37 AM [facility] Chloride 106 96 - 110 mmol/L LAB CHEMISTRY METHOD 11/11/2024 9:37 AM [facility] CO2 30 21 - 32 mmol/L LAB CHEMISTRY METHOD 11/11/2024 9:37 AM [facility] Anion Gap 5 3 - 11 LAB CHEMISTRY METHOD 11/11/2024 9:37 AM [facility] Glucose 86 70 - 100 mg/dL LAB CHEMISTRY METHOD 11/11/2024 9:37 AM [facility] BUN 15 5 - 25 mg/dL LAB CHEMISTRY METHOD 11/11/2024 9:37 AM [facility] Creatinine 0.87 0.50 - 1.10 mg/dL LAB CHEMISTRY METHOD 11/11/2024 9:37 AM [facility] eGFR 66 >=60 mL/min/1. 73m2 LAB CHEMISTRY METHOD 11/11/2024 9:37 AM [facility] Comment:Calculation based on the Chronic Kidney Disease Epidemiology Collaboration (CKD-EPI) equation refit without adjustment for race. BUN/Creatinine Ratio 17.2 LAB CHEMISTRY METHOD 11/11/2024 9:37 AM [facility] Calcium 9.3 8.5 - 10.5 mg/dL LAB CHEMISTRY METHOD 11/11/2024 9:37 AM [facility] Blood Venous blood specimen / Unknown Venipuncture / Unknown 11/11/2024 5:50 AM EST 11/11/2024 8:06 AM EST us Kasey Miller MD LAB BLOOD ORDERABLES Fin al Result [facility] [address] [place] [address], * (ABNORMAL) Complete blood count (11/11/2024 5:50 AM EST) WBC 7.0 4.8 - 10.8 K/mcL LAB HEMETOLOGY METHOD 11/11/2024 8:58 AM [facility] RBC 3.10(L) 3.80 - 4.80 M/[facility] LAB HEMETOLOGY METHOD 11/11/2024 8:58 AM [facility] Hemoglobin 9.1(L) 11.5 - 16.0 g/dL LAB HEMETOLOGY METHOD 11/11/2024 8:58 AM [facility] Hematocrit 29.9(L) 35.0 - 47.0 % LAB HEMETOLOGY METHOD 11/11/2024 8:58 AM [facility] MCV 97.7 79.0 - 98.0 FL LAB HEMETOLOGY METHOD 11/11/2024 8:58 AM [facility] MCH 29.7 27.0 - 32.0 pcg LAB HEMETOLOGY METHOD 11/11/2024 8:58 AM [facility] MCHC 30.4(L) 32.0 - 37.0 g/dL LAB HEMETOLOGY METHOD 11/11/2024 8:58 AM EST [facility] RDW 17.2(H) 11.0 - 15.0 % LAB HEMETOLOGY METHOD 11/11/2024 8:58 AM [facility] Platelets 184 130 - 400 K/mcL LAB HEMETOLOGY METHOD 11/11/2024 8:58 AM [facility] MPV 11.1(H) 7.0 - 11.0 FL LAB HEMETOLOGY METHOD 11/11/2024 8:58 AM [facility] NRBC 0.0 <1.0 % LAB HEMETOLOGY METHOD 11/11/2024 8:58 AM [facility] NRBC Absolute 0.00 <0.10 K/mcL LAB HEMETOLOGY METHOD 11/11/2024 8:58 AM [facility] Blood Venous blood specimen / Unknown Venipuncture / Unknown 11/11/2024 5:50 AM EST 11/11/2024 8:06 AM EST us aKsey Miller MD LAB BLOOD ORDERABLES Fin al Result [facility] [address] [place] [address], documented in this encounter Visit Diagnoses Diagnosis 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 hemorrhage, unspecified 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
--- OUTSIDE RECORDS SUMMARY | 2025-11-03 17:47 | XMS_ITS | Encounter Summary ---
Author Organization [facility] Address [address] [place] [address] Care Team Providers Care Grounds Person Name Role Phone Bright Garber MD Primary Care Provider [phone] Reason for Visit * Reason Onset Date Comments OTHER 11/02/2025 Switching to Kasey karie Encounter Details Date Type Department Care Team (Late Contact Info) Description 11/02/2025 Telephone [facility] - [facility] [address] [facility] [address] [place] [phone] Dian Hermosillo, ARRON [address] [place] [address] [place] [phone] Social History Tobacco Use Types Packs/Day Years [...] on file documented as of this encounter Progress Notes * John Ni MA - 11/02/2025 2:16 PM EST Daughter called as her mom is now living at [facility]. Daughter called insurance and they will cover Eliquis. Per Dian pt needs to get BMP and INR tomorrow. documented in this encounter Plan of Treatment Upcoming Encounters Date Type Department Care Team (Late Contact Info) Description 11/30/2025 2:00 PM EST Office Visit [facility] - [address] [place] [address] Jose Schuler MD [address] [place] [address] [place] [address] Scheduled Orders Name Type Priority Associated Diagnoses Orde r Schedule Basic metabolic panel Lab Routine Atrial fibrillation, unspecified type (CMS/HCC V24, CMS/HCC V28) 1 Occurrences starting 11/02/2025 until 11/02/2026 Prothrombin time with INR Lab Routine Atrial fibrillation, unspecified type (CMS/HCC V24, CMS/HCC V28) 1 Occurrences starting 11/02/2025 until 11/02/2026 documented as of this encounter Visit Diagnoses Diagnosis Atrial fibrillation, unspecified type (CMS/HCC V24, CMS/HCC V28)- Primary documented in this encounter Care Teams Grounds Person Relationship Specialty Start Date End Date Bright Garber MD [address] [place] [address] [place] PCP - General Internal Medicine 08/02/20 documented as of this encounter
--- OUTSIDE RECORDS SUMMARY | 2025-11-03 17:47 | XMS_ITS | Encounter Summary ---
Author Organization [facility] Address [address] [place] [address] Care Team Providers Care In Home Sales Representative Name Role Phone Bright Garber MD Primary Care Provider [phone] Encounter Details Date Type Department Care Team (Late st Contact Info) Description 12/15/2024 Lab Requisition [facility] - Main Lab 299 [facility] [place] [address] Kasey Miller MD 819 [facility] 1 [place] [address] Unspecified atrial fibrillation (CMS/HCC V24, CMS/HCC V28); 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 hemorrhage, unspecified; penitentiary (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; Essential (primary) hypertension; [...] Description 11/30/2025 2:00 PM EST Office Visit [facility] - [address] [facility] [address] [place] [address] Jose Schuler MD [address] [place] [address] [place] [address] documented as of this encounter Procedures Procedure Name Priority Date/Time Associated Diagnosis Comments PROTHROMBIN TIME WITH INR Routine 12/16/2024 6:12 AM EST Unspecified atrial fibrillation (CMS/HCC) 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 hemorrhage, unspecified assistant terminal 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 Essential (primary) hypertension Chronic obstructive pulmonary disease, unspecified (CMS/HCC) COMPLETE BLOOD COUNT Routine 12/16/2024 6:12 AM EST Unspecified atrial fibrillation (CMS/HCC) 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 hemorrhage, unspecified assistant terminal 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 Essential (primary) hypertension Chronic obstructive pulmonary disease, unspecified (CMS/HCC) BASIC METABOLIC PANEL Routine 12/16/2024 6:12 AM EST Unspecified atrial fibrillation (CMS/HCC) 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 hemorrhage, unspecified penitentiary (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 Essential (primary) hypertension Chronic obstructive pulmonary disease, unspecified (CMS/HCC) documented in this encounter Results * (ABNORMAL) Prothrombin time with INR (12/16/2024 6:12 AM EST) Protime 23.1(H) 10.6 - 13.9 sec LAB COAGULATION METHOD 12/16/2024 8:58 AM EST [facility] INR 1.8 LAB COAGULATION METHOD 12/16/2024 8:58 AM EST [facility] Blood Venous blood specimen / Unknown Venipuncture / Unknown 12/16/2024 6:12 AM EST 12/16/2024 8:25 AM EST us Kasey Miller MD LAB BLOOD ORDERABLES Fin al Result [facility] [address] [place] [address], * (ABNORMAL) Basic metabolic panel (12/16/2024 6:12 AM EST) Sodium 140 133 - 145 mmol/L LAB CHEMISTRY METHOD 12/16/2024 9:23 AM [facility] Potassium 3.9 3.5 - 5.5 mmol/L LAB CHEMISTRY METHOD 12/16/2024 9:23 AM [facility] Chloride 108 96 - 110 mmol/L LAB CHEMISTRY METHOD 12/16/2024 9:23 AM [facility] CO2 30 21 - 32 mmol/L LAB CHEMISTRY METHOD 12/16/2024 9:23 AM [facility] Anion Gap 2(L) 3 - 11 LAB CHEMISTRY METHOD 12/16/2024 9:23 AM [facility] Glucose 90 70 - 100 mg/dL LAB CHEMISTRY METHOD 12/16/2024 9:23 AM [facility] BUN 18 5 - 25 mg/dL LAB CHEMISTRY METHOD 12/16/2024 9:23 AM [facility] Creatinine 0.94 0.50 - 1.10 mg/dL LAB CHEMISTRY METHOD 12/16/2024 9:23 AM [facility] eGFR 60 >=60 mL/min/1. 73m2 LAB CHEMISTRY METHOD 12/16/2024 9:23 AM [facility] Comment:Calculation based on the Chronic Kidney Disease Epidemiology Collaboration (CKD-EPI) equation refit without adjustment for race. BUN/Creatinine Ratio 19.1 LAB CHEMISTRY METHOD 12/16/2024 9:23 AM [facility] Calcium 9.0 8.5 - 10.5 mg/dL LAB CHEMISTRY METHOD 12/16/2024 9:23 AM [facility] Blood Venous blood specimen / Unknown Venipuncture / Unknown 12/16/2024 6:12 AM EST 12/16/2024 8:25 AM EST us Kasey Miller MD LAB BLOOD ORDERABLES Fin al Result [facility] [address] [place] [address], * (ABNORMAL) Complete blood count (12/16/2024 6:12 AM EST) [facility] WBC 6.7 4.8 - 10.8 K/mcL LAB HEMETOLOGY METHOD 12/16/2024 8:48 AM [facility] RBC 3.00(L) 3.80 - 4.80 M/mcL LAB HEMETOLOGY METHOD 12/16/2024 8:48 AM [facility] Hemoglobin 9.0(L) 11.5 - 16.0 g/dL LAB HEMETOLOGY METHOD 12/16/2024 8:48 AM [facility] Hematocrit 29.8(L) 35.0 - 47.0 % LAB HEMETOLOGY METHOD 12/16/2024 8:48 AM [facility] MCV 99.0(H) 79.0 - 98.0 FL LAB HEMETOLOGY METHOD 12/16/2024 8:48 AM [facility] MCH 29.9 27.0 - 32.0 pcg LAB HEMETOLOGY METHOD 12/16/2024 8:48 AM [facility] MCHC 30.2(L) 32.0 - 37.0 g/dL LAB HEMETOLOGY METHOD 12/16/2024 8:48 AM [facility] RDW 17.5(H) 11.0 - 15.0 % LAB HEMETOLOGY METHOD 12/16/2024 8:48 AM [facility] Platelets 146 130 - 400 K/mcL LAB HEMETOLOGY METHOD 12/16/2024 8:48 AM [facility] MPV 10.7 7.0 - 11.0 FL LAB HEMETOLOGY METHOD 12/16/2024 8:48 AM [facility] NRBC 0.0 <1.0 % LAB HEMETOLOGY METHOD 12/16/2024 8:48 AM EST [facility] NRBC Absolute 0.00 <0.10 K/mcL LAB HEMETOLOGY METHOD 12/16/2024 8:48 AM EST [facility] ([facility] Blood Venous blood specimen / Unknown Venipuncture / Unknown 12/16/2024 6:12 AM EST 12/16/2024 8:25 AM EST us Kasey Miller MD LAB BLOOD ORDERABLES Fin al Result [facility] ([facility] [address] [place] [address], documented in this encounter Visit Diagnoses Diagnosis Unspecified atrial fibrillation (CMS/HCC V24, CMS/HCC V28) 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 hemorrhage, unspecified penitentiary (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 Long-term (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 Essential (primary) hypertension Unspecified essential hypertension Chronic obstructive pulmonary disease, unspecified (CMS/HCC V24, CMS/HCC V28) documented in this encounter Care Teams In Home Sales Representative Relationship Specialty Start Date End Date Bright Garber MD [address] [place] [address] PCP - General Internal Medicine 08/02/20 documented as of this encounter
--- OUTSIDE RECORDS SUMMARY | 2025-11-03 17:47 | XMS_ITS | Encounter Summary ---
Author Organization [facility] Address [address] [place] [address] Care Team Providers Care Christian Counselor Name Role Phone Bright Garber MD Primary Care Provider [phone] Encounter Details Date Type Department Care Team (Late st Contact Info) Description 09/21/[address] [facility] - Main Lab 299 [facility] [place] [address] Kasey Miller MD 819 [facility] 1 [place], [place] [phone] Unspecified atrial fibrillation (CMS/HCC V24, CMS/HCC V28) [...] Description 11/30/2025 2:00 PM EST Office Visit [facility] - [address] 300 [facility] [address] [place] [address] Jose Schuler MD [address] [place] [address] [address] [place] [address] documented as of this encounter Procedures Procedure Name Priority Date/Time Associated Diagnosis Comments PROTHROMBIN TIME WITH INR Routine 09/22/2025 6:07 AM EST Unspecified atrial fibrillation (CMS/HCC V24, CMS/HCC V28) documented in this encounter Results * (ABNORMAL) Prothrombin time with INR (09/22/2025 6:07 AM EST) Protime 18.3(H) 10.6 - 13.9 sec LAB COAGULATION METHOD 09/22/2025 9:32 AM EST [facility] INR 1.5 LAB COAGULATION METHOD 09/22/2025 9:32 AM EST [facility] Blood Venous blood specimen / Unknown Venipuncture / Unknown 09/22/2025 6:07 AM EST 09/22/2025 8:51 AM EST us Kasey Miller MD LAB BLOOD ORDERABLES Fin al Result [facility] [address] [place] [address], documented in this encounter Visit Diagnoses Diagnosis Unspecified atrial fibrillation (CMS/HCC V24, CMS/HCC V28) documented in this encounter Care Teams Christian Counselor Relationship Specialty Start Date End Date Bright Garber MD [address] [place] [address] PCP - General Internal Medicine 08/02/20 documented as of this encounter
--- OUTSIDE RECORDS SUMMARY | 2025-11-03 17:47 | XMS_ITS | Encounter Summary ---
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 Social History [...] Description 11/30/2025 2:00 PM EST Office Visit [facility] - [facility] [address] 300 [facility] 154 [place] [address] Jose Schuler MD [address] [place] [address] [place] [address] documented as of this encounter Procedures Procedure Name Priority Date/Time Associated Diagnosis Comments PROTHROMBIN TIME WITH INR Routine 11/07/2024 5:50 AM EST 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 documented in this encounter Results * (ABNORMAL) Prothrombin time with INR (11/07/2024 5:50 AM EST) Protime 22.2(H) 10.6 - 13.9 sec LAB COAGULATION METHOD 11/07/2024 9:29 AM EST [facility] INR 1.8 LAB COAGULATION METHOD 11/07/2024 9:29 AM EST [facility] Blood Venous blood specimen / Unknown Venipuncture / Unknown 11/07/2024 5:50 AM EST 11/07/2024 8:32 AM EST us Kasey Miller MD LAB BLOOD ORDERABLES Fin al Result [facility] [address] [place] [address], documented in this encounter Visit Diagnoses Diagnosis 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
--- OUTSIDE RECORDS SUMMARY | 2025-11-03 17:47 | XMS_ITS | Encounter Summary ---
Author Organization [facility] Address [address] [place] [address] Care Team Providers Care Marketing Analytics Analyst Name Role Phone Bright Garber MD Primary Care Provider [phone] Encounter Details Date Type Department Care Team (Late st Contact Info) Description 10/12/2025 Lab Requisition [facility] - Main Lab 299 [facility] [place] [address] Kasey Miller MD 819 [facility] 1 [place], [place] [phone] Unspecified atrial fibrillation (CMS/HCC V24, CMS/HCC V28) [...] Description 11/30/2025 2:00 PM EST Office Visit [facility] - [address] [facility] [address] [place] [address] Jose Schuler MD [address] [place] [address] [address] [place] [address] documented as of this encounter Procedures Procedure Name Priority Date/Time Associated Diagnosis Comments PROTHROMBIN TIME WITH INR Routine 10/13/2025 4:46 AM EST Unspecified atrial fibrillation (CMS/HCC V24, CMS/HCC V28) documented in this encounter Results * (ABNORMAL) Prothrombin time with INR (10/13/2025 4:46 AM EST) Protime 29.7(H) 10.6 - 13.9 sec LAB COAGULATION METHOD 10/13/2025 8:58 AM EST [facility] INR 2.4 LAB COAGULATION METHOD 10/13/2025 8:58 AM EST [facility] Blood Venous blood specimen / Unknown Venipuncture / Unknown 10/13/2025 4:46 AM EST 10/13/2025 8:36 AM EST us Kasey Miller MD LAB BLOOD ORDERABLES Fin al Result [facility] [address] [place] [address], documented in this encounter Visit Diagnoses Diagnosis Unspecified atrial fibrillation (CMS/HCC V24, CMS/HCC V28) documented in this encounter Care Teams Marketing Analytics Analyst Relationship Specialty Start Date End Date Bright Garber MD [address] [place] [address] PCP - General Internal Medicine 08/02/20 documented as of this encounter
--- OUTSIDE RECORDS SUMMARY | 2025-11-03 17:47 | XMS_ITS | Encounter Summary ---
Author Organization [facility] Address [address] [place] [address] Care Team Providers Care Rn Intern Name Role Phone Bright Garber MD Primary Care Provider [phone] Encounter Details Date Type Department Care Team (Late Contact Info) Description 12/22/2024 Lab Requisition [facility] - Main Lab 299 [facility] [place] [address] Kasey Miller MD 819 [facility] 1 [place] [address] 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 hemorrhage, unspecified; care home (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; Essential (primary) [...] Description 11/30/2025 2:00 PM EST Office Visit [facility] - [facility] [address] 300 [facility] 154 [place] [address] Jose Schuler MD [address] [place] [address] [address] [place] [address] documented as of this encounter Procedures Procedure Name Priority Date/Time Associated Diagnosis Comments PROTHROMBIN TIME WITH INR Routine 12/23/2024 6:24 AM EST 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 hemorrhage, unspecified 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 Essential (primary) hypertension Chronic obstructive pulmonary disease, unspecified (CMS/HCC) COMPLETE BLOOD COUNT Routine 12/23/2024 6:24 AM EST 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 hemorrhage, unspecified 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 Essential (primary) hypertension Chronic obstructive pulmonary disease, unspecified (CMS/HCC) BASIC METABOLIC PANEL Routine 12/23/2024 6:24 AM EST 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 hemorrhage, unspecified care home (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 Essential (primary) hypertension Chronic obstructive pulmonary disease, unspecified (CMS/HCC) documented in this encounter Results * (ABNORMAL) Prothrombin time with INR (12/23/2024 6:24 AM EST) Protime 20.8(H) 10.6 - 13.9 sec LAB COAGULATION METHOD 12/23/2024 9:34 AM EST [facility] INR 1.7 LAB COAGULATION METHOD 12/23/2024 9:34 AM [facility] Blood Venous blood specimen / Unknown Venipuncture / Unknown 12/23/2024 6:24 AM EST 12/23/2024 8:35 AM EST Kasey Miller MD LAB BLOOD ORDERABLES Fin al Result [facility] [address] [place] [address], * (ABNORMAL) Basic metabolic panel (12/23/2024 6:24 AM EST) Sodium 140 133 - 145 mmol/L LAB CHEMISTRY METHOD 12/23/2024 9:46 AM EST [facility] Potassium 4.1 3.5 - 5.5 mmol/L LAB CHEMISTRY METHOD 12/23/2024 9:46 AM EST [facility] Chloride 109 96 - 110 mmol/L LAB CHEMISTRY METHOD 12/23/2024 9:46 AM [facility] CO2 29 21 - 32 mmol/L LAB CHEMISTRY METHOD 12/23/2024 9:46 AM [facility] Anion Gap 2(L) 3 - 11 LAB CHEMISTRY METHOD 12/23/2024 9:46 AM [facility] Glucose 80 70 - 100 mg/dL LAB CHEMISTRY METHOD 12/23/2024 9:46 AM [facility] BUN 23 5 - 25 mg/dL LAB CHEMISTRY METHOD 12/23/2024 9:46 AM [facility] Creatinine 0.88 0.50 - 1.10 mg/dL LAB CHEMISTRY METHOD 12/23/2024 9:46 AM [facility] LAB eGFR 65 >=60 mL/min/1. 73m2 LAB CHEMISTRY METHOD 12/23/2024 9:46 AM [facility] LAB Comment:Calculation based on the Chronic Kidney Disease Epidemiology Collaboration (CKD-EPI) equation refit without adjustment for race. BUN/Creatinine Ratio 26.1 LAB CHEMISTRY METHOD 12/23/2024 9:46 AM [facility] Calcium 9.2 8.5 - 10.5 mg/dL LAB CHEMISTRY METHOD 12/23/2024 9:46 AM [facility] Blood Venous blood specimen / Unknown Venipuncture / Unknown 12/23/2024 6:24 AM EST 12/23/2024 8:11 AM EST us Kasey Miller MD LAB BLOOD ORDERABLES Fin al Result [facility] [address] [place] [address], * (ABNORMAL) Complete blood count (12/23/2024 6:24 AM EST) WBC 6.5 4.8 - 10.8 K/mcL LAB HEMETOLOGY METHOD 12/23/2024 9:23 AM [facility] RBC 3.10(L) 3.80 - 4.80 M/mcL LAB HEMETOLOGY METHOD 12/23/2024 9:23 AM [facility] Hemoglobin 9.2(L) 11.5 - 16.0 g/dL LAB HEMETOLOGY METHOD 12/23/2024 9:23 AM [facility] Hematocrit 30.2(L) 35.0 - 47.0 % LAB HEMETOLOGY METHOD 12/23/2024 9:23 AM [facility] MCV 99.0(H) 79.0 - 98.0 FL LAB HEMETOLOGY METHOD 12/23/2024 9:23 AM [facility] MCH 30.2 27.0 - 32.0 pcg LAB HEMETOLOGY METHOD 12/23/2024 9:23 AM [facility] MCHC 30.5(L) 32.0 - 37.0 g/dL LAB HEMETOLOGY METHOD 12/23/2024 9:23 AM [facility] RDW 17.4(H) 11.0 - 15.0 % LAB HEMETOLOGY METHOD 12/23/2024 9:23 AM [facility] Platelets 170 130 - 400 K/mcL LAB HEMETOLOGY METHOD 12/23/2024 9:23 AM [facility] MPV 10.8 7.0 - 11.0 FL LAB HEMETOLOGY METHOD 12/23/2024 9:23 AM [facility] NRBC 0.0 <1.0 % LAB HEMETOLOGY METHOD 12/23/2024 9:23 AM [facility] NRBC Absolute 0.00 <0.10 K/mcL LAB HEMETOLOGY METHOD 12/23/2024 9:23 AM [facility] LAB Blood Venous blood specimen / Unknown Venipuncture / Unknown 12/23/2024 6:24 AM EST 12/23/2024 8:11 AM EST us aKsey Miller MD LAB BLOOD ORDERABLES Fin al Result [facility] ([facility] [address] [place] [address], documented in this encounter Visit Diagnoses Diagnosis 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 hemorrhage, unspecified 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
--- OUTSIDE RECORDS SUMMARY | 2025-11-03 17:47 | XMS_ITS | Encounter Summary ---
Author Organization [facility] Address [address] [place] [address] Care Team Providers Care Rental Salesperson Name Role Phone Bright Garber MD Primary Care Provider [phone] Encounter Details Date Type Department Care Team (Late Contact Info) Description 11/05/[address] 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; Unspecified atrial fibrillation (CMS/HCC V24, CMS/HCC V28) [...] Description 11/30/2025 2:00 PM EST Office Visit [facility] Associates - [address] [facility] [address] [place] [address] Jose Schuler MD [address] [place] [address] [address] [place] [address] documented as of this encounter Procedures Procedure Name Priority Date/Time Associated Diagnosis Comments PROTHROMBIN TIME WITH INR Routine 11/05/2024 12:58 PM EST half-way (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 Unspecified atrial fibrillation (CMS/HCC) documented in this encounter Results * (ABNORMAL) Prothrombin time with INR (11/05/2024 12:58 PM EST) Protime 34.4(H) 10.6 - 13.9 sec LAB COAGULATION METHOD 11/05/2024 2:13 PM EST [facility] INR 2.7 LAB COAGULATION METHOD 11/05/2024 2:13 PM EST [facility] Blood Venous blood specimen / Unknown Venipuncture / Unknown 11/05/2024 12:58 PM EST 11/05/2024 1:49 PM EST us Kasey Miller MD LAB BLOOD ORDERABLES Fin al Result [facility] [address] [place] [address], documented in this encounter Visit Diagnoses Diagnosis terminologist (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
--- OUTSIDE RECORDS SUMMARY | 2025-11-03 17:47 | XMS_ITS | Encounter Summary ---
Author Organization [facility] Address [address] [place] [address] Care Team Providers Care Metal Riveter Name Role Phone Bright Garber MD Primary Care Provider [phone] Encounter Details Date Type Department Care Team (Late st Contact Info) Description 10/05/2025 Lab Requisition [facility] - Main Lab 299 [facility] [place] [address] Kasey Miller MD 819 [facility] 1 [place], [place] [phone] Unspecified atrial fibrillation (CMS/HCC V24, CMS/HCC V28) [...] Description 11/30/2025 2:00 PM EST Office Visit [facility] - [address] [facility] [address] [place] [address] Jose Schuler MD [address] [place] [address] [address] [place] [address] documented as of this encounter Procedures Procedure Name Priority Date/Time Associated Diagnosis Comments PROTHROMBIN TIME WITH INR Routine 10/06/2025 5:22 AM EST Unspecified atrial fibrillation (CMS/HCC V24, CMS/HCC V28) documented in this encounter Results * (ABNORMAL) Prothrombin time with INR (10/06/2025 5:22 AM EST) Protime 41.7(H) 10.6 - 13.9 sec LAB COAGULATION METHOD 10/06/2025 7:03 AM EST [facility] INR 3.4 LAB COAGULATION METHOD 10/06/2025 7:03 AM EST [facility] Blood Venous blood specimen / Unknown Venipuncture / Unknown 10/06/2025 5:22 AM EST 10/06/2025 6:11 AM EST us Kasey Miller MD LAB BLOOD ORDERABLES Fin al Result [facility] [address] [place] [address], documented in this encounter Visit Diagnoses Diagnosis Unspecified atrial fibrillation (CMS/HCC V24, CMS/HCC V28) documented in this encounter Care Teams Metal Riveter Relationship Specialty Start Date End Date Bright Garber MD [address] [place] [address] PCP - General Internal Medicine 08/02/20 documented as of this encounter
--- OUTSIDE RECORDS SUMMARY | 2025-11-03 17:47 | XMS_ITS | Encounter Summary ---
Author Organization [facility] Address [address] [place] [address] Care Team Providers Care Diesel Engine Inspector Name Role Phone Bright Garber MD Primary Care Provider [phone] Encounter Details Date Type Department Care Team (Late Contact Info) Description 12/29/2024 Lab Requisition [facility] - Main Lab 299 [facility] [place] [address] Kasey Miller MD 819 [facility] 1 [place] [address] Chronic obstructive pulmonary disease, unspecified (CMS/HCC V24, [...] [facility] - [address] [facility] [address] [place] [address] Jose Schuler MD [address] [place] [address] [place] [address] documented as of this encounter Procedures Procedure Name Priority Date/Time Associated Diagnosis Comments PROTHROMBIN TIME WITH INR Routine 12/30/2024 6:23 AM EST Chronic obstructive pulmonary disease, unspecified (CMS/HCC) Essential (primary) hypertension group home (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 hemorrhage, unspecified Unspecified atrial fibrillation (CMS/HCC) COMPLETE BLOOD COUNT Routine 12/30/2024 6:23 AM EST Chronic obstructive pulmonary disease, unspecified (CMS/HCC) Essential (primary) hypertension group home (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 hemorrhage, unspecified Unspecified atrial fibrillation (CMS/HCC) BASIC METABOLIC PANEL Routine 12/30/2024 6:23 AM EST Chronic obstructive pulmonary disease, unspecified (CMS/HCC) Essential (primary) hypertension group home (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 hemorrhage, unspecified Unspecified atrial fibrillation (CMS/HCC) documented in this encounter Results * (ABNORMAL) Prothrombin time with INR (12/30/2024 6:23 AM EST) Protime 20.1(H) 10.6 - 13.9 sec LAB COAGULATION METHOD 12/30/2024 11:26 AM EST [facility] INR 1.6 LAB COAGULATION METHOD 12/30/2024 11:26 AM EST [facility] Blood Venous blood specimen / Unknown Venipuncture / Unknown 12/30/2024 6:23 AM EST 12/30/2024 11:08 AM EST us Kasey Miller MD LAB BLOOD ORDERABLES Fin al Result [facility] [address] [place] [address], * (ABNORMAL) Basic metabolic panel (12/30/2024 6:23 AM EST) Sodium 142 133 - 145 mmol/L LAB CHEMISTRY METHOD 12/30/2024 12:12 PM [facility] Potassium 4.0 3.5 - 5.5 mmol/L LAB CHEMISTRY METHOD 12/30/2024 12:12 PM [facility] Chloride 109 96 - 110 mmol/L LAB CHEMISTRY METHOD 12/30/2024 12:12 PM [facility] CO2 25 21 - 32 mmol/L LAB CHEMISTRY METHOD 12/30/2024 12:12 PM [facility] Anion Gap 8 3 - 11 LAB CHEMISTRY METHOD 12/30/2024 12:12 PM [facility] Glucose 87 70 - 100 mg/dL LAB CHEMISTRY METHOD 12/30/2024 12:12 PM [facility] BUN 28(H) 5 - 25 mg/dL LAB CHEMISTRY METHOD 12/30/2024 12:12 PM [facility] Creatinine 1.00 0.50 - 1.10 mg/dL LAB CHEMISTRY METHOD 12/30/2024 12:12 PM [facility] eGFR 56(L) >=60 mL/min/1. 73m2 LAB CHEMISTRY METHOD 12/30/2024 12:12 PM [facility] Comment:Calculation based on the Chronic Kidney Disease Epidemiology Collaboration (CKD-EPI) equation refit without adjustment for race. BUN/Creatinine Ratio 28.0 LAB CHEMISTRY METHOD 12/30/2024 12:12 PM [facility] Calcium 9.4 8.5 - 10.5 mg/dL LAB CHEMISTRY METHOD 12/30/2024 12:12 PM [facility] Blood Venous blood specimen / Unknown Venipuncture / Unknown 12/30/2024 6:23 AM EST 12/30/2024 11:07 AM EST us Kasey Miller MD LAB BLOOD ORDERABLES Fin al Result [facility] [address] [place] [address], * (ABNORMAL) Complete blood count (12/30/2024 6:23 AM EST) [facility] WBC 7.6 4.8 - 10.8 K/mcL LAB HEMETOLOGY METHOD 12/30/2024 11:23 AM [facility] RBC 3.20(L) 3.80 - 4.80 M/mcL LAB HEMETOLOGY METHOD 12/30/2024 11:23 AM [facility] Hemoglobin 9.4(L) 11.5 - 16.0 g/dL LAB HEMETOLOGY METHOD 12/30/2024 11:23 AM [facility] Hematocrit 31.5(L) 35.0 - 47.0 % LAB HEMETOLOGY METHOD 12/30/2024 11:23 AM [facility] MCV 99.1(H) 79.0 - 98.0 FL LAB HEMETOLOGY METHOD 12/30/2024 11:23 AM [facility] MCH 29.6 27.0 - 32.0 pcg LAB HEMETOLOGY METHOD 12/30/2024 11:23 AM [facility] MCHC 29.8(L) 32.0 - 37.0 g/dL LAB HEMETOLOGY METHOD 12/30/2024 11:23 AM [facility] RDW 17.2(H) 11.0 - 15.0 % LAB HEMETOLOGY METHOD 12/30/2024 11:23 AM [facility] Platelets 175 130 - 400 K/mcL LAB HEMETOLOGY METHOD 12/30/2024 11:23 AM [facility] MPV 11.1(H) 7.0 - 11.0 FL LAB HEMETOLOGY METHOD 12/30/2024 11:23 AM [facility] NRBC 0.0 <1.0 % LAB HEMETOLOGY METHOD 12/30/2024 11:23 AM [facility] NRBC Absolute 0.00 <0.10 K/[facility] LAB HEMETOLOGY METHOD 12/30/2024 11:23 AM EST [facility] Blood Venous blood specimen / Unknown Venipuncture / Unknown 12/30/2024 6:23 AM EST 12/30/2024 11:06 AM EST us Kasey Miller MD LAB BLOOD ORDERABLES Fin al Result [facility] [address] [place] [address], documented in this encounter Visit Diagnoses Diagnosis Chronic obstructive pulmonary disease, unspecified (CMS/HCC V24, CMS/HCC V28) Essential (primary) hypertension Unspecified essential hypertension 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 V28) documented in this encounter Care Teams Diesel Engine Inspector Relationship Specialty Start Date End Date Bright Garber MD [address] [place] [address] PCP - General Internal Medicine 08/02/20 documented as of this encounter
--- OUTSIDE RECORDS SUMMARY | 2025-11-03 17:48 | XMS_ITS | Encounter Summary ---
Author Organization [facility] Address [address] [place] [address] Care Team Providers Care Police Stenographer Name Role Phone Bright Garber MD Primary Care Provider [phone] Encounter Details Date Type Department Care Team (Late st Contact Info) Description 09/14/2025 Lab Requisition [facility] - Main Lab 299 [facility] [place] [address] Kasey Miller MD 819 [facility] 1 [place], [place] [phone] Unspecified atrial fibrillation (CMS/HCC V24, CMS/HCC V28) [...] Description 11/30/2025 2:00 PM EST Office Visit [facility] - [address] 300 [facility] [address] [place] [address] Jose Schuler MD [address] [place] [address] [address] [place] [address] documented as of this encounter Procedures Procedure Name Priority Date/Time Associated Diagnosis Comments PROTHROMBIN TIME WITH INR Routine 09/15/2025 6:37 AM EDT Unspecified atrial fibrillation (CMS/HCC V24, CMS/HCC V28) documented in this encounter Results * (ABNORMAL) Prothrombin time with INR (09/15/2025 6:37 AM EDT) Protime 23.2(H) 10.6 - 13.9 sec LAB COAGULATION METHOD 09/15/2025 9:23 AM EDT [facility] INR 1.9 LAB COAGULATION METHOD 09/15/2025 9:23 AM EDT [facility] Blood Venous blood specimen / Unknown Venipuncture / Unknown 09/15/2025 6:37 AM EDT 09/15/2025 9:02 AM EDT us Kasey Miller MD LAB BLOOD ORDERABLES Fin al Result [facility] [address] [place] [address], documented in this encounter Visit Diagnoses Diagnosis Unspecified atrial fibrillation (CMS/HCC V24, CMS/HCC V28) documented in this encounter Care Teams Police Stenographer Relationship Specialty Start Date End Date Bright Garber MD [address] [place] [address] PCP - General Internal Medicine 08/02/20 documented as of this encounter
--- OUTSIDE RECORDS SUMMARY | 2025-11-03 17:48 | XMS_ITS | Encounter Summary ---
Author Organization [facility] Address [address] [place] [address] Care Team Providers Care Heater Installer Name Role Phone Bright Garber MD Primary Care Provider [phone] Encounter Details Date Type Department Care Team (Late st Contact Info) Description 09/07/2025 Lab Requisition [facility] - Main Lab 299 [facility] [place] [address] Kasey Miller MD 819 [facility] 1 [place], [place] [phone] Unspecified atrial fibrillation (CMS/HCC V24, CMS/HCC V28) [...] PM EST Office Visit [facility] - [address] [facility] [address] [place] [address] Jose Schuler MD [address] [place] [address] [address] [place] [address] documented as of this encounter Procedures Procedure Name Priority Date/Time Associated Diagnosis Comments PROTHROMBIN TIME WITH INR Routine 09/08/2025 6:24 AM EDT Unspecified atrial fibrillation (CMS/HCC V24, CMS/HCC V28) documented in this encounter Results * (ABNORMAL) Prothrombin time with INR (09/08/2025 6:24 AM EDT) Protime 22.2(H) 10.6 - 13.9 sec LAB COAGULATION METHOD 09/08/2025 7:[address] [facility] INR 1.8 LAB COAGULATION METHOD 09/08/2025 7:[address] [facility] Blood Venous blood specimen / Unknown Venipuncture / Unknown 09/08/2025 6:24 AM EDT 09/08/2025 7:31 AM EDT us Kasey Miller MD LAB BLOOD ORDERABLES Fin al Result [facility] [address] [place] [address], documented in this encounter Visit Diagnoses Diagnosis Unspecified atrial fibrillation (CMS/HCC V24, CMS/HCC V28) documented in this encounter Care Teams Heater Installer Relationship Specialty Start Date End Date Bright Garber MD [address] [place] [address] PCP - General Internal Medicine 08/02/20 documented as of this encounter
--- OUTSIDE RECORDS SUMMARY | 2025-11-03 17:48 | XMS_ITS | Encounter Summary ---
Author Organization [facility] Address [address] [place] [address] Care Team Providers Care Tractor Trailer Driver Name Role Phone Bright Garber MD Primary Care Provider [phone] Encounter Details Date Type Department Care Team (Late st Contact Info) Description 09/29/2024 Lab Requisition [facility] - Main Lab 299 [facility] [place] [address] Kasey Miller MD 819 [facility] 1 [place] [address] Unspecified atrial fibrillation (CMS/HCC V24, CMS/HCC V28); 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 hemorrhage, unspecified; prison (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; Essential (primary) hypertension; [...] Visit [facility] - [address] [facility] [address] [place] [address] Jose Schuler MD [address] [place] [address] [place] [address] documented as of this encounter Procedures Procedure Name Priority Date/Time Associated Diagnosis Comments PROTHROMBIN TIME WITH INR Routine 09/30/2024 6:22 AM EST Unspecified atrial fibrillation (CMS/HCC) 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 hemorrhage, unspecified terminal carman (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 Essential (primary) hypertension Chronic obstructive pulmonary disease, unspecified (CMS/HCC) COMPLETE BLOOD COUNT Routine 09/30/2024 6:22 AM EST Unspecified atrial fibrillation (CMS/HCC) 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 hemorrhage, unspecified terminal carman (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 Essential (primary) hypertension Chronic obstructive pulmonary disease, unspecified (CMS/HCC) BASIC METABOLIC PANEL Routine 09/30/2024 6:22 AM EST Unspecified atrial fibrillation (CMS/HCC) 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 hemorrhage, unspecified prison (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 Essential (primary) hypertension Chronic obstructive pulmonary disease, unspecified (CMS/HCC) documented in this encounter Results * (ABNORMAL) Prothrombin time with INR (09/30/2024 6:22 AM EST) Protime 33.6(H) 10.6 - 13.9 sec LAB COAGULATION METHOD 09/30/2024 8:44 AM EST [facility] INR 2.7 LAB COAGULATION METHOD 09/30/2024 8:44 AM EST [facility] Blood Venous blood specimen / Unknown Venipuncture / Unknown 09/30/2024 6:22 AM EST 09/30/2024 8:06 AM EST us Kasey Miller MD LAB BLOOD ORDERABLES Fin al Result [facility] [address] [place] [address], * (ABNORMAL) Basic metabolic panel (09/30/2024 6:22 AM EST) Sodium 145 133 - 145 mmol/L LAB CHEMISTRY METHOD 09/30/2024 9:01 AM [facility] Potassium 4.1 3.5 - 5.5 mmol/L LAB CHEMISTRY METHOD 09/30/2024 9:01 AM [facility] Chloride 112(H) 96 - 110 mmol/L LAB CHEMISTRY METHOD 09/30/2024 9:01 AM [facility] CO2 30 21 - 32 mmol/L LAB CHEMISTRY METHOD 09/30/2024 9:01 AM [facility] Anion Gap 3 3 - 11 LAB CHEMISTRY METHOD 09/30/2024 9:01 AM [facility] Glucose 84 70 - 100 mg/dL LAB CHEMISTRY METHOD 09/30/2024 9:01 AM [facility] BUN 13 5 - 25 mg/dL LAB CHEMISTRY METHOD 09/30/2024 9:01 AM [facility] Creatinine 0.94 0.50 - 1.10 mg/dL LAB CHEMISTRY METHOD 09/30/2024 9:01 AM [facility] LAB eGFR 61 >=60 mL/min/1. 73m2 LAB CHEMISTRY METHOD 09/30/2024 9:01 AM [facility] LAB Comment:Calculation based on the Chronic Kidney Disease Epidemiology Collaboration (CKD-EPI) equation refit without adjustment for race. BUN/Creatinine Ratio 13.8 LAB CHEMISTRY METHOD 09/30/2024 9:01 AM [facility] Calcium 9.5 8.5 - 10.5 mg/dL LAB CHEMISTRY METHOD 09/30/2024 9:01 AM [facility] Blood Venous blood specimen / Unknown Venipuncture / Unknown 09/30/2024 6:22 AM EST 09/30/2024 8:06 AM EST us Kasey Miller MD LAB BLOOD ORDERABLES Fin al Result [facility] [address] [place] [address], * (ABNORMAL) Complete blood count (09/30/2024 6:22 AM EST) [facility] WBC 6.1 4.8 - 10.8 K/mcL LAB HEMETOLOGY METHOD 09/30/2024 8:32 AM [facility] RBC 3.10(L) 3.80 - 4.80 M/mcL LAB HEMETOLOGY METHOD 09/30/2024 8:32 AM [facility] Hemoglobin 9.1(L) 11.5 - 16.0 g/dL LAB HEMETOLOGY METHOD 09/30/2024 8:32 AM [facility] Hematocrit 30.5(L) 35.0 - 47.0 % LAB HEMETOLOGY METHOD 09/30/2024 8:32 AM [facility] MCV 99.3(H) 79.0 - 98.0 FL LAB HEMETOLOGY METHOD 09/30/2024 8:32 AM [facility] MCH 29.6 27.0 - 32.0 pcg LAB HEMETOLOGY METHOD 09/30/2024 8:32 AM [facility] MCHC 29.8(L) 32.0 - 37.0 g/dL LAB HEMETOLOGY METHOD 09/30/2024 8:32 AM [facility] RDW 17.3(H) 11.0 - 15.0 % LAB HEMETOLOGY METHOD 09/30/2024 8:32 AM [facility] Platelets 153 130 - 400 K/mcL LAB HEMETOLOGY METHOD 09/30/2024 8:32 AM [facility] MPV 11.1(H) 7.0 - 11.0 FL LAB HEMETOLOGY METHOD 09/30/2024 8:32 AM [facility] NRBC 0.0 <1.0 % LAB HEMETOLOGY METHOD 09/30/2024 8:32 AM [facility] NRBC Absolute 0.00 <0.10 K/mcL LAB HEMETOLOGY METHOD 09/30/2024 8:32 AM EST [facility] Blood Venous blood specimen / Unknown Venipuncture / Unknown 09/30/2024 6:22 AM EST 09/30/2024 8:06 AM EST us Kasey Miller MD LAB BLOOD ORDERABLES Fin al Result [facility] [address] [place] [address], documented in this encounter Visit Diagnoses Diagnosis Unspecified atrial fibrillation (CMS/HCC V24, CMS/HCC V28) 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 hemorrhage, unspecified terminal carman (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 Long-term (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 Essential (primary) hypertension Unspecified essential hypertension Chronic obstructive pulmonary disease, unspecified (CMS/HCC V24, CMS/HCC V28) documented in this encounter Care Teams Tractor Trailer Driver Relationship Specialty Start Date End Date Bright Garber MD [address] [place] [address] PCP - General Internal Medicine 08/02/20 documented as of this encounter
--- OUTSIDE RECORDS SUMMARY | 2025-11-03 17:48 | XMS_ITS | Encounter Summary ---
Author Organization [facility] Address [address] [place] [address] Care Team Providers Care Sba Underwriter Name Role Phone Bright Garber MD Primary Care Provider [phone] Encounter Details Date Type Department Care Team (Late st Contact Info) Description 09/02/2025 Lab Requisition [facility] - Main Lab 299 [facility] [place] [address] Kasey Miller MD [address] [facility] 1 [place], [place] [phone] Unspecified atrial fibrillation (CMS/HCC V24, CMS/HCC V28) [...] Description 11/30/2025 2:00 PM EST Office Visit [facility] - [address] [facility] [address] [place] [address] Jose Schuler MD [address] [place] [address] [address] [place] [address] documented as of this encounter Procedures Procedure Name Priority Date/Time Associated Diagnosis Comments PROTHROMBIN TIME WITH INR Routine 09/03/2025 5:38 AM EDT Unspecified atrial fibrillation (CMS/HCC V24, CMS/HCC V28) documented in this encounter Results * (ABNORMAL) Prothrombin time with INR (09/03/2025 5:38 AM EDT) Protime 22.9(H) 10.6 - 13.9 sec LAB COAGULATION METHOD 09/03/2025 9:01 AM EDT [facility] INR 1.8 LAB COAGULATION METHOD 09/03/2025 9:01 AM EDT [facility] Blood Venous blood specimen / Unknown Venipuncture / Unknown 09/03/2025 5:38 AM EDT 09/03/2025 7:25 AM EDT us Kasey Miller MD LAB BLOOD ORDERABLES Fin al Result [facility] [address] [place] [address], documented in this encounter Visit Diagnoses Diagnosis Unspecified atrial fibrillation (CMS/HCC V24, CMS/HCC V28) documented in this encounter Care Teams Sba Underwriter Relationship Specialty Start Date End Date Bright Garber MD [address] [place] [address] PCP - General Internal Medicine 08/02/20 documented as of this encounter
--- OUTSIDE RECORDS SUMMARY | 2025-11-03 17:48 | XMS_ITS | Encounter Summary ---
Author Organization [facility] Address [address] [place] [address] Care Team Providers Care Field Support Engineer Name Role Phone Bright Garber MD Primary Care Provider [phone] Encounter Details Date Type Department Care Team (Late st Contact Info) Description 07/17/2025 Lab Requisition [facility] - Main Lab 299 [facility] [place] [address] Kasey Miller MD 819 [facility] 1 [place], [place] [phone] Unspecified atrial fibrillation (CMS/HCC V24, CMS/HCC V28) [...] Description 11/30/2025 2:00 PM EST Office Visit [facility] - [address] [facility] [address] [place] [address] Jose Schuler MD [address] [place] [address] [address] [place] [address] documented as of this encounter Procedures Procedure Name Priority Date/Time Associated Diagnosis Comments PROTHROMBIN TIME WITH INR Routine 07/21/2025 7:20 AM EDT Unspecified atrial fibrillation (CMS/HCC V24, CMS/HCC V28) documented in this encounter Results * (ABNORMAL) Prothrombin time with INR (07/21/2025 7:20 AM EDT) Protime 31.5(H) 10.6 - 13.9 sec LAB COAGULATION METHOD 07/21/2025 9:32 AM EDT [facility] INR 2.6 LAB COAGULATION METHOD 07/21/2025 9:32 AM EDT [facility] Blood Venous blood specimen / Unknown Venipuncture / Unknown 07/21/2025 7:20 AM EDT 07/21/2025 9:12 AM EDT us Kasey Miller MD LAB BLOOD ORDERABLES Fin al Result [facility] [address] [place] [address], documented in this encounter Visit Diagnoses Diagnosis Unspecified atrial fibrillation (CMS/HCC V24, CMS/HCC V28) documented in this encounter Care Teams Field Support Engineer Relationship Specialty Start Date End Date Bright Garber MD [address] [place] [address] PCP - General Internal Medicine 08/02/20 documented as of this encounter
--- OUTSIDE RECORDS SUMMARY | 2025-11-03 17:48 | XMS_ITS | Encounter Summary ---
Author Organization [facility] Address [address] [place] [address] Care Team Providers Care Sharebroker Name Role Phone Bright Garber MD Primary Care Provider [phone] Encounter Details Date Type Department Care Team (Late st Contact Info) Description 10/27/2024 Lab Requisition [facility] - Main Lab 299 [facility] [place] [address] Kasey Miller MD 819 [facility] 1 [place] [address] Unspecified atrial fibrillation (CMS/HCC V24, CMS/HCC V28); 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 hemorrhage, unspecified; USP (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; Essential (primary) hypertension; [...] Description 11/30/2025 2:00 PM EST Office Visit [facility] - [address] [facility] [address] [place] [address] Jose Schuler MD [address] [place] [address] [place] [address] documented as of this encounter Procedures Procedure Name Priority Date/Time Associated Diagnosis Comments PROTHROMBIN TIME WITH INR Routine 10/28/2024 5:54 AM EST Unspecified atrial fibrillation (CMS/HCC) 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 hemorrhage, unspecified 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 Essential (primary) hypertension Chronic obstructive pulmonary disease, unspecified (CMS/HCC) COMPLETE BLOOD COUNT Routine 10/28/2024 5:54 AM EST Unspecified atrial fibrillation (CMS/HCC) 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 hemorrhage, unspecified 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 Essential (primary) hypertension Chronic obstructive pulmonary disease, unspecified (CMS/HCC) BASIC METABOLIC PANEL Routine 10/28/2024 5:54 AM EST Unspecified atrial fibrillation (CMS/HCC) 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 hemorrhage, unspecified USP (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 Essential (primary) hypertension Chronic obstructive pulmonary disease, unspecified (CMS/HCC) documented in this encounter Results * (ABNORMAL) Basic metabolic panel (10/28/2024 5:54 AM EST) Sodium 141 133 - 145 mmol/L LAB CHEMISTRY METHOD 10/28/2024 9:35 AM [facility] Potassium 4.2 3.5 - 5.5 mmol/L LAB CHEMISTRY METHOD 10/28/2024 9:35 AM [facility] Chloride 106 96 - 110 mmol/L LAB CHEMISTRY METHOD 10/28/2024 9:35 AM [facility] CO2 29 21 - 32 mmol/L LAB CHEMISTRY METHOD 10/28/2024 9:35 AM [facility] Anion Gap 6 3 - 11 LAB CHEMISTRY METHOD 10/28/2024 9:35 AM [facility] Glucose 81 70 - 100 mg/dL LAB CHEMISTRY METHOD 10/28/2024 9:35 AM [facility] BUN 19 5 - 25 mg/dL LAB CHEMISTRY METHOD 10/28/2024 9:35 AM [facility] Creatinine 1.19(H) 0.50 - 1.10 mg/dL LAB CHEMISTRY METHOD 10/28/2024 9:35 AM [facility] eGFR 45(L) >=60 mL/min/1. 73m2 LAB CHEMISTRY METHOD 10/28/2024 9:35 AM [facility] Comment:Calculation based on the Chronic Kidney Disease Epidemiology Collaboration (CKD-EPI) equation refit without adjustment for race. BUN/Creatinine Ratio 16.0 LAB CHEMISTRY METHOD 10/28/2024 9:35 AM [facility] Calcium 9.5 8.5 - 10.5 mg/dL LAB CHEMISTRY METHOD 10/28/2024 9:35 AM [facility] Blood Venous blood specimen / Unknown Venipuncture / Unknown 10/28/2024 5:54 AM EST 10/28/2024 7:56 AM EST us Kasey Miller MD LAB BLOOD ORDERABLES Fin al Result [facility] [address] [place] [address], * (ABNORMAL) Complete blood count (10/28/2024 5:54 AM EST) WBC 4.7(L) 4.8 - 10.8 K/mcL LAB HEMETOLOGY METHOD 10/28/2024 9:20 AM [facility] RBC 3.10(L) 3.80 - 4.80 M/mcL LAB HEMETOLOGY METHOD 10/28/2024 9:20 AM [facility] Hemoglobin 9.4(L) 11.5 - 16.0 g/dL LAB HEMETOLOGY METHOD 10/28/2024 9:20 AM [facility] Hematocrit 31.6(L) 35.0 - 47.0 % LAB HEMETOLOGY METHOD 10/28/2024 9:20 AM [facility] MCV 100.6(H) 79.0 - 98.0 FL LAB HEMETOLOGY METHOD 10/28/2024 9:20 AM EST [facility] MCH 29.9 27.0 - 32.0 pcg LAB HEMETOLOGY METHOD 10/28/2024 9:20 AM EST [facility] MCHC 29.7(L) 32.0 - 37.0 g/dL LAB HEMETOLOGY METHOD 10/28/2024 9:20 AM EST [facility] RDW 17.2(H) 11.0 - 15.0 % LAB HEMETOLOGY METHOD 10/28/2024 9:20 AM EST [facility] Platelets 162 130 - 400 K/mcL LAB HEMETOLOGY METHOD 10/28/2024 9:20 AM EST [facility] MPV 11.2(H) 7.0 - 11.0 FL LAB HEMETOLOGY METHOD 10/28/2024 9:20 AM EST [facility] NRBC 0.0 <1.0 % LAB HEMETOLOGY METHOD 10/28/2024 9:20 AM EST [facility] NRBC Absolute 0.00 <0.10 K/mcL LAB HEMETOLOGY METHOD 10/28/2024 9:20 AM EST [facility] Blood Venous blood specimen / Unknown Venipuncture / Unknown 10/28/2024 5:54 AM EST 10/28/2024 7:56 AM EST us Kasey Miller MD LAB BLOOD ORDERABLES Fin al Result [facility] LAB [address] [place] [address], * (ABNORMAL) Prothrombin time with INR (10/28/2024 5:54 AM EST) Protime 17.4(H) 10.6 - 13.9 sec LAB COAGULATION METHOD 10/28/2024 9:14 AM EST [facility] INR 1.4 LAB COAGULATION METHOD 10/28/2024 9:14 AM EST [facility] Blood Venous blood specimen / Unknown Venipuncture / Unknown 10/28/2024 5:54 AM EST 10/28/2024 7:56 AM EST us Kasey Miller MD LAB BLOOD ORDERABLES Fin al Result [facility] [address] [place] [address], documented in this encounter Visit Diagnoses Diagnosis Unspecified atrial fibrillation (CMS/HCC V24, CMS/HCC V28) 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 hemorrhage, unspecified USP (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 Long-term (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 Essential (primary) hypertension Unspecified essential hypertension Chronic obstructive pulmonary disease, unspecified (CMS/HCC V24, CMS/HCC V28) documented in this encounter Care Teams Sharebroker Relationship Specialty Start Date End Date Bright Garber MD [address] [place] [address] PCP - General Internal Medicine 08/02/20 documented as of this encounter
--- OUTSIDE RECORDS SUMMARY | 2025-11-03 17:48 | XMS_ITS | Encounter Summary ---
Author Organization [facility] Address [address] [place] [address] Care Team Providers Care Account Support Specialist Name Role Phone Bright Garber MD Primary Care Provider [phone] Encounter Details Date Type Department Care Team (Late Contact Info) Description 10/06/2024 Lab Requisition [facility] - Main Lab 299 [facility] [place] [address] Kasey Miller MD 819 [facility] 1 [place] [address] 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 hemorrhage, unspecified; detention (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; Essential (primary) hypertension; [...] Description 11/30/2025 2:00 PM EST Office Visit [facility] - [facility] [address] [facility] 154 [place] [address] Jose Schuler MD [address] [place] [address] [address] [place] [address] documented as of this encounter Procedures Procedure Name Priority Date/Time Associated Diagnosis Comments PROTHROMBIN TIME WITH INR Routine 10/07/2024 6:04 AM EST 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 hemorrhage, unspecified 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 Essential (primary) hypertension Chronic obstructive pulmonary disease, unspecified (CMS/HCC) COMPLETE BLOOD COUNT Routine 10/07/2024 6:04 AM EST 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 hemorrhage, unspecified 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 Essential (primary) hypertension Chronic obstructive pulmonary disease, unspecified (CMS/HCC) BASIC METABOLIC PANEL Routine 10/07/2024 6:04 AM EST 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 hemorrhage, unspecified detention (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 Essential (primary) hypertension Chronic obstructive pulmonary disease, unspecified (CMS/HCC) documented in this encounter Results * (ABNORMAL) Prothrombin time with INR (10/07/2024 6:04 AM EST) Protime 32.9(H) 10.6 - 13.9 sec LAB COAGULATION METHOD 10/07/2024 8:25 AM EST [facility] INR 2.6 LAB COAGULATION METHOD 10/07/2024 8:25 AM EST [facility] Blood Venous blood specimen / Unknown Venipuncture / Unknown 10/07/2024 6:04 AM EST 10/07/2024 7:54 AM EST Kasey Miller MD LAB BLOOD ORDERABLES Fin al Result [facility] [address] [place] [address], * (ABNORMAL) Basic metabolic panel (10/07/2024 6:04 AM EST) Sodium 144 133 - 145 mmol/L LAB CHEMISTRY METHOD 10/07/2024 8:52 AM EST [facility] Potassium 4.2 3.5 - 5.5 mmol/L LAB CHEMISTRY METHOD 10/07/2024 8:52 AM EST [facility] Chloride 111(H) 96 - 110 mmol/L LAB CHEMISTRY METHOD 10/07/2024 8:52 AM [facility] CO2 31 21 - 32 mmol/L LAB CHEMISTRY METHOD 10/07/2024 8:52 AM [facility] Anion Gap 2(L) 3 - 11 LAB CHEMISTRY METHOD 10/07/2024 8:52 AM [facility] Glucose 85 70 - 100 mg/dL LAB CHEMISTRY METHOD 10/07/2024 8:52 AM [facility] BUN 16 5 - 25 mg/dL LAB CHEMISTRY METHOD 10/07/2024 8:52 AM [facility] Creatinine 0.96 0.50 - 1.10 mg/dL LAB CHEMISTRY METHOD 10/07/2024 8:52 AM [facility] eGFR 59(L) >=60 mL/min/1. 73m2 LAB CHEMISTRY METHOD 10/07/2024 8:52 AM [facility] Comment:Calculation based on the Chronic Kidney Disease Epidemiology Collaboration (CKD-EPI) equation refit without adjustment for race. BUN/Creatinine Ratio 16.7 LAB CHEMISTRY METHOD 10/07/2024 8:52 AM [facility] Calcium 9.4 8.5 - 10.5 mg/dL LAB CHEMISTRY METHOD 10/07/2024 8:52 AM [facility] Blood Venous blood specimen / Unknown Venipuncture / Unknown 10/07/2024 6:04 AM EST 10/07/2024 7:54 AM EST us Kasey Miller MD LAB BLOOD ORDERABLES Fin al Result [facility] [address] [place] [address], * (ABNORMAL) Complete blood count (10/07/2024 6:04 AM EST) WBC 6.4 4.8 - 10.8 K/mcL LAB HEMETOLOGY METHOD 10/07/2024 8:24 AM [facility] RBC 2.90(L) 3.80 - 4.80 M/mcL LAB HEMETOLOGY METHOD 10/07/2024 8:24 AM [facility] Hemoglobin 8.9(L) 11.5 - 16.0 g/dL LAB HEMETOLOGY METHOD 10/07/2024 8:24 AM [facility] Hematocrit 29.4(L) 35.0 - 47.0 % LAB HEMETOLOGY METHOD 10/07/2024 8:24 AM [facility] MCV 100.3(H) 79.0 - 98.0 FL LAB HEMETOLOGY METHOD 10/07/2024 8:24 AM [facility] MCH 30.4 27.0 - 32.0 pcg LAB HEMETOLOGY METHOD 10/07/2024 8:24 AM [facility] MCHC 30.3(L) 32.0 - 37.0 g/dL LAB HEMETOLOGY METHOD 10/07/2024 8:24 AM [facility] RDW 17.2(H) 11.0 - 15.0 % LAB HEMETOLOGY METHOD 10/07/2024 8:24 AM [facility] Platelets 150 130 - 400 K/mcL LAB HEMETOLOGY METHOD 10/07/2024 8:24 AM [facility] MPV 10.8 7.0 - 11.0 FL LAB HEMETOLOGY METHOD 10/07/2024 8:24 AM [facility] NRBC 0.0 <1.0 % LAB HEMETOLOGY METHOD 10/07/2024 8:24 AM [facility] NRBC Absolute 0.00 <0.10 K/mcL LAB HEMETOLOGY METHOD 10/07/2024 8:24 AM [facility] Blood Venous blood specimen / Unknown Venipuncture / Unknown 10/07/2024 6:04 AM EST 10/07/2024 7:54 AM EST Kasey Miller MD LAB BLOOD ORDERABLES Fin al Result [facility] [address] [place] [address], documented in this encounter Visit Diagnoses Diagnosis 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 hemorrhage, unspecified detention (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 Long-term (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 Essential (primary) hypertension Unspecified essential hypertension Chronic obstructive pulmonary disease, unspecified (CMS/HCC V24, CMS/HCC V28) documented in this encounter Care Teams Account Support Specialist Relationship Specialty Start Date End Date Bright Garber MD [address] [place] [address] PCP - General Internal Medicine 08/02/20 documented as of this encounter
--- OUTSIDE RECORDS SUMMARY | 2025-11-03 17:48 | XMS_ITS | Encounter Summary ---
Author Organization [facility] Address [address] [place] [address] Care Team Providers Care Tying Machine Operator Lumber Name Role Phone Bright Garber MD Primary Care Provider [phone] Encounter Details Date Type Department Care Team (Late st Contact Info) Description 10/20/[address] [facility] - Main Lab 299 [facility] [place] [address] Bentley Mittal MD [address] [place] [address] Unspecified atrial fibrillation (CMS/HCC V24, CMS/HCC V28); 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 hemorrhage, unspecified; jail (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; Essential (primary) hypertension; [...] Visit [facility] - [address] [facility] [address] [place] [address] Jose Schuler MD [address] [place] [address] [place] [address] documented as of this encounter Procedures Procedure Name Priority Date/Time Associated Diagnosis Comments PROTHROMBIN TIME WITH INR Routine 10/21/2024 6:35 AM EST Unspecified atrial fibrillation (CMS/HCC) 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 hemorrhage, unspecified jail (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 Essential (primary) hypertension Chronic obstructive pulmonary disease, unspecified (CMS/HCC) COMPLETE BLOOD COUNT Routine 10/21/2024 6:35 AM EST Unspecified atrial fibrillation (CMS/HCC) 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 hemorrhage, unspecified 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 Essential (primary) hypertension Chronic obstructive pulmonary disease, unspecified (CMS/HCC) BASIC METABOLIC PANEL Routine 10/21/2024 6:35 AM EST Unspecified atrial fibrillation (CMS/HCC) 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 hemorrhage, unspecified jail (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 Essential (primary) hypertension Chronic obstructive pulmonary disease, unspecified (CMS/HCC) documented in this encounter Results * (ABNORMAL) Prothrombin time with INR (10/21/2024 6:35 AM EST) Protime 23.4(H) 10.6 - 13.9 sec LAB COAGULATION METHOD 10/21/2024 9:33 AM EST [facility] INR 1.9 LAB COAGULATION METHOD 10/21/2024 9:33 AM EST [facility] Blood Venous blood specimen / Unknown Venipuncture / Unknown 10/21/2024 6:35 AM EST 10/21/2024 8:23 AM EST us Bentley Mittal MD LAB BLOOD ORDERABLES Final R esult [facility] [address] [place] [address], * (ABNORMAL) Basic metabolic panel (10/21/2024 6:35 AM EST) Sodium 145 133 - 145 mmol/L LAB CHEMISTRY METHOD 10/21/2024 9:43 AM EST [facility] Potassium 4.2 3.5 - 5.5 mmol/L LAB CHEMISTRY METHOD 10/21/2024 9:43 AM [facility] Chloride 110 96 - 110 mmol/L LAB CHEMISTRY METHOD 10/21/2024 9:43 AM [facility] CO2 29 21 - 32 mmol/L LAB CHEMISTRY METHOD 10/21/2024 9:43 AM [facility] Anion Gap 6 3 - 11 LAB CHEMISTRY METHOD 10/21/2024 9:43 AM [facility] Glucose 79 70 - 100 mg/dL LAB CHEMISTRY METHOD 10/21/2024 9:43 AM [facility] BUN 17 5 - 25 mg/dL LAB CHEMISTRY METHOD 10/21/2024 9:43 AM [facility] Creatinine 0.96 0.50 - 1.10 mg/dL LAB CHEMISTRY METHOD 10/21/2024 9:43 AM [facility] eGFR 59(L) >=60 mL/min/1. 73m2 LAB CHEMISTRY METHOD 10/21/2024 9:43 AM [facility] Comment:Calculation based on the Chronic Kidney Disease Epidemiology Collaboration (CKD-EPI) equation refit without adjustment for race. BUN/Creatinine Ratio 17.7 LAB CHEMISTRY METHOD 10/21/2024 9:43 AM [facility] Calcium 9.1 8.5 - 10.5 mg/dL LAB CHEMISTRY METHOD 10/21/2024 9:43 AM [facility] Blood Venous blood specimen / Unknown Venipuncture / Unknown 10/21/2024 6:35 AM EST 10/21/2024 8:23 AM EST us Bentley Mittal MD LAB BLOOD ORDERABLES Final R esult [facility] [address] [place] [address], * (ABNORMAL) Complete blood count (10/21/2024 6:35 AM EST) [facility] WBC 6.3 4.8 - 10.8 K/mcL LAB HEMETOLOGY METHOD 10/21/2024 9:17 AM [facility] RBC 3.00(L) 3.80 - 4.80 M/mcL LAB HEMETOLOGY METHOD 10/21/2024 9:17 AM [facility] Hemoglobin 8.9(L) 11.5 - 16.0 g/dL LAB HEMETOLOGY METHOD 10/21/2024 9:17 AM [facility] Hematocrit 29.4(L) 35.0 - 47.0 % LAB HEMETOLOGY METHOD 10/21/2024 9:17 AM [facility] MCV 99.7(H) 79.0 - 98.0 FL LAB HEMETOLOGY METHOD 10/21/2024 9:17 AM [facility] MCH 30.2 27.0 - 32.0 pcg LAB HEMETOLOGY METHOD 10/21/2024 9:17 AM [facility] MCHC 30.3(L) 32.0 - 37.0 g/dL LAB HEMETOLOGY METHOD 10/21/2024 9:17 AM [facility] RDW 17.4(H) 11.0 - 15.0 % LAB HEMETOLOGY METHOD 10/21/2024 9:17 AM [facility] Platelets 156 130 - 400 K/mcL LAB HEMETOLOGY METHOD 10/21/2024 9:17 AM [facility] MPV 10.8 7.0 - 11.0 FL LAB HEMETOLOGY METHOD 10/21/2024 9:17 AM [facility] NRBC 0.0 <1.0 % LAB HEMETOLOGY METHOD 10/21/2024 9:17 AM [facility] NRBC Absolute 0.00 <0.10 K/mcL LAB HEMETOLOGY METHOD 10/21/2024 9:17 AM EST [facility] Blood Venous blood specimen / Unknown Venipuncture / Unknown 10/21/2024 6:35 AM EST 10/21/2024 8:23 AM EST us Bentley Mittal MD LAB BLOOD ORDERABLES Final R esult [facility] [address] [place] [address], documented in this encounter Visit Diagnoses Diagnosis Unspecified atrial fibrillation (CMS/HCC V24, CMS/[facility] V28) 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 hemorrhage, unspecified jail (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 Long-term (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 Essential (primary) hypertension Unspecified essential hypertension Chronic obstructive pulmonary disease, unspecified (CMS/HCC V24, CMS/HCC V28) documented in this encounter Care Teams Tying Machine Operator Lumber Relationship Specialty Start Date End Date Bright Garber MD [address] [place] [address] PCP - General Internal Medicine 08/02/20 documented as of this encounter
--- OUTSIDE RECORDS SUMMARY | 2025-11-03 17:48 | XMS_ITS | Encounter Summary ---
Author Organization [facility] Address [address] [place] [address] Care Team Providers Care Dishing Machine Operator Name Role Phone Bright Garber MD Primary Care Provider [phone] Encounter Details Date Type Department Care Team (Late st Contact Info) Description 04/02/2025 Lab Requisition [facility] - Main Lab 299 [facility] [place] [address] Kasey Miller MD 819 [facility] 1 [place], [place] [id number] Unspecified atrial fibrillation (CMS/HCC V24, CMS/HCC V28) [...] Description 11/30/2025 2:00 PM EST Office Visit [facility] - [address] [facility] [address] [place] [address] Jose Schuler MD [address] [place] [address] [address] [place] [address] documented as of this encounter Procedures Procedure Name Priority Date/Time Associated Diagnosis Comments PROTHROMBIN TIME WITH INR Routine 04/03/2025 5:29 AM EDT Unspecified atrial fibrillation (CMS/HCC V24, CMS/HCC V28) documented in this encounter Results * (ABNORMAL) Prothrombin time with INR (04/03/2025 5:29 AM EDT) Protime 33.1(H) 10.6 - 13.9 sec LAB COAGULATION METHOD 04/03/2025 10:20 AM EDT [facility] INR 2.7 LAB COAGULATION METHOD 04/03/2025 10:20 AM EDT [facility] Blood Venous blood specimen / Unknown Venipuncture / Unknown 04/03/2025 5:29 AM EDT 04/03/2025 8:29 AM EDT us Kasey Miller MD LAB BLOOD ORDERABLES Fin al Result [facility] [address] [place] [address], documented in this encounter Visit Diagnoses Diagnosis Unspecified atrial fibrillation (CMS/HCC V24, CMS/HCC V28) documented in this encounter Care Teams Dishing Machine Operator Relationship Specialty Start Date End Date Bright Garber MD [address] [place] [address] PCP - General Internal Medicine 08/02/20 documented as of this encounter
--- OUTSIDE RECORDS SUMMARY | 2025-11-03 17:48 | XMS_ITS | Encounter Summary ---
Author Organization [facility] Address [address] [place] [address] Care Team Providers Care Criminal Intelligence Analyst Name Role Phone Bright Garber MD Primary Care Provider [phone] Encounter Details Date Type Department Care Team (Late st Contact Info) Description 08/04/2025 Lab Requisition [facility] - Main Lab 299 [facility] [place] [address] Kasey Miller MD 819 [facility] 1 [place], [place] [phone] Unspecified atrial fibrillation (CMS/HCC V24, CMS/HCC V28) [...] Visit [facility] - [address] [facility] [address] [place] [address] Jose Schuler MD [address] [place] [address] [address] [place] [address] documented as of this encounter Procedures Procedure Name Priority Date/Time Associated Diagnosis Comments PROTHROMBIN TIME WITH INR Routine 08/04/2025 6:25 AM EDT Unspecified atrial fibrillation (CMS/HCC V24, CMS/HCC V28) documented in this encounter Results * (ABNORMAL) Prothrombin time with INR (08/04/2025 6:25 AM EDT) Protime 34.1(H) 10.6 - 13.9 sec LAB COAGULATION METHOD 08/04/2025 9:20 AM EDT [facility] INR 2.8 LAB COAGULATION METHOD 08/04/2025 9:20 AM EDT [facility] Blood Venous blood specimen / Unknown Venipuncture / Unknown 08/04/2025 6:25 AM EDT 08/04/2025 9:04 AM EDT us Kasey Miller MD LAB BLOOD ORDERABLES Fin al Result [facility] [address] [place] [address], documented in this encounter Visit Diagnoses Diagnosis Unspecified atrial fibrillation (CMS/HCC V24, CMS/HCC V28) documented in this encounter Care Teams Criminal Intelligence Analyst Relationship Specialty Start Date End Date Bright Garber MD [address] [place] [address] PCP - General Internal Medicine 08/02/20 documented as of this encounter
--- OUTSIDE RECORDS SUMMARY | 2025-11-03 17:48 | XMS_ITS | Encounter Summary ---
Author Organization [facility] Address [address] [place] [address] Care Team Providers Care Floor Mechanic Name Role Phone Bright Garber MD Primary Care Provider [phone] Encounter Details Date Type Department Care Team (Late Contact Info) Description 10/13/2024 Lab Requisition [facility] - Main Lab 299 [facility] [place] [address] Kasey Miller MD 9 [facility] 1 [place] [address] 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 hemorrhage, unspecified; [facility] (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; Essential (primary) hypertension; [...] 11/30/2025 2:00 PM EST Office Visit [facility] - [facility] [address] 300 [facility] 154 [place] [address] Jose Schuler MD [address] [place] [address] [address] [place] [address] documented as of this encounter Procedures Procedure Name Priority Date/Time Associated Diagnosis Comments PROTHROMBIN TIME WITH INR Routine 10/14/2024 5:36 AM EST 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 hemorrhage, unspecified 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 Essential (primary) hypertension Chronic obstructive pulmonary disease, unspecified (CMS/HCC) COMPLETE BLOOD COUNT Routine 10/14/2024 5:36 AM EST 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 hemorrhage, unspecified 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 Essential (primary) hypertension Chronic obstructive pulmonary disease, unspecified (CMS/HCC) BASIC METABOLIC PANEL Routine 10/14/2024 5:36 AM EST 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 hemorrhage, unspecified [facility] (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 Essential (primary) hypertension Chronic obstructive pulmonary disease, unspecified (CMS/HCC) documented in this encounter Results * (ABNORMAL) Prothrombin time with INR (10/14/2024 5:36 AM EST) Protime 19.1(H) 10.6 - 13.9 sec LAB COAGULATION METHOD 10/14/2024 8:57 AM EST [facility] INR 1.5 LAB COAGULATION METHOD 10/14/2024 8:57 AM EST [facility] Blood Venous blood specimen / Unknown Venipuncture / Unknown 10/14/2024 5:36 AM EST 10/14/2024 7:54 AM EST Kasey Miller MD LAB BLOOD ORDERABLES Fin al Result [facility] [address] [place] [address], * (ABNORMAL) Basic metabolic panel (10/14/2024 5:36 AM EST) Sodium 143 133 - 145 mmol/L LAB CHEMISTRY METHOD 10/14/2024 8:43 AM EST [facility] Potassium 4.2 3.5 - 5.5 mmol/L LAB CHEMISTRY METHOD 10/14/2024 8:43 AM EST [facility] Chloride 109 96 - 110 mmol/L LAB CHEMISTRY METHOD 10/14/2024 8:43 AM [facility] CO2 30 21 - 32 mmol/L LAB CHEMISTRY METHOD 10/14/2024 8:43 AM [facility] Anion Gap 4 3 - 11 LAB CHEMISTRY METHOD 10/14/2024 8:43 AM [facility] Glucose 86 70 - 100 mg/dL LAB CHEMISTRY METHOD 10/14/2024 8:43 AM [facility] BUN 21 5 - 25 mg/dL LAB CHEMISTRY METHOD 10/14/2024 8:43 AM [facility] Creatinine 0.96 0.50 - 1.10 mg/dL LAB CHEMISTRY METHOD 10/14/2024 8:43 AM [facility] eGFR 59(L) >=60 mL/min/1. 73m2 LAB CHEMISTRY METHOD 10/14/2024 8:43 AM [facility] Comment:Calculation based on the Chronic Kidney Disease Epidemiology Collaboration (CKD-EPI) equation refit without adjustment for race. BUN/Creatinine Ratio 21.9 LAB CHEMISTRY METHOD 10/14/2024 8:43 AM [facility] Calcium 9.2 8.5 - 10.5 mg/dL LAB CHEMISTRY METHOD 10/14/2024 8:43 AM [facility] Blood Venous blood specimen / Unknown Venipuncture / Unknown 10/14/2024 5:36 AM EST 10/14/2024 7:54 AM EST us Kasey Miller MD LAB BLOOD ORDERABLES Fin al Result [facility] [address] [place] [address], * (ABNORMAL) Complete blood count (10/14/2024 5:36 AM EST) WBC 7.6 4.8 - 10.8 K/mcL LAB HEMETOLOGY METHOD 10/14/2024 8:19 AM [facility] RBC 2.80(L) 3.80 - 4.80 M/[facility] LAB HEMETOLOGY METHOD 10/14/2024 8:19 AM [facility] Hemoglobin 8.5(L) 11.5 - 16.0 g/dL LAB HEMETOLOGY METHOD 10/14/2024 8:19 AM [facility] Hematocrit 28.5(L) 35.0 - 47.0 % LAB HEMETOLOGY METHOD 10/14/2024 8:19 AM [facility] MCV 101.8(H) 79.0 - 98.0 FL LAB HEMETOLOGY METHOD 10/14/2024 8:19 AM [facility] MCH 30.4 27.0 - 32.0 pcg LAB HEMETOLOGY METHOD 10/14/2024 8:19 AM [facility] MCHC 29.8(L) 32.0 - 37.0 g/dL LAB HEMETOLOGY METHOD 10/14/2024 8:19 AM [facility] RDW 17.4(H) 11.0 - 15.0 % LAB HEMETOLOGY METHOD 10/14/2024 8:19 AM [facility] Platelets 158 130 - 400 K/mcL LAB HEMETOLOGY METHOD 10/14/2024 8:19 AM [facility] MPV 10.9 7.0 - 11.0 FL LAB HEMETOLOGY METHOD 10/14/2024 8:19 AM [facility] NRBC 0.0 <1.0 % LAB HEMETOLOGY METHOD 10/14/2024 8:19 AM [facility] NRBC Absolute 0.00 <0.10 K/[facility] LAB HEMETOLOGY METHOD 10/14/2024 8:19 AM [facility] Blood Venous blood specimen / Unknown Venipuncture / Unknown 10/14/2024 5:36 AM EST 10/14/2024 7:54 AM EST us Kasey Miller MD LAB BLOOD ORDERABLES Fin al Result [facility] [address] [place] [address], documented in this encounter Visit Diagnoses Diagnosis 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 hemorrhage, unspecified [facility] (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 Long-term (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 Essential (primary) hypertension Unspecified essential hypertension Chronic obstructive pulmonary disease, unspecified (CMS/HCC V24, CMS/HCC V28) documented in this encounter Care Teams Floor Mechanic Relationship Specialty Start Date End Date Bright Garber MD [address] [place] [address] PCP - General Internal Medicine 08/02/20 documented as of this encounter
--- OUTSIDE RECORDS SUMMARY | 2025-11-03 17:48 | XMS_ITS | Encounter Summary ---
Author Organization [facility] Address [address] [place] [address] Care Team Providers Care Accounts Receivable Manager Name Role Phone Bright Garber MD Primary Care Provider [phone] Encounter Details Date Type Department Care Team (Late st Contact Info) Description 08/11/2025 Lab Requisition [facility] - Main Lab 299 [facility] [place] [address] Kasey Miller MD 819 [facility] 1 [place], [place] [id number] Unspecified atrial fibrillation (CMS/HCC V24, CMS/HCC V28) [...] Description 11/30/2025 2:00 PM EST Office Visit [facility] - [address] [facility] [address] [place] [address] Jose Schuler MD [address] [place] [address] [address] [place] [address] documented as of this encounter Procedures Procedure Name Priority Date/Time Associated Diagnosis Comments PROTHROMBIN TIME WITH INR Routine 08/11/2025 6:25 AM EDT Unspecified atrial fibrillation (CMS/HCC V24, CMS/HCC V28) documented in this encounter Results * (ABNORMAL) Prothrombin time with INR (08/11/2025 6:25 AM EDT) Protime 28.1(H) 10.6 - 13.9 sec LAB COAGULATION METHOD 08/11/2025 9:10 AM EDT [facility] INR 2.3 LAB COAGULATION METHOD 08/11/2025 9:10 AM EDT [facility] Blood Venous blood specimen / Unknown Venipuncture / Unknown 08/11/2025 6:25 AM EDT 08/11/2025 8:09 AM EDT us Kasey Miller MD LAB BLOOD ORDERABLES Fin al Result [facility] [address] [place] [address], documented in this encounter Visit Diagnoses Diagnosis Unspecified atrial fibrillation (CMS/HCC V24, CMS/HCC V28) documented in this encounter Care Teams Accounts Receivable Manager Relationship Specialty Start Date End Date Bright Garber MD [address] [place] [address] PCP - General Internal Medicine 08/02/20 documented as of this encounter
--- OUTSIDE RECORDS SUMMARY | 2025-11-03 17:50 | XMS_ITS | Encounter Summary ---
Author Organization [facility] Address [address] [place] [address] Care Team Providers Care System Administration Advisor Name Role Phone Bright Garber MD Primary Care Provider [phone] Encounter Details Date Type Department Care Team (Late st Contact Info) Description 08/17/2025 Lab Requisition [facility] - Main Lab 299 [facility] [place] [address] Kasey Miller MD 819 [facility] 1 [place], [place] [id number] Unspecified atrial fibrillation (CMS/HCC V24, CMS/HCC V28) [...] EST Office Visit [facility] - [address] [facility] [address] [place] [address] Jose Schuler MD [address] [place] [address] [address] [place] [address] documented as of this encounter Procedures Procedure Name Priority Date/Time Associated Diagnosis Comments PROTHROMBIN TIME WITH INR Routine 08/18/2025 6:18 AM EDT Unspecified atrial fibrillation (CMS/HCC V24, CMS/HCC V28) documented in this encounter Results * (ABNORMAL) Prothrombin time with INR (08/18/2025 6:18 AM EDT) Protime 31.8(H) 10.6 - 13.9 sec LAB COAGULATION METHOD 08/18/2025 9:18 AM EDT [facility] INR 2.6 LAB COAGULATION METHOD 08/18/2025 9:18 AM EDT [facility] Blood Venous blood specimen / Unknown Venipuncture / Unknown 08/18/2025 6:18 AM EDT 08/18/2025 8:07 AM EDT us Kasey Miller MD LAB BLOOD ORDERABLES Fin al Result [facility] [address] [place] [address], documented in this encounter Visit Diagnoses Diagnosis Unspecified atrial fibrillation (CMS/HCC V24, CMS/HCC V28) documented in this encounter Care Teams System Administration Advisor Relationship Specialty Start Date End Date Bright Garber MD [address] [place] [address] PCP - General Internal Medicine 08/02/20 documented as of this encounter
--- OUTSIDE RECORDS SUMMARY | 2025-11-03 17:50 | XMS_ITS | Patient Health Record ---
Author Organization [facility] Address [address] [place] [address] Care Team Providers Care Button Cutting Machine Operator Name Role Phone Shirlene (RETIRED) Bright ANGULO Primary Care Provider Unavailable Jeffry Jacobson Jr Unavailable Allergies Allergen (clinical drug ingredient) Drug/Non Drug Allergy documented on EMR Reaction Allergy Type Onset Date Status trimethoprim Trimethoprim Unknown Drug Allergy A ctive Sulfa Unknown Drug Allergy Active Reason For Referral No Information Medications Medication SIG (Take, Route, Frequency, Duration) Notes Start Date End Date Status oxyBUTYnin Chloride 5 MG Tablet 1 tablet Orally Twice a day Active Oxygen-Helium 20-80 % Gas as directed In halation as directed Active Citalopram Hydrobromide 40 MG Tablet 0.5 tablet Orally Once a day Active Aspir-81 81 MG Tablet Delayed Release 1 tablet Orally Once a day Active amLODIPine Besylate 2.5 MG Tablet 1 tablet Orally Once a day Active traMADol HCl 50 MG Tablet 1 tablet as ne eded Oral prn Active Meloxicam 10 MG Capsule 2 tablet Orally twice a day Active Pravastatin Sodium 40 MG Tablet 1 tablet Orally Once a day Active Tylenol 325 MG Tablet 6-8 tablet as need ed Orally daily Active Colyte with Flavor Packs 240 GM Solution Reconstituted As directed Orally Over the specified time.; Duration: 1 day(s) Active Omeprazole 20 MG Capsule Delayed Release 1 capsule Orally twice a day Active Immunizations Vaccine Route Administration Date Status Comme nts Flu vaccine no Preserv 3 and > Unknown 08/07/2017 Admin istered Social History Social History Drugs/Alcohol: Social Info Question Answer Notes Alcohol Screen Did you have a drink containing alcohol in the past year? Yes How often did you have a drink containing alcohol in the past year? Monthly or less (1 point) How many drinks did you have on a typical day when you were drinking in the past year? 1 or 2 drinks (0 point) How often did you have 6 or more drinks on one occasion in the past year? Never (0 point) Points 1 Interpretation Negative Additional Details Category Social Info Options Details Miscellaneous: Marital status: Occupation: retired Problems Problem Type SNOMED Code ICD Code Onset Dates Problem Status W/U Status Risk Notes Problem Colon cancer screening (900062486) Colon cancer screening (Z12.11) Active confirmed Problem Long-term current use of antiplatelet drug (331522650860684) shelter (current) use of aspirin (Z79.82) Active confirmed Problem Hemorrhage of colon due to diverticulosis (888405386221025) 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 hemorrhage associated with intestinal diverticulosis (K57.91) Active confirmed Plan Of Treatment Future Test Test Name Order Date COLONOSCOPY 12/11/2012 COLONOSCOPY 07/17/2018 Insurance Providers Payer Name Payer Address Payer Phone Subscriber Number Group Number Insured Name Patient Relationship to Insured Coverage Start Date Coverage End Date MEDICARE OF [place] [address] ABBY CONTRERAS [id number] GRIFFIN SANCHEZ Self - patient is the insured Medical (General) History Medical History History ICD Code colonoscopy 02/21/13 history of colon polyps pulomnary embolism elevated cholesterol 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
--- OUTSIDE RECORDS SUMMARY | 2025-11-03 17:50 | XMS_ITS | Encounter Summary ---
Author Organization [facility] Address [address] [place] [address] Care Team Providers Care Literary Writer Name Role Phone Bright Garber MD Primary Care Provider [phone] Encounter Details Date Type Department Care Team (Late Contact Info) Description 05/04/2025 Lab Requisition [facility] - Main Lab 299 [facility] [place] [address] Kasey Miller MD 9 [facility] 1 [place] [address] Chronic combined systolic (congestive) and diastolic (congestive) [...] Description 11/30/2025 2:00 PM EST Office Visit [facility] - [address] [facility] [address] [place] [address] Jose Schuler MD [address] [place] [address] [address] [place] [address] documented as of this encounter Procedures Procedure Name Priority Date/Time Associated Diagnosis Comments PROTHROMBIN TIME WITH INR Routine 05/05/2025 5:41 AM EDT Chronic combined systolic (congestive) and diastolic (congestive) heart failure (CMS/HCC V24, CMS/HCC V28) Paroxysmal atrial fibrillation (CMS/HCC V24, CMS/HCC V28) documented in this encounter Results * (ABNORMAL) Prothrombin time with INR (05/05/2025 5:41 AM EDT) Protime 50.5(H) 10.6 - 13.9 sec LAB COAGULATION METHOD 05/05/2025 8:37 AM EDT [facility] INR 4.1 LAB COAGULATION METHOD 05/05/2025 8:37 AM EDT [facility] Blood Venous blood specimen / Unknown Venipuncture / Unknown 05/05/2025 5:41 AM EDT 05/05/2025 7:09 AM EDT us Kasey Miller MD LAB BLOOD ORDERABLES Fin al Result [facility] [address] [place] [address], documented in this encounter Visit Diagnoses Diagnosis Chronic combined systolic (congestive) and diastolic (congestive) heart failure ([facility]/HCC V24, CMS/HCC V28) Paroxysmal atrial fibrillation ([facility]/HCC V24, [facility]/HCC V28) Atrial fibrillation documented in this encounter Care Teams Literary Writer Relationship Specialty Start Date End Date Bright Garber MD [address] [place] [address] PCP - General Internal Medicine 08/02/20 documented as of this encounter
--- OUTSIDE RECORDS SUMMARY | 2025-11-03 17:50 | XMS_ITS | Encounter Summary ---
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 (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; 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 hemorrhage, unspecified [...] 11/30/2025 2:00 PM EST Office Visit [facility] - [facility] [address] 300 [facility] 154 [place] [address] Jose Schuler MD [address] [place] [address] [address] [place] [address] documented as of this encounter Procedures Procedure Name Priority Date/Time Associated Diagnosis Comments PROTHROMBIN TIME WITH INR Routine 03/17/2025 6:28 AM EDT Chronic obstructive pulmonary disease, unspecified (CMS/[facility] V24, [facility] V28) Essential (primary) hypertension skilled nursing (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 hemorrhage, unspecified COMPLETE BLOOD COUNT Routine 03/17/2025 6:28 AM EDT Chronic obstructive pulmonary disease, unspecified ([facility] V24, [facility] V28) Essential (primary) hypertension 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 (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 hemorrhage, unspecified BASIC METABOLIC PANEL Routine 03/17/2025 6:28 AM EDT Chronic obstructive pulmonary disease, unspecified (CMS/HCC V24, [facility] V28) Essential (primary) hypertension skilled nursing (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 hemorrhage, unspecified documented in this encounter Results * (ABNORMAL) Prothrombin time with INR (03/17/2025 6:28 AM EDT) Protime 29.6(H) 10.6 - 13.9 sec LAB COAGULATION METHOD 03/17/2025 9:02 AM EDT [facility] INR 2.4 LAB COAGULATION METHOD 03/17/2025 9:02 AM EDT [facility] Blood Venous blood specimen / Unknown Venipuncture / Unknown 03/17/2025 6:28 AM EDT 03/17/2025 8:17 AM EDT us Kasey Miller MD LAB BLOOD ORDERABLES Fin al Result [facility] [address] [place] [address], * (ABNORMAL) Complete blood count (03/17/2025 6:28 AM EDT) WBC 9.2 4.8 - 10.8 K/mcL LAB HEMETOLOGY METHOD 03/17/2025 9:03 AM [facility] RBC 3.40(L) 3.80 - 4.80 M/mcL LAB HEMETOLOGY METHOD 03/17/2025 9:03 AM [facility] Hemoglobin 10.5(L) 11.5 - 16.0 g/dL LAB HEMETOLOGY METHOD 03/17/2025 9:03 AM [facility] Hematocrit 33.6(L) 35.0 - 47.0 % LAB HEMETOLOGY METHOD 03/17/2025 9:03 AM [facility] MCV 97.7 79.0 - 98.0 FL LAB HEMETOLOGY METHOD 03/17/2025 9:03 AM [facility] MCH 30.5 27.0 - 32.0 pcg LAB HEMETOLOGY METHOD 03/17/2025 9:03 AM [facility] MCHC 31.3(L) 32.0 - 37.0 g/dL LAB HEMETOLOGY METHOD 03/17/2025 9:03 AM [facility] RDW 17.2(H) 11.0 - 15.0 % LAB HEMETOLOGY METHOD 03/17/2025 9:03 AM [facility] Platelets 216 130 - 400 K/mcL LAB HEMETOLOGY METHOD 03/17/2025 9:03 AM [facility] MPV 11.0 7.0 - 11.0 FL LAB HEMETOLOGY METHOD 03/17/2025 9:03 AM [facility] NRBC 0.0 <1.0 % LAB HEMETOLOGY METHOD 03/17/2025 9:03 AM [facility] NRBC Absolute 0.00 <0.10 K/mcL LAB HEMETOLOGY METHOD 03/17/2025 9:03 AM [facility] Blood Venous blood specimen / Unknown Venipuncture / Unknown 03/17/2025 6:28 AM EDT 03/17/2025 8:17 AM EDT us Kasey Miller MD LAB BLOOD ORDERABLES Fin al Result [facility] [address] [place] [address], [place] [phone] * (ABNORMAL) Basic metabolic panel (03/17/2025 6:28 AM EDT) [facility] Sodium 137 133 - 145 mmol/L LAB CHEMISTRY METHOD 03/17/2025 9:42 AM [facility] Potassium 4.1 3.5 - 5.5 mmol/L LAB CHEMISTRY METHOD 03/17/2025 9:42 AM [facility] Chloride 102 96 - 110 mmol/L LAB CHEMISTRY METHOD 03/17/2025 9:42 AM [facility] CO2 27 21 - 32 mmol/L LAB CHEMISTRY METHOD 03/17/2025 9:42 AM [facility] Anion Gap 8 3 - 11 LAB CHEMISTRY METHOD 03/17/2025 9:42 AM [facility] Glucose 94 70 - 100 mg/dL LAB CHEMISTRY METHOD 03/17/2025 9:42 AM [facility] BUN 22 5 - 25 mg/dL LAB CHEMISTRY METHOD 03/17/2025 9:42 AM [facility] Creatinine 1.14(H) 0.50 - 1.10 mg/dL LAB CHEMISTRY METHOD 03/17/2025 9:42 AM [facility] eGFR 48(L) >=60 mL/min/1. 73m2 LAB CHEMISTRY METHOD 03/17/2025 9:42 AM [facility] Comment:Calculation based on the Chronic Kidney Disease Epidemiology Collaboration (CKD-EPI) equation refit without adjustment for race. BUN/Creatinine Ratio 19.3 LAB CHEMISTRY METHOD 03/17/2025 9:42 AM EDT [facility] Calcium 9.7 8.5 - 10.5 mg/dL LAB CHEMISTRY METHOD 03/17/2025 9:42 AM EDT [facility] Blood Venous blood specimen / Unknown Venipuncture / Unknown 03/17/2025 6:28 AM EDT 03/17/2025 8:17 AM EDT us Kasey Miller MD LAB BLOOD ORDERABLES Fin al Result [facility] [address] [place] [address], documented in this encounter Visit Diagnoses Diagnosis Chronic obstructive pulmonary disease, unspecified (CMS/HCC V24, CMS/HCC V28) Essential (primary) hypertension Unspecified essential hypertension skilled nursing (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 Long-term (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 hemorrhage, unspecified documented in this encounter Care Teams Master Rigger Relationship Specialty Start Date End Date Bright Garber MD [address] [place] [address] PCP - General Internal Medicine 08/02/20 documented as of this encounter
--- OUTSIDE RECORDS SUMMARY | 2025-11-03 17:50 | XMS_ITS | Encounter Summary ---
Author Organization [facility] Address [address] [place] [address] Care Team Providers Care International Logistics Coordinator Name Role Phone Bright Garber MD Primary Care Provider [phone] Encounter Details Date Type Department Care Team (Late st Contact Info) Description 06/15/[address] [facility] - Main Lab 299 [facility] [place] [address] Kasey Miller MD 819 [facility] 1 [place], [place] [id number] Unspecified atrial fibrillation (CMS/HCC V24, CMS/HCC V28) [...] Description 11/30/2025 2:00 PM EST Office Visit [facility] - [address] 300 [facility] [address] [place] [address] Jose Schuler MD [address] [place] [address] [address] [place] [address] documented as of this encounter Procedures Procedure Name Priority Date/Time Associated Diagnosis Comments PROTHROMBIN TIME WITH INR Routine 06/16/2025 5:00 AM EDT Unspecified atrial fibrillation (CMS/HCC V24, CMS/HCC V28) documented in this encounter Results * (ABNORMAL) Prothrombin time with INR (06/16/2025 5:00 AM EDT) Protime 17.7(H) 10.6 - 13.9 sec LAB COAGULATION METHOD 06/16/2025 8:27 AM EDT [facility] INR 1.4 LAB COAGULATION METHOD 06/16/2025 8:27 AM EDT [facility] Blood Venous blood specimen / Unknown Venipuncture / Unknown 06/16/2025 5:00 AM EDT 06/16/2025 7:45 AM EDT us Kasey Miller MD LAB BLOOD ORDERABLES Fin al Result [facility] 299 [place] [address], documented in this encounter Visit Diagnoses Diagnosis Unspecified atrial fibrillation (CMS/HCC V24, CMS/HCC V28) documented in this encounter Care Teams International Logistics Coordinator Relationship Specialty Start Date End Date Bright Garber MD [address] [place] [address] PCP - General Internal Medicine 08/02/20 documented as of this encounter
--- OUTSIDE RECORDS SUMMARY | 2025-11-03 17:50 | XMS_ITS | Encounter Summary ---
Author Organization [facility] Address [address] [place] [address] Care Team Providers Care Home Health Attendant Name Role Phone Bright Garber MD Primary Care Provider [phone] Encounter Details Date Type Department Care Team (Late st Contact Info) Description 05/12/2025 Lab Requisition [facility] - Main Lab 299 [facility] [place] [address] Kasey Miller MD 819 [facility] 1 [place], [place] [id number] Unspecified atrial fibrillation (CMS/HCC V24, CMS/HCC V28) [...] Office Visit [facility] - [address] 300 [facility] [address] [place] [address] Jose Schuler MD [address] [place] [address] [address] [place] [address] documented as of this encounter Procedures Procedure Name Priority Date/Time Associated Diagnosis Comments PROTHROMBIN TIME WITH INR Routine 05/12/2025 6:50 AM EDT Unspecified atrial fibrillation (CMS/HCC V24, CMS/HCC V28) documented in this encounter Results * (ABNORMAL) Prothrombin time with INR (05/12/2025 6:50 AM EDT) Protime 22.2(H) 10.6 - 13.9 sec LAB COAGULATION METHOD 05/12/2025 10:16 AM EDT [facility] INR 1.8 LAB COAGULATION METHOD 05/12/2025 10:16 AM EDT [facility] Blood Venous blood specimen / Unknown Venipuncture / Unknown 05/12/2025 6:50 AM EDT 05/12/2025 8:47 AM EDT us Kasey Miller MD LAB BLOOD ORDERABLES Fin al Result [facility] 299 [place] [address], documented in this encounter Visit Diagnoses Diagnosis Unspecified atrial fibrillation (CMS/HCC V24, CMS/HCC V28) documented in this encounter Care Teams Home Health Attendant Relationship Specialty Start Date End Date Bright Garber MD [address] [place] [address] PCP - General Internal Medicine 08/02/20 documented as of this encounter
--- OUTSIDE RECORDS SUMMARY | 2025-11-03 17:50 | XMS_ITS | Encounter Summary ---
Author Organization [facility] Address [address] [place] [address] Care Team Providers Care Optician Name Role Phone Bright Garber MD Primary Care Provider [phone] Encounter Details Date Type Department Care Team (Late Contact Info) Description 04/06/[address] [facility] - Main Lab 299 [facility] [place] [address] Kasey Miller MD 9 [facility] 1 [place] [address] Chronic combined systolic (congestive) and diastolic (congestive) [...] 11/30/2025 2:00 PM EST Office Visit [facility] - [address] 300 [facility] [address] [place] [address] Jose Schuler MD [address] [place] [address] [address] [place] [address] documented as of this encounter Procedures Procedure Name Priority Date/Time Associated Diagnosis Comments PROTHROMBIN TIME WITH INR Routine 04/07/2025 5:38 AM EDT Chronic combined systolic (congestive) and diastolic (congestive) heart failure (CMS/HCC V24, CMS/HCC V28) Paroxysmal atrial fibrillation (CMS/HCC V24, CMS/HCC V28) documented in this encounter Results * (ABNORMAL) Prothrombin time with INR (04/07/2025 5:38 AM EDT) Protime 35.3(H) 10.6 - 13.9 sec LAB COAGULATION METHOD 04/07/2025 10:48 AM EDT [facility] INR 2.9 LAB COAGULATION METHOD 04/07/2025 10:48 AM EDT [facility] Blood Venous blood specimen / Unknown Venipuncture / Unknown 04/07/2025 5:38 AM EDT 04/07/2025 10:34 AM EDT us Kasey Miller MD LAB BLOOD ORDERABLES Fin al Result [facility] 299 [place] [address], documented in this encounter Visit Diagnoses Diagnosis Chronic combined systolic (congestive) and diastolic (congestive) heart failure ([facility]/HCC V24, CMS/HCC V28) Paroxysmal atrial fibrillation ([facility]/HCC V24, [facility]/HCC V28) Atrial fibrillation documented in this encounter Care Teams Optician Relationship Specialty Start Date End Date Bright Garber MD [address] [place] [address] PCP - General Internal Medicine 08/02/20 documented as of this encounter
--- OUTSIDE RECORDS SUMMARY | 2025-11-03 17:50 | XMS_ITS | Encounter Summary ---
Author Organization [facility] Address [address] [place] [address] Care Team Providers Care Hydraulic Mechanic Name Role Phone Bright Garber MD Primary Care Provider [phone] Encounter Details Date Type Department Care Team (Late st Contact Info) Description 06/08/[address] [facility] - Main Lab 299 [facility] [place] [address] Kasey Miller MD 819 [facility] 1 [place], [place] [phone] Unspecified atrial fibrillation (CMS/HCC V24, CMS/HCC V28) [...] Description 11/30/2025 2:00 PM EST Office Visit [facility] - [address] 300 [facility] [address] [place] [address] Jose Schuler MD [address] [place] [address] [address] [place] [address] documented as of this encounter Procedures Procedure Name Priority Date/Time Associated Diagnosis Comments PROTHROMBIN TIME WITH INR Routine 06/09/2025 5:50 AM EDT Unspecified atrial fibrillation (CMS/HCC V24, CMS/HCC V28) documented in this encounter Results * (ABNORMAL) Prothrombin time with INR (06/09/2025 5:50 AM EDT) Protime 27.9(H) 10.6 - 13.9 sec LAB COAGULATION METHOD 06/09/2025 7:43 AM EDT [facility] INR 2.3 LAB COAGULATION METHOD 06/09/2025 7:43 AM EDT [facility] Blood Venous blood specimen / Unknown Venipuncture / Unknown 06/09/2025 5:50 AM EDT 06/09/2025 6:53 AM EDT us Kasey Miller MD LAB BLOOD ORDERABLES Fin al Result [facility] [address] [place] [address], documented in this encounter Visit Diagnoses Diagnosis Unspecified atrial fibrillation (CMS/HCC V24, CMS/HCC V28) documented in this encounter Care Teams Hydraulic Mechanic Relationship Specialty Start Date End Date Bright Garber MD [address] [place] [address] PCP - General Internal Medicine 08/02/20 documented as of this encounter
--- OUTSIDE RECORDS SUMMARY | 2025-11-03 17:50 | XMS_ITS | Encounter Summary ---
Author Organization [facility] Address [address] [place] [address] Care Team Providers Care Power Manager Name Role Phone Bright Garber MD Primary Care Provider [phone] Encounter Details Date Type Department Care Team (Late st Contact Info) Description 05/06/2025 Lab Requisition [facility] - Main Lab 299 [facility] [place] [address] Kasey Miller MD 819 [facility] 1 [place], [place] [phone] Unspecified atrial fibrillation (CMS/HCC V24, CMS/HCC V28) [...] Description 11/30/2025 2:00 PM EST Office Visit [facility] - [address] [facility] [address] [place] [address] Jose Schuler MD [address] [place] [address] [address] [place] [address] documented as of this encounter Procedures Procedure Name Priority Date/Time Associated Diagnosis Comments PROTHROMBIN TIME WITH INR Routine 05/07/2025 5:58 AM EDT Unspecified atrial fibrillation (CMS/HCC V24, CMS/HCC V28) documented in this encounter Results * (ABNORMAL) Prothrombin time with INR (05/07/2025 5:58 AM EDT) Protime 29.6(H) 10.6 - 13.9 sec LAB COAGULATION METHOD 05/07/2025 10:[address] [facility] INR 2.4 LAB COAGULATION METHOD 05/07/2025 10:[address] [facility] Blood Venous blood specimen / Unknown Venipuncture / Unknown 05/07/2025 5:58 AM EDT 05/07/2025 8:46 AM EDT us Kasey Miller MD LAB BLOOD ORDERABLES Fin al Result [facility] 299 [place] [address], documented in this encounter Visit Diagnoses Diagnosis Unspecified atrial fibrillation (CMS/HCC V24, CMS/HCC V28) documented in this encounter Care Teams Power Manager Relationship Specialty Start Date End Date Bright Garber MD [address] [place] [address] PCP - General Internal Medicine 08/02/20 documented as of this encounter
--- OUTSIDE RECORDS SUMMARY | 2025-11-03 17:50 | XMS_ITS | Encounter Summary ---
Author Organization [facility] Address [address] [place] [address] Care Team Providers Care Screen Cutter And Trimmer Name Role Phone Bright Garber MD Primary Care Provider [phone] Encounter Details Date Type Department Care Team (Late Contact Info) Description 04/27/2025 Lab Requisition [facility] - Main Lab 299 [facility] [place] [address] Kasey Miller MD 9 [facility] 1 [place] [address] Chronic combined systolic (congestive) and diastolic (congestive) [...] Description 11/30/2025 2:00 PM EST Office Visit [facility] - [address] 300 [facility] [address] [place] [address] Jose Schuler MD [address] [place] [address] [address] [place] [address] documented as of this encounter Procedures Procedure Name Priority Date/Time Associated Diagnosis Comments PROTHROMBIN TIME WITH INR Routine 04/28/2025 5:59 AM EDT Chronic combined systolic (congestive) and diastolic (congestive) heart failure ([facility]/HCC V24, CMS/HCC V28) Paroxysmal atrial fibrillation (CMS/HCC V24, CMS/HCC V28) documented in this encounter Results * (ABNORMAL) Prothrombin time with INR (04/28/2025 5:59 AM EDT) Protime 28.4(H) 10.6 - 13.9 sec LAB COAGULATION METHOD 04/28/2025 8:17 AM EDT [facility] INR 2.3 LAB COAGULATION METHOD 04/28/2025 8:17 AM EDT [facility] Blood Venous blood specimen / Unknown Venipuncture / Unknown 04/28/2025 5:59 AM EDT 04/28/2025 8:01 AM EDT us Kasey Miller MD LAB BLOOD ORDERABLES Fin al Result [facility] 299 [place] [address], documented in this encounter Visit Diagnoses Diagnosis Chronic combined systolic (congestive) and diastolic (congestive) heart failure ([facility]/HCC V24, CMS/HCC V28) Paroxysmal atrial fibrillation ([facility] V24, [facility]/HCC V28) Atrial fibrillation documented in this encounter Care Teams Screen Cutter And Trimmer Relationship Specialty Start Date End Date Bright Garber MD [address] [place] [address] PCP - General Internal Medicine 08/02/20 documented as of this encounter
--- OUTSIDE RECORDS SUMMARY | 2025-11-03 17:50 | XMS_ITS | Encounter Summary ---
Author Organization [facility] Address [address] [place] [address] Care Team Providers Care Bias Machine Operator Helper Name Role Phone Bright Garber MD Primary Care Provider [phone] Encounter Details Date Type Department Care Team (Late Contact Info) Description 03/23/2025 Lab Requisition [facility] - Main Lab 299 [facility] [place] [address] Kasey Miller MD 9 [facility] 1 [place] [address] Chronic combined systolic (congestive) and diastolic (congestive) [...] 11/30/2025 2:00 PM EST Office Visit [facility] Associates - [address] 300 [facility] [address] [place] [address] Jose Schuler MD [address] [place] [address] [address] [place] [address] documented as of this encounter Procedures Procedure Name Priority Date/Time Associated Diagnosis Comments PROTHROMBIN TIME WITH INR Routine 03/24/2025 6:22 AM EDT Chronic combined systolic (congestive) and diastolic (congestive) heart failure (CMS/HCC V24, CMS/HCC V28) Paroxysmal atrial fibrillation (CMS/HCC V24, CMS/HCC V28) documented in this encounter Results * (ABNORMAL) Prothrombin time with INR (03/24/2025 6:22 AM EDT) Protime 33.5(H) 10.6 - 13.9 sec LAB COAGULATION METHOD 03/24/2025 10:13 AM EDT [facility] INR 2.7 LAB COAGULATION METHOD 03/24/2025 10:13 AM EDT [facility] Blood Venous blood specimen / Unknown Venipuncture / Unknown 03/24/2025 6:22 AM EDT 03/24/2025 9:16 AM EDT us Kasey Miller MD LAB BLOOD ORDERABLES Fin al Result [facility] 299 [place] [address], documented in this encounter Visit Diagnoses Diagnosis Chronic combined systolic (congestive) and diastolic (congestive) heart failure ([facility]/HCC V24, CMS/HCC V28) Paroxysmal atrial fibrillation ([facility]/HCC V24, [facility]/HCC V28) Atrial fibrillation documented in this encounter Care Teams Bias Machine Operator Helper Relationship Specialty Start Date End Date Bright Garber MD [address] [place] [address] PCP - General Internal Medicine 08/02/20 documented as of this encounter
--- OUTSIDE RECORDS SUMMARY | 2025-11-03 17:50 | XMS_ITS | Patient Health Record ---
Author Organization [facility] Address [address] [facility] [place] [address] Care Team Providers Care Senior Boiler Operator Name Role Phone Bright Garber MD Primary Care Provider UnavailSherrell Perkins Unavailable [phone] Allergies Allergen (clinical drug ingredient) Drug/Non Drug Allergy documented on EMR Reaction Allergy Type Onset Date Status sulfamethoxazole / trimethoprim Bactrim hives Drug Allergy Active Reason For Referral No Information Medications Medication SIG (Take, Route, Frequency, Duration) Notes Start Date End Date Status Ciclopirox Olamine 0.77 % 1 application to affected area Externally Twice a day; Duration: 30 days 02/21/2018 Active Clotrimazole 1 % 1 application to affected area Externally Twice a day; Duration: 90 days 02/25/2018 Not-Taking Citalopram & Diet Manage Prod Active Warfarin Sodium 4 MG as directed Orally Once a day Active Vitamin B12 Active Clotrimazole-Betameth asone 1-0.05 % APPLY TOPCIALLY TWICE A DAY External; Duration: 30 Active carBAMazepine 200 MG TAKE 1 TABLET BY MOUTH TWICE A DAY Oral; Duration: 30 Active Magnesium Oxide Acti ve Atorvastatin Calcium Active oxyBUTYnin 5mg Activ e Amlodipine & Diet Manage Prod Active Omeprazole Active Meloxicam Active Keflex 500 MG 1 capsule Orally every 12 hrs; Duration: 10 day(s) 03/25/2014 Not-Taking Meclizine HCl 12.5 MG 2 tablets orally three times a day Active Ciclopirox Olamine 0.77 % 1 application to affected area Externally Twice a day; Duration: 30 days 10/22/2017 Not-Taking Irbesartan 150 MG 1 tablet Orally Once a day; Duration: 30 day(s) Active Ciclopirox Olamine 0.77% external Apply to effected areas twice a day; Duration: 30 days 03/25/2014 Not-Taking Furosemide 20 MG 1 tablet Orally Once a day; Duration: 30 day(s) 40 mg if alot of swelling Active Pravastatin Sodium N ot-Taking buPROPion HCl Active Losartan Potassium 50 MG TAKE 1 TABLET BY MOUTH EVERY DAY Oral; Duration: 30 Not-Taking Immunizations Vaccine Route Administration Date Status Comme nts COVID-19 Hitesh & Hitesh/Dionte Unknown 10/17/2021 Administered 1st 02/14/2021 Social History Tobacco Use: Social History Observation Description Date Details (start date - stop date) Former Smoker NA - NA Tobacco Use/Smoking Question Answer Notes Are you a: former smoker Additional Findings: Tobacco Non-User Current no n-smoker Alcohol Screen Question Answer Notes Did you have a drink contain ing alcohol in the past year? Yes How often did you have a dri nk containing alcohol in the past year? Monthly or less (1 point) How often did you have 6 or more drinks on one occasion in the past year? Less than monthly (1 point) Points 2 Interpretation Negative Tobacco use other than smoking: Question Answer Notes Are you an other tobacco user? No Problems Problem Type SNOMED Code ICD Code Onset Dates Problem Status W/U Status Risk Notes Problem Localized, primary osteoarthritis of the ankle and/or foot (750666158) Primary osteoarthritis, right ankle and foot (M19.071) Active confirmed Problem Peripheral venous insufficiency (60128568) Venous insufficiency (I87.2) Active confirmed Plan Of Treatment Pending Test Test Name Order Date [id number] NAIL, 6 OR MORE 08/07/2011 75179-RUSBCRG NAIL, 6 OR MORE 10/16/2011 21534-MAYXDIQ NAIL, 6 OR MORE 01/15/2012 82201-SUNJRNV NAIL, 6 OR MORE 05/13/2012 32044-LNTLARA NAIL, 6 OR MORE 08/14/2012 01718-UGEAJMS NAIL, 6 OR MORE 11/20/2012 27498-UBHACND NAIL, 6 OR MORE 02/24/2013 49749-JGNTOSN NAIL, 6 OR MORE 05/26/2013 31970-LOUMKLY NAIL, 6 OR MORE 08/25/2013 44847-GNXPCJZ NAIL, 6 OR MORE 03/25/2014 57393-ZSKEQNJ NAIL, 6 OR MORE 12/12/2013 49427-PUYCMRS NAIL, 6 OR MORE 06/24/2014 49785-FXIWEAF NAIL, 6 OR MORE 12/04/2014 55914-PTQYXPG NAIL, 6 OR MORE 10/24/2016 64722-HHQQRGY NAIL, 6 OR MORE 02/22/2017 26306-UDIUUMQ NAIL, 6 OR MORE 07/09/2017 81820-SDTCBXS NAIL, 6 OR MORE 10/22/2017 69547-MCROJWV NAIL, 6 OR MORE 02/21/2018 07310-YHBTOGC NAIL, 6 OR MORE 06/27/2018 24462-IHJUXMW NAIL, 6 OR MORE 10/24/2018 70121-IICALCX NAIL, 6 OR MORE 03/18/2019 64826-DCDURUO NAIL, 6 OR MORE 06/16/2019 25238-WJGCOIM NAIL, 6 OR MORE 11/06/2019 60149-DIYQILV NAIL, 6 OR MORE 07/01/2020 51476-KXWEIQM NAIL, 6 OR MORE 09/30/2020 48607-ZNAQUHU NAIL, 6 OR MORE 12/30/2020 62340-VJRZSOA NAIL, 6 OR MORE 06/30/2021 96667-KISXGMA NAIL, 6 OR MORE 11/24/2021 39424-YVEGZOY NAIL, 6 OR MORE 02/27/2022 92921-DPPPOGW NAIL, 6 OR MORE 06/05/2022 42307-Bfbq Destruction, -14 11/24/2021 97768-Snre Destruction, -14 06/05/2022 31478-Rdqb Destruction, -14 02/27/2022 25503-Ntqi Destruction, -14 06/30/2021 51112-Ivcn Destruction, -14 12/30/2020 24516-Fdlh Destruction, -14 09/30/2020 43101-Zcyu Destruction, -14 07/01/2020 63032-Hhsb Destruction, -14 11/06/2019 51053-Qoal Destruction, -14 03/18/2019 34341-Gllo Destruction, -14 06/16/2019 65347-Serb Destruction, -14 08/25/2013 77810-Nufl Destruction, -14 06/24/2014 75571-Dyts Destruction, -14 12/12/2013 94684-Uknj Destruction, 1-14 02/24/2013 08358-Fnum Destruction, -14 01/15/2012 16477-Wcbc Destruction, -14 11/20/2012 80726-Obtj Destruction, -14 05/13/2012 45955-Woxvdnji Plate 01/15/2012 74289-Dwostuhz Plate 10/16/2011 87588-Gszpakth Plate 11/20/2012 37666-Cxurlewj Plate 08/14/2012 33211-Myumaxmw Plate 12/12/2013 46004-Cvnwvisr Plate 06/24/2014 05594-Txjaffpt Plate 12/04/2014 16586-Rnolnsfi Plate 03/25/2014 91737-Utbpbldo Plate 08/25/2013 02994-Csaaylig Plate 05/26/2013 55422-Zpektags Plate 10/22/2017 67457-Ibduchpa Plate 02/22/2017 42874-Sfeopunj Plate 06/30/2021 64861-Kiswsuvp Plate 11/24/2021 52502-Jxycmeor Plate 06/05/2022 77279-Lzmththp Plate Each Additional 04/2022 03293-Kckyudsi Plate Each Additional 05/2014 47097-Bfnuwrxc Plate Each Additional 29304-Rbzcvsvk Plate Each Additional 98856- Debride <25 sq cm 12/04/2014 49156 I&D ABSCESS- SIMPLE,SINGLE 014 53518 I&D ABSCESS- SIMPLE,SINGLE 017 Insurance Providers Payer Name Payer Address Payer Phone Subscriber Number Group Number Insured Name Patient Relationship to Insured Coverage Start Date Coverage End Date Medicare National Govt [facility] [address] [place] [address] [id number] Charlotte Castillo Self - patient is the insured Medical (General) History Medical History History ICD Code heart disease transfusions mumps measles joint implants/screws depression chicken pox Cholesterol back, hip, knee pain Arthritis Anxiety disorder skin cancer Surgical History Surgery Date(Month/Year) knee replacement tonsillectomy Cataract surgery 06/2018 cardiac 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
--- OUTSIDE RECORDS SUMMARY | 2025-11-03 17:50 | XMS_ITS | Encounter Summary ---
Author Organization [facility] Address [address] [place] [address] Care Team Providers Care Line Assigner Name Role Phone Bright Garber MD Primary Care Provider [phone] Encounter Details Date Type Department Care Team (Late st Contact Info) Description 04/11/2025 Lab Requisition [facility] - Main Lab 299 [facility] [place] [address] Kasey Miller MD 819 [facility] 1 [place] [address] Unspecified systolic (congestive) heart failure (CMS/HCC V24, CMS/HCC V28); [...] Office Visit [facility] - [address] [facility] 154 [place] [address] Jose Schuler MD [address] [place] [address] [address] [place] [address] documented as of this encounter Procedures Procedure Name Priority Date/Time Associated Diagnosis Comments PROTHROMBIN TIME WITH INR Routine 04/14/2025 7:00 AM EDT Unspecified systolic (congestive) heart failure (CMS/HCC V24, CMS/HCC V28) Paroxysmal atrial fibrillation (CMS/HCC V24, CMS/HCC V28) documented in this encounter Results * (ABNORMAL) Prothrombin time with INR (04/14/2025 7:00 AM EDT) Protime 20.2(H) 10.6 - 13.9 sec LAB COAGULATION METHOD 04/14/2025 10:43 AM EDT [facility] INR 1.6 LAB COAGULATION METHOD 04/14/2025 10:43 AM EDT [facility] Blood Venous blood specimen / Unknown Venipuncture / Unknown 04/14/2025 7:00 AM EDT 04/14/2025 10:06 AM EDT us Kasey Miller MD LAB BLOOD ORDERABLES Fin al Result [facility] [address] [place] [address], documented in this encounter Visit Diagnoses Diagnosis Unspecified systolic (congestive) heart failure (CMS/HCC V24, CMS/HCC V28) Paroxysmal atrial fibrillation (CMS/HCC V24, CMS/HCC V28) Atrial fibrillation documented in this encounter Care Teams Line Assigner Relationship Specialty Start Date End Date Bright Garber MD [address] [place] [address] PCP - General Internal Medicine 08/02/20 documented as of this encounter
--- OUTSIDE RECORDS SUMMARY | 2025-11-03 17:50 | XMS_ITS | Encounter Summary ---
Author Organization [facility] [address] Address [address] [place] [address] Care Team Providers Care Lap Winder Name Role Phone Bright Garber MD Primary Care Provider [phone] Encounter Details Date Type Department Care Team (Late st Contact Info) Description 06/22/2025 Lab Requisition [facility] - Main Lab 299 [facility] [place] [address] Kasey Miller MD [address] [facility] 1 [place], [place] [id number] Unspecified atrial fibrillation (CMS/HCC V24, CMS/HCC V28) [...] Description 11/30/2025 2:00 PM EST Office Visit [facility] - [address] [facility] [address] [place] [address] Jose Schuler MD [address] [place] [address] [address] [place] [address] documented as of this encounter Procedures Procedure Name Priority Date/Time Associated Diagnosis Comments PROTHROMBIN TIME WITH INR Routine 06/23/2025 6:25 AM EDT Unspecified atrial fibrillation (CMS/HCC V24, CMS/HCC V28) documented in this encounter Results * (ABNORMAL) Prothrombin time with INR (06/23/2025 6:25 AM EDT) Protime 35.2(H) 10.6 - 13.9 sec LAB COAGULATION METHOD 06/23/2025 9:07 AM EDT [facility] INR 2.9 LAB COAGULATION METHOD 06/23/2025 9:07 AM EDT [facility] Blood Venous blood specimen / Unknown Venipuncture / Unknown 06/23/2025 6:25 AM EDT 06/23/2025 8:20 AM EDT us Kasey Miller MD LAB BLOOD ORDERABLES Fin al Result [facility] [address] [place] [address], documented in this encounter Visit Diagnoses Diagnosis Unspecified atrial fibrillation (CMS/HCC V24, CMS/HCC V28) documented in this encounter Care Teams Lap Winder Relationship Specialty Start Date End Date Bright Garber MD [address] [place] [address] PCP - General Internal Medicine 08/02/20 documented as of this encounter
--- OUTSIDE RECORDS SUMMARY | 2025-11-03 17:50 | XMS_ITS | Encounter Summary ---
Author Organization [facility] Address [address] [place] [address] Care Team Providers Care Steel Division Supervisor Name Role Phone Bright Garber MD Primary Care Provider [phone] Encounter Details Date Type Department Care Team (Late Contact Info) Description 04/20/[address] [facility] - Main Lab 299 [facility] [place] [address] Kasey Miller MD 9 [facility] 1 [place] [address] Chronic combined systolic (congestive) and diastolic (congestive) [...] Description 11/30/2025 2:00 PM EST Office Visit [facility] - [address] 300 [facility] [address] [place] [address] Jose Schuler MD [address] [place] [address] [address] [place] [address] documented as of this encounter Procedures Procedure Name Priority Date/Time Associated Diagnosis Comments PROTHROMBIN TIME WITH INR Routine 04/21/2025 5:42 AM EDT Chronic combined systolic (congestive) and diastolic (congestive) heart failure ([facility]/HCC V24, CMS/HCC V28) Paroxysmal atrial fibrillation (CMS/HCC V24, CMS/HCC V28) documented in this encounter Results * (ABNORMAL) Prothrombin time with INR (04/21/2025 5:42 AM EDT) Protime 31.7(H) 10.6 - 13.9 sec LAB COAGULATION METHOD 04/21/2025 9:57 AM EDT [facility] INR 2.6 LAB COAGULATION METHOD 04/21/2025 9:57 AM EDT [facility] Blood Venous blood specimen / Unknown Venipuncture / Unknown 04/21/2025 5:42 AM EDT 04/21/2025 9:23 AM EDT us Kasey Miller MD LAB BLOOD ORDERABLES Fin al Result [facility] 299 [place] [address], documented in this encounter Visit Diagnoses Diagnosis Chronic combined systolic (congestive) and diastolic (congestive) heart failure ([facility]/HCC V24, CMS/HCC V28) Paroxysmal atrial fibrillation ([facility] V24, [facility]/HCC V28) Atrial fibrillation documented in this encounter Care Teams Steel Division Supervisor Relationship Specialty Start Date End Date Bright Garber MD [address] [place] [address] PCP - General Internal Medicine 08/02/20 documented as of this encounter
--- OUTSIDE RECORDS SUMMARY | 2025-11-03 17:50 | XMS_ITS | Encounter Summary ---
Author Organization [facility] Address [address] [place] [address] Care Team Providers Care Mold Mechanic Name Role Phone Bright Garber MD Primary Care Provider [phone] Encounter Details Date Type Department Care Team (Late st Contact Info) Description 06/29/2025 Lab Requisition [facility] - Main Lab 299 [facility] [place] [address] Kasey Miller MD 819 [facility] 1 [place], [place] [phone] Unspecified atrial fibrillation (CMS/HCC V24, CMS/HCC V28) [...] Visit [facility] - [address] [facility] [address] [place] [address] Jose Schuler MD [address] [place] [address] [address] [place] [address] documented as of this encounter Procedures Procedure Name Priority Date/Time Associated Diagnosis Comments PROTHROMBIN TIME WITH INR Routine 06/30/2025 5:57 AM EDT Unspecified atrial fibrillation (CMS/HCC V24, CMS/HCC V28) documented in this encounter Results * (ABNORMAL) Prothrombin time with INR (06/30/2025 5:57 AM EDT) Protime 18.6(H) 10.6 - 13.9 sec LAB COAGULATION METHOD 06/30/2025 9:20 AM EDT [facility] INR 1.5 LAB COAGULATION METHOD 06/30/2025 9:20 AM EDT [facility] Blood Venous blood specimen / Unknown Venipuncture / Unknown 06/30/2025 5:57 AM EDT 06/30/2025 9:01 AM EDT us Kasey Miller MD LAB BLOOD ORDERABLES Fin al Result [facility] [address] [place] [address], documented in this encounter Visit Diagnoses Diagnosis Unspecified atrial fibrillation (CMS/HCC V24, CMS/HCC V28) documented in this encounter Care Teams Mold Mechanic Relationship Specialty Start Date End Date Bright Garber MD [address] [place] [address] PCP - General Internal Medicine 08/02/20 documented as of this encounter
--- OUTSIDE RECORDS SUMMARY | 2025-11-03 17:51 | XMS_ITS | Encounter Summary ---
Author Organization [facility] Address [address] [place] [address] Care Team Providers Care Edging Machine Catcher Name Role Phone Bright Garber MD Primary Care Provider [phone] Encounter Details Date Type Department Care Team (Late Contact Info) Description 03/30/2025 Lab Requisition [facility] - Main Lab 299 [facility] [place] [address] Kasey Miller MD 9 [facility] 1 [place] [address] Chronic combined systolic (congestive) and diastolic (congestive) [...] Description 11/30/2025 2:00 PM EST Office Visit [facility] - [address] [facility] [address] [place] [address] Jose Schuler MD [address] [place] [address] [address] [place] [address] documented as of this encounter Procedures Procedure Name Priority Date/Time Associated Diagnosis Comments PROTHROMBIN TIME WITH INR Routine 03/31/2025 7:06 AM EDT Chronic combined systolic (congestive) and diastolic (congestive) heart failure ([facility]/HCC V24, CMS/HCC V28) Paroxysmal atrial fibrillation (CMS/HCC V24, CMS/HCC V28) documented in this encounter Results * (ABNORMAL) Prothrombin time with INR (03/31/2025 7:06 AM EDT) Protime 32.9(H) 10.6 - 13.9 sec LAB COAGULATION METHOD 03/31/2025 10:28 AM EDT [facility] INR 2.7 LAB COAGULATION METHOD 03/31/2025 10:28 AM EDT [facility] Blood Venous blood specimen / Unknown Venipuncture / Unknown 03/31/2025 7:06 AM EDT 03/31/2025 9:48 AM EDT us Kasey Miller MD LAB BLOOD ORDERABLES Fin al Result [facility] [address] [place] [address], documented in this encounter Visit Diagnoses Diagnosis Chronic combined systolic (congestive) and diastolic (congestive) heart failure ([facility]/HCC V24, CMS/HCC V28) Paroxysmal atrial fibrillation ([facility] V24, [facility]/HCC V28) Atrial fibrillation documented in this encounter Care Teams Edging Machine Catcher Relationship Specialty Start Date End Date Bright Garber MD [address] [place] [address] PCP - General Internal Medicine 08/02/20 documented as of this encounter
--- OUTSIDE RECORDS SUMMARY | 2025-11-03 17:51 | XMS_ITS | Encounter Summary ---
Author Organization [facility] Address [address] [place] [address] Care Team Providers Care Asphalt Paving Superintendent Name Role Phone Bright Garber MD Primary Care Provider [phone] Encounter Details Date Type Department Care Team (Late st Contact Info) Description 07/13/2025 Lab Requisition [facility] - Main Lab 299 [facility] [place] [address] Kasey Miller MD 819 [facility] 1 [place], [place] [phone] Unspecified atrial fibrillation (CMS/HCC V24, CMS/HCC V28) [...] 11/30/2025 2:00 PM EST Office Visit [facility] - [address] 300 [facility] [address] [place] [address] Jose Schuler MD [address] [place] [address] [address] [place] [address] documented as of this encounter Procedures Procedure Name Priority Date/Time Associated Diagnosis Comments PROTHROMBIN TIME WITH INR Routine 07/14/2025 6:33 AM EDT Unspecified atrial fibrillation (CMS/HCC V24, CMS/HCC V28) documented in this encounter Results * (ABNORMAL) Prothrombin time with INR (07/14/2025 6:33 AM EDT) Protime 28.8(H) 10.6 - 13.9 sec LAB COAGULATION METHOD 07/14/2025 8:50 AM EDT [facility] INR 2.3 LAB COAGULATION METHOD 07/14/2025 8:50 AM EDT [facility] Blood Venous blood specimen / Unknown Venipuncture / Unknown 07/14/2025 6:33 AM EDT 07/14/2025 8:28 AM EDT us Kasey Miller MD LAB BLOOD ORDERABLES Fin al Result [facility] [address] [place] [address], documented in this encounter Visit Diagnoses Diagnosis Unspecified atrial fibrillation (CMS/HCC V24, CMS/HCC V28) documented in this encounter Care Teams Asphalt Paving Superintendent Relationship Specialty Start Date End Date Bright Garber MD [address] [place] [address] PCP - General Internal Medicine 08/02/20 documented as of this encounter
--- OUTSIDE RECORDS SUMMARY | 2025-11-03 17:51 | XMS_ITS | Encounter Summary ---
Author Organization [facility] Address [address] [place] [address] Care Team Providers Care Field Advisor Name Role Phone Bright Garber MD Primary Care Provider [phone] Encounter Details Date Type Department Care Team (Late st Contact Info) Description 07/06/2025 Lab Requisition [facility] - Main Lab 299 [facility] [place] [address] Kasey Miller MD [address] [facility] 1 [place], [place] [phone] Unspecified atrial fibrillation (CMS/HCC V24, CMS/HCC V28) [...] Description 11/30/2025 2:00 PM EST Office Visit [facility] - [address] [facility] [address] [place] [address] Jose Schuler MD [address] [place] [address] [address] [place] [address] documented as of this encounter Procedures Procedure Name Priority Date/Time Associated Diagnosis Comments PROTHROMBIN TIME WITH INR Routine 07/07/2025 5:31 AM EDT Unspecified atrial fibrillation (CMS/HCC V24, CMS/HCC V28) documented in this encounter Results * (ABNORMAL) Prothrombin time with INR (07/07/2025 5:31 AM EDT) Protime 18.7(H) 10.6 - 13.9 sec LAB COAGULATION METHOD 07/07/2025 8:07 AM EDT [facility] INR 1.5 LAB COAGULATION METHOD 07/07/2025 8:07 AM EDT [facility] Blood Venous blood specimen / Unknown Venipuncture / Unknown 07/07/2025 5:31 AM EDT 07/07/2025 7:06 AM EDT us Kasey Miller MD LAB BLOOD ORDERABLES Fin al Result [facility] [address] [place] [address], documented in this encounter Visit Diagnoses Diagnosis Unspecified atrial fibrillation (CMS/HCC V24, CMS/HCC V28) documented in this encounter Care Teams Field Advisor Relationship Specialty Start Date End Date Bright Garber MD [address] [place] [address] PCP - General Internal Medicine 08/02/20 documented as of this encounter
--- OUTSIDE RECORDS SUMMARY | 2025-11-03 17:51 | XMS_ITS | Patient Health Record ---
Author Organization [facility] Address [address] [place] [address] Care Team Providers Care Lead Esthetician Name Role Phone Kelsi Martinez Unavailable [phone] Allergies Allergen (clinical drug ingredient) Drug/Non Drug Allergy documented on EMR Reaction Allergy Type Onset Date Status sulfamethoxazole / trimethoprim BACTRIM Unknown Drug Allergy Active Substance with sulfonamide structure and antibacterial mechanism of action (substance) Sulfa Antibiotics Unknown Drug Allergy A ctive Reason For Referral No Information Medications Medication SIG (Take, Route, Frequency, Duration) Notes Start Date End Date Status Losartan Potassium 50 MG 1 tablet Orally Once a day Active Magnesium Oxide 400 MG 1 tablet as neede d Orally Once a day Active Ibuprofen 600 MG 1 tablet Orally Q 8 HOURS PRN; Duration: 30 day(s) 03/15/2021 Active Cyanocobalamin 1000 MCG 1 tablet Orally Active traMADol HCl 50 MG 1 tablet as needed Orally TID Active Furosemide 20 MG 1 tablet Orally Once a day Active citalopram 40MG 1 ORAL daily; Duration: -3 [facility] 06/27/2013 Active LORazepam 1 MG 1 tablet at bedtime as needed Orally PRN Active Tylenol Extra Strength 500 MG 1 ORAL every six hours; Duration: -3 [facility] 06/27/2013 Active Warfarin Sodium 2 MG 1 tablet Orally Once a day Active Meclizine HCl 12.5 MG as directed Orally Once a day 1/2 Tablet Active Pravastatin Sodium 20MG 1 ORAL daily; Duration: -3 [facility] 06/27/2013 Not-Taking Isosorbide Mononitrate ER 30 MG 1 tablet in the morning Orally Once a day Active PriLOSEC OTC 20MG 1 ORAL twice daily; Duration: -3 [facility] 09/05/2011 Not-Taking Citalopram Hydrobromide 40 MG 1 tablet Orally Once a day Active Atorvastatin Calcium 20 MG 1 tablet Orally Once a day Active Tylenol PM Extra Strength 2 ORAL at bedtime; Duration: -3 [facility] 06/27/2013 Unknown Social History Tobacco Use: Social History Observation Description Date Details (start date - stop date) Former Smoker NA - NA Tobacco Use/Smoking Question Answer Notes Are you a former smoker How long has it been since you last smoked? > 10 years Problems Problem Type SNOMED Code ICD Code Onset Dates Problem Status W/U Status Risk Notes Problem Female genital organ symptoms (969337216) Other specified symptom associated with female genital organs (625.8) Active confirmed Major Plan Of Treatment No Information Insurance Providers Payer Name Payer Address Payer Phone Subscriber Number Group Number Insured Name Patient Relationship to Insured Coverage Start Date Coverage End Date MEDICARE [address] [place] [id number] [phone] [id number] GRIFFIN SANCHEZ Self - patient is the insured Medical (General) History Medical History History ICD Code Congestive heart failure, unspecified 42 8.0 Surgical History Surgery Date(Month/Year) [place] Knee Replacement Hospitalization History Reason Date(Month/Year) 3 [facility] CHF 08/2021 See Surgical History
== END 2025-11-03 13:41 | disposition home or self-care (01) ==
LOC: HO.HMGCLDS 13:40
DX: I48.91 Unspecified atrial fibrillation (principal)
CPT/HCPCS: 36415; 80048; 85610